=== PATIENT | male | born 1935 | race Caucasian/White ===

== ENCOUNTER → 2017-07-25 17:16 | Outpatient (CLI) | payer MEDICARE, OTHER, SELFPAY ==
--- NOTE | 2017-07-25 10:45 | FLU_PTH ---
PATIENT: GIOVANY MELLO LOC: [facility] U#:[id number] AGE/SX: 89/M ROOM: RE07/25/[address]: Dr. Will Gudino MD : 1935 BED: DIS: SPEC #: [id number] RECD: 07/25/17 16:00 STATUS: MAKENNA CAVANAUGHDeven #: [id number] MITCH: 07/25/17 10:[address]: Will Gudino DEPT: CYTOLOGY RECD BY: Britany Miles ENTERED: 07/26/17 09:11 SP TYPE: Fluid OTHR DR: Dr. Mike Portillo MD Tissues: Urine Procedures: Pap Stain (control) Special Stain Group II Cytospin Fluid HEADER OPERATION: Not noted PRE-OP DIAGNOSIS: History bladder cancer TISSUE SUBMITTED: Urine for cytology DIAGNOSIS CYTOLOGY Urine for cytology (cytospin): Atypical urothelial cells noted. ABEL:kemi 07/27/17 COMMENT Clinical correlation and appropriate follow up are necessary. Case has been reviewed in consultation with Dr. Castañeda who concurs with the above diagnosis. IDC:AM CYTOLOGY STUDY Slides are reviewed. CYTOLOGY GROSS Received is 50 ml of clear yellow fluid labeled with the patient's name and and designated per the requisition as urine. Submitted for cytology preparation. / Kelsea 07/26/17 TC:5 [facility]: [id number]
[2017-07-25 17:18] LABS: Cytology, Body Fluid / CSF SEE PATHOLOGY REPORT
== END ==
PROVIDERS: Family Provider Family Medicine; PCP Family Medicine; Visit Provider Urology
DX: Z85.51 Personal history of malignant neoplasm of bladder (principal)
CPT/HCPCS: 88108; 88305; 88313

== ENCOUNTER → 2018-06-23 07:19 | Outpatient (CLI) | payer MEDICARE, OTHER, SELFPAY ==
[2018-06-15 08:13] VITALS: BMI 28.5
[2018-06-15 09:48] LABS: Anion Gap 10 (5-15); BUN 24 mg/dL (7-18); BUN/Creat Ratio 29.3 RATIO (10-20); Chloride 106 mmol/L (98-107); Creatinine, Serum 0.82 mg/dL (0.70-1.30); EST Glomerular Filtration Rate 96 mL/min (>60); Est Glom Filt Rate - Afr Amer 116 mL/min (>60); Glucose 126 mg/dL (74-106); Potassium 4.4 mmol/L (3.5-5.1); Sodium Level 141 mmol/L (136-145)
--- NOTE | 2018-06-23 07:24 | CT_ITS ---
STUDY: CTA CHEST REASON FOR EXAM: Male, 82 years old. 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 History of diabetes and hypertension. RADIATION DOSAGE (If Supplied By Facility): CTDIvol = ( 15.12 ) mGy, DLP = ( 626.37 ) mGycm TECHNIQUE: The examination was performed with the intravenous administration of Isovue 370 75mL IV. Post-processing of the angiographic images was performed, with multiplanar reformation and 3D reconstruction. Individualized dose optimization techniques were used for this CT. COMPARISON: CT of the chest,, March 26, 2016. FINDINGS: Normal enhancement of the main pulmonary artery and right and left pulmonary arteries. Normal enhancement of the bilateral peripheral pulmonary arteries. There is no demonstrated pulmonary embolism. The There is atherosclerotic tortuosity of the thoracic aorta without aneurysm. As atherosclerotic changes of the right brachiocephalic artery and left subclavian artery. The right internal carotid artery is small in diameter when compared to the left. There is no visualized stenosis. There is no demonstrated aortic dissection. The heart is mildly enlarged. There is a small pericardial effusion. There are calcifications of the coronary arteries. There is partial calcification of the azygos node. No other lymphadenopathy is noted. Normal hilar regions. Normal visualized trachea and bronchi. The lungs are hyper expanded, with flattening of the hemidiaphragms. Minimal linear scarring versus patchy infiltrate in the left lower lobe. There is a pleural-based nodule measuring 4 mm in the lingula. There is an adjacent ill-defined 6 x 5 mm nodule (image 70, series 2) Normal pleura. Normal chest wall structures. There are degenerative changes of thoracic spine. Normal visualized upper abdomen. CT/CTA Chest W/WO Contrast IMPRESSION: 1. Question pulmonary hypertension. There is no evidence of pulmonary embolus. 2. Atherosclerotic aorta without aneurysm or dissection. 3. Mild cardiomegaly with pericardial effusion. 4. Emphysematous changes of the lungs. There are patchy infiltrate at the right lung base with nodular densities in the lingula. 5. Degenerative changes of the lumbar spine Electronically Signed: Juan Carlos Beltran DO at 22:00 EST Tel [phone], Service support ,
[2018-06-23] MEDS: 0.9% Normal Saline 1,000 ML 1000 ML IV (07:45)
[2018-06-23 07:47] VITALS: BP 108/64; PULSE 71; RESP 16; O2SAT 95; BMI 26.9
== END ==
PROVIDERS: Family Provider Family Medicine; PCP Family Medicine; Referring Provider Surgery; Visit Provider Surgery
DX: I65.29 Occlusion and stenosis of unspecified carotid artery (principal); I77.1 Stricture of artery; R79.89 Other specified abnormal findings of blood chemistry
CPT/HCPCS: 96360; 36415; 71275; 80048; Q9967; A4216

== ENCOUNTER → 2019-02-01 17:29 | Outpatient (CLI) | payer MEDICARE, OTHER, SELFPAY ==
[2018-06-23 07:47] VITALS: BMI 26.9
--- NOTE | 2019-02-01 | CYSPIN_PTH ---
PATIENT: GIOVANY MELLO LOC: [facility] U#:[id number] AGE/SX: 89/M ROOM: RE02/01/[address]: Dr. Will Gudino MD : 1935 BED: DIS: SPEC #: [id number] RECD: 02/02/19 08:52 STATUS: MAKENNA YULIET #: [id number] MITCH: 02/01/19 00:[address]: Will Gudnio DEPT: CYTOLOGY RECD BY: Kel Lawrence ENTERED: 02/02/19 08:52 SP TYPE: CYSPIN FL OTHR DR: Dr. Mike Portillo MD Tissues: Urine Procedures: Pap Stain (control) Special Stain Group II Cytospin Fluid HEADER OPERATION: Not noted PRE-OP DIAGNOSIS: R82.998 TISSUE SUBMITTED: Urine for cytology DIAGNOSIS CYTOLOGY Urine for cytology (cytospin): Negative for malignant cells. See cytology study and comment. SJ:kemi 02/05/19 COMMENT Please make reference to previous specimen ([id number]) urine for cytology with diagnosis of atypical urothelial cells noted. CYTOLOGY STUDY Slides are reviewed. The specimen consists of benign squamous cells and urothelial cells. CYTOLOGY GROSS Received is 70 ml of clear yellow fluid labeled with the patient's name and and designated per the requisition as urine. Submitted for cytology preparation. / kemi 02/02/19 TC:4 CPT: 92042
[2019-02-01 17:30] LABS: Cytology, Body Fluid / CSF SEE PATHOLOGY REPORT
== END ==
PROVIDERS: Family Provider Family Medicine; PCP Family Medicine; Referring Provider Urology; Visit Provider Urology
DX: R82.998 Other abnormal findings in urine (principal)
CPT/HCPCS: 88108; 88313

== ENCOUNTER → 2019-09-13 | Outpatient (CLI) | payer MEDICARE, OTHER, SELFPAY ==
[2018-06-23 07:47] VITALS: BMI 26.9
--- NOTE | 2019-09-13 | CYSPIN_PTH ---
PATIENT: GI[facility] MELL[facility] U#:[id number] AGE/SX: 84/M ROOM: RE09/13/[address]: Dr. Will Gudino MD : 1935 BED: DIS: 09/13/2019 SPEC #: [id number] RECD: 09/14/19 10:49 STATUS: MAKENNA YULIET #: [id number] MITCH: 09/13/19 00:[address]: Will Gudino DEPT: CYTOLOGY RECD BY: Kel Lawrence ENTERED: 09/14/19 10:49 SP TYPE: CYSPIN FL OTHR DR: Dr. Mike Portillo MD Tissues: Urine Procedures: Pap Stain (control) Special Stain Group II Cytospin Fluid HEADER OPERATION: Not noted PRE-OP DIAGNOSIS: Malignant neoplasm of bladder TISSUE SUBMITTED: Urine for cytology DIAGNOSIS CYTOLOGY Urine for cytology (cytospin): Atypical urothelial cells present suspicious for low grade urothelial neoplasm. AM:kemi 09/17/19 COMMENT Case has been reviewed in consultation with Dr. Sexton who concurs with the above diagnosis. IDC:SJ CYTOLOGY STUDY Slides are reviewed. CYTOLOGY GROSS Received is 50 ml of gold cloudy fluid labeled with the patient's name and and designated per the requisition as urine. Submitted for cytology preparation. / kemi 09/14/19 TC:? CPT: 02301
[2019-09-13 17:15] LABS: Cytology, Body Fluid / CSF SEE PATHOLOGY REPORT
== END | disposition home or self-care (01) ==
LOC: LABSPEC 16:54
PROVIDERS: PCP Family Medicine; Referring Provider Urology; Visit Provider Urology
DX: C67.9 Malignant neoplasm of bladder, unspecified (principal)
CPT/HCPCS: 88108; 88313

== ENCOUNTER 2019-09-28 11:41 | Day surgery (SDC) | payer MEDICARE, OTHER, SELFPAY ==
[2018-06-23 07:47] VITALS: BMI 26.9
--- NOTE | 2019-09-28 | BLA_PTH ---
PATIENT: GIOVANY MELLO [place] [facility] [place][id number] AGE/SX: 84/M ROOM: RE09/28/[address]: Dr. Will Gudino MD : 1935 BED: DIS: 09/28/2019 SPEC #: [id number] RECD: 09/28/19 15:01 STATUS: MAKENNA YULIET #: [id number] MITCH: 09/28/19 00:[address]: Will Gudino DEPT: SURGICAL PATHOLOGY RECD BY: Kel Lawrence ENTERED: 10/01/19 09:38 SP TYPE: BLADDER BX OTHR DR: Dr. Mike Portillo MD Tissues: Urinary bladder, NOS Procedures: Surgery Specimen Level IV HEADER OPERATION: Bladder biopsy, cysto with retrogrades, fulguration PRE-OP DIAGNOSIS: Malignant neoplasm of bladder TISSUE SUBMITTED: Bladder biopsy MICROSCOPIC DIAGNOSIS Bladder, biopsy: Fragments of urothelial mucosa with minimal chronic inflammation. Negative for malignancy. See comment. SJ:kemi 10/02/19 COMMENT Detrusor muscle is also noted in the specimen. Please correlate with corresponding cytology specimen [id number]. Correlation with clinical, cystoscopic findings and appropriate follow up are necessary. Please make reference to previous specimen ([id number]) urine for cytology with diagnosis of atypical urothelial cells present suspicious for low grade urothelial neoplasm. Case has been reviewed in consultation with Dr. Castañeda who concurs with the above diagnosis. IDC:AM MICROSCOPIC DESCRIPTION Slides are reviewed. GROSS DESCRIPTION Received in fixative is one container labeled with the patient's name and designated bladder biopsy. The specimen consists of three irregular fragments of light bergman soft tissue that in aggregate measure 0.5 x 0.1 x <0.1 cm. The specimen is totally submitted in one cassette. / ABEL:kemi 10/01/19 TC:3 CPT: 92850
--- NOTE | 2019-09-28 | CYSPIN_PTH ---
PATIENT: GIOVANY MELLO [place] [facility] [place][id number] AGE/SX: 84/M ROOM: RE09/28/[address]: Dr. Will Gudino MD : 1935 BED: DIS: 09/28/2019 SPEC #: [id number] RECD: 09/28/19 09:34 STATUS: MAKENNA YULIET #: [id number] MITCH: 09/28/19 00:[address]: Will Gudino DEPT: CYTOLOGY RECD BY: Kel Lawrence ENTERED: 10/01/19 09:35 SP TYPE: CYSPIN FL OTHR DR: Dr. Mike Portillo MD Tissues: A - Urine B - Urine Procedures: Pap Stain (control) Special Stain Group II Cytospin Fluid HEADER OPERATION: Bladder biopsy PRE-OP DIAGNOSIS: Malignant neoplasm of bladder TISSUE SUBMITTED: A - Right kidney urine for cytology, B - Left kidney urine for cytology DIAGNOSIS CYTOLOGY A. Right kidney urine for cytology (cytospin): Cluster of urothelial cells noted with minimal atypia. B. Left kidney urine for cytology (cytospin): Cluster of urothelial cells noted with minimal atypia. SJ:kemi 10/02/19 COMMENT Correlation with clinical, radiologic findings and appropriate follow up are necessary. Please also correlate with corresponding surgical specimen [id number]. Please make reference to previous specimen ([id number]) urine for cytology with diagnosis of atypical urothelial present suspicious for low grade urothelial neoplasm. Case has been reviewed in consultation with Dr. Castañeda who concurs with the above diagnosis. IDC:AM CYTOLOGY STUDY Slides are reviewed. CYTOLOGY GROSS A - Received is 10 ml of pink cloudy fluid labeled with the patient's name and and designated per the requisition as right kidney urine. Submitted for cytology preparation including cell block. B - Received is 10 ml of yellow cloudy fluid labeled with the patient's name and and designated per the requisition as left kidney urine. Submitted for cytology preparation including cell block. / kemi 10/01/19 TC:5 CPT: 50706 x2
[2019-09-28 12:17] VITALS: BP 118/77; PULSE 79; RESP 16; TEMP 36.5; O2SAT 97; BMI 26.9
[2019-09-28 12:20] LABS: Bedside Glucose 141 mg/dL (70-110)
[2019-09-28] MEDS: Lactated Ringers 1,000 ML 100 ML IV (12:30)
[2019-09-28] MEDS: Cefazolin 2 GM in 0.9% Normal Saline 100 ML IV (14:19)
--- NOTE | 2019-09-28 14:23 | PCM.HP.STD ---
History of Present Illness Date of Admission: 09/28/19 Chief Complaint: Bladder cancer The patient is a 84 year old male with a history of bladder cancer his recent cystoscopy was done in the office no obvious lesions or tumors seen then the cytology came back positive with cancer cells cystoscopy today working to taken the surgery for cystoscopy bladder biopsies random prostatic biopsy bilateral retrograde pyelograms. Also sent selective cytologies from the kidneys. 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 Right inguinal hernia (Acute) K40.90 Personal history of colonic polyps (Acute) Z86.010 PAD (peripheral artery disease) (Acute) I73.9 Malignant neoplasm of bladder, part unspecified (Acute) C67.9 Internal hemorrhoids (Acute) K64.8 Inguinal hernia (Acute) K40.90 Incisional hernia without mention of obstruction or gangrene (Acute) K43.2 Hypertension (Chronic) I10 Hyperlipemia (Acute) E78.5 Heme positive stool (Acute) R19.5 Diverticulosis of colon (without mention of hemorrhage) (Acute) K57.30 Carpal tunnel syndrome (Acute) G56.00 Benign neoplasm of colon (Acute) D12.6 Anemia (Acute) D64.9 Allergies naproxen [From Aleve] Allergy (Verified 09/28/19 12:05) Hives Home Medications: Ambulatory Orders Medication Instructions Recorded Acetaminophen [Tylenol] 325 mg PO DAILY 10/05/16 Albuterol Inhaler [Ventolin Hfa 1 - 2 puff INHALATION Q4H PRN PRN 10/05/16 (SP)] Aspirin [Aspirin, Baby] 81 mg PO DAILY@0800 10/05/16 Atenolol [Tenormin (Beta Cedric)] 50 mg PO DAILY 10/05/16 Finasteride [Proscar] 5 mg PO DAILY 10/05/16 Folic Acid 1 mg PO DAILY@0800 10/05/16 Levothyroxine [Synthroid] 25 mcg PO DAILY 06/20/17 Lisinopril [Zestril] 2.5 mg PO DAILY 10/05/16 Metformin HCl 1,000 mg PO BID 10/05/16 Multivitamin [Multiple Vitamins] 1 ea PO DAILY 10/05/16 Tamsulosin HCl [Flomax] 0.8 mg PO QHS 10/05/16 Turmeric/Turmeric Root Extract 500 mg PO DAILY 10/05/16 [Turmeric] atorvastatin 40 mg tablet 40 mg PO QDAY 05/19/17 pyridoxine (vitamin B6) 100 mg 100 mg PO QODAY 05/19/17 tablet Surgical History: Surgical History (Last Reviewed 06/15/18 @ 08:12 by Yuridia Avilez) Hx of decompression of ulnar nerve (Acute) Z98.890 Right 05/05/12 Hx of inguinal hernia repair (Acute) Z98.890, Z87.19 Right- 02/25/15 Hx of ventral hernia repair (Acute) Z98.890, Z87.19 03/06/08 History of angioplasty of peripheral vessel (Acute) Z98.62 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 Mid back ulcerated lesion- 10/08/15 History of esophagogastroduodenoscopy (EGD) (Acute) Z98.890 10/06/2016 Hx of partial cystectomy (Acute) Z98.890 Tumor removed 03/2011 S/P colonoscopy with polypectomy (Acute) Z98.890 10/06/2016 S/P colonoscopy (Acute) Z98.890 01/14/2005, 04/04/08 History of carpal tunnel surgery (Acute) Z92.89 2010 Hx of angioplasty (Acute) Z98.62 03/28/06 Surgical History: no surgical history Smoking Status: Former smoker Tobacco Use: Chew Review of Systems Constitutional: Denies: Chills, Fever, Weight Change HEENT: Denies: Head Aches, Sinus Congestion, Sinus Drainage Cardiovascular: Denies: Chest Pain, Palpitations Respiratory: Denies: Cough, Shortness of breath at rest, Sputum production Gastrointestinal: Denies: Abdominal Pain, Nausea, Vomiting Genitourinary: Denies: Dysuria Musculoskeletal: Denies: Joint Pain, Joint Tenderness Skin: Denies: Rash, Wounds Neurological: Denies: Numbness, Tingling, Focal weakness Psychiatric: Denies: Anxiety, Depression, Homicidal Ideations, Suicidal Ideations Hematologic/ Lymphatic: Denies: Easy Bruising, Easy Bleeding VTE Information - Inpt Only VTE Present on Admission: No VTE Mechan Device Prophylaxis: SCD's - Physical Exam Vitals/I&O's: Vital Signs Temp Pulse Resp BP Pulse Ox 97.7 F L 79 16 118/77 97 09/28/19 12:17 09/28/19 12:17 09/28/19 12:17 09/28/19 12:17 09/28/19 12:17 Oxygen Delivery Method Room Air Weight: 77.8 kg Body Mass Index (BMI) 26.9 General: Alert, Oriented x3, Cooperative HEENT: Atraumatic, PERRLA, EOMI, Normocephalic Neck: Supple, No JVD, Negative Carotid Bruits Lungs: Clear to auscultation, Normal air movement Cardiovascular: Regular rate, No murmurs Abdomen: Bowel Sounds Present, Soft, Non Tender Extremities: No edema, Capillary Refill Less than 3 Seconds Skin: No rashes, No breakdown Musculoskeletal: No Tenderness to Palpation of Joints or Extremities Neurological: Cranial nerves II-XII grossly intact Psych/Mental Status: Normal Affect, Appropriate Laboratory Results 09/28/19 12:15: POC Glucose 141 H 09/28/19 12:40: COVID-19 ([facility]) Negative Current Medications Cefazolin Sodium 2 gm/ Sodium (Chloride) 110 mls @ 150 mls/hr IV PREOP ONE Stop: 09/28/19 14:28 Lactated Ringer's () 1,000 mls @ 100 mls/hr IV .Q10H CHAD Last Admin: 09/28/19 12:30 Dose: 100 mls/hr Documented by: Assessment/Plan All Active Problems (Last Reviewed 06/15/18 @ 08:12 by Yuridia Avilez) Hx of decompression of ulnar nerve (Acute) Hx of inguinal hernia repair (Acute) Hx of ventral hernia repair (Acute) History of angioplasty of peripheral vessel (Acute) Rectal fistula (Acute) Hx of aorto-femoral bypass (Acute) Hx of local excision of skin lesion (Acute) History of esophagogastroduodenoscopy (EGD) (Acute) Hx of partial cystectomy (Acute) S/P colonoscopy with polypectomy (Acute) S/P colonoscopy (Acute) History of carpal tunnel surgery (Acute) Hx of angioplasty (Acute) Diabetes mellitus, type II (Acute) Stenosis of right subclavian artery (Acute) Right inguinal hernia (Acute) Personal history of colonic polyps (Acute) PAD (peripheral artery disease) (Acute) Malignant neoplasm of bladder, part unspecified (Acute) Internal hemorrhoids (Acute) Inguinal hernia (Acute) Incisional hernia without mention of obstruction or gangrene (Acute) Hyperlipemia (Acute) Heme positive stool (Acute) Diverticulosis of colon (without mention of hemorrhage) (Acute) Carpal tunnel syndrome (Acute) Benign neoplasm of colon (Acute) Anemia (Acute) 84-year-old male with multiple medical problems presents with a history of bladder cancer positive cytology. Proceed with a work-up cystoscopy bladder biopsy prostatic urethral biopsy and bilateral retrograde pyelograms.
--- NOTE | 2019-09-28 14:25 | PCM.DC.URO ---
Discharge Diet: No Restrictions Discharge Activity: Return to Normal Activity Additional Activity Instructions:: Please be aware that pain medications may cause nausea. You should typically eat light foods as you take your pain medication. Pain medication may cause constipation, if this is a problem for you, please discuss with your doctor. Allergies/Adverse Reactions: Allergies naproxen [From Aleve] Allergy (Verified 09/28/19 12:05) Hives Medications to take at Discharge Acetaminophen [Tylenol] 325 mg PO DAILY 10/05/16 Albuterol Inhaler [Ventolin Hfa (SP)] 1 - 2 puff INHALATION Q4H PRN PRN 10/05/16 Aspirin [Aspirin, Baby] 81 mg PO DAILY@0800 10/05/16 Atenolol [Tenormin (Beta Cedric)] 50 mg PO DAILY 10/05/16 Finasteride [Proscar] 5 mg PO DAILY 10/05/16 Folic Acid 1 mg PO DAILY@0800 10/05/16 Levothyroxine [Synthroid] 25 mcg PO DAILY 10/05/16 Lisinopril [Zestril] 2.5 mg PO DAILY 10/05/16 Metformin HCl 1,000 mg PO BID 10/05/16 Multivitamin [Multiple Vitamins] 1 ea PO DAILY 10/05/16 Tamsulosin HCl [Flomax] 0.8 mg PO QHS 10/05/16 Turmeric/Turmeric Root Extract [Turmeric] 500 mg PO DAILY 10/05/16 atorvastatin 40 mg tablet 40 mg PO QDAY 05/19/17 pyridoxine (vitamin B6) 100 mg tablet 100 mg PO QODAY 05/19/17 Cephalexin [Keflex] 500 mg PO TID #10 cap 09/28/19 The following prescriptions were given: Cephalexin [Keflex] 500 mg PO TID #10 cap Transmission Status: Pending to [facility] Primary Care Physician: Mike Portillo MD [Primary Care Provider] - Test Results: Test results from this visit will be discussed in further detail at your follow-up appointment, if applicable. Please Follow Up With: Will Gudino MD When: in 2 weeks, please call to make an appointment.
--- NOTE | 2019-09-28 14:55 | OP.PCM_ITS ---
Report of Operation Date of Procedure: 09/28/19 Pre-Operative Diagnosis: History of bladder cancer abnormal cytology Post-Operative Diagnosis: History of bladder cancer with abnormal cytology bladder lesion Surgery/Procedure Performed:: Cystoscopy biopsy of a small half a centimeter bladder lesion in the dome of the bladder and cauterization and fulguration of the site, left retrograde pyelogram, right retrograde program and interpretation of fluoroscopic images. Description of Surgical Findings:: 84-year-old male was taken back to the operating room after smooth induction of anesthesia he was placed in dorsolithotomy position the penis and testicles are prepped and draped in usual sterile fashion went to the bladder with a 21 [place] rigid cystourethroscope the entire length the urethra is normal the prostate had some minor bilateral hypertrophy minor median lobe inside the bladder identified the right and left ureteral orifice I identified the trigone we did inspection of the entire bladder the only lesion I found was in the dome of the bladder up on the left dome there was a small reddish lesion 2 biopsies of this were taken with a biopsy forcep and then this was cauterized the lesion measured 0.5 cm in size and then I cauterized the biopsy site completely. I then cannulated the left ureteral orifice advanced a wire up into the [employer] pelvis of the kidney advanced the 5 [place] open-ended catheter up to the kidney and a put normal saline up in the kidney and then shannon out 5 cc of normal saline this was sent for cytology after washing. We then performed a retrograde pyelogram of the left side and this was deemed normal no filling defects were seen. I then cannulated the right ureteral orifice with a Glidewire advanced a wire up into the kidney over the wire advanced a Pollick catheter obtain urine from the right kidney for cytology performed a retrograde pyelogram of the right side again this was also deemed normal with no obvious filling defects. The bladder was drained patient anesthetic reversed he will follow-up in about 7 to 10 days to review the biopsy reports and the cytologies. Type of Anesthesia:: General Drains: none - Admit VTE Documentation VTE Present on Admission: No VTE Mechan Device Prophylaxis: SCD's
[2019-09-28 15:00] VITALS: BP 118/77; BP 88/73; PULSE 83; RESP 16; TEMP 36.4; O2SAT 95
[2019-09-28 15:05] LABS: Cytology, Body Fluid / CSF SEE PATHOLOGY REPORT
[2019-09-28 15:15] VITALS: BP 116/83; BP 118/77; PULSE 89; RESP 16; O2SAT 94
[2019-09-28 15:15] LABS: Bedside Glucose 124 mg/dL (70-110)
[2019-09-28 15:26] VITALS: BP 118/77; BP 124/89; PULSE 74; RESP 16; O2SAT 95
[2019-09-28 15:30] VITALS: BP 118/77; BP 123/83; PULSE 76; RESP 16; TEMP 36.7; O2SAT 96
[2019-09-28 16:10] VITALS: BP 118/77; BP 141/88; PULSE 75; RESP 18; TEMP 36.6; O2SAT 98
== END 2019-09-28 16:32 | disposition home or self-care (01) ==
LOC: SDC 11:45 → AC 11:47
PROVIDERS: Anesthesiology; PCP Family Medicine; Referring Provider Urology; Visit Provider Urology
PROC: 0TBB8ZX Excision of Bladder, Via Natural or Artificial Opening Endoscopic, Diagnostic (ICD-10-PCS; CPT 52250; principal; 2019-09-28 13:20)
DX: C67.9 Malignant neoplasm of bladder, unspecified (principal); R82.89 Other abnormal findings on cytological and histological examination of urine; N32.9 Bladder disorder, unspecified; N40.1 Benign prostatic hyperplasia with lower urinary tract symptoms; I10 Essential (primary) hypertension; J44.9 Chronic obstructive pulmonary disease, unspecified; E78.5 Hyperlipidemia, unspecified; E11.51 Type 2 diabetes mellitus with diabetic peripheral angiopathy without gangrene; E78.00 Pure hypercholesterolemia, unspecified; E06.9 Thyroiditis, unspecified; Z86.010 Personal history of colon polyps; Z79.82 Long term (current) use of aspirin; Z79.84 Long term (current) use of oral hypoglycemic drugs; Z79.899 Other long term (current) drug therapy; Z87.891 Personal history of nicotine dependence; Z11.59 Encounter for screening for other viral diseases
CPT/HCPCS: 00910; 52005; 52204; 76000; 82962; 87635; 88108; 88305; 88313; G2023; J7120; C1769; J2405; U0003

== ENCOUNTER 2021-06-17 10:57 | Outpatient (CLI) | payer MEDICARE, OTHER, SELFPAY ==
--- NOTE | 2021-06-17 11:02 | RAD_ITS ---
STUDY: XR Chest 2 Views 06/17/2021 11:08 AM REASON FOR EXAM: Male, 85 years old. CHEST PAIN COPD COMPARISON: None TECHNIQUE: XR Chest 2 Views FINDINGS: There is no demonstrated pleural abnormality. Normal heart size. Normal mediastinum. Normal raz. Prominent appearing increased interstitial lung markings. Normal visualized pulmonary arteries. There is atherosclerotic calcification of the aortic arch with tortuosity. There are diffuse degenerative changes of the visualized thoracic spine. There is degenerative osteoarthritis of the bilateral shoulders. There is no demonstrated abnormality of the visualized soft tissue structures of the upper abdomen. RAD/Chest PA and Lateral IMPRESSION: There are no acute findings. Electronically Signed: Adria Araiza MD at 19:38 EST ,
== END 2021-06-17 23:59 | disposition home or self-care (01) ==
LOC: MTRAD 11:00
PROVIDERS: PCP Family Medicine; Referring Provider Internal Medicine Pulmonary Disease; Visit Provider Internal Medicine Pulmonary Disease
DX: J44.9 Chronic obstructive pulmonary disease, unspecified (principal)
CPT/HCPCS: 71046

== ENCOUNTER 2022-05-18 17:22 | Emergency (ER) | payer MEDICARE, OTHER, SELFPAY ==
[2022-05-18 17:24] VITALS: BP 112/69; PULSE 69; RESP 14; TEMP 36.6; O2SAT 94; BMI 25.3
[2022-05-18] MEDS: Diphth,Pertuss(Acell),Tet Vac 0.5 ML Vial IM (21:03)
[2022-05-18] MEDS: Cephalexin 250 MG Capsule 500 MG PO (21:38)
--- NOTE | 2022-05-18 21:40 | EDS_ITS ---
HPI History of Present Illness Chief Complaint: Laceration Narrative Narrative: 86-year-old male presenting with left leg laceration. Patient states this occurred from a radiator he was working on his car. He states initially bled quite a bit but then he was able to get bleeding under control. Patient states its not painful. Patient's last tetanus immunization is unknown. Patient able to ambulate. [facility] Medical History Anemia Benign neoplasm of colon Carpal tunnel syndrome Diabetes mellitus, type II Diverticulosis of colon (without mention of hemorrhage) Heme positive stool Hyperlipemia Hypertension Incisional hernia without mention of obstruction or gangrene Inguinal hernia Internal hemorrhoids Malignant neoplasm of bladder, part unspecified PAD (peripheral artery disease) Personal history of colonic polyps Right inguinal hernia Stenosis of right subclavian artery Home Medications acetaminophen 325 mg tablet 325 mg PO DAILY 10/05/16 [History Last Taken Unknown] albuterol sulfate 90 mcg/actuation aerosol inhaler 1 - 2 puff inhalation Q4H PRN PRN Asthma 10/05/16 [History Last Taken Unknown] aspirin 81 mg chewable tablet 81 mg PO DAILY@0800 10/05/16 [History Last Taken 09/27/19 07:00] atenolol 100 mg tablet 50 mg PO DAILY 10/05/16 [History Last Taken 09/28/19 07:15] finasteride 5 mg tablet 5 mg PO DAILY 10/05/16 [History Last Taken 10/06/16 08:00] folic acid 1 mg tablet 1 mg PO DAILY@0800 10/05/16 [History Last Taken Unknown] levothyroxine 25 mcg tablet 25 mcg PO DAILY 10/05/16 [History Last Taken 09/28/19 07:15] lisinopril 2.5 mg tablet 2.5 mg PO DAILY 10/05/16 [History Last Taken 09/28/19 07:15] metformin 500 mg tablet 1,000 mg PO BID 10/05/16 [History Last Taken Unknown] multivitamin 1 ea PO DAILY 10/05/16 [History Last Taken Unknown] tamsulosin 0.4 mg capsule 0.8 mg PO QHS 10/05/16 [History Last Taken 10/03/16] turmeric 450 mg-turmeric root extract 50 mg capsule 500 mg PO DAILY 10/05/16 [History Last Taken Unknown] atorvastatin 40 mg tablet 40 mg PO QDAY 05/19/17 [History Last Taken Unknown] pyridoxine (vitamin B6) 100 mg tablet 100 mg PO QODAY 05/19/17 [History Last Taken Unknown] cephalexin 500 mg capsule 500 mg PO TID #10 caps 09/28/19 [Rx Last Taken Unknown] cephalexin 500 mg capsule 500 mg PO Q6 #40 CAPSULES 05/18/22 [Rx Last Taken Unknown] Allergy/AdvReac Type Severity Reaction Status Date / Time naproxen [From Aleve] Allergy Hives Verified 05/18/22 17:23 Family History Mother CAD (coronary artery disease) Brother Diabetes Father Heart disease Surgical History History of angioplasty of peripheral vessel History of carpal tunnel surgery History of esophagogastroduodenoscopy (EGD) Hx of angioplasty Hx of aorto-femoral bypass Hx of decompression of ulnar nerve Hx of inguinal hernia repair Hx of local excision of skin lesion Hx of partial cystectomy Hx of ventral hernia repair Rectal fistula S/P colonoscopy S/P colonoscopy with polypectomy Social History Smoking Status: Former smoker second hand exposure: No alcohol intake: never substance use type: does not use caffeine: Yes what type of physical activity do you participate in: none frequency: does not exercise seatbelt use: always ROS ROS ED Constitutional Constitutional ED: Denies chills, fever(s) or sweats Eyes Eyes: Denies blurry vision or change in vision ENT ENT ED: Denies ear pain or sore throat Cardiovascular Cardiovascular: Denies chest pain, palpitations or racing heartbeat Respiratory/Chest Respiratory/Chest: Denies cough, dyspnea or sputum Gastrointestinal Gastrointestinal: Denies abdominal pain, constipation, diarrhea, nausea or vomiting Genitourinary Genitourinary ED: Denies dysuria, hematuria or urinary frequency Musculoskeletal Musculoskeletal: Denies arthralgias, myalgias or neck pain Integumentary Reports other Details: Left leg laceration ; Denies abscess Neurologic Neurologic: Denies headache(s), paresthesias or weakness Psychiatric Psychiatric: Denies anxiety, depression, suicidal ideation or suicidal thoughts Endocrine Endocrinology: Denies polydipsia or polyuria EXAM Physical Exam Const Vital Signs: 05/18/22 17:24 Temperature 98 F Temperature Source Temporal Pulse Rate 69 Respiratory Rate 14 Blood Pressure 112/69 Blood Pressure Mean 83 Pulse Ox 94 Oxygen Delivery Method Room Air Positive well nourished General Appearance ED: NAD HEENT normocephalic and atraumatic Chest Wall inspection of chest normal Resp normal respiratory effort and no retractions Auscultation: Negative for rales, rhonchi or wheezes Cardio regular rate and regular rhythm GI non-tender Back/Spine General Back: CVA tenderness Extremity Extremity Narrative: 4 cm linear avulsion laceration to the left tibial region. Neuro oriented x3 Sensorium / Orientation: alert Motor Exam: strength 5/5 throughout Psych mental status grossly normal Skin Skin Narrative: As described above MDM MDM MDM Narrative Medical decision making narrative: Patient with avulsion laceration/skin tear to the left leg. The wound margins do not line up. Skin is somewhat macerated in this region. He has very thin skin rectum afraid this will tear if I try to suture it. I did have the wound cleaned and dressed in place. Patient's tetanus was updated. Patient given care instructions and return precautions. I did start the patient on Keflex today to cover him for infection. Impression 1. 4 cm left leg laceration Lab Data Attestation: I reviewed the patient's lab results. Discharge Plan Triage Chief Complaint: Laceration ED Provider: Celso Caldera Dx/Rx/DC Orders Instructions: ED Skin Avulsion Prescriptions: New cephalexin 500 mg capsule 500 mg PO Q6 Qty: 40 0RF No Action atorvastatin 40 mg tablet 40 mg PO QDAY pyridoxine (vitamin B6) 100 mg tablet 100 mg PO QODAY multivitamin 1 EACH tablet 1 ea PO DAILY metformin 500 MG tablet 1,000 mg PO BID acetaminophen 325 MG tablet 325 mg PO DAILY atenolol 100 MG tablet 50 mg PO DAILY levothyroxine 25 MCG tablet 25 mcg PO DAILY tamsulosin 0.4 MG capsule 0.8 mg PO QHS aspirin 81 MG tablet,chewable 81 mg PO DAILY@0800 folic acid 1 MG tablet 1 mg PO DAILY@0800 albuterol sulfate 1 INHALER inhaler 1 - 2 puff INHALATION Q4H PRN PRN (Reason: Asthma) lisinopril 2.5 MG tablet 2.5 mg PO DAILY finasteride 5 MG tablet 5 mg PO DAILY turmeric-turmeric root extract 500 MG capsule 500 mg PO DAILY cephalexin 500 MG capsule 500 mg PO TID Qty: 10 0RF Primary Care Provider: Mike Portillo Referrals: Mike Portillo MD [Primary Care Provider] - Disposition Disposition: Home, Self Care
== END 2022-05-18 21:54 | disposition home or self-care (01) ==
PROVIDERS: Emergency Provider Student in an Organized Health Care Education/Training Program; PCP Family Medicine; Visit Provider Student in an Organized Health Care Education/Training Program
DX: S81.812A Laceration without foreign body, left lower leg, initial encounter (principal); E11.9 Type 2 diabetes mellitus without complications; W26.8XXA Contact with other sharp object(s), not elsewhere classified, initial encounter; Y93.89 Activity, other specified; I10 Essential (primary) hypertension; E78.5 Hyperlipidemia, unspecified; Z79.82 Long term (current) use of aspirin; Z79.84 Long term (current) use of oral hypoglycemic drugs; Z79.899 Other long term (current) drug therapy; Z87.891 Personal history of nicotine dependence; Z23 Encounter for immunization
CPT/HCPCS: 90471; 90715; 99283

== ENCOUNTER 2022-06-09 10:13 | Outpatient (RCR) | payer MEDICARE, OTHER, SELFPAY ==
[2022-06-09 10:25] VITALS: BP 106/70; PULSE 69; TEMP 35.6; BMI 25.2
--- NOTE | 2022-06-09 12:16 | PCM.WC.HP ---
History of Present Illness Date of Service: 06/09/22 Chief Complaint: Left lower leg laceration occurring on May 18, 2022 History of Wound: This is a 86-year-old very hard of hearing gentleman that dropped a radiator on his left lower leg on May 18 of this year. Developed a severe gash in his left lower leg. Was seen in the emergency department at [place]. They were unable to close with suture. He also has severe PAD in his left leg has history of aortofemoral bypass and has a lot of swelling in his left lower leg. Because of the wound has been unable to wear his compression stockings because of the swelling. Recently finished cephalexin for an infection of some kind in his leg. Patient was told not to use anything on the wound. Patient is supersensitive about touching anywhere in or around the wound area. [facility] Medical History (Updated 06/09/22 @ 12:24 by Joann Mckay NP, SECURITY RISK ANALYST-C) Anemia Benign neoplasm of colon Carpal tunnel syndrome Diabetes mellitus, type II Diverticulosis of colon (without mention of hemorrhage) Heme positive stool Hyperlipemia Hypertension Incisional hernia without mention of obstruction or gangrene Inguinal hernia Internal hemorrhoids Malignant neoplasm of bladder, part unspecified PAD (peripheral artery disease) Personal history of colonic polyps Right inguinal hernia Stenosis of right subclavian artery Home Medications acetaminophen 325 mg tablet 500 mg PO Q6H PRN Pain 10/05/16 [History Last Taken Unknown] albuterol sulfate 90 mcg/actuation aerosol inhaler 1 - 2 puff inhalation Q4H PRN PRN Asthma 10/05/16 [History Last Taken Unknown] aspirin 81 mg chewable tablet 81 mg PO DAILY@0800 10/05/16 [History Last Taken 09/27/19 07:00] finasteride 5 mg tablet 5 mg PO DAILY 10/05/16 [History Last Taken 10/06/16 08:00] folic acid 1 mg tablet 1 mg PO DAILY@0800 10/05/16 [History Last Taken Unknown] levothyroxine 25 mcg tablet 25 mcg PO MOTUWETHFRSA 10/05/16 [History Last Taken 09/28/19 07:15] metformin 500 mg tablet 500 mg PO BID 10/05/16 [History Last Taken Unknown] multivitamin 1 ea PO DAILY 10/05/16 [History Last Taken Unknown] atorvastatin 40 mg tablet 80 mg PO QDAY 05/19/17 [History Last Taken Unknown] pyridoxine (vitamin B6) 100 mg tablet 100 mg PO DAILY 05/19/17 [History Last Taken Unknown] furosemide 20 mg tablet 20 mg PO DAILY 06/09/22 [History Last Taken Unknown] meclizine 12.5 mg tablet 12.5 mg PO TID PRN Dizziness 06/09/22 [History Last Taken Unknown] metoprolol succinate 25 mg tablet,extended release 24 hr 12.5 mg PO DAILY 06/09/22 [History Last Taken Unknown] pantoprazole 40 mg tablet,delayed release 40 mg PO DAILY 06/09/22 [History Last Taken Unknown] simethicone 80 mg chewable tablet 80 mg PO TID PRN bloating 06/09/22 [History Last Taken Unknown] Allergy/AdvReac Type Severity Reaction Status Date / Time naproxen [From Aleve] Allergy Hives Verified 06/09/22 10:37 Family History Mother CAD (coronary artery disease) Brother Diabetes Father Heart disease Surgical History History of angioplasty of peripheral vessel History of carpal tunnel surgery History of esophagogastroduodenoscopy (EGD) Hx of angioplasty Hx of aorto-femoral bypass Hx of decompression of ulnar nerve Hx of inguinal hernia repair Hx of local excision of skin lesion Hx of partial cystectomy Hx of ventral hernia repair Rectal fistula S/P colonoscopy S/P colonoscopy with polypectomy Social History Smoking Status: Former smoker second hand exposure: No alcohol intake: never substance use type: does not use caffeine: Yes what type of physical activity do you participate in: none frequency: does not exercise seatbelt use: always ROS Constitutional Constitutional: Reports systems reviewed and no addt'l complaints, except as documented Eyes Eyes: Reports systems reviewed and no addt'l complaints, except as documented ENT HEENT: Reports systems reviewed and no addt'l complaints, except as documented Cardiovascular Cardiovascular: Reports systems reviewed and no addt'l complaints, except as documented Respiratory/Chest Respiratory/Chest: Reports systems reviewed and no addt'l complaints, except as documented Gastrointestinal Gastrointestinal: Reports systems reviewed and no addt'l complaints, except as documented Genitourinary Genitourinary: Reports systems reviewed and no addt'l complaints, except as documented Musculoskeletal Musculoskeletal: Reports systems reviewed and no addt'l complaints, except as documented Integumentary Integumentary: Reports wounds and other Details: Deep laceration left lower leg very sensitive to touch around with severe edema of the whole left leg from foot to thigh. Neurologic Neurologic: Reports systems reviewed and no addt'l complaints, except as documented Psychiatric Psychiatric: Reports systems reviewed and no addt'l complaints, except as documented Endocrine Endocrinology: Reports systems reviewed and no addt'l complaints, except as documented Hematologic/Lymphatic Hematologic/Lymphatic: Reports systems reviewed and no addt'l complaints, except as documented Allergic/Immunologic Allergic/Immunologic: Reports systems reviewed and no addt'l complaints, except as documented Vital Signs Vital Signs Vital Signs: 06/09/22 10:25 Temperature 96.1 F L Temperature Source Temporal Pulse Rate 69 Blood Pressure 106/70 Blood Pressure Mean 82 Blood Pressure Source Monitor Weight Weight: 161 lb Body Mass Index (BMI) 25.2 Physical Exam Const oriented x3 General Appearance: cooperative Exam Limitations: no limitations Resp normal respiratory effort Effort and Inspection: able to speak in complete sentences Auscultation: clear to auscultation bilaterally Cardio regular rate and regular rhythm Palpation: normal PMI Rate: regular rate Rhythm: regular rhythm GI Auscultation: normoactive bowel sounds Palpation: soft and no hepatosplenomegaly Extremity normal to inspection General Extremity: edema left lower extremity and weight-bearing difficulty; Negative for no tenderness to palpation of joints or extremities Left Lower Extremity: lower leg inspection (Laceration), palpation (Tender to palpate) and neurovascular exam (Poor pulses in left lower leg with swelling) Skin no rashes or lesions noted Neuro oriented x3 Psych Appearance: grossly normal Speech: normal speech Thought Content: normal thought content Judgement: judgement good Debridement Note Debridement Note Wound debrided: Left lower leg laceration trauma Type of Debridement: Excisional debridement Anesthesia Used: 5% Lidocaine Gel Depth: Down to and including healthy tissue Percentage of wound debrided: 100 Instrument Used: 7mm curette Tissue Removed: Devitalized tissue and fibrin Amount of bleeding with debridement: Mild Bleeding Controlled with: Compression and gauze Patient tolerated procedure: Patient tolerated procedure well Post-Debridement Measurements and Additional Note: Post-Debridement Measurements/Treatment WC - Nurse 1 - General Ulcer Assessment Start: 06/09/22 10:24 Freq: Status: Active Protocol: KARSON Activity Type Activity Date Activity User E-sign Co-sign Detail Recorded Client Recorded Date Recorded By Document 06/09/22 10:25 JACKLYN [id number] 06/09/22 10:34 JACKLYN 06/09/22 10:25 WC - Today's Visit Information Type of service Initial Visit Arrival Mode Ambulatory Patient Identification Verified (Name & Yes ) Patient Requires Transmission-Based No Precautions Safety Precautions NA Height and Weight Height 5 ft 7 in Weight 161 lb Weight in Pounds 161.0 lbs Body Mass Index (BMI) 25.2 BMI Classification Overweight BSA - Sia 1.84 Vital Signs Temperature (97.8 F-99.1 F) 96.1 F L Temperature Source Temporal Pulse Rate (60-100) 69 Pulse Location Monitor Blood Pressure (90/60-120/80) 106/70 Blood Pressure Mean 82 Source Monitor History Since Last Visit- (Skip if this is Patient's initial visit) Left Footwear Regular Shoe Right Footwear Regular Shoe Pain Scale: 0-10 Numeric Is Patient Pain Free? No BARBARA - Nurse 1 - General Ulcer Measurement Start: 06/09/22 10:24 Freq: Status: Active Protocol: Activity Type Activity Date Activity User E-sign Co-sign Detail Recorded Client Recorded Date Recorded By Document 06/09/22 10:25 JACKLYN [id number] 06/09/22 10:34 JACKLYN 06/09/22 10:25 Wound Center Nurse 1 #1 Left olivas -Combined with other wound No -Current Size (cm) - Length 3.4 -Current Size (cm) - Width 2.1 -Current Size (cm) - Depth 0.5 -Total Square Cm 7.14 -Date of Last Picture (Recall this 06/09/22 field) -Photo Taken Yes -Tunneling No -Undermining/Tunneling No -Circular Undermining No -Change in Wound Grade/Stage No -Exudate Amt Medium -Exudate Type Serosanguineous -Wound Margin Distinct, Outline Attached -Granulation Amt None Present (0 %) -Granulation Quality N/A -Slough/Fibrin Yes -Necrosis Amt Large (67-100%) -Necrotic Tissue Type Adherent Slough -Structure Exposed N/A -Texture (Roseline-wound Skin Appearance) No Abnormality, Assessed -Moisture (Roseline-wound Skin Appearance) No Abnormality, Assessed -Color (Roseline-wound Skin Appearance) No Abnormality, Assessed -Temperature (Roseline-wound Skin No Abnormality Appearance) (Pt Warm) -Tenderness on Palpation (Roseline-wound No Skin Appearance) -Ulcer Cleansing Rinsed/ Irrigated with Saline -Foul Odor after Cleansing No -Anesthetic Used 5% Lidocaine Gel Right Calf (cm) 33 Right Ankle (cm) 23.1 Left Calf (cm) 33 Left Ankle (cm) 28.5 WC - Nurse 2 - General Ulcer CM Notes Start: 06/09/22 10:24 Freq: Status: Active Protocol: Activity Type Activity Date Activity User E-sign Co-sign Detail Recorded Client Recorded Date Recorded By Document 06/09/22 10:51 MW [id number] 06/09/22 11:02 MW 06/09/22 10:51 Wound Center Nurse 2 #1 Left olivas -Time 10:52 -Correct Patient Yes -Correct Side, Site, Position Yes -Correct Procedure Yes -Procedure Performed Yes -Type of Procedure Debridement -Clinical Debridement Subcutaneous -Tissue Removed Subcutaneous -Post Debridement (cm) - Length 4.2 -Post Debridement (cm) - Width 2.0 -Post Debridement (cm) - Depth 0.3 -Total Square (Post) (cm) 8.40 -Area of Debridement (cm) - Length 4.2 -Area of Debridement (cm) - Width 2.0 -Total Square (Area) (cm) 8.40 -Tunneling No -Undermining/Tunneling No -Circular Undermining No -Wound/Ulcer Outcome Not Healed -Ulcer Cleansing Rinsed/ Irrigated with Saline -Foul Odor after Cleansing No -Bioengineered Tissue No -Bleeding Controlled with Pressure -Treatment Response Procedure Tolerated Well -Offloading No -Debridement - Subq, 1st 20sq cm Yes Pain Scale: 0-10 Numeric Is Patient Pain Free? Yes - Nurse 3 - General Ulcer D/C NN Start: 06/09/22 10:24 Freq: Status: Active Protocol: Activity Type Activity Date Activity User E-sign Co-sign Detail Recorded Client Recorded Date Recorded By Document 06/09/22 11:19 BMF [id number] 06/09/22 11:22 BMF 06/09/22 11:19 Wound Care Center Nurse 3 #1 Left olivas -Ulcer Cleansing Rinsed/ Irrigated with Saline -Foul Odor after Cleansing No -Primary Dressing Applied NonAdherent Contact Layer, Mepilex Border -Other Dressing hydrogel -Mepilex Border 2 Left -Tubular Bandage Single Layer -Size of Tubigrip Used Size E -Size E ($) 2 -Other sent an extra one Treatment Response Procedure Tolerated Well Pain Scale: 0-10 Numeric Is Patient Pain Free? Yes WC - Visit Discharge Discharge Condition Stable Ambulatory Status Ambulatory,Cane Transportation Private Auto Accompanied by son Assessment/Plan Assessment/Plan (1) Laceration of left lower leg with complication: CODE(S): S81.812A - Laceration without foreign body, left lower leg, initial encounter PLAN: Wash left lower leg with antibacterial soap and wound daily. Apply Santyl to wound base nickel thickness. Cover with Adaptic and then a absorbent dressing daily. Cultures were obtained will call with results Follow-up in 1 week (2) Nonhealing nonsurgical wound with fat layer exposed: CODE(S): T14.8XXA - Other injury of unspecified body region, initial encounter (3) Edema of left lower leg: CODE(S): R60.0 - Localized edema (4) PAD (peripheral artery disease): CODE(S): I73.9 - Peripheral vascular disease, unspecified
== END 2022-06-15 23:59 | disposition home or self-care (01) ==
LOC: WC 10:13
PROVIDERS: PCP Family Medicine; Visit Provider Nurse Practitioner
DX: S81.812A Laceration without foreign body, left lower leg, initial encounter (principal); E11.51 Type 2 diabetes mellitus with diabetic peripheral angiopathy without gangrene; W20.8XXA Other cause of strike by thrown, projected or falling object, initial encounter; I10 Essential (primary) hypertension; E78.5 Hyperlipidemia, unspecified; R60.0 Localized edema; Z79.82 Long term (current) use of aspirin; Z79.899 Other long term (current) drug therapy; Z87.891 Personal history of nicotine dependence; Z95.820 Peripheral vascular angioplasty status with implants and grafts
CPT/HCPCS: 11042; 87070; 87075; 87077; 87186; 87205; 99203; G0463

== ENCOUNTER 2022-07-14 11:00 | Outpatient (RCR) | payer MEDICARE, OTHER, SELFPAY ==
[2022-06-16 00:34] VITALS: BP 106/70; PULSE 69; TEMP 35.6; BMI 25.2
[2022-06-16 10:15] VITALS: BP 98/76; PULSE 81; RESP 16; TEMP 36.1; BMI 25.2
--- NOTE | 2022-06-16 11:21 | PN.PCM_ITS ---
History of Present Illness Date of Service: 06/16/22 Chief Complaint: Left lower leg laceration occurring on May 18, 2022 History of Wound: This is a 86-year-old very hard of hearing gentleman that dropped a radiator on his left lower leg on May 18 of this year. Developed a severe gash in his left lower leg. Was seen in the emergency department at [facility]. They were unable to close with suture. He also has severe PAD in his left leg has history of aortofemoral bypass and has a lot of swelling in his left lower leg. Because of the wound has been unable to wear his compression stockings because of the swelling. Recently finished cephalexin for an infection of some kind in his leg. Patient was told not to use anything on the wound. Patient is supersensitive about touching anywhere in or around the wound area. Progress of Wound: Patient grew 5 different bacteria's 2 of which were anaerobics. Patient's wound measured smaller though he has a deep center. Santyl worked good for getting the slough and debrided debriding for me. Patient is not tolerant to any debridement easily. Subjective Subjective Patient has been compliant except for wearing his compression stocking. Does his dressings himself and has been doing a very good job and measurements have been smaller Objective Data Objective Data Will be started on levofloxacin and Flagyl for the next 14 days for the bacteria that are growing. Patient will continue using the Santyl 1 more week to keep the slough out totally. Patient was informed that he needs to wear his compression stocking daily Vital Signs: Vital Signs Temp Pulse Resp BP O2 Del Method 97 F L 81 16 98/76 Room Air 06/16/22 10:15 06/16/22 10:15 06/16/22 10:15 06/16/22 10:15 06/16/22 10:15 Oxygen Delivery Method Room Air Weight: 161 lb Body Mass Index (BMI) 25.2 Lab / Micro Data Attestation: I reviewed the patient's lab results. Physical Exam Const oriented x3 General Appearance: cooperative Exam Limitations: no limitations Resp normal respiratory effort Effort and Inspection: able to speak in complete sentences Auscultation: clear to auscultation bilaterally Cardio regular rate and regular rhythm Palpation: normal PMI Rate: regular rate Rhythm: regular rhythm GI Auscultation: normoactive bowel sounds Palpation: soft and no hepatosplenomegaly Extremity normal to inspection General Extremity: edema left lower extremity and weight-bearing difficulty; Negative for no tenderness to palpation of joints or extremities Left Lower Extremity: lower leg inspection (Laceration), palpation (Tender to palpate) and neurovascular exam (Poor pulses in left lower leg with swelling) Skin no rashes or lesions noted Neuro oriented x3 Psych Appearance: grossly normal Speech: normal speech Thought Content: normal thought content Judgement: judgement good Debridement Note Debridement Note Wound debrided: Left lower leg ulcer from trauma Laterality: Left Type of Debridement: Excisional debridement Anesthesia Used: 4% Lidocaine Solution and 5% Lidocaine Gel Depth: Down to and including healthy tissue, in the subcutaneous layer and to muscle Percentage of wound debrided: 100 Instrument Used: 3mm curette Tissue Removed: Slough and fibrin Severity: Fat Layer Exposed Amount of bleeding with debridement: Mild Bleeding Controlled with: Compression and gauze Patient tolerated procedure: Patient tolerated procedure well Post-Debridement Measurements and Additional Note: Post-Debridement Measurements/Treatment - Nurse 1 - General Ulcer Assessment Start: 06/16/22 10:15 Freq: Status: Active Protocol: KARSON Activity Type Activity Date Activity User E-sign Co-sign Detail Recorded Client Recorded Date Recorded By Document 06/16/22 10:15 ML [id number] 06/16/22 10:20 ML 06/16/22 10:15 - Today's Visit Information Type of service Follow-up Visit (Physician/COMMUNITY SPORTS COORDINATOR ) Arrival Mode Ambulatory,Cane Patient Identification Verified (Name & Yes ) Patient Requires Transmission-Based No Precautions Safety Precautions NA Height and Weight Body Mass Index (BMI) 25.2 BMI Classification Overweight Vital Signs Temperature (97.8 F-99.1 F) 97 F L Temperature Source Temporal Pulse Rate (60-100) 81 Pulse Location Monitor Respiratory Rate (12-18) 16 Respiratory rate source Observation Oxygen Delivery Method Room Air Blood Pressure (90/60-120/80) 98/76 Blood Pressure Mean (mm Hg) 83 Source Monitor Position Sitting History Since Last Visit- (Skip if this is Patient's initial visit) Have you changed medications since your No last visit? Any new allergies or adverse reactions No Had a fall/change in ADL's that may No increase risk of falls Signs or symptoms of abuse and/or No neglect since last visit Have you been in the hospital since your No last visit? Has dressing in place as prescribed Yes Has compression in place as prescribed No Has offloadiing in place as prescribed N/A Experienced any changes in pain level or No management Left Footwear Regular Shoe Right Footwear Regular Shoe Pain Scale: 0-10 Numeric Is Patient Pain Free? Yes - Nurse 1 - General Ulcer Measurement Start: 06/16/22 10:15 Freq: Status: Active Protocol: Activity Type Activity Date Activity User E-sign Co-sign Detail Recorded Client Recorded Date Recorded By Document 06/16/22 10:15 ML [id number] 06/16/22 10:20 ML 06/16/22 10:15 Wound Center Nurse 1 #1 Left olivas -Combined with other wound No -Current Size (cm) - Length 3.5 -Current Size (cm) - Width 1.3 -Current Size (cm) - Depth 0.3 -Total Square Cm 4.55 -Epithelialization Small 1-33% -Tunneling No -Undermining/Tunneling No -Circular Undermining No -Exudate Amt Medium -Exudate Type Serosanguineous -Wound Margin Distinct, Outline Attached -Granulation Amt Small (1-33%) -Granulation Quality Red -Slough/Fibrin Yes -Necrosis Amt Large (67-100%) -Necrotic Tissue Type Adherent Slough -Texture (Roseline-wound Skin Appearance) Assessed, Scarring -Moisture (Roseline-wound Skin Appearance) Assessed -Color (Roseline-wound Skin Appearance) Assessed -Temperature (Roseline-wound Skin No Abnormality Appearance) (Pt Warm) -Tenderness on Palpation (Roseline-wound Yes Skin Appearance) -Ulcer Cleansing Rinsed/ Irrigated with Saline -Foul Odor after Cleansing No -Anesthetic Used 5% Lidocaine Gel Left Calf (cm) 36 Left Ankle (cm) 32 WC - Nurse 2 - General Ulcer CM Notes Start: 06/16/22 10:15 Freq: Status: Active Protocol: Activity Type Activity Date Activity User E-sign Co-sign Detail Recorded Client Recorded Date Recorded By Document 06/16/22 10:36 MW [id number] 06/16/22 10:39 MW 06/16/22 10:36 Wound Center Nurse 2 #1 Left olivas -Time 10:36 -Correct Patient Yes -Correct Side, Site, Position Yes -Correct Procedure Yes -Procedure Performed Yes -Type of Procedure Debridement -Clinical Debridement Subcutaneous -Tissue Removed Subcutaneous -Post Debridement (cm) - Length 3.8 -Post Debridement (cm) - Width 1.5 -Post Debridement (cm) - Depth 0.7 -Total Square (Post) (cm) 5.70 -Area of Debridement (cm) - Length 3.8 -Area of Debridement (cm) - Width 1.5 -Total Square (Area) (cm) 5.70 -Tunneling No -Circular Undermining No -Wound/Ulcer Outcome Not Healed -Ulcer Cleansing Rinsed/ Irrigated with Saline -Foul Odor after Cleansing No -Bioengineered Tissue No -Bleeding Controlled with Pressure -Treatment Response Procedure Tolerated Well -Offloading No -Debridement - Subq, 1st 20sq cm Yes Pain Scale: 0-10 Numeric Is Patient Pain Free? Yes - Nurse 3 - General Ulcer D/C NN Start: 06/16/22 10:15 Freq: Status: Active Protocol: Activity Type Activity Date Activity User E-sign Co-sign Detail Recorded Client Recorded Date Recorded By Document 06/16/22 10:56 [facility] [id number] 06/16/22 10:57 [facility] 06/16/22 10:56 Wound Care Center Nurse 3 #1 Left olivas -Ulcer Cleansing Rinsed/ Irrigated with Saline -Foul Odor after Cleansing No -Primary Dressing Applied NonAdherent Contact Layer, Mepilex Border -Other Dressing hydrogel; drsg per ml personal injury legal assistant -Mepilex Border 1 Left -Tubular Bandage Single Layer -Size of Tubigrip Used Size E -Size E ($) 1 Treatment Response Procedure Tolerated Well Pain Scale: 0-10 Numeric Is Patient Pain Free? Yes - Visit Discharge Discharge Condition Stable Ambulatory Status Ambulatory,Cane Transportation Private Auto Accompanied by son Assessment/Plan Assessment/Plan (1) Laceration of left lower leg with complication: CODE(S): S81.812A - Laceration without foreign body, left lower leg, initial encounter PLAN: Wash left lower leg with antibacterial soap and wound daily. Apply Santyl to wound base nickel thickness. Cover with Adaptic and then a absorbent dressing daily. Cultures were positive and patient will be started on levofloxacin 500 mg daily for 14 days and metronidazole 250 mg 1 p.o. 3 times a day for 14 days Follow-up in 1 week (2) Nonhealing nonsurgical wound with fat layer exposed: CODE(S): T14.8XXA - Other injury of unspecified body region, initial encounter (3) Edema of left lower leg: CODE(S): R60.0 - Localized edema (4) PAD (peripheral artery disease): CODE(S): I73.9 - Peripheral vascular disease, unspecified
[2022-06-23 10:13] VITALS: BP 94/61; PULSE 72; RESP 16; TEMP 36.2; BMI 25.2
--- NOTE | 2022-06-23 11:43 | PN.PCM_ITS ---
History of Present Illness Date of Service: 06/23/22 Chief Complaint: Left lower leg laceration occurring on May 18, 2022 History of Wound: This is a 86-year-old very hard of hearing gentleman that dropped a radiator on his left lower leg on May 18 of this year. Developed a severe gash in his left lower leg. Was seen in the emergency department at [facility]. They were unable to close with suture. He also has severe PAD in his left leg has history of aortofemoral bypass and has a lot of swelling in his left lower leg. Because of the wound has been unable to wear his compression stockings because of the swelling. Recently finished cephalexin for an infection of some kind in his leg. Patient was told not to use anything on the wound. Patient is supersensitive about touching anywhere in or around the wound area. Progress of Wound: Patient grew 5 different bacteria's 2 of which were anaerobics. Patient's wound measured smaller though he has a deep center. Santyl worked good for getting the slough and debrided debriding for me. Patient is not tolerant to any debridement easily. The Santyl is working very well for him we will continue using it since he still has a lot. Wound measurements are smaller and less depth. Patient is tolerant to antibiotic therapy and antimicrobial therapy. Patient is more compliant in wearing his compression stocking Subjective Subjective Son and patient are happy with outcomes Objective Data Objective Data Continues to become smaller less slough looking bell cleaner has skin buds growing in the base of the wound Vital Signs: Vital Signs Temp Pulse Resp BP O2 Del Method 97.2 F L 72 16 94/61 Room Air 06/23/22 10:13 06/23/22 10:13 06/23/22 10:13 06/23/22 10:13 06/23/22 10:13 Oxygen Delivery Method Room Air Weight: 161 lb Body Mass Index (BMI) 25.2 Lab / Micro Data Attestation: I reviewed the patient's lab results. Physical Exam Const oriented x3 General Appearance: cooperative Exam Limitations: no limitations Resp normal respiratory effort Effort and Inspection: able to speak in complete sentences Auscultation: clear to auscultation bilaterally Cardio regular rate and regular rhythm Palpation: normal PMI Rate: regular rate Rhythm: regular rhythm GI Auscultation: normoactive bowel sounds Palpation: soft and no hepatosplenomegaly Extremity normal to inspection General Extremity: edema left lower extremity and weight-bearing difficulty; Negative for no tenderness to palpation of joints or extremities Left Lower Extremity: lower leg inspection (Laceration), palpation (Tender to palpate) and neurovascular exam (Poor pulses in left lower leg with swelling) Skin no rashes or lesions noted Neuro oriented x3 Psych Appearance: grossly normal Speech: normal speech Thought Content: normal thought content Judgement: judgement good Debridement Note Debridement Note Wound debrided: Left lower leg traumatic wound Type of Debridement: Excisional debridement Anesthesia Used: 5% Lidocaine Gel Depth: in the subcutaneous layer Percentage of wound debrided: 100 Instrument Used: 5mm curette Tissue Removed: Slough and fibrin Severity: Fat Layer Exposed Amount of bleeding with debridement: Mild Bleeding Controlled with: Compression and gauze Patient tolerated procedure: Patient tolerated procedure well Post-Debridement Measurements and Additional Note: Post-Debridement Measurements/Treatment - Nurse 1 - General Ulcer Assessment Start: 06/16/22 10:15 Freq: Status: Active Protocol: WILMAR Activity Type Activity Date Activity User E-sign Co-sign Detail Recorded Client Recorded Date Recorded By Document 06/16/22 10:15 [id number] 06/16/22 10:20 Document 06/23/22 10:13 [facility] [id number] 06/23/22 10:22 [facility] 06/16/22 06/23/22 10:15 10:13 - Today's Visit Information Type of service Follow-up Visit Follow-up Visit (Physician/DIP GUIDER STOVES (Physician/DIP GUIDER STOVES ) ) Arrival Mode Ambulatory,Cane Ambulatory,Cane Transfer Assistance None Accompanied by SON Patient Identification Verified (Name & Yes Yes ) Patient Requires Transmission-Based No No Precautions Safety Precautions NA Height and Weight Body Mass Index (BMI) 25.2 25.2 BMI Classification Overweight Overweight Vital Signs Temperature (97.8 F-99.1 F) 97 F L 97.2 F L Temperature Source Temporal Temporal Pulse Rate (60-100) 81 72 Pulse Location Monitor Monitor Respiratory Rate (12-18) 16 16 Respiratory rate source Observation Observation Oxygen Delivery Method Room Air Room Air Blood Pressure (90/60-120/80) 98/76 94/61 Blood Pressure Mean (mm Hg) 83 72 Source Monitor Monitor Position Sitting Sitting Blood Pressure Location Left Arm History Since Last Visit- (Skip if this is Patient's initial visit) Have you changed medications since your No No last visit? Any new allergies or adverse reactions No No Had a fall/change in ADL's that may No No increase risk of falls Signs or symptoms of abuse and/or No No neglect since last visit Have you been in the hospital since your No last visit? Has dressing in place as prescribed Yes Yes Has compression in place as prescribed No Yes Has offloadiing in place as prescribed N/A N/A Experienced any changes in pain level or No No management Left Footwear Regular Shoe Diabetic Shoe Right Footwear Regular Shoe Diabetic Shoe Pain Scale: 0-10 Numeric Is Patient Pain Free? Yes Yes WC - Nurse 1 - General Ulcer Measurement Start: 06/16/22 10:15 Freq: Status: Active Protocol: Activity Type Activity Date Activity User E-sign Co-sign Detail Recorded Client Recorded Date Recorded By Document 06/16/22 10:15 ML [id number] 06/16/22 10:20 ML Document 06/23/22 10:13 [facility] [id number] 06/23/22 10:22 BMF 06/16/22 06/23/22 10:15 10:13 Wound Center Nurse 1 #1 Left olivas -Combined with other wound No No -Current Size (cm) - Length 3.5 3.3 -Current Size (cm) - Width 1.3 2 -Current Size (cm) - Depth 0.3 0.5 -Total Square Cm 4.55 6.6 -Date of Last Picture (Recall this 06/23/22 field) -Photo Taken Yes -Epithelialization Small 1-33% Small 1-33% -Tunneling No No -Undermining/Tunneling No No -Circular Undermining No No -Exudate Amt Medium Medium -Exudate Type Serosanguineous Serosanguineous -Wound Margin Distinct, Distinct, Outline Outline Attached Attached -Granulation Amt Small (1-33%) Small (1-33%) -Granulation Quality Red Red -Slough/Fibrin Yes Yes -Necrosis Amt Large (67-100%) Large (67-100%) -Necrotic Tissue Type Adherent Slough Adherent Slough -Texture (Roseline-wound Skin Appearance) Assessed, Assessed, Scarring Scarring -Moisture (Roseline-wound Skin Appearance) Assessed Assessed -Color (Roseline-wound Skin Appearance) Assessed Assessed -Temperature (Roseline-wound Skin No Abnormality No Abnormality Appearance) (Pt Warm) (Pt Warm) -Tenderness on Palpation (Roseline-wound Yes No Skin Appearance) -Ulcer Cleansing Rinsed/ Rinsed/ Irrigated with Irrigated with Saline Saline -Foul Odor after Cleansing No No -Anesthetic Used 5% Lidocaine 5% Lidocaine Gel Gel Lower Limb Edema Present Yes Left Calf (cm) 36 33.6 Left Ankle (cm) 32 28.3 WC - Nurse 2 - General Ulcer CM Notes Start: 06/16/22 10:15 Freq: Status: Active Protocol: Activity Type Activity Date Activity User E-sign Co-sign Detail Recorded Client Recorded Date Recorded By Document 06/16/22 10:36 MW [id number] 06/16/22 10:39 MW Document 06/23/22 11:32 PL [id number] 06/23/22 11:33 PL 06/16/22 06/23/22 10:36 11:32 Wound Center Nurse 2 #1 Left olivas -Time 10:36 10:27 -Correct Patient Yes Yes -Correct Side, Site, Position Yes Yes -Correct Procedure Yes Yes -Procedure Performed Yes Yes -Type of Procedure Debridement Debridement -Clinical Debridement Subcutaneous Subcutaneous -Tissue Removed Subcutaneous Subcutaneous -Post Debridement (cm) - Length 3.8 3.6 -Post Debridement (cm) - Width 1.5 1.6 -Post Debridement (cm) - Depth 0.7 0.5 -Total Square (Post) (cm) 5.70 5.76 -Area of Debridement (cm) - Length 3.8 3.6 -Area of Debridement (cm) - Width 1.5 1.6 -Total Square (Area) (cm) 5.70 5.76 -Tunneling No No -Undermining/Tunneling No -Circular Undermining No No -Wound/Ulcer Outcome Not Healed Not Healed -Ulcer Cleansing Rinsed/ Rinsed/ Irrigated with Irrigated with Saline Saline -Foul Odor after Cleansing No No -Bioengineered Tissue No No -Bleeding Controlled with Pressure Pressure -Treatment Response Procedure Procedure Tolerated Well Tolerated Well -Offloading No -Debridement - Subq, 1st 20sq cm Yes Yes Pain Scale: 0-10 Numeric Is Patient Pain Free? Yes Yes WC - Nurse 3 - General Ulcer D/C NN Start: 06/16/22 10:15 Freq: Status: Active Protocol: Activity Type Activity Date Activity User E-sign Co-sign Detail Recorded Client Recorded Date Recorded By Document 06/16/22 10:56 [facility] [id number] 06/16/22 10:57 [facility] Document 06/23/22 10:39 [place] [id number] 06/23/22 10:39 [place] 06/16/22 06/23/22 10:56 10:39 Wound Care Center Nurse 3 #1 Left olivas -Ulcer Cleansing Rinsed/ Rinsed/ Irrigated with Irrigated with Saline Saline -Foul Odor after Cleansing No No -Negative Pressure Wound Therapy N/A -Primary Dressing Applied NonAdherent Mepilex Border Contact Layer, Mepilex Border -Other Dressing hydrogel; drsg hydrogel today per ml green chainer -Mepilex Border 1 1 Left -Tubular Bandage Single Layer -Size of Tubigrip Used Size E -Size E ($) 1 Treatment Response Procedure Tolerated Well Pain Scale: 0-10 Numeric Is Patient Pain Free? Yes Yes WC - Visit Discharge Discharge Condition Stable Stable Ambulatory Status Ambulatory,Cane Ambulatory Transportation Private Auto Private Auto Accompanied by son son Medication Reconcilliation completed & Yes provided to patient/care provider Clinical Summary of Care Provided Yes Assessment/Plan Assessment/Plan (1) Laceration of left lower leg with complication: CODE(S): S81.812A - Laceration without foreign body, left lower leg, initial encounter PLAN: Wash left lower leg with antibacterial soap and wound daily. Apply Santyl to wound base nickel thickness. Cover with Adaptic and then a absorbent dressing daily. Cultures were positive and patient will continue levofloxacin 500 mg daily for 14 days and metronidazole 250 mg 1 p.o. 3 times a day for 14 days Follow-up in 1 week (2) Nonhealing nonsurgical wound with fat layer exposed: CODE(S): T14.8XXA - Other injury of unspecified body region, initial encounter (3) Edema of left lower leg: CODE(S): R60.0 - Localized edema (4) PAD (peripheral artery disease): CODE(S): I73.9 - Peripheral vascular disease, unspecified
[2022-06-30 09:44] VITALS: BP 86/56; PULSE 72; TEMP 36.4; BMI 25.2
--- NOTE | 2022-06-30 10:31 | PN.PCM_ITS ---
History of Present Illness Date of Service: 06/30/22 Chief Complaint: Left lower leg laceration occurring on May 18, 2022 History of Wound: This is a 86-year-old very hard of hearing gentleman that dropped a radiator on his left lower leg on May 18 of this year. Developed a severe gash in his left lower leg. Was seen in the emergency department at [facility]. They were unable to close with suture. He also has severe PAD in his left leg has history of aortofemoral bypass and has a lot of swelling in his left lower leg. Because of the wound has been unable to wear his compression stockings because of the swelling. Recently finished cephalexin for an infection of some kind in his leg. Patient was told not to use anything on the wound. Patient is supersensitive about touching anywhere in or around the wound area. Progress of Wound: Patient grew 5 different bacteria's 2 of which were anaerobics. Patient's wound measured smaller though he has a deep center. Santyl worked good for getting the slough and debrided debriding for me. Patient is not tolerant to any debridement easily. The Santyl is working very well for him we will continue using it since he still has a lot. Wound measurements are smaller and less depth. Patient is tolerant to antibiotic therapy and antimicrobial therapy. Patient is more compliant in wearing his compression stocking Subjective Subjective Happy with improvements in measurements smaller Objective Data Objective Data We will change from the Santyl to Aquacel extra and apply for EpiFix. Still intolerant to debridement but it is pretty well cleaned out now. Vital Signs: Vital Signs Temp Pulse Resp BP O2 Del Method 97.5 F L 72 16 86/56 L Room Air 06/30/22 09:44 06/30/22 09:44 06/23/22 10:13 06/30/22 09:44 06/30/22 09:44 Oxygen Delivery Method Room Air Weight: 161 lb Body Mass Index (BMI) 25.2 Lab / Micro Data Attestation: I reviewed the patient's lab results. Physical Exam Const oriented x3 General Appearance: cooperative Exam Limitations: no limitations Resp normal respiratory effort Effort and Inspection: able to speak in complete sentences Auscultation: clear to auscultation bilaterally Cardio regular rate and regular rhythm Palpation: normal PMI Rate: regular rate Rhythm: regular rhythm GI Auscultation: normoactive bowel sounds Palpation: soft and no hepatosplenomegaly Extremity normal to inspection General Extremity: edema left lower extremity and weight-bearing difficulty; Negative for no tenderness to palpation of joints or extremities Left Lower Extremity: lower leg inspection (Laceration), palpation (Tender to palpate) and neurovascular exam (Poor pulses in left lower leg with swelling) Skin no rashes or lesions noted Neuro oriented x3 Psych Appearance: grossly normal Speech: normal speech Thought Content: normal thought content Judgement: judgement good Debridement Note Debridement Note Wound debrided: Laceration left lower leg open wound nonhealing Laterality: Left Type of Debridement: Excisional debridement Anesthesia Used: 5% Lidocaine Gel Depth: in the subcutaneous layer Percentage of wound debrided: 100 Instrument Used: 3mm curette Tissue Removed: Fibrin and slough Severity: Fat Layer Exposed Amount of bleeding with debridement: Mild Bleeding Controlled with: Compression and gauze Patient tolerated procedure: Patient tolerated procedure well Post-Debridement Measurements and Additional Note: Post-Debridement Measurements/Treatment - Nurse 1 - General Ulcer Assessment Start: 06/16/22 10:15 Freq: Status: Active Protocol: KARSON Activity Type Activity Date Activity User E-sign Co-sign Detail Recorded Client Recorded Date Recorded By Document 06/16/22 10:15 ML [id number] 06/16/22 10:20 ML Document 06/23/22 10:13 [facility] [id number] 06/23/22 10:22 BMF Document 06/30/22 09:44 ML [id number] 06/30/22 09:53 ML 06/16/22 06/23/22 06/30/22 10:15 10:13 09:44 - Today's Visit Information Type of service Follow-up Visit Follow-up Visit Nurse-only (Physician/PACKAGE DYE STAND LOADER (Physician/PACKAGE DYE STAND LOADER Visit ) ) Arrival Mode Ambulatory,Cane Ambulatory,Cane Ambulatory,Cane Transfer Assistance None Accompanied by SON Patient Identification Verified (Name & Yes Yes Yes ) Patient Requires Transmission-Based No No No Precautions Safety Precautions NA Height and Weight Body Mass Index (BMI) 25.2 25.2 25.2 BMI Classification Overweight Overweight Overweight Vital Signs Temperature (97.8 F-99.1 F) 97 F L 97.2 F L 97.5 F L Temperature Source Temporal Temporal Temporal Pulse Rate (60-100) 81 72 72 Pulse Location Monitor Monitor Monitor Respiratory Rate (12-18) 16 16 Respiratory rate source Observation Observation Observation Oxygen Delivery Method Room Air Room Air Room Air Blood Pressure (90/60-120/80) 98/76 94/61 86/56 L Blood Pressure Mean (mm Hg) 83 72 66 Source Monitor Monitor Monitor Position Sitting Sitting Sitting Blood Pressure Location Left Arm History Since Last Visit- (Skip if this is Patient's initial visit) Have you changed medications since your No No No last visit? Any new allergies or adverse reactions No No No Had a fall/change in ADL's that may No No No increase risk of falls Signs or symptoms of abuse and/or No No No neglect since last visit Have you been in the hospital since your No No last visit? Has dressing in place as prescribed Yes Yes Yes Has compression in place as prescribed No Yes N/A Has offloadiing in place as prescribed N/A N/A N/A Experienced any changes in pain level or No No No management Left Footwear Regular Shoe Diabetic Shoe Regular Shoe Right Footwear Regular Shoe Diabetic Shoe Regular Shoe Pain Scale: 0-10 Numeric Is Patient Pain Free? Yes Yes Yes WC - Nurse 1 - General Ulcer Measurement Start: 06/16/22 10:15 Freq: Status: Active Protocol: Activity Type Activity Date Activity User E-sign Co-sign Detail Recorded Client Recorded Date Recorded By Document 06/16/22 10:15 ML [id number] 06/16/22 10:20 ML Document 06/23/22 10:13 [facility] [id number] 06/23/22 10:22 BM Document 06/30/22 09:44 ML [id number] 06/30/22 09:53 ML 06/16/22 06/23/22 06/30/22 10:15 10:13 09:44 Wound Center Nurse 1 #1 Left olivas -Combined with other wound No No -Current Size (cm) - Length 3.5 3.3 3.3 -Current Size (cm) - Width 1.3 2 1.3 -Current Size (cm) - Depth 0.3 0.5 0.4 -Total Square Cm 4.55 6.6 4.29 -Date of Last Picture (Recall this 06/23/22 field) -Photo Taken Yes -Epithelialization Small 1-33% Small 1-33% -Tunneling No No -Undermining/Tunneling No No -Circular Undermining No No -Exudate Amt Medium Medium Medium -Exudate Type Serosanguineous Serosanguineous Serosanguineous -Wound Margin Distinct, Distinct, Distinct, Outline Outline Outline Attached Attached Attached -Granulation Amt Small (1-33%) Small (1-33%) Medium (34-66%) -Granulation Quality Red Red -Slough/Fibrin Yes Yes -Necrosis Amt Large (67-100%) Large (67-100%) Medium (34-66%) -Necrotic Tissue Type Adherent Slough Adherent Slough Adherent Slough -Texture (Roseline-wound Skin Appearance) Assessed, Assessed, Assessed Scarring Scarring -Moisture (Roseline-wound Skin Appearance) Assessed Assessed Assessed -Color (Roseline-wound Skin Appearance) Assessed Assessed Assessed -Temperature (Roseline-wound Skin No Abnormality No Abnormality No Abnormality Appearance) (Pt Warm) (Pt Warm) (Pt Warm) -Tenderness on Palpation (Roseline-wound Yes No Yes Skin Appearance) -Ulcer Cleansing Rinsed/ Rinsed/ Rinsed/ Irrigated with Irrigated with Irrigated with Saline Saline Saline -Foul Odor after Cleansing No No No -Anesthetic Used 5% Lidocaine 5% Lidocaine 5% Lidocaine Gel Gel Gel Lower Limb Edema Present Yes Left Calf (cm) 36 33.6 32.8 Left Ankle (cm) 32 28.3 28 WC - Nurse 2 - General Ulcer CM Notes Start: 06/16/22 10:15 Freq: Status: Active Protocol: Activity Type Activity Date Activity User E-sign Co-sign Detail Recorded Client Recorded Date Recorded By Document 06/16/22 10:36 MW [id number] 06/16/22 10:39 MW Document 06/23/22 11:32 PL [id number] 06/23/22 11:33 PL Document 06/30/22 10:02 MW [id number] 06/30/22 10:06 MW 06/16/22 06/23/22 06/30/22 10:36 11:32 10:02 Wound Center Nurse 2 #1 Left olivas -Time 10:36 10:27 10:02 -Correct Patient Yes Yes Yes -Correct Side, Site, Position Yes Yes Yes -Correct Procedure Yes Yes Yes -Procedure Performed Yes Yes Yes -Type of Procedure Debridement Debridement Debridement -Clinical Debridement Subcutaneous Subcutaneous Subcutaneous -Tissue Removed Subcutaneous Subcutaneous Subcutaneous -Post Debridement (cm) - Length 3.8 3.6 3.5 -Post Debridement (cm) - Width 1.5 1.6 1.6 -Post Debridement (cm) - Depth 0.7 0.5 0.4 -Total Square (Post) (cm) 5.70 5.76 5.60 -Area of Debridement (cm) - Length 3.8 3.6 3.5 -Area of Debridement (cm) - Width 1.5 1.6 1.6 -Total Square (Area) (cm) 5.70 5.76 5.60 -Tunneling No No No -Undermining/Tunneling No No -Circular Undermining No No No -Wound/Ulcer Outcome Not Healed Not Healed Not Healed -Ulcer Cleansing Rinsed/ Rinsed/ Rinsed/ Irrigated with Irrigated with Irrigated with Saline Saline Saline -Foul Odor after Cleansing No No No -Bioengineered Tissue No No No -Bleeding Controlled with Pressure Pressure Pressure -Treatment Response Procedure Procedure Procedure Tolerated Well Tolerated Well Tolerated Well -Offloading No No -Debridement - Subq, 1st 20sq cm Yes Yes Yes Pain Scale: 0-10 Numeric Is Patient Pain Free? Yes Yes Yes WC - Nurse 3 - General Ulcer D/C NN Start: 06/16/22 10:15 Freq: Status: Active Protocol: Activity Type Activity Date Activity User E-sign Co-sign Detail Recorded Client Recorded Date Recorded By Document 06/16/22 10:56 [facility] [id number] 06/16/22 10:57 [facility] Document 06/23/22 10:39 AK [id number] 06/23/22 10:39 AK Document 06/30/22 10:12 MW [id number] 06/30/22 10:13 MW Edit Result 06/30/22 10:12 MW (1) [id number] 06/30/22 10:19 MW Edit Result 06/30/22 10:12 MW (2) [id number] 06/30/22 10:19 MW (1) #1 Left olivas - Mepilex Border 1 => 3 (2) Left - Tubular Bandage => Single Layer - Size of Tubigrip Used => Size E - Size E ($) => 1 06/16/22 06/23/22 06/30/22 10:56 10:39 10:12 Wound Care Center Nurse 3 #1 Left olivas -Ulcer Cleansing Rinsed/ Rinsed/ Rinsed/ Irrigated with Irrigated with Irrigated with Saline Saline Saline -Foul Odor after Cleansing No No No -Negative Pressure Wound Therapy N/A N/A -Primary Dressing Applied NonAdherent Mepilex Border Aquacel Extra, Contact Layer, NonAdherent Mepilex Border Contact Layer, Mepilex Border -Other Dressing hydrogel; drsg hydrogel today per ml outreach clinician -Aquacel Extra 1 -Mepilex Border 1 1 3 Left -Lotion applied to leg before No compression wrap -Tubular Bandage Single Layer Single Layer -Size of Tubigrip Used Size E Size E -Size E ($) 1 1 -Other SINGLE LAYER TUBIGRIP Treatment Response Procedure Tolerated Well Pain Scale: 0-10 Numeric Is Patient Pain Free? Yes Yes Yes Teaching: Wound Center Dressing Your Wound -Person Taught Patient,Family -Teaching Method Discussion -Response to teaching Verbalize understanding WC - Visit Discharge Discharge Condition Stable Stable Stable Ambulatory Status Ambulatory,Cane Ambulatory Ambulatory Transportation Private Auto Private Auto Private Auto Accompanied by son son SON Medication Reconcilliation completed & Yes No provided to patient/care provider Clinical Summary of Care Provided Yes Yes Assessment/Plan Assessment/Plan (1) Laceration of left lower leg with complication: CODE(S): S81.812A - Laceration without foreign body, left lower leg, initial encounter PLAN: Wash left lower leg with antibacterial soap and wound daily. Apply Aquacel extra to wound base . Cover with Adaptic and then a absorbent dressing daily. Patient finishing antibiotic therapy We will apply for EpiFix Follow-up in 1 week (2) Nonhealing nonsurgical wound with fat layer exposed: CODE(S): T14.8XXA - Other injury of unspecified body region, initial encounter (3) Edema of left lower leg: CODE(S): R60.0 - Localized edema (4) PAD (peripheral artery disease): CODE(S): I73.9 - Peripheral vascular disease, unspecified
[2022-07-07 11:21] VITALS: BP 100/63; PULSE 81; TEMP 35.6; BMI 25.2
--- NOTE | 2022-07-07 12:29 | PCM.WC.PN ---
History of Present Illness Date of Service: 07/07/22 Chief Complaint: Left lower leg laceration occurring on May 18, 2022 History of Wound: This is a 86-year-old very hard of hearing gentleman that dropped a radiator on his left lower leg on May 18 of this year. Developed a severe gash in his left lower leg. Was seen in the emergency department at [place]. They were unable to close with suture. He also has severe PAD in his left leg has history of aortofemoral bypass and has a lot of swelling in his left lower leg. Because of the wound has been unable to wear his compression stockings because of the swelling. Recently finished cephalexin for an infection of some kind in his leg. Patient was told not to use anything on the wound. Patient is supersensitive about touching anywhere in or around the wound area. Progress of Wound: Patient was approved for EpiFix and will apply EpiFix to base today #1. Patient was instructed not to change the dressing for the week and cover when taking a shower. She will have a nurse visit next Tuesday. Measurements are smaller depth is better Subjective Subjective Son and patient are very happy with outcomes Objective Data Objective Data No sign of infection at this time we will ply the epi fix #1 Vital Signs: Vital Signs Temp Pulse Resp BP O2 Del Method 96.1 F L 81 16 100/63 Room Air 07/07/22 11:21 07/07/22 11:21 06/23/22 10:13 07/07/22 11:21 06/30/22 09:44 Oxygen Delivery Method Room Air Weight: 161 lb Body Mass Index (BMI) 25.2 Physical Exam Const oriented x3 General Appearance: cooperative Exam Limitations: no limitations Resp normal respiratory effort Effort and Inspection: able to speak in complete sentences Auscultation: clear to auscultation bilaterally Cardio regular rate and regular rhythm Palpation: normal PMI Rate: regular rate Rhythm: regular rhythm GI Auscultation: normoactive bowel sounds Palpation: soft and no hepatosplenomegaly Extremity normal to inspection General Extremity: edema left lower extremity and weight-bearing difficulty; Negative for no tenderness to palpation of joints or extremities Left Lower Extremity: lower leg inspection (Laceration), palpation (Tender to palpate) and neurovascular exam (Poor pulses in left lower leg with swelling) Skin no rashes or lesions noted Neuro oriented x3 Psych Appearance: grossly normal Speech: normal speech Thought Content: normal thought content Judgement: judgement good Debridement Note Debridement Note Wound debrided: Left lower leg traumatic wound Laterality: Left Type of Debridement: Excisional debridement Anesthesia Used: 5% Lidocaine Gel Depth: Down to and including healthy tissue Percentage of wound debrided: 100 Instrument Used: 3mm curette Tissue Removed: Fibrin and some slough fat layer Severity: Fat Layer Exposed Amount of bleeding with debridement: Mild Bleeding Controlled with: Compression and gauze Patient tolerated procedure: Patient tolerated procedure well Post-Debridement Measurements and Additional Note: Post-Debridement Measurements/Treatment - Nurse 1 - General Ulcer Assessment Start: 06/16/22 10:15 Freq: Status: Active Protocol: BARBARALifeIMAGESON Activity Type Activity Date Activity User E-sign Co-sign Detail Recorded Client Recorded Date Recorded By Document 06/16/22 10:15 ML [id number] 06/16/22 10:20 ML Document 06/23/22 10:13 [facility] [id number] 06/23/22 10:22 BMF Document 06/30/22 09:44 ML [id number] 06/30/22 09:53 ML Document 07/07/22 11:21 AK [id number] 07/07/22 11:55 AK 06/16/22 06/23/22 06/30/22 10:15 10:13 09:44 - Today's Visit Information Type of service Follow-up Visit Follow-up Visit Nurse-only (Physician/[employer] OFFICER (Physician/[employer]ISS[employer] OFFICER Visit ) ) Arrival Mode Ambulatory,Cane Ambulatory,Cane Ambulatory,Cane Transfer Assistance None Accompanied by SON Patient Identification Verified (Name & Yes Yes Yes ) Patient Requires Transmission-Based No No No Precautions Safety Precautions NA Height and Weight Body Mass Index (BMI) 25.2 25.2 25.2 BMI Classification Overweight Overweight Overweight Vital Signs Temperature (97.8 F-99.1 F) 97 F L 97.2 F L 97.5 F L Temperature Source Temporal Temporal Temporal Pulse Rate (60-100) 81 72 72 Pulse Location Monitor Monitor Monitor Respiratory Rate (12-18) 16 16 Respiratory rate source Observation Observation Observation Oxygen Delivery Method Room Air Room Air Room Air Blood Pressure (90/60-120/80) 98/76 94/61 86/56 L Blood Pressure Mean (mm Hg) 83 72 66 Source Monitor Monitor Monitor Position Sitting Sitting Sitting Blood Pressure Location Left Arm History Since Last Visit- (Skip if this is Patient's initial visit) Have you changed medications since your No No No last visit? Any new allergies or adverse reactions No No No Had a fall/change in ADL's that may No No No increase risk of falls Signs or symptoms of abuse and/or No No No neglect since last visit Have you been in the hospital since your No No last visit? Has dressing in place as prescribed Yes Yes Yes Has compression in place as prescribed No Yes N/A Has offloadiing in place as prescribed N/A N/A N/A Experienced any changes in pain level or No No No management Left Footwear Regular Shoe Diabetic Shoe Regular Shoe Right Footwear Regular Shoe Diabetic Shoe Regular Shoe Pain Scale: 0-10 Numeric Is Patient Pain Free? Yes Yes Yes 07/07/22 11:21 WC - Today's Visit Information Type of service Follow-up Visit (Physician/[employer] OFF[employer]ER ) Arrival Mode Ambulatory,Cane Transfer Assistance Accompanied by Patient Identification Verified (Name & Yes ) Patient Requires Transmission-Based No Precautions Safety Precautions NA Height and Weight Body Mass Index (BMI) 25.2 BMI Classification Overweight Vital Signs Temperature (97.8 F-99.1 F) 96.1 F L Temperature Source Temporal Pulse Rate (60-100) 81 Pulse Location Monitor Respiratory Rate (12-18) Respiratory rate source Oxygen Delivery Method Blood Pressure (90/60-120/80) 100/63 Blood Pressure Mean (mm Hg) 75 Source Monitor Position Blood Pressure Location History Since Last Visit- (Skip if this is Patient's initial visit) Have you changed medications since your No last visit? Any new allergies or adverse reactions No Had a fall/change in ADL's that may No increase risk of falls Signs or symptoms of abuse and/or No neglect since last visit Have you been in the hospital since your No last visit? Has dressing in place as prescribed Yes Has compression in place as prescribed N/A Has offloadiing in place as prescribed N/A Experienced any changes in pain level or No management Left Footwear Regular Shoe Right Footwear Regular Shoe Pain Scale: 0-10 Numeric Is Patient Pain Free? Yes - Nurse 1 - General Ulcer Measurement Start: 06/16/22 10:15 Freq: Status: Active Protocol: Activity Type Activity Date Activity User E-sign Co-sign Detail Recorded Client Recorded Date Recorded By Document 06/16/22 10:15 ML [id number] 06/16/22 10:20 ML Document 06/23/22 10:13 BMF [id number] 06/23/22 10:22 BMF Document 06/30/22 09:44 ML [id number] 06/30/22 09:53 ML Document 07/07/22 11:21 AK [id number] 07/07/22 11:55 AK 06/16/22 06/23/22 06/30/22 10:15 10:13 09:44 Wound Center Nurse 1 #1 Left olivas -Combined with other wound No No -Current Size (cm) - Length 3.5 3.3 3.3 -Current Size (cm) - Width 1.3 2 1.3 -Current Size (cm) - Depth 0.3 0.5 0.4 -Total Square Cm 4.55 6.6 4.29 -Date of Last Picture (Recall this 06/23/22 field) -Photo Taken Yes -Epithelialization Small 1-33% Small 1-33% -Tunneling No No -Undermining/Tunneling No No -Circular Undermining No No -Change in Wound Grade/Stage -Exudate Amt Medium Medium Medium -Exudate Type Serosanguineous Serosanguineous Serosanguineous -Wound Margin Distinct, Distinct, Distinct, Outline Outline Outline Attached Attached Attached -Granulation Amt Small (1-33%) Small (1-33%) Medium (34-66%) -Granulation Quality Red Red -Slough/Fibrin Yes Yes -Necrosis Amt Large (67-100%) Large (67-100%) Medium (34-66%) -Necrotic Tissue Type Adherent Slough Adherent Slough Adherent Slough -Structure Exposed -Texture (Roseline-wound Skin Appearance) Assessed, Assessed, Assessed Scarring Scarring -Moisture (Roseline-wound Skin Appearance) Assessed Assessed Assessed -Color (Roseline-wound Skin Appearance) Assessed Assessed Assessed -Temperature (Roseline-wound Skin No Abnormality No Abnormality No Abnormality Appearance) (Pt Warm) (Pt Warm) (Pt Warm) -Tenderness on Palpation (Roseline-wound Yes No Yes Skin Appearance) -Ulcer Cleansing Rinsed/ Rinsed/ Rinsed/ Irrigated with Irrigated with Irrigated with Saline Saline Saline -Foul Odor after Cleansing No No No -Anesthetic Used 5% Lidocaine 5% Lidocaine 5% Lidocaine Gel Gel Gel Lower Limb Edema Present Yes Left Calf (cm) 36 33.6 32.8 Left Ankle (cm) 32 28.3 28 07/07/22 11:21 Wound Center Nurse 1 #1 Left olivas -Combined with other wound No -Current Size (cm) - Length 3 -Current Size (cm) - Width 1.4 -Current Size (cm) - Depth 0.4 -Total Square Cm 4.2 -Date of Last Picture (Recall this 07/07/22 field) -Photo Taken Yes -Epithelialization -Tunneling No -Undermining/Tunneling No -Circular Undermining No -Change in Wound Grade/Stage No -Exudate Amt Medium -Exudate Type Serosanguineous -Wound Margin Distinct, Outline Attached -Granulation Amt Medium (34-66%) -Granulation Quality [place] -Slough/Fibrin Yes -Necrosis Amt Medium (34-66%) -Necrotic Tissue Type Adherent Slough -Structure Exposed N/A -Texture (Roseline-wound Skin Appearance) No Abnormality, Assessed -Moisture (Roseline-wound Skin Appearance) No Abnormality, Assessed -Color (Roseline-wound Skin Appearance) No Abnormality, Assessed -Temperature (Roseline-wound Skin No Abnormality Appearance) (Pt Warm) -Tenderness on Palpation (Roseline-wound No Skin Appearance) -Ulcer Cleansing Soap and Water -Foul Odor after Cleansing No -Anesthetic Used 5% Lidocaine Gel Lower Limb Edema Present Left Calf (cm) 33 Left Ankle (cm) 28 WC - Nurse 2 - General Ulcer CM Notes Start: 06/16/22 10:15 Freq: Status: Active Protocol: Activity Type Activity Date Activity User E-sign Co-sign Detail Recorded Client Recorded Date Recorded By Document 06/16/22 10:36 MW [id number] 06/16/22 10:39 MW Document 06/23/22 11:32 PL [id number] 06/23/22 11:33 PL Document 06/30/22 10:02 MW [id number] 06/30/22 10:06 MW Document 07/07/22 10:53 MW [id number] 07/07/22 11:01 MW 06/16/22 06/23/22 06/30/22 10:36 11:32 10:02 Wound Center Nurse 2 #1 Left olivas -Time 10:36 10:27 10:02 -Correct Patient Yes Yes Yes -Correct Side, Site, Position Yes Yes Yes -Correct Procedure Yes Yes Yes -Procedure Performed Yes Yes Yes -Type of Procedure Debridement Debridement Debridement -Clinical Debridement Subcutaneous Subcutaneous Subcutaneous -Tissue Removed Subcutaneous Subcutaneous Subcutaneous -Post Debridement (cm) - Length 3.8 3.6 3.5 -Post Debridement (cm) - Width 1.5 1.6 1.6 -Post Debridement (cm) - Depth 0.7 0.5 0.4 -Total Square (Post) (cm) 5.70 5.76 5.60 -Area of Debridement (cm) - Length 3.8 3.6 3.5 -Area of Debridement (cm) - Width 1.5 1.6 1.6 -Total Square (Area) (cm) 5.70 5.76 5.60 -Tunneling No No No -Undermining/Tunneling No No -Circular Undermining No No No -Wound/Ulcer Outcome Not Healed Not Healed Not Healed -Ulcer Cleansing Rinsed/ Rinsed/ Rinsed/ Irrigated with Irrigated with Irrigated with Saline Saline Saline -Foul Odor after Cleansing No No No -Bioengineered Tissue No No No -Type of Bioengineered Tissue -Expiration Date -Product Lot Number -Percent Used -Lot number of Saline Used -Bleeding Controlled with Pressure Pressure Pressure -Treatment Response Procedure Procedure Procedure Tolerated Well Tolerated Well Tolerated Well -Offloading No No -Debridement - Subq, 1st 20sq cm Yes Yes Yes -Apply Skin Sub - 1st 25 sq cm - Legs -Epifix Mesh (per sq cm) Pain Scale: 0-10 Numeric Is Patient Pain Free? Yes Yes Yes 07/07/22 10:53 Wound Center Nurse 2 #1 Left olivas -Time 10:57 -Correct Patient Yes -Correct Side, Site, Position Yes -Correct Procedure Yes -Procedure Performed Yes -Type of Procedure Debridement -Clinical Debridement Subcutaneous -Tissue Removed Subcutaneous -Post Debridement (cm) - Length 3.0 -Post Debridement (cm) - Width 1.5 -Post Debridement (cm) - Depth 0.3 -Total Square (Post) (cm) 4.50 -Area of Debridement (cm) - Length 3.0 -Area of Debridement (cm) - Width 1.5 -Total Square (Area) (cm) 4.50 -Tunneling No -Undermining/Tunneling No -Circular Undermining No -Wound/Ulcer Outcome Not Healed -Ulcer Cleansing Rinsed/ Irrigated with Saline -Foul Odor after Cleansing No -Bioengineered Tissue Yes -Type of Bioengineered Tissue Epifix Mesh -Expiration Date 03/18/27 -Product Lot Number [id number] -Percent Used 100 -Lot number of Saline Used [id number] -Bleeding Controlled with Pressure -Treatment Response Procedure Tolerated Well -Offloading No -Debridement - Subq, 1st 20sq cm No -Apply Skin Sub - 1st 25 sq cm - Legs 1 -Epifix Mesh (per sq cm) 11 Pain Scale: 0-10 Numeric Is Patient Pain Free? Yes - Nurse 3 - General Ulcer D/C NN Start: 06/16/22 10:15 Freq: Status: Active Protocol: Activity Type Activity Date Activity User E-sign Co-sign Detail Recorded Client Recorded Date Recorded By Document 06/16/22 10:56 [facility] [id number] 06/16/22 10:57 BM Document 06/23/22 10:39 AK [id number] 06/23/22 10:39 AK Document 06/30/22 10:12 MW [id number] 06/30/22 10:13 MW Edit Result 06/30/22 10:12 MW (1) [id number] 06/30/22 10:19 MW Edit Result 06/30/22 10:12 MW (2) [id number] 06/30/22 10:19 MW Document 07/07/22 11:17 AK [id number] 07/07/22 11:19 AK (1) #1 Left olivas - Mepilex Border 1 => 3 (2) Left - Tubular Bandage => Single Layer - Size of Tubigrip Used => Size E - Size E ($) => 1 06/16/22 06/23/22 06/30/22 10:56 10:39 10:12 Wound Care Center Nurse 3 #1 Left olivas -Ulcer Cleansing Rinsed/ Rinsed/ Rinsed/ Irrigated with Irrigated with Irrigated with Saline Saline Saline -Foul Odor after Cleansing No No No -Negative Pressure Wound Therapy N/A N/A -Primary Dressing Applied NonAdherent Mepilex Border Aquacel Extra, Contact Layer, NonAdherent Mepilex Border Contact Layer, Mepilex Border -Other Dressing hydrogel; drsg hydrogel today per ml music education director -Aquacel Extra 1 -Mepilex Border 1 1 3 Left -Lotion applied to leg before No compression wrap -Tubular Bandage Single Layer Single Layer -Size of Tubigrip Used Size E Size E -Size E ($) 1 1 -Other SINGLE LAYER TUBIGRIP Treatment Response Procedure Tolerated Well Pain Scale: 0-10 Numeric Is Patient Pain Free? Yes Yes Yes Teaching: Wound Center Dressing Your Wound -Person Taught Patient,Family -Teaching Method Discussion -Response to teaching Verbalize understanding WC - Visit Discharge Discharge Condition Stable Stable Stable Ambulatory Status Ambulatory,Cane Ambulatory Ambulatory Transportation Private Auto Private Auto Private Auto Accompanied by son son SON Medication Reconcilliation completed & Yes No provided to patient/care provider Clinical Summary of Care Provided Yes Yes 07/07/22 11:17 Wound Care Center Nurse 3 #1 Left olivas -Ulcer Cleansing Not Cleansed -Foul Odor after Cleansing No -Negative Pressure Wound Therapy N/A -Primary Dressing Applied Aquacel Extra, Mepilex Border -Other Dressing -Aquacel Extra 1 -Mepilex Border 2 Left -Lotion applied to leg before No compression wrap -Tubular Bandage -Size of Tubigrip Used -Size E ($) -Other own tubi Treatment Response Pain Scale: 0-10 Numeric Is Patient Pain Free? Yes Teaching: Wound Center Dressing Your Wound -Person Taught -Teaching Method -Response to teaching - Visit Discharge Discharge Condition Stable Ambulatory Status Ambulatory Transportation Private Auto Accompanied by son Medication Reconcilliation completed & Yes provided to patient/care provider Clinical Summary of Care Provided Yes Assessment/Plan Assessment/Plan (1) Laceration of left lower leg with complication: CODE(S): S81.812A - Laceration without foreign body, left lower leg, initial encounter PLAN: EpiFix #1 applied to left lower leg covered with veil and Steri-Strips Aquacel extra and a padded dressing. She is still to wear single-layer Tubigrip and elevate leg is much as possible. Patient to follow-up in 1 week for nurse visit (2) Nonhealing nonsurgical wound with fat layer exposed: CODE(S): T14.8XXA - Other injury of unspecified body region, initial encounter (3) Edema of left lower leg: CODE(S): R60.0 - Localized edema (4) PAD (peripheral artery disease): CODE(S): I73.9 - Peripheral vascular disease, unspecified
[2022-07-14 11:02] VITALS: BP 123/85; PULSE 75; TEMP 36.1; BMI 25.2
== END 2022-07-16 23:59 | disposition home or self-care (01) ==
LOC: WC 11:00
PROVIDERS: PCP Family Medicine; Visit Provider Nurse Practitioner
DX: E11.51 Type 2 diabetes mellitus with diabetic peripheral angiopathy without gangrene (principal); L97.822 Non-pressure chronic ulcer of other part of left lower leg with fat layer exposed; R60.0 Localized edema; S81.812S Laceration without foreign body, left lower leg, sequela; W20.8XXS Other cause of strike by thrown, projected or falling object, sequela
CPT/HCPCS: 11042; 15271; 99213; Q4186; G0463

== ENCOUNTER 2022-08-11 10:00 | Outpatient (RCR) | payer MEDICARE, OTHER, SELFPAY ==
[2022-07-17 01:59] VITALS: BP 123/85; PULSE 75; RESP 16; TEMP 36.1; BMI 25.2
[2022-07-21 10:39] VITALS: BP 111/80; PULSE 77; RESP 18; TEMP 36.5; BMI 25.2
--- NOTE | 2022-07-21 11:49 | PCM.WC.PN ---
History of Present Illness Date of Service: 07/21/22 Chief Complaint: Left lower leg laceration occurring on May 18, 2022 History of Wound: This is a 86-year-old very hard of hearing gentleman that dropped a radiator on his left lower leg on May 18 of this year. Developed a severe gash in his left lower leg. Was seen in the emergency department at [place]. They were unable to close with suture. He also has severe PAD in his left leg has history of aortofemoral bypass and has a lot of swelling in his left lower leg. Because of the wound has been unable to wear his compression stockings because of the swelling. Recently finished cephalexin for an infection of some kind in his leg. Patient was told not to use anything on the wound. Patient is supersensitive about touching anywhere in or around the wound area. Progress of Wound: Measurements are slightly smaller tolerating the epi fix #1 had some discharge by flaps Tuesday so wound was cleaned and reapplied with just Aquacel extra Subjective Subjective Patient very hard of hearing but tolerates dressings okay doing everything himself Objective Data Objective Data Measurements are smaller slightly we will apply EpiFix #2 Vital Signs: Vital Signs Temp Pulse Resp BP 97.7 F L 77 18 111/80 07/21/22 10:39 07/21/22 10:39 07/21/22 10:39 07/21/22 10:39 Weight: 161 lb Body Mass Index (BMI) 25.2 Lab / Micro Data Attestation: I reviewed the patient's lab results. Physical Exam Const oriented x3 General Appearance: cooperative Exam Limitations: no limitations Resp normal respiratory effort Effort and Inspection: able to speak in complete sentences Auscultation: clear to auscultation bilaterally Cardio regular rate and regular rhythm Palpation: normal PMI Rate: regular rate Rhythm: regular rhythm GI Auscultation: normoactive bowel sounds Palpation: soft and no hepatosplenomegaly Extremity normal to inspection General Extremity: edema left lower extremity and weight-bearing difficulty; Negative for no tenderness to palpation of joints or extremities Left Lower Extremity: lower leg inspection (Laceration), palpation (Tender to palpate) and neurovascular exam (Poor pulses in left lower leg with swelling) Skin no rashes or lesions noted Neuro oriented x3 Psych Appearance: grossly normal Speech: normal speech Thought Content: normal thought content Judgement: judgement good Debridement Note Debridement Note Wound debrided: Left olivas traumatic wound Type of Debridement: Excisional debridement Anesthesia Used: 5% Lidocaine Gel Depth: Down to and including healthy tissue Percentage of wound debrided: 100 Instrument Used: 3mm curette Tissue Removed: Slough and fibrin Severity: Fat Layer Exposed Amount of bleeding with debridement: Mild Bleeding Controlled with: Compression and gauze Patient tolerated procedure: Patient tolerated procedure well Post-Debridement Measurements and Additional Note: Post-Debridement Measurements/Treatment - Nurse 1 - General Ulcer Assessment Start: 07/21/22 10:39 Freq: Status: Active Protocol: KARSON Activity Type Activity Date Activity User E-sign Co-sign Detail Recorded Client Recorded Date Recorded By Document 07/21/22 10:39 PL [id number] 07/21/22 10:48 PL 07/21/22 10:39 WC - Today's Visit Information Type of service 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 Any new allergies or adverse reactions No Had a fall/change in ADL's that may No increase risk of falls Signs or symptoms of abuse and/or No neglect since last visit Have you been in the hospital since your No last visit? Has dressing in place as prescribed Yes Has compression in place as prescribed Yes Has offloadiing in place as prescribed Yes Experienced any changes in pain level or No management Pain Scale: 0-10 Numeric Is Patient Pain Free? Yes - Nurse 1 - General Ulcer Measurement Start: 07/21/22 10:39 Freq: Status: Active Protocol: Activity Type Activity Date Activity User E-sign Co-sign Detail Recorded Client Recorded Date Recorded By Document 07/21/22 10:39 PL [id number] 07/21/22 10:48 PL 07/21/22 10:39 Wound Center Nurse 1 #1 Left olivas -Combined with other wound No -Current Size (cm) - Length 3.0 -Current Size (cm) - Width 2.0 -Current Size (cm) - Depth 0.4 -Total Square Cm 6.00 -Photo Taken No -Epithelialization None Present -Exudate Amt Medium -Exudate Type Serosanguineous -Granulation Amt Medium (34-66%) -Granulation Quality Pale -Slough/Fibrin Yes -Necrosis Amt Medium (34-66%) -Necrotic Tissue Type Adherent Slough -Texture (Roseline-wound Skin Appearance) No Abnormality -Moisture (Roseline-wound Skin Appearance) No Abnormality -Color (Roseline-wound Skin Appearance) No Abnormality -Temperature (Roseline-wound Skin No Abnormality Appearance) (Pt Warm) -Tenderness on Palpation (Roseline-wound No Skin Appearance) -Ulcer Cleansing Rinsed/ Irrigated with Saline -Anesthetic Used 5% Lidocaine Gel Left Calf (cm) 34.5 Left Ankle (cm) 24.5 WC - Nurse 2 - General Ulcer CM Notes Start: 07/21/22 10:39 Freq: Status: Active Protocol: Activity Type Activity Date Activity User E-sign Co-sign Detail Recorded Client Recorded Date Recorded By Document 07/21/22 11:03 MW [id number] 07/21/22 11:09 MW 07/21/22 11:03 Wound Center Nurse 2 #1 Left olivas -Time 11:03 -Correct Patient Yes -Correct Side, Site, Position Yes -Correct Procedure Yes -Procedure Performed Yes -Type of Procedure Debridement -Clinical Debridement Subcutaneous -Tissue Removed Subcutaneous -Post Debridement (cm) - Length 3.0 -Post Debridement (cm) - Width 1.3 -Post Debridement (cm) - Depth 0.3 -Total Square (Post) (cm) 3.90 -Area of Debridement (cm) - Length 3.0 -Area of Debridement (cm) - Width 1.3 -Total Square (Area) (cm) 3.90 -Tunneling No -Undermining/Tunneling No -Circular Undermining No -Wound/Ulcer Outcome Not Healed -Ulcer Cleansing Rinsed/ Irrigated with Saline -Foul Odor after Cleansing No -Bioengineered Tissue Yes -Type of Bioengineered Tissue Epifix -Expiration Date 03/18/27 -Product Lot Number [id number] -Percent Used 100 -Lot number of Saline Used [id number] -Bleeding Controlled with Pressure -Treatment Response Procedure Tolerated Well -Debridement - Subq, 1st 20sq cm No Pain Scale: 0-10 Numeric Is Patient Pain Free? Yes - Nurse 3 - General Ulcer D/C NN Start: 07/21/22 10:39 Freq: Status: Active Protocol: Activity Type Activity Date Activity User E-sign Co-sign Detail Recorded Client Recorded Date Recorded By Document 07/21/22 11:19 [facility] [id number] 07/21/22 11:20 [facility] 07/21/22 11:19 Wound Care Center Nurse 3 #1 Left olivas -Primary Dressing Applied Aquacel Extra -Other Dressing epifix -Primary Dressing Covered/Secured with Dry Gauze & Roll Gauze, Secured with Tape -Other Covering abd -Aquacel Extra 1 Left -Tubular Bandage Single Layer -Size of Tubigrip Used Size D -Size D ($) 1 Treatment Response Procedure Tolerated Well Pain Scale: 0-10 Numeric Is Patient Pain Free? Yes - Visit Discharge Discharge Condition Stable Ambulatory Status Ambulatory,Cane Transportation Private Auto Assessment/Plan Assessment/Plan (1) Laceration of left lower leg with complication: CODE(S): S81.812A - Laceration without foreign body, left lower leg, initial encounter PLAN: EpiFix #2 applied to left lower leg covered with veil and Steri-Strips Aquacel extra and a padded dressing. He is still to wear single-layer Tubigrip and elevate leg is much as possible. Patient to follow-up in 1 week (2) Nonhealing nonsurgical wound with fat layer exposed: CODE(S): T14.8XXA - Other injury of unspecified body region, initial encounter (3) Edema of left lower leg: CODE(S): R60.0 - Localized edema (4) PAD (peripheral artery disease): CODE(S): I73.9 - Peripheral vascular disease, unspecified
[2022-07-28 10:58] VITALS: BP 93/67; PULSE 74; RESP 18; TEMP 36.6; BMI 25.2
--- NOTE | 2022-07-28 12:59 | PN.PCM_ITS ---
History of Present Illness Date of Service: 07/28/22 Chief Complaint: Left lower leg laceration occurring on May 18, 2022 History of Wound: This is a 86-year-old very hard of hearing gentleman that dropped a radiator on his left lower leg on May 18 of this year. Developed a severe gash in his left lower leg. Was seen in the emergency department at [place]. They were unable to close with suture. He also has severe PAD in his left leg has history of aortofemoral bypass and has a lot of swelling in his left lower leg. Because of the wound has been unable to wear his compression stockings because of the swelling. Recently finished cephalexin for an infection of some kind in his leg. Patient was told not to use anything on the wound. Patient is supersensitive about touching anywhere in or around the wound area. Progress of Wound: Measurements are slightly smaller tolerating the epi fix #2. No issues this week about the same in measurement still has some depth and some slough in the base that I have cleaned out we will continue with epi fix Subjective Subjective Still agreeable with treatment Objective Data Objective Data Surrounding tissue is normal he does have quite the crater filling in nicely with the epi fix patient is tolerating them well no concerns no sign of infection no purulent drainage. Vital Signs: Vital Signs Temp Pulse Resp BP 98 F 74 18 93/67 07/28/22 10:58 07/28/22 10:58 07/28/22 10:58 07/28/22 10:58 Weight: 161 lb Body Mass Index (BMI) 25.2 Lab / Micro Data Attestation: I reviewed the patient's lab results. Physical Exam Const oriented x3 General Appearance: cooperative Exam Limitations: no limitations Resp normal respiratory effort Effort and Inspection: able to speak in complete sentences Auscultation: clear to auscultation bilaterally Cardio regular rate and regular rhythm Palpation: normal PMI Rate: regular rate Rhythm: regular rhythm GI Auscultation: normoactive bowel sounds Palpation: soft and no hepatosplenomegaly Extremity normal to inspection General Extremity: edema left lower extremity and weight-bearing difficulty; Negative for no tenderness to palpation of joints or extremities Left Lower Extremity: lower leg inspection (Laceration), palpation (Tender to palpate) and neurovascular exam (Poor pulses in left lower leg with swelling) Skin no rashes or lesions noted Neuro oriented x3 Psych Appearance: grossly normal Speech: normal speech Thought Content: normal thought content Judgement: judgement good Debridement Note Debridement Note Wound debrided: Left olivas trauma Type of Debridement: Excisional debridement Anesthesia Used: 5% Lidocaine Gel Depth: Down to and including healthy tissue and in the subcutaneous layer Instrument Used: 3mm curette Tissue Removed: Slough fibrin Severity: Fat Layer Exposed Amount of bleeding with debridement: Mild Bleeding Controlled with: Compression and gauze Post-Debridement Measurements and Additional Note: Post-Debridement Measurements/Treatment - Nurse 1 - General Ulcer Assessment Start: 07/21/22 10:39 Freq: Status: Active Protocol: KARSON Activity Type Activity Date Activity User E-sign Co-sign Detail Recorded Client Recorded Date Recorded By Document 07/21/22 10:39 PL [id number] 07/21/22 10:48 PL Document 07/28/22 10:58 RB Desktop 07/28/22 11:05 RB 07/21/22 07/28/22 10:39 10:58 - Today's Visit Information Type of service Follow-up Visit Follow-up Visit (Physician/MACHINE PACKAGE SEALER (Physician/MACHINE PACKAGE SEALER ) ) Arrival Mode Ambulatory,Cane Ambulatory Transfer Assistance None None Patient Identification Verified (Name & Yes Yes ) Patient Requires Transmission-Based No Precautions Height and Weight Body Mass Index (BMI) 25.2 25.2 BMI Classification Overweight Overweight Vital Signs Temperature (97.8 F-99.1 F) 97.7 F L 98 F Temperature Source Temporal Temporal Pulse Rate (60-100) 77 74 Pulse Location Monitor Respiratory Rate (12-18) 18 18 Respiratory rate source Observation Blood Pressure (90/60-120/80) 111/80 93/67 Blood Pressure Mean (mm Hg) 90 75 Source Monitor Position Semi-Fowlers Blood Pressure Location Left Arm History Since Last Visit- (Skip if this is Patient's initial visit) Have you changed medications since your No No last visit? Any new allergies or adverse reactions No No Had a fall/change in ADL's that may No No increase risk of falls Signs or symptoms of abuse and/or No No neglect since last visit Have you been in the hospital since your No No last visit? Has dressing in place as prescribed Yes Yes Has compression in place as prescribed Yes Yes Has offloadiing in place as prescribed Yes No Experienced any changes in pain level or No No management Pain Scale: 0-10 Numeric Is Patient Pain Free? Yes Yes WC - Nurse 1 - General Ulcer Measurement Start: 07/21/22 10:39 Freq: Status: Active Protocol: Activity Type Activity Date Activity User E-sign Co-sign Detail Recorded Client Recorded Date Recorded By Document 07/21/22 10:39 PL [id number] 07/21/22 10:48 PL Document 07/28/22 10:58 RB Desktop 07/28/22 11:05 RB 07/21/22 07/28/22 10:39 10:58 Wound Center Nurse 1 #1 Left olivas -Combined with other wound No No -Current Size (cm) - Length 3.0 2.8 -Current Size (cm) - Width 2.0 1.7 -Current Size (cm) - Depth 0.4 0.4 -Total Square Cm 6.00 4.76 -Photo Taken No Yes -Epithelialization None Present -Tunneling No -Undermining/Tunneling No -Circular Undermining No -Exudate Amt Medium Large -Exudate Type Serosanguineous Serosanguineous -Wound Margin Thickened & Rolled Under -Granulation Amt Medium (34-66%) Medium (34-66%) -Granulation Quality Pale [place] -Slough/Fibrin Yes Yes -Necrosis Amt Medium (34-66%) Medium (34-66%) -Necrotic Tissue Type Adherent Slough Adherent Slough -Structure Exposed N/A -Texture (Roseline-wound Skin Appearance) No Abnormality Assessed, Scarring -Moisture (Roseline-wound Skin Appearance) No Abnormality Assessed -Color (Roseline-wound Skin Appearance) No Abnormality Assessed -Temperature (Roseline-wound Skin No Abnormality No Abnormality Appearance) (Pt Warm) (Pt Warm) -Tenderness on Palpation (Roseline-wound No No Skin Appearance) -Ulcer Cleansing Rinsed/ Wound Cleanser Irrigated with Saline -Foul Odor after Cleansing No -Anesthetic Used 5% Lidocaine 5% Lidocaine Gel Gel Lower Limb Edema Present Yes Left Calf (cm) 34.5 33.6 Left Ankle (cm) 24.5 28.6 WC - Nurse 2 - General Ulcer CM Notes Start: 07/21/22 10:39 Freq: Status: Active Protocol: Activity Type Activity Date Activity User E-sign Co-sign Detail Recorded Client Recorded Date Recorded By Document 07/21/22 11:03 MW [id number] 07/21/22 11:09 MW Edit Result 07/21/22 11:03 MW (1) [id number] 07/22/22 07:00 PL Document 07/28/22 11:30 MW [id number] 07/28/22 11:36 MW (1) #1 Left olivas - Apply Skin Sub - 1st 25 sq cm - Legs => 1 - Epifix (per sq cm) => 4 07/21/22 07/28/22 11:03 11:30 Wound Center Nurse 2 #1 Left olivas -Time 11:03 11:30 -Correct Patient Yes Yes -Correct Side, Site, Position Yes Yes -Correct Procedure Yes Yes -Procedure Performed Yes Yes -Type of Procedure Debridement Debridement -Clinical Debridement Subcutaneous Subcutaneous -Tissue Removed Subcutaneous Subcutaneous -Post Debridement (cm) - Length 3.0 2.6 -Post Debridement (cm) - Width 1.3 1.2 -Post Debridement (cm) - Depth 0.3 0.4 -Total Square (Post) (cm) 3.90 3.12 -Area of Debridement (cm) - Length 3.0 2.6 -Area of Debridement (cm) - Width 1.3 1.2 -Total Square (Area) (cm) 3.90 3.12 -Tunneling No No -Undermining/Tunneling No No -Circular Undermining No No -Wound/Ulcer Outcome Not Healed Not Healed -Ulcer Cleansing Rinsed/ Rinsed/ Irrigated with Irrigated with Saline Saline -Foul Odor after Cleansing No No -Bioengineered Tissue Yes Yes -Type of Bioengineered Tissue Epifix Epifix -Expiration Date 03/18/27 03/18/27 -Product Lot Number [id number] -Percent Used 100 100 -Lot number of Saline Used [id number] -Bleeding Controlled with Pressure Pressure -Treatment Response Procedure Procedure Tolerated Well Tolerated Well -Offloading No -Debridement - Subq, 1st 20sq cm No No -Apply Skin Sub - 1st 25 sq cm - Legs 1 1 -Epifix (per sq cm) 4 4 Pain Scale: 0-10 Numeric Is Patient Pain Free? Yes Yes WC - Nurse 3 - General Ulcer D/C NN Start: 07/21/22 10:39 Freq: Status: Active Protocol: Activity Type Activity Date Activity User E-sign Co-sign Detail Recorded Client Recorded Date Recorded By Document 07/21/22 11:19 [facility] [id number] 07/21/22 11:20 [facility] Document 07/28/22 11:51 RB [id number] 07/28/22 11:54 RB 07/21/22 07/28/22 11:19 11:51 Wound Care Center Nurse 3 #1 Left olivas -Primary Dressing Applied Aquacel Extra -Other Dressing epifix -Primary Dressing Covered/Secured with Dry Gauze & Dry Gauze,Dry Roll Gauze, Gauze & Roll Secured with Gauze,Secured Tape with Tape -Other Covering abd -Aquacel Extra 1 Left -Tubular Bandage Single Layer Single Layer -Size of Tubigrip Used Size D Size D -Size D ($) 1 1 Treatment Response Procedure Procedure Tolerated Well Tolerated Well Pain Scale: 0-10 Numeric Is Patient Pain Free? Yes Yes WC - Visit Discharge Discharge Condition Stable Stable Ambulatory Status Ambulatory,Cane Ambulatory,Cane Transportation Private Auto Private Auto Medication Reconcilliation completed & No provided to patient/care provider Assessment/Plan Assessment/Plan (1) Laceration of left lower leg with complication: CODE(S): S81.812A - Laceration without foreign body, left lower leg, initial encounter PLAN: EpiFix #3 applied to left lower leg covered with veil and Steri-Strips Aquacel extra and a padded dressing. He is still to wear single-layer Tubigrip and elevate leg is much as possible. Patient to follow-up in 1 week (2) Nonhealing nonsurgical wound with fat layer exposed: CODE(S): T14.8XXA - Other injury of unspecified body region, initial encounter (3) Edema of left lower leg: CODE(S): R60.0 - Localized edema (4) PAD (peripheral artery disease): CODE(S): I73.9 - Peripheral vascular disease, unspecified
[2022-08-04 09:41] VITALS: BP 92/63; PULSE 80; RESP 18; TEMP 37.1; BMI 25.2
--- NOTE | 2022-08-04 10:45 | PCM.WC.PN ---
History of Present Illness Date of Service: 08/04/22 Chief Complaint: Left lower leg laceration occurring on May 18, 2022 History of Wound: This is a 86-year-old very hard of hearing gentleman that dropped a radiator on his left lower leg on May 18 of this year. Developed a severe gash in his left lower leg. Was seen in the emergency department at [place]. They were unable to close with suture. He also has severe PAD in his left leg has history of aortofemoral bypass and has a lot of swelling in his left lower leg. Because of the wound has been unable to wear his compression stockings because of the swelling. Recently finished cephalexin for an infection of some kind in his leg. Patient was told not to use anything on the wound. Patient is supersensitive about touching anywhere in or around the wound area. Progress of Wound: Measurements are slightly smaller tolerating the epi fix #3. No issues this week about the same in measurement still has some depth and some slough in the base that I have cleaned out we will continue with epi fix Surrounding tissue is clear no erythema noted Subjective Subjective Son and patient are happy with outcomes Objective Data Objective Data Tolerating the epi fix as well still quite the divot feeling and getting narrower. Patient has a lot of swelling in his leg retried in get him to elevate and wear stockings Vital Signs: Vital Signs Temp Pulse Resp BP 98.7 F 80 18 92/63 08/04/22 09:41 08/04/22 09:41 08/04/22 09:41 08/04/22 09:41 Weight: 161 lb Body Mass Index (BMI) 25.2 Physical Exam Const oriented x3 General Appearance: cooperative Exam Limitations: no limitations Resp normal respiratory effort Effort and Inspection: able to speak in complete sentences Auscultation: clear to auscultation bilaterally Cardio regular rate and regular rhythm Palpation: normal PMI Rate: regular rate Rhythm: regular rhythm GI Auscultation: normoactive bowel sounds Palpation: soft and no hepatosplenomegaly Extremity normal to inspection General Extremity: edema left lower extremity and weight-bearing difficulty; Negative for no tenderness to palpation of joints or extremities Left Lower Extremity: lower leg inspection (Laceration), palpation (Tender to palpate) and neurovascular exam (Poor pulses in left lower leg with swelling) Skin no rashes or lesions noted Neuro oriented x3 Psych Appearance: grossly normal Speech: normal speech Thought Content: normal thought content Judgement: judgement good Debridement Note Debridement Note Wound debrided: Left olivas traumatic wound Type of Debridement: Excisional debridement Anesthesia Used: 5% Lidocaine Gel Depth: Down to and including healthy tissue and in the subcutaneous layer Percentage of wound debrided: 100 Instrument Used: 5mm curette Tissue Removed: Slough and fibrin Severity: Fat Layer Exposed Amount of bleeding with debridement: Mild Bleeding Controlled with: Compression and gauze Patient tolerated procedure: Patient tolerated procedure well Post-Debridement Measurements and Additional Note: Post-Debridement Measurements/Treatment - Nurse 1 - General Ulcer Assessment Start: 07/21/22 10:39 Freq: Status: Active Protocol: [email or web address] Activity Type Activity Date Activity User E-sign Co-sign Detail Recorded Client Recorded Date Recorded By Document 07/21/22 10:39 PL [id number] 07/21/22 10:48 PL Document 07/28/22 10:58 RB Desktop 07/28/22 11:05 RB Document 08/04/22 09:41 RB [id number] 08/04/22 09:43 RB 07/21/22 07/28/22 08/04/22 10:39 10:58 09:41 - Today's Visit Information Type of service Follow-up Visit Follow-up Visit Follow-up Visit (Physician/BINDERY MACHINE SETTER/SET UP OPERATOR (Physician/BINDERY MACHINE SETTER/SET UP OPERATOR (Physician/BINDERY MACHINE SETTER/SET UP OPERATOR ) ) ) Arrival Mode Ambulatory,Cane Ambulatory Ambulatory,Cane Transfer Assistance None None None Patient Identification Verified (Name & Yes Yes Yes ) Patient Requires Transmission-Based No No Precautions Height and Weight Body Mass Index (BMI) 25.2 25.2 25.2 BMI Classification Overweight Overweight Overweight Vital Signs Temperature (97.8 F-99.1 F) 97.7 F L 98 F 98.7 F Temperature Source Temporal Temporal Temporal Pulse Rate (60-100) 77 74 80 Pulse Location Monitor Apical Respiratory Rate (12-18) 18 18 18 Respiratory rate source Observation Observation Blood Pressure (90/60-120/80) 111/80 93/67 92/63 Blood Pressure Mean (mm Hg) 90 75 72 Source Monitor Monitor Position Semi-Fowlers Semi-Fowlers Blood Pressure Location Left Arm Left Arm History Since Last Visit- (Skip if this is Patient's initial visit) Have you changed medications since your No No No last visit? Any new allergies or adverse reactions No No No Had a fall/change in ADL's that may No No No increase risk of falls Signs or symptoms of abuse and/or No No No neglect since last visit Have you been in the hospital since your No No No last visit? Has dressing in place as prescribed Yes Yes Yes Has compression in place as prescribed Yes Yes Yes Has offloadiing in place as prescribed Yes No No Experienced any changes in pain level or No No No management Pain Scale: 0-10 Numeric Is Patient Pain Free? Yes Yes Yes WC - Nurse 1 - General Ulcer Measurement Start: 07/21/22 10:39 Freq: Status: Active Protocol: Activity Type Activity Date Activity User E-sign Co-sign Detail Recorded Client Recorded Date Recorded By Document 07/21/22 10:39 PL [id number] 07/21/22 10:48 PL Document 07/28/22 10:58 RB Desktop 07/28/22 11:05 RB Document 08/04/22 09:41 RB [id number] 08/04/22 09:43 RB 07/21/22 07/28/22 08/04/22 10:39 10:58 09:41 Wound Center Nurse 1 #1 Left olivas -Combined with other wound No No No -Current Size (cm) - Length 3.0 2.8 2.9 -Current Size (cm) - Width 2.0 1.7 0.9 -Current Size (cm) - Depth 0.4 0.4 0.4 -Total Square Cm 6.00 4.76 2.61 -Photo Taken No Yes Yes -Epithelialization None Present -Tunneling No No -Undermining/Tunneling No No -Circular Undermining No No -Exudate Amt Medium Large Medium -Exudate Type Serosanguineous Serosanguineous Serosanguineous -Wound Margin Thickened & Thickened & Rolled Under Rolled Under -Granulation Amt Medium (34-66%) Medium (34-66%) Medium (34-66%) -Granulation Quality Pale [place] -Slough/Fibrin Yes Yes Yes -Necrosis Amt Medium (34-66%) Medium (34-66%) Medium (34-66%) -Necrotic Tissue Type Adherent Slough Adherent Slough Adherent Slough -Structure Exposed N/A N/A -Texture (Roseline-wound Skin Appearance) No Abnormality Assessed, Localized Edema Scarring ,Scarring -Moisture (Roseline-wound Skin Appearance) No Abnormality Assessed Assessed -Color (Roseline-wound Skin Appearance) No Abnormality Assessed Assessed -Temperature (Roseline-wound Skin No Abnormality No Abnormality No Abnormality Appearance) (Pt Warm) (Pt Warm) (Pt Warm) -Tenderness on Palpation (Roseline-wound No No No Skin Appearance) -Ulcer Cleansing Rinsed/ Wound Cleanser Wound Cleanser Irrigated with Saline -Foul Odor after Cleansing No No -Anesthetic Used 5% Lidocaine 5% Lidocaine 5% Lidocaine Gel Gel Gel Lower Limb Edema Present Yes Yes Left Calf (cm) 34.5 33.6 37 Left Ankle (cm) 24.5 28.6 29 WC - Nurse 2 - General Ulcer CM Notes Start: 07/21/22 10:39 Freq: Status: Active Protocol: Activity Type Activity Date Activity User E-sign Co-sign Detail Recorded Client Recorded Date Recorded By Document 07/21/22 11:03 MW [id number] 07/21/22 11:09 MW Edit Result 07/21/22 11:03 MW (1) [id number] 07/22/22 07:00 PL Document 07/28/22 11:30 MW [id number] 07/28/22 11:36 MW Document 08/04/22 09:55 MW [id number] 08/04/22 10:00 MW (1) #1 Left olivas - Apply Skin Sub - 1st 25 sq cm - Legs => 1 - Epifix (per sq cm) => 4 07/21/22 07/28/22 08/04/22 11:03 11:30 09:55 Wound Center Nurse 2 #1 Left olivas -Time 11:03 11:30 09:56 -Correct Patient Yes Yes Yes -Correct Side, Site, Position Yes Yes Yes -Correct Procedure Yes Yes Yes -Procedure Performed Yes Yes Yes -Type of Procedure Debridement Debridement Debridement -Clinical Debridement Subcutaneous Subcutaneous Subcutaneous -Tissue Removed Subcutaneous Subcutaneous Subcutaneous -Post Debridement (cm) - Length 3.0 2.6 2.8 -Post Debridement (cm) - Width 1.3 1.2 1.0 -Post Debridement (cm) - Depth 0.3 0.4 0.3 -Total Square (Post) (cm) 3.90 3.12 2.80 -Area of Debridement (cm) - Length 3.0 2.6 2.8 -Area of Debridement (cm) - Width 1.3 1.2 1.0 -Total Square (Area) (cm) 3.90 3.12 2.80 -Tunneling No No No -Undermining/Tunneling No No No -Circular Undermining No No No -Wound/Ulcer Outcome Not Healed Not Healed Not Healed -Ulcer Cleansing Rinsed/ Rinsed/ Rinsed/ Irrigated with Irrigated with Irrigated with Saline Saline Saline -Foul Odor after Cleansing No No No -Bioengineered Tissue Yes Yes Yes -Type of Bioengineered Tissue Epifix Epifix Epifix -Expiration Date 03/18/27 03/18/27 02/16/27 -Product Lot Number [id number] -Percent Used 100 100 100 -Lot number of Saline Used [id number] -Bleeding Controlled with Pressure Pressure Pressure -Treatment Response Procedure Procedure Procedure Tolerated Well Tolerated Well Tolerated Well -Offloading No No -Debridement - Subq, 1st 20sq cm No No No -Apply Skin Sub - 1st 25 sq cm - Legs 1 1 1 -Epifix (per sq cm) 4 4 4 Pain Scale: 0-10 Numeric Is Patient Pain Free? Yes Yes Yes WC - Nurse 3 - General Ulcer D/C NN Start: 07/21/22 10:39 Freq: Status: Active Protocol: Activity Type Activity Date Activity User E-sign Co-sign Detail Recorded Client Recorded Date Recorded By Document 07/21/22 11:19 [facility] [id number] 07/21/22 11:20 BM Document 07/28/22 11:51 RB [id number] 07/28/22 11:54 RB Document 08/04/22 10:01 MW [id number] 08/04/22 10:01 MW 07/21/22 07/28/22 08/04/22 11:19 11:51 10:01 Wound Care Center Nurse 3 #1 Left olivas -Ulcer Cleansing Not Cleansed -Foul Odor after Cleansing No -Negative Pressure Wound Therapy N/A -Primary Dressing Applied Aquacel Extra Aquacel Extra -Other Dressing epifix -Primary Dressing Covered/Secured with Dry Gauze & Dry Gauze,Dry Dry Gauze & Roll Gauze, Gauze & Roll Roll Gauze, Secured with Gauze,Secured Secured with Tape with Tape Tape -Other Covering abd -Aquacel Extra 1 1 Left -Tubular Bandage Single Layer Single Layer -Size of Tubigrip Used Size D Size D -Size D ($) 1 1 Treatment Response Procedure Procedure Procedure Tolerated Well Tolerated Well Tolerated Well Pain Scale: 0-10 Numeric Is Patient Pain Free? Yes Yes Yes Teaching: Wound Center Dressing Your Wound -Person Taught Family -Teaching Method Discussion -Response to teaching Verbalize understanding WC - Visit Discharge Discharge Condition Stable Stable Stable Ambulatory Status Ambulatory,Cane Ambulatory,Cane Ambulatory Transportation Private Auto Private Auto Private Auto Accompanied by son Medication Reconcilliation completed & No No provided to patient/care provider Clinical Summary of Care Provided Yes Assessment/Plan Assessment/Plan (1) Laceration of left lower leg with complication: CODE(S): S81.812A - Laceration without foreign body, left lower leg, initial encounter PLAN: EpiFix #4applied to left lower leg covered with veil and Steri-Strips Aquacel extra and a padded dressing. He is still to wear single-layer Tubigrip and elevate leg is much as possible. Patient to follow-up in 1 week (2) Nonhealing nonsurgical wound with fat layer exposed: CODE(S): T14.8XXA - Other injury of unspecified body region, initial encounter (3) Edema of left lower leg: CODE(S): R60.0 - Localized edema (4) PAD (peripheral artery disease): CODE(S): I73.9 - Peripheral vascular disease, unspecified
[2022-08-11 10:11] VITALS: BP 98/68; PULSE 76; RESP 16; TEMP 36.1; BMI 25.2
--- NOTE | 2022-08-11 11:56 | PCM.WC.PN ---
History of Present Illness Date of Service: 08/11/22 Chief Complaint: Left lower leg laceration occurring on May 18, 2022 History of Wound: This is a 86-year-old very hard of hearing gentleman that dropped a radiator on his left lower leg on May 18 of this year. Developed a severe gash in his left lower leg. Was seen in the emergency department at [place]. They were unable to close with suture. He also has severe PAD in his left leg has history of aortofemoral bypass and has a lot of swelling in his left lower leg. Because of the wound has been unable to wear his compression stockings because of the swelling. Recently finished cephalexin for an infection of some kind in his leg. Patient was told not to use anything on the wound. Patient is supersensitive about touching anywhere in or around the wound area. Progress of Wound: Measurements are slightly smaller tolerating the epi fix #4. No issues this week about the same in measurement still has some depth and some slough in the base that I have cleaned out we will continue with epi fix Surrounding tissue is clear no erythema noted. New tissue developing Subjective Subjective Patient is pleased with outcomes so his family Objective Data Objective Data We will apply epi #5 to wound base measurements are slightly smaller doing well no sign of infection noted Vital Signs: Vital Signs Temp Pulse Resp BP O2 Del Method 96.9 F L 76 16 98/68 Room Air 08/11/22 10:11 08/11/22 10:11 08/11/22 10:11 08/11/22 10:11 08/11/22 10:11 Oxygen Delivery Method Room Air Weight: 161 lb Body Mass Index (BMI) 25.2 Debridement Note Debridement Note Wound debrided: Nonhealing nonsurgical wound with fat layer exposed Type of Debridement: Excisional debridement Anesthesia Used: 5% Lidocaine Gel Depth: Down to and including healthy tissue and in the subcutaneous layer Percentage of wound debrided: 100 Instrument Used: 3mm curette Tissue Removed: Slough and fibrin Severity: Fat Layer Exposed Amount of bleeding with debridement: Mild Bleeding Controlled with: Compression and gauze Patient tolerated procedure: Patient tolerated procedure well Post-Debridement Measurements and Additional Note: Post-Debridement Measurements/Treatment BARBARA - Nurse 1 - General Ulcer Assessment Start: 07/21/22 10:39 Freq: Status: Active Protocol: KARSON Activity Type Activity Date Activity User E-sign Co-sign Detail Recorded Client Recorded Date Recorded By Document 07/21/22 10:39 PL [id number] 07/21/22 10:48 PL Document 07/28/22 10:58 RB Desktop 07/28/22 11:05 RB Document 08/04/22 09:41 RB [id number] 08/04/22 09:43 RB Document 08/11/22 10:11 BM [id number] 08/11/22 10:23 BMF 07/21/22 07/28/22 08/04/22 10:39 10:58 09:41 WC - Today's Visit Information Type of service Follow-up Visit Follow-up Visit Follow-up Visit (Physician/COMMUNITY HEALTH CONSULTANT (Physician/COMMUNITY HEALTH CONSULTANT (Physician/COMMUNITY HEALTH CONSULTANT ) ) ) Arrival Mode Ambulatory,Cane Ambulatory Ambulatory,Cane Transfer Assistance None None None Accompanied by Patient Identification Verified (Name & Yes Yes Yes ) Patient Requires Transmission-Based No No Precautions Height and Weight Body Mass Index (BMI) 25.2 25.2 25.2 BMI Classification Overweight Overweight Overweight Vital Signs Temperature (97.8 F-99.1 F) 97.7 F L 98 F 98.7 F Temperature Source Temporal Temporal Temporal Pulse Rate (60-100) 77 74 80 Pulse Location Monitor Apical Respiratory Rate (12-18) 18 18 18 Respiratory rate source Observation Observation Oxygen Delivery Method Blood Pressure (90/60-120/80) 111/80 93/67 92/63 Blood Pressure Mean (mm Hg) 90 75 72 Source Monitor Monitor Position Semi-Fowlers Semi-Fowlers Blood Pressure Location Left Arm Left Arm History Since Last Visit- (Skip if this is Patient's initial visit) Have you changed medications since your No No No last visit? Any new allergies or adverse reactions No No No Had a fall/change in ADL's that may No No No increase risk of falls Signs or symptoms of abuse and/or No No No neglect since last visit Have you been in the hospital since your No No No last visit? Has dressing in place as prescribed Yes Yes Yes Has compression in place as prescribed Yes Yes Yes Has offloadiing in place as prescribed Yes No No Experienced any changes in pain level or No No No management Left Footwear Right Footwear Pain Scale: 0-10 Numeric Is Patient Pain Free? Yes Yes Yes 08/11/22 10:11 - Today's Visit Information Type of service Follow-up Visit (Physician/COMMUNITY HEALTH CONSULTANT ) Arrival Mode Ambulatory Transfer Assistance None Accompanied by SON Patient Identification Verified (Name & Yes ) Patient Requires Transmission-Based No Precautions Height and Weight Body Mass Index (BMI) 25.2 BMI Classification Overweight Vital Signs Temperature (97.8 F-99.1 F) 96.9 F L Temperature Source Temporal Pulse Rate (60-100) 76 Pulse Location Monitor Respiratory Rate (12-18) 16 Respiratory rate source Observation Oxygen Delivery Method Room Air Blood Pressure (90/60-120/80) 98/68 Blood Pressure Mean (mm Hg) 78 Source Monitor Position Sitting Blood Pressure Location Left Arm History Since Last Visit- (Skip if this is Patient's initial visit) Have you changed medications since your No last visit? Any new allergies or adverse reactions No Had a fall/change in ADL's that may No increase risk of falls Signs or symptoms of abuse and/or No neglect since last visit Have you been in the hospital since your No last visit? Has dressing in place as prescribed Yes Has compression in place as prescribed Yes Has offloadiing in place as prescribed N/A Experienced any changes in pain level or No management Left Footwear Regular Shoe Right Footwear Regular Shoe Pain Scale: 0-10 Numeric Is Patient Pain Free? Yes - Nurse 1 - General Ulcer Measurement Start: 07/21/22 10:39 Freq: Status: Active Protocol: Activity Type Activity Date Activity User E-sign Co-sign Detail Recorded Client Recorded Date Recorded By Document 07/21/22 10:39 PL [id number] 07/21/22 10:48 PL Document 07/28/22 10:58 RB Desktop 07/28/22 11:05 RB Document 08/04/22 09:41 RB [id number] 08/04/22 09:43 RB Document 08/11/22 10:11 [facility] [id number] 08/11/22 10:23 BMF 07/21/22 07/28/22 08/04/22 10:39 10:58 09:41 Wound Center Nurse 1 #1 Left olivas -Combined with other wound No No No -Current Size (cm) - Length 3.0 2.8 2.9 -Current Size (cm) - Width 2.0 1.7 0.9 -Current Size (cm) - Depth 0.4 0.4 0.4 -Total Square Cm 6.00 4.76 2.61 -Date of Last Picture (Recall this field) -Photo Taken No Yes Yes -Epithelialization None Present -Tunneling No No -Undermining/Tunneling No No -Circular Undermining No No -Exudate Amt Medium Large Medium -Exudate Type Serosanguineous Serosanguineous Serosanguineous -Wound Margin Thickened & Thickened & Rolled Under Rolled Under -Granulation Amt Medium (34-66%) Medium (34-66%) Medium (34-66%) -Granulation Quality Pale [place] -Slough/Fibrin Yes Yes Yes -Necrosis Amt Medium (34-66%) Medium (34-66%) Medium (34-66%) -Necrotic Tissue Type Adherent Slough Adherent Slough Adherent Slough -Structure Exposed N/A N/A -Texture (Roseline-wound Skin Appearance) No Abnormality Assessed, Localized Edema Scarring ,Scarring -Moisture (Roseline-wound Skin Appearance) No Abnormality Assessed Assessed -Color (Roseline-wound Skin Appearance) No Abnormality Assessed Assessed -Temperature (Roseline-wound Skin No Abnormality No Abnormality No Abnormality Appearance) (Pt Warm) (Pt Warm) (Pt Warm) -Tenderness on Palpation (Roseline-wound No No No Skin Appearance) -Ulcer Cleansing Rinsed/ Wound Cleanser Wound Cleanser Irrigated with Saline -Foul Odor after Cleansing No No -Anesthetic Used 5% Lidocaine 5% Lidocaine 5% Lidocaine Gel Gel Gel Lower Limb Edema Present Yes Yes Left Calf (cm) 34.5 33.6 37 Left Ankle (cm) 24.5 28.6 29 08/11/22 10:11 Wound Center Nurse 1 #1 Left olivas -Combined with other wound No -Current Size (cm) - Length 2.3 -Current Size (cm) - Width 0.8 -Current Size (cm) - Depth 0.4 -Total Square Cm 1.84 -Date of Last Picture (Recall this 08/11/22 field) -Photo Taken Yes -Epithelialization Small 1-33% -Tunneling No -Undermining/Tunneling No -Circular Undermining No -Exudate Amt Medium -Exudate Type Serosanguineous -Wound Margin Distinct, Outline Attached -Granulation Amt Small (1-33%) -Granulation Quality Red -Slough/Fibrin Yes -Necrosis Amt Large (67-100%) -Necrotic Tissue Type Adherent Slough -Structure Exposed -Texture (Roseline-wound Skin Appearance) Assessed, Scarring -Moisture (Roseline-wound Skin Appearance) Assessed -Color (Roseline-wound Skin Appearance) Assessed -Temperature (Roseline-wound Skin No Abnormality Appearance) (Pt Warm) -Tenderness on Palpation (Roseline-wound No Skin Appearance) -Ulcer Cleansing Soap and Water -Foul Odor after Cleansing No -Anesthetic Used 5% Lidocaine Gel Lower Limb Edema Present Yes Left Calf (cm) 31.9 Left Ankle (cm) 28.6 WC - Nurse 2 - General Ulcer CM Notes Start: 07/21/22 10:39 Freq: Status: Active Protocol: Activity Type Activity Date Activity User E-sign Co-sign Detail Recorded Client Recorded Date Recorded By Document 07/21/22 11:03 MW [id number] 07/21/22 11:09 MW Edit Result 07/21/22 11:03 MW (1) [id number] 07/22/22 07:00 PL Document 07/28/22 11:30 MW [id number] 07/28/22 11:36 MW Document 08/04/22 09:55 MW [id number] 08/04/22 10:00 MW Document 08/11/22 10:30 MW [id number] 08/11/22 10:35 MW (1) #1 Left olivas - Apply Skin Sub - 1st 25 sq cm - Legs => 1 - Epifix (per sq cm) => 4 07/21/22 07/28/22 08/04/22 11:03 11:30 09:55 Wound Center Nurse 2 #1 Left olivas -Time 11:03 11:30 09:56 -Correct Patient Yes Yes Yes -Correct Side, Site, Position Yes Yes Yes -Correct Procedure Yes Yes Yes -Procedure Performed Yes Yes Yes -Type of Procedure Debridement Debridement Debridement -Clinical Debridement Subcutaneous Subcutaneous Subcutaneous -Tissue Removed Subcutaneous Subcutaneous Subcutaneous -Post Debridement (cm) - Length 3.0 2.6 2.8 -Post Debridement (cm) - Width 1.3 1.2 1.0 -Post Debridement (cm) - Depth 0.3 0.4 0.3 -Total Square (Post) (cm) 3.90 3.12 2.80 -Area of Debridement (cm) - Length 3.0 2.6 2.8 -Area of Debridement (cm) - Width 1.3 1.2 1.0 -Total Square (Area) (cm) 3.90 3.12 2.80 -Tunneling No No No -Undermining/Tunneling No No No -Circular Undermining No No No -Wound/Ulcer Outcome Not Healed Not Healed Not Healed -Ulcer Cleansing Rinsed/ Rinsed/ Rinsed/ Irrigated with Irrigated with Irrigated with Saline Saline Saline -Foul Odor after Cleansing No No No -Bioengineered Tissue Yes Yes Yes -Type of Bioengineered Tissue Epifix Epifix Epifix -Expiration Date 03/18/27 03/18/27 02/16/27 -Product Lot Number [id number] -Percent Used 100 100 100 -Lot number of Saline Used [id number] -Bleeding Controlled with Pressure Pressure Pressure -Treatment Response Procedure Procedure Procedure Tolerated Well Tolerated Well Tolerated Well -Offloading No No -Debridement - Subq, 1st 20sq cm No No No -Apply Skin Sub - 1st 25 sq cm - Legs 1 1 1 -Epifix (per sq cm) 4 4 4 Pain Scale: 0-10 Numeric Is Patient Pain Free? Yes Yes Yes 08/11/22 10:30 Wound Center Nurse 2 #1 Left olivas -Time 10:31 -Correct Patient Yes -Correct Side, Site, Position Yes -Correct Procedure Yes -Procedure Performed Yes -Type of Procedure Debridement -Clinical Debridement Subcutaneous -Tissue Removed Subcutaneous -Post Debridement (cm) - Length 2.5 -Post Debridement (cm) - Width 0.9 -Post Debridement (cm) - Depth 0.3 -Total Square (Post) (cm) 2.25 -Area of Debridement (cm) - Length 2.5 -Area of Debridement (cm) - Width 0.9 -Total Square (Area) (cm) 2.25 -Tunneling No -Undermining/Tunneling No -Circular Undermining No -Wound/Ulcer Outcome Not Healed -Ulcer Cleansing Rinsed/ Irrigated with Saline -Foul Odor after Cleansing No -Bioengineered Tissue Yes -Type of Bioengineered Tissue Epifix -Expiration Date 02/16/27 -Product Lot Number [id number] -Percent Used 100 -Lot number of Saline Used [id number] -Bleeding Controlled with Pressure -Treatment Response Procedure Tolerated Well -Offloading No -Debridement - Subq, 1st 20sq cm No -Apply Skin Sub - 1st 25 sq cm - Legs -Epifix (per sq cm) Pain Scale: 0-10 Numeric Is Patient Pain Free? Yes - Nurse 3 - General Ulcer D/C NN Start: 07/21/22 10:39 Freq: Status: Active Protocol: Activity Type Activity Date Activity User E-sign Co-sign Detail Recorded Client Recorded Date Recorded By Document 07/21/22 11:19 [facility] [id number] 07/21/22 11:20 BM Document 07/28/22 11:51 RB [id number] 07/28/22 11:54 RB Document 08/04/22 10:01 MW [id number] 08/04/22 10:01 MW Document 08/11/22 10:46 BM [id number] 08/11/22 10:47 BMF 07/21/22 07/28/22 08/04/22 11:19 11:51 10:01 Wound Care Center Nurse 3 #1 Left olivas -Ulcer Cleansing Not Cleansed -Foul Odor after Cleansing No -Negative Pressure Wound Therapy N/A -Primary Dressing Applied Aquacel Extra Aquacel Extra -Other Dressing epifix -Primary Dressing Covered/Secured with Dry Gauze & Dry Gauze,Dry Dry Gauze & Roll Gauze, Gauze & Roll Roll Gauze, Secured with Gauze,Secured Secured with Tape with Tape Tape -Other Covering abd -Aquacel Extra 1 1 Left -Tubular Bandage Single Layer Single Layer -Size of Tubigrip Used Size D Size D -Size D ($) 1 1 -Size E ($) Treatment Response Procedure Procedure Procedure Tolerated Well Tolerated Well Tolerated Well Pain Scale: 0-10 Numeric Is Patient Pain Free? Yes Yes Yes Teaching: Wound Center Dressing Your Wound -Person Taught Family -Teaching Method Discussion -Response to teaching Verbalize understanding WC - Visit Discharge Discharge Condition Stable Stable Stable Ambulatory Status Ambulatory,Cane Ambulatory,Cane Ambulatory Transportation Private Auto Private Auto Private Auto Accompanied by son Medication Reconcilliation completed & No No provided to patient/care provider Clinical Summary of Care Provided Yes 08/11/22 10:46 Wound Care Center Nurse 3 #1 Left olivas -Ulcer Cleansing -Foul Odor after Cleansing -Negative Pressure Wound Therapy -Primary Dressing Applied -Other Dressing EPIFIX -Primary Dressing Covered/Secured with Dry Gauze & Roll Gauze, Secured with Tape -Other Covering -Aquacel Extra Left -Tubular Bandage Single Layer -Size of Tubigrip Used Size E -Size D ($) -Size E ($) 1 Treatment Response Pain Scale: 0-10 Numeric Is Patient Pain Free? Yes Teaching: Wound Center Dressing Your Wound -Person Taught -Teaching Method -Response to teaching WC - Visit Discharge Discharge Condition Stable Ambulatory Status Ambulatory,Cane Transportation Private Auto Accompanied by SON Medication Reconcilliation completed & provided to patient/care provider Clinical Summary of Care Provided Assessment/Plan Assessment/Plan (1) Laceration of left lower leg with complication: CODE(S): S81.812A - Laceration without foreign body, left lower leg, initial encounter PLAN: EpiFix #5 applied to left lower leg covered with veil and Steri-Strips Aquacel extra and a padded dressing. He is still to wear single-layer Tubigrip and elevate leg is much as possible. Patient to follow-up in 1 week (2) Nonhealing nonsurgical wound with fat layer exposed: CODE(S): T14.8XXA - Other injury of unspecified body region, initial encounter (3) Edema of left lower leg: CODE(S): R60.0 - Localized edema (4) PAD (peripheral artery disease): CODE(S): I73.9 - Peripheral vascular disease, unspecified
== END 2022-08-15 23:59 | disposition home or self-care (01) ==
LOC: WC 10:00
PROVIDERS: PCP Family Medicine; Visit Provider Nurse Practitioner
DX: S81.812A Laceration without foreign body, left lower leg, initial encounter (principal); I73.9 Peripheral vascular disease, unspecified; W20.8XXA Other cause of strike by thrown, projected or falling object, initial encounter; M79.89 Other specified soft tissue disorders; H91.90 Unspecified hearing loss, unspecified ear; Z79.82 Long term (current) use of aspirin; Z79.890 Hormone replacement therapy; Z79.899 Other long term (current) drug therapy; Z95.820 Peripheral vascular angioplasty status with implants and grafts
CPT/HCPCS: 15271; Q4186

== ENCOUNTER 2022-09-15 10:30 | Outpatient (RCR) | payer MEDICARE, OTHER, SELFPAY ==
[2022-08-16 00:39] VITALS: BP 98/68; PULSE 76; RESP 16; TEMP 36.1; BMI 25.2
[2022-08-18 10:59] VITALS: BP 83/53; PULSE 71; RESP 16; BMI 25.2
--- NOTE | 2022-08-18 12:06 | PCM.WC.PN ---
History of Present Illness Date of Service: 08/18/22 Chief Complaint: Left lower leg laceration occurring on May 18, 2022 History of Wound: This is a 86-year-old very hard of hearing gentleman that dropped a radiator on his left lower leg on May 18 of this year. Developed a severe gash in his left lower leg. Was seen in the emergency department at [place]. They were unable to close with suture. He also has severe PAD in his left leg has history of aortofemoral bypass and has a lot of swelling in his left lower leg. Because of the wound has been unable to wear his compression stockings because of the swelling. Recently finished cephalexin for an infection of some kind in his leg. Patient was told not to use anything on the wound. Patient is supersensitive about touching anywhere in or around the wound area. Progress of Wound: Patient just finished his fifth EpiFix still has a lot of depth but measurements are smaller no sign of infection leg is still edematous he is not wearing his compression stockings away supposed to. Subjective Subjective Both sons and patient were in room today they are all agreeable with the epi fix Objective Data Objective Data EpiFix #6 applied to wound base covered with wound veil and Steri-Strips Aquacel extra and dry dressing Patient needs to be better about wearing his compression stockings Vital Signs: Vital Signs Temp Pulse Resp BP O2 Del Method 96.9 F L 71 16 83/53 L Room Air 08/16/22 00:39 08/18/22 10:59 08/18/22 10:59 08/18/22 10:59 08/18/22 10:59 Oxygen Delivery Method Room Air Weight: 161 lb Body Mass Index (BMI) 25.2 Lab / Micro Data Attestation: I reviewed the patient's lab results. Physical Exam Const oriented x3 General Appearance: cooperative Exam Limitations: no limitations Resp normal respiratory effort Effort and Inspection: able to speak in complete sentences Auscultation: clear to auscultation bilaterally Cardio regular rate and regular rhythm Palpation: normal PMI Rate: regular rate Rhythm: regular rhythm GI Auscultation: normoactive bowel sounds Palpation: soft and no hepatosplenomegaly Extremity normal to inspection General Extremity: edema left lower extremity and weight-bearing difficulty; Negative for no tenderness to palpation of joints or extremities Left Lower Extremity: lower leg inspection (Laceration), palpation (Tender to palpate) and neurovascular exam (Poor pulses in left lower leg with swelling) Skin no rashes or lesions noted Neuro oriented x3 Psych Appearance: grossly normal Speech: normal speech Thought Content: normal thought content Judgement: judgement good Debridement Note Debridement Note Wound debrided: Left olivas traumatic wound nonhealing Type of Debridement: Excisional debridement Anesthesia Used: 5% Lidocaine Gel Depth: Down to and including healthy tissue and in the subcutaneous layer Percentage of wound debrided: 100 Instrument Used: 3mm curette Tissue Removed: Slough and fibrin Severity: Fat Layer Exposed Amount of bleeding with debridement: Mild Bleeding Controlled with: Compression and gauze Patient tolerated procedure: Patient tolerated procedure well Post-Debridement Measurements and Additional Note: Post-Debridement Measurements/Treatment - Nurse 1 - General Ulcer Assessment Start: 08/18/22 10:59 Freq: Status: Active Protocol: .SON Activity Type Activity Date Activity User E-sign Co-sign Detail Recorded Client Recorded Date Recorded By Document 08/18/22 10:59 [facility] [id number] 08/18/22 11:07 [facility] 08/18/22 10:59 - Today's Visit Information Type of service 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 ) Arrival Mode Ambulatory,Cane Transfer Assistance None Accompanied by SON Patient Identification Verified (Name & Yes ) Patient Requires Transmission-Based No Precautions Height and Weight Body Mass Index (BMI) 25.2 BMI Classification Overweight Vital Signs Pulse Rate (60-100) 71 Pulse Location Monitor Respiratory Rate (12-18) 16 Respiratory rate source Observation Oxygen Delivery Method Room Air Blood Pressure (90/60-120/80) 83/53 L Blood Pressure Mean (mm Hg) 63 Source Monitor Position Sitting Blood Pressure Location Left Arm History Since Last Visit- (Skip if this is Patient's initial visit) Have you changed medications since your No last visit? Any new allergies or adverse reactions No Had a fall/change in ADL's that may No increase risk of falls Signs or symptoms of abuse and/or No neglect since last visit Have you been in the hospital since your No last visit? Has dressing in place as prescribed Yes Has compression in place as prescribed Yes Has offloadiing in place as prescribed N/A Experienced any changes in pain level or No management Left Footwear Regular Shoe Right Footwear Regular Shoe Pain Scale: 0-10 Numeric Is Patient Pain Free? Yes WC - Nurse 1 - General Ulcer Measurement Start: 08/18/22 10:59 Freq: Status: Active Protocol: Activity Type Activity Date Activity User E-sign Co-sign Detail Recorded Client Recorded Date Recorded By Document 08/18/22 10:59 [facility] [id number] 08/18/22 11:07 [facility] 08/18/22 10:59 Wound Center Nurse 1 #1 Left olivas -Combined with other wound No -Current Size (cm) - Length 2.1 -Current Size (cm) - Width 1 -Current Size (cm) - Depth 0.4 -Total Square Cm 2.1 -Date of Last Picture (Recall this 08/18/22 field) -Photo Taken Yes -Epithelialization Small 1-33% -Tunneling No -Undermining/Tunneling No -Circular Undermining No -Exudate Amt Medium -Exudate Type Serosanguineous -Wound Margin Distinct, Outline Attached -Granulation Amt Small (1-33%) -Granulation Quality Red -Slough/Fibrin Yes -Necrosis Amt Large (67-100%) -Necrotic Tissue Type Adherent Slough -Texture (Roseline-wound Skin Appearance) Assessed, Scarring -Moisture (Roseline-wound Skin Appearance) Assessed -Color (Roseline-wound Skin Appearance) Assessed -Temperature (Roseline-wound Skin No Abnormality Appearance) (Pt Warm) -Tenderness on Palpation (Roseline-wound No Skin Appearance) -Ulcer Cleansing Soap and Water -Foul Odor after Cleansing No -Anesthetic Used 5% Lidocaine Gel Lower Limb Edema Present Yes Left Calf (cm) 34.5 Left Ankle (cm) 28.6 WC - Nurse 2 - General Ulcer CM Notes Start: 08/18/22 10:59 Freq: Status: Active Protocol: Activity Type Activity Date Activity User E-sign Co-sign Detail Recorded Client Recorded Date Recorded By Document 08/18/22 11:25 MW [id number] 08/18/22 11:31 MW 08/18/22 11:25 Wound Center Nurse 2 #1 Left olivas -Time 11:25 -Correct Patient Yes -Correct Side, Site, Position Yes -Correct Procedure Yes -Procedure Performed Yes -Type of Procedure Debridement -Clinical Debridement Subcutaneous -Tissue Removed Subcutaneous -Post Debridement (cm) - Length 2.2 -Post Debridement (cm) - Width 0.7 -Post Debridement (cm) - Depth 0.3 -Total Square (Post) (cm) 1.54 -Area of Debridement (cm) - Length 2.2 -Area of Debridement (cm) - Width 0.7 -Total Square (Area) (cm) 1.54 -Tunneling No -Undermining/Tunneling No -Circular Undermining No -Wound/Ulcer Outcome Not Healed -Ulcer Cleansing Rinsed/ Irrigated with Saline -Foul Odor after Cleansing No -Bioengineered Tissue Yes -Type of Bioengineered Tissue Epifix 18mm Disc -Expiration Date 04/18/27 -Product Lot Number [id number] -Percent Used 100 -Lot number of Saline Used [id number] -Bleeding Controlled with Pressure -Treatment Response Procedure Tolerated Well -Offloading No -Debridement - Subq, 1st 20sq cm No -Apply Skin Sub - 1st 25 sq cm - Legs 1 -Epifix 18mm Disc 3 Pain Scale: 0-10 Numeric Is Patient Pain Free? Yes - Nurse 3 - General Ulcer D/C NN Start: 08/18/22 10:59 Freq: Status: Active Protocol: Activity Type Activity Date Activity User E-sign Co-sign Detail Recorded Client Recorded Date Recorded By Document 08/18/22 11:38 [facility] [id number] 08/18/22 11:38 [facility] 08/18/22 11:38 Wound Care Center Nurse 3 #1 Left olivas -Primary Dressing Applied Aquacel Extra -Other Dressing EPIFIX -Primary Dressing Covered/Secured with Dry Gauze & Roll Gauze, Secured with Tape -Aquacel Extra 1 Left -Tubular Bandage Single Layer -Size of Tubigrip Used Size D -Size D ($) 1 Treatment Response Procedure Tolerated Well Pain Scale: 0-10 Numeric Is Patient Pain Free? Yes - Visit Discharge Discharge Condition Stable Ambulatory Status Ambulatory,Cane Assessment/Plan Assessment/Plan (1) Laceration of left lower leg with complication: CODE(S): S81.812A - Laceration without foreign body, left lower leg, initial encounter PLAN: EpiFix #6 applied to left lower leg covered with veil and Steri-Strips Aquacel extra and a padded dressing. He is still to wear single-layer Tubigrip and elevate leg is much as possible. Patient to follow-up in 1 week (2) Nonhealing nonsurgical wound with fat layer exposed: CODE(S): T14.8XXA - Other injury of unspecified body region, initial encounter (3) Edema of left lower leg: CODE(S): R60.0 - Localized edema (4) PAD (peripheral artery disease): CODE(S): I73.9 - Peripheral vascular disease, unspecified
[2022-08-25 11:16] VITALS: BP 89/57; PULSE 87; RESP 18; TEMP 36.6; BMI 25.2
--- NOTE | 2022-08-25 11:52 | PCM.WC.PN ---
History of Present Illness Date of Service: 08/25/22 Chief Complaint: Left lower leg laceration occurring on May 18, 2022 History of Wound: This is a 86-year-old very hard of hearing gentleman that dropped a radiator on his left lower leg on May 18 of this year. Developed a severe gash in his left lower leg. Was seen in the emergency department at [place]. They were unable to close with suture. He also has severe PAD in his left leg has history of aortofemoral bypass and has a lot of swelling in his left lower leg. Because of the wound has been unable to wear his compression stockings because of the swelling. Recently finished cephalexin for an infection of some kind in his leg. Patient was told not to use anything on the wound. Patient is supersensitive about touching anywhere in or around the wound area. Progress of Wound: Patient just finished his 6th EpiFix still has a lot of depth but measurements are smaller no sign of infection leg is still edematous he is wearing his compression stockings . Surrounding skin is flesh-colored no sign of infection or redness tolerating treatments well Subjective Subjective Son and patient are happy with outcomes Objective Data Objective Data Measures smaller still has depth filling in though but slowly Vital Signs: Vital Signs Temp Pulse Resp BP O2 Del Method 97.9 F 87 18 89/57 L Room Air 08/25/22 11:16 08/25/22 11:16 08/25/22 11:16 08/25/22 11:16 08/18/22 10:59 Oxygen Delivery Method Room Air Weight: 161 lb Body Mass Index (BMI) 25.2 Debridement Note Debridement Note Wound debrided: Left olivas trauma nonhealing wound Type of Debridement: Excisional debridement Anesthesia Used: 5% Lidocaine Gel Depth: Down to and including healthy tissue Percentage of wound debrided: 100 Instrument Used: 3mm curette Tissue Removed: Fibrin and some devitalized tissue Severity: Fat Layer Exposed Amount of bleeding with debridement: Mild Bleeding Controlled with: Compression and gauze Patient tolerated procedure: Patient tolerated procedure well Post-Debridement Measurements and Additional Note: Post-Debridement Measurements/Treatment - Nurse 1 - General Ulcer Assessment Start: 08/18/22 10:59 Freq: Status: Active Protocol: KARSON Activity Type Activity Date Activity User E-sign Co-sign Detail Recorded Client Recorded Date Recorded By Document 08/18/22 10:59 [facility] [id number] 08/18/22 11:07 [facility] Document 08/25/22 11:16 [id number] 08/25/22 11:18 RB 08/18/22 08/25/22 10:59 11:16 - Today's Visit Information Type of service Follow-up Visit 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 ) ) Arrival Mode Ambulatory,Cane Ambulatory,Cane Transfer Assistance None None Accompanied by SON Patient Identification Verified (Name & Yes Yes ) Patient Requires Transmission-Based No No Precautions Height and Weight Body Mass Index (BMI) 25.2 25.2 BMI Classification Overweight Overweight Vital Signs Temperature (97.8 F-99.1 F) 97.9 F Temperature Source Temporal Pulse Rate (60-100) 71 87 Pulse Location Monitor Monitor Respiratory Rate (12-18) 16 18 Respiratory rate source Observation Observation Oxygen Delivery Method Room Air Blood Pressure (90/60-120/80) 83/53 L 89/57 L Blood Pressure Mean (mm Hg) 63 67 Source Monitor Monitor Position Sitting Semi-Fowlers Blood Pressure Location Left Arm Left Arm History Since Last Visit- (Skip if this is Patient's initial visit) Have you changed medications since your No No last visit? Any new allergies or adverse reactions No No Had a fall/change in ADL's that may No No increase risk of falls Signs or symptoms of abuse and/or No No neglect since last visit Have you been in the hospital since your No No last visit? Has dressing in place as prescribed Yes Yes Has compression in place as prescribed Yes Yes Has offloadiing in place as prescribed N/A No Experienced any changes in pain level or No No management Left Footwear Regular Shoe Right Footwear Regular Shoe Pain Scale: 0-10 Numeric Is Patient Pain Free? Yes Yes - Nurse 1 - General Ulcer Measurement Start: 08/18/22 10:59 Freq: Status: Active Protocol: Activity Type Activity Date Activity User E-sign Co-sign Detail Recorded Client Recorded Date Recorded By Document 08/18/22 10:59 [facility] [id number] 08/18/22 11:07 [facility] Document 08/25/22 11:16 [id number] 08/25/22 11:18 RB 08/18/22 08/25/22 10:59 11:16 Wound Center Nurse 1 #1 Left olivas -Combined with other wound No No -Current Size (cm) - Length 2.1 1.9 -Current Size (cm) - Width 1 0.4 -Current Size (cm) - Depth 0.4 0.3 -Total Square Cm 2.1 0.76 -Date of Last Picture (Recall this 08/18/22 field) -Photo Taken Yes Yes -Epithelialization Small 1-33% -Tunneling No No -Undermining/Tunneling No No -Circular Undermining No No -Exudate Amt Medium Medium -Exudate Type Serosanguineous Serosanguineous -Wound Margin Distinct, Thickened & Outline Rolled Under Attached -Granulation Amt Small (1-33%) Medium (34-66%) -Granulation Quality Red Dewar -Slough/Fibrin Yes Yes -Necrosis Amt Large (67-100%) Medium (34-66%) -Necrotic Tissue Type Adherent Slough Adherent Slough -Structure Exposed N/A -Texture (Roseline-wound Skin Appearance) Assessed, Assessed, Scarring Scarring -Moisture (Roseline-wound Skin Appearance) Assessed Assessed -Color (Roseline-wound Skin Appearance) Assessed Assessed -Temperature (Roseline-wound Skin No Abnormality No Abnormality Appearance) (Pt Warm) (Pt Warm) -Tenderness on Palpation (Roseline-wound No No Skin Appearance) -Ulcer Cleansing Soap and Water Wound Cleanser -Foul Odor after Cleansing No No -Anesthetic Used 5% Lidocaine 5% Lidocaine Gel Gel Lower Limb Edema Present Yes Yes Left Calf (cm) 34.5 33.5 Left Ankle (cm) 28.6 28.5 WC - Nurse 2 - General Ulcer CM Notes Start: 08/18/22 10:59 Freq: Status: Active Protocol: Activity Type Activity Date Activity User E-sign Co-sign Detail Recorded Client Recorded Date Recorded By Document 08/18/22 11:25 MW [id number] 08/18/22 11:31 MW Document 08/25/22 11:23 MW [id number] 08/25/22 11:29 MW 08/18/22 08/25/22 11:25 11:23 Wound Center Nurse 2 #1 Left olivas -Time 11:25 11:23 -Correct Patient Yes Yes -Correct Side, Site, Position Yes Yes -Correct Procedure Yes Yes -Procedure Performed Yes Yes -Type of Procedure Debridement Debridement -Clinical Debridement Subcutaneous Subcutaneous -Tissue Removed Subcutaneous Subcutaneous -Post Debridement (cm) - Length 2.2 2.2 -Post Debridement (cm) - Width 0.7 0.4 -Post Debridement (cm) - Depth 0.3 0.3 -Total Square (Post) (cm) 1.54 0.88 -Area of Debridement (cm) - Length 2.2 2.2 -Area of Debridement (cm) - Width 0.7 0.4 -Total Square (Area) (cm) 1.54 0.88 -Tunneling No No -Undermining/Tunneling No No -Circular Undermining No No -Wound/Ulcer Outcome Not Healed Not Healed -Ulcer Cleansing Rinsed/ Rinsed/ Irrigated with Irrigated with Saline Saline -Foul Odor after Cleansing No No -Bioengineered Tissue Yes Yes -Type of Bioengineered Tissue Epifix 18mm Epifix 18mm Disc Disc -Expiration Date 04/18/27 04/18/27 -Product Lot Number [id number] -Percent Used 100 100 -Lot number of Saline Used [id number] -Bleeding Controlled with Pressure Pressure -Treatment Response Procedure Procedure Tolerated Well Tolerated Well -Offloading No No -Debridement - Subq, 1st 20sq cm No No -Apply Skin Sub - 1st 25 sq cm - Legs 1 1 -Epifix 18mm Disc 3 3 Pain Scale: 0-10 Numeric Is Patient Pain Free? Yes Yes WC - Nurse 3 - General Ulcer D/C NN Start: 08/18/22 10:59 Freq: Status: Active Protocol: Activity Type Activity Date Activity User E-sign Co-sign Detail Recorded Client Recorded Date Recorded By Document 08/18/22 11:38 [facility] [id number] 08/18/22 11:38 [facility] Document 08/25/22 11:31 MW [id number] 08/25/22 11:32 MW 08/18/22 08/25/22 11:38 11:31 Wound Care Center Nurse 3 #1 Left olivas -Ulcer Cleansing Not Cleansed -Foul Odor after Cleansing No -Negative Pressure Wound Therapy N/A -Primary Dressing Applied Aquacel Extra Aquacel Extra -Other Dressing EPIFIX -Primary Dressing Covered/Secured with Dry Gauze & Dry Gauze & Roll Gauze, Roll Gauze, Secured with Secured with Tape Tape -Aquacel Extra 1 1 Left -Tubular Bandage Single Layer -Size of Tubigrip Used Size D -Size D ($) 1 Treatment Response Procedure Procedure Tolerated Well Tolerated Well Pain Scale: 0-10 Numeric Is Patient Pain Free? Yes Yes Teaching: Wound Center Dressing Your Wound -Person Taught Patient -Teaching Method Discussion -Response to teaching Verbalize understanding WC - Visit Discharge Discharge Condition Stable Stable Ambulatory Status Ambulatory,Cane Ambulatory Transportation Private Auto Accompanied by son Medication Reconcilliation completed & No provided to patient/care provider Clinical Summary of Care Provided Yes Assessment/Plan Assessment/Plan (1) Laceration of left lower leg with complication: CODE(S): S81.812A - Laceration without foreign body, left lower leg, initial encounter PLAN: EpiFix #7 applied to left lower leg covered with veil and Steri-Strips Aquacel extra and a padded dressing. He is still to wear single-layer Tubigrip and elevate leg is much as possible. Patient to follow-up in 1 week (2) Nonhealing nonsurgical wound with fat layer exposed: CODE(S): T14.8XXA - Other injury of unspecified body region, initial encounter (3) Edema of left lower leg: CODE(S): R60.0 - Localized edema (4) PAD (peripheral artery disease): CODE(S): I73.9 - Peripheral vascular disease, unspecified
[2022-09-01 10:23] VITALS: BP 112/76; PULSE 73; RESP 18; TEMP 36.6; BMI 25.2
--- NOTE | 2022-09-01 11:36 | PCM.WC.PN ---
History of Present Illness Date of Service: 09/01/22 Chief Complaint: Left lower leg laceration occurring on May 18, 2022 History of Wound: This is a 86-year-old very hard of hearing gentleman that dropped a radiator on his left lower leg on May 18 of this year. Developed a severe gash in his left lower leg. Was seen in the emergency department at [place]. They were unable to close with suture. He also has severe PAD in his left leg has history of aortofemoral bypass and has a lot of swelling in his left lower leg. Because of the wound has been unable to wear his compression stockings because of the swelling. Recently finished cephalexin for an infection of some kind in his leg. Patient was told not to use anything on the wound. Patient is supersensitive about touching anywhere in or around the wound area. Progress of Wound: Patient just finished his 7th EpiFix still has a lot of depth but measurements are smaller no sign of infection leg is still edematous he is wearing his compression stockings . Surrounding skin is flesh-colored no sign of infection or redness tolerating treatments well Subjective Subjective Son and patient are happy with outcomes Objective Data Objective Data The wound still has depth he needs better compression were going to add an a 20-30 compression stocking on his leg this next week. Vital Signs: Vital Signs Temp Pulse Resp BP O2 Del Method 98 F 73 18 112/76 Room Air 09/01/22 10:23 09/01/22 10:23 09/01/22 10:23 09/01/22 10:08/18/22 10:59 Oxygen Delivery Method Room Air Weight: 161 lb Body Mass Index (BMI) 25.2 Lab / Micro Data Attestation: I reviewed the patient's lab results. Physical Exam Const oriented x3 General Appearance: cooperative Exam Limitations: no limitations Resp normal respiratory effort Effort and Inspection: able to speak in complete sentences Auscultation: clear to auscultation bilaterally Cardio regular rate and regular rhythm Palpation: normal PMI Rate: regular rate Rhythm: regular rhythm GI Auscultation: normoactive bowel sounds Palpation: soft and no hepatosplenomegaly Extremity normal to inspection General Extremity: edema left lower extremity and weight-bearing difficulty; Negative for no tenderness to palpation of joints or extremities Left Lower Extremity: lower leg inspection (Laceration), palpation (Tender to palpate) and neurovascular exam (Poor pulses in left lower leg with swelling) Skin no rashes or lesions noted Neuro oriented x3 Psych Appearance: grossly normal Speech: normal speech Thought Content: normal thought content Judgement: judgement good Debridement Note Debridement Note Wound debrided: Left olivas traumatic wound Type of Debridement: Excisional debridement Anesthesia Used: 5% Lidocaine Gel Depth: Down to and including healthy tissue Percentage of wound debrided: 100 Instrument Used: 3mm curette Tissue Removed: Fibrin and some slough Severity: Fat Layer Exposed Amount of bleeding with debridement: Mild Bleeding Controlled with: Compression and gauze Patient tolerated procedure: Patient tolerated procedure well Post-Debridement Measurements and Additional Note: Post-Debridement Measurements/Treatment - Nurse 1 - General Ulcer Assessment Start: 08/18/22 10:59 Freq: Status: Active Protocol: KARSON Activity Type Activity Date Activity User E-sign Co-sign Detail Recorded Client Recorded Date Recorded By Document 08/18/22 10:59 [facility] [id number] 08/18/22 11:07 [facility] Document 08/25/22 11:16 [id number] 08/25/22 11:18 Document 09/01/22 10:23 RB [id number] 09/01/22 10:41 RB 08/18/22 08/25/22 09/01/22 10:59 11:16 10:23 - Today's Visit Information Type of service Follow-up Visit Follow-up Visit Follow-up Visit (Physician/BALANCING MACHINE OPERATOR (Physician/BALANCING MACHINE OPERATOR (Physician/BALANCING MACHINE OPERATOR ) ) ) Arrival Mode Ambulatory,Cane Ambulatory,Cane Ambulatory,Cane Transfer Assistance None None None Accompanied by SON Patient Identification Verified (Name & Yes Yes Yes ) Patient Requires Transmission-Based No No No Precautions Height and Weight Body Mass Index (BMI) 25.2 25.2 25.2 BMI Classification Overweight Overweight Overweight Vital Signs Temperature (97.8 F-99.1 F) 97.9 F 98 F Temperature Source Temporal Temporal Pulse Rate (60-100) 71 87 73 Pulse Location Monitor Monitor Monitor Respiratory Rate (12-18) 16 18 18 Respiratory rate source Observation Observation Observation Oxygen Delivery Method Room Air Blood Pressure (90/60-120/80) 83/53 L 89/57 L 112/76 Blood Pressure Mean (mm Hg) 63 67 88 Source Monitor Monitor Monitor Position Sitting Semi-Fowlers Semi-Fowlers Blood Pressure Location Left Arm Left Arm Left Arm History Since Last Visit- (Skip if this is Patient's initial visit) Have you changed medications since your No No last visit? Any new allergies or adverse reactions No No No Had a fall/change in ADL's that may No No No increase risk of falls Signs or symptoms of abuse and/or No No No neglect since last visit Have you been in the hospital since your No No No last visit? Has dressing in place as prescribed Yes Yes Yes Has compression in place as prescribed Yes Yes Yes Has offloadiing in place as prescribed N/A No No Experienced any changes in pain level or No No No management Left Footwear Regular Shoe Right Footwear Regular Shoe Pain Scale: 0-10 Numeric Is Patient Pain Free? Yes Yes Yes WC - Nurse 1 - General Ulcer Measurement Start: 08/18/22 10:59 Freq: Status: Active Protocol: Activity Type Activity Date Activity User E-sign Co-sign Detail Recorded Client Recorded Date Recorded By Document 08/18/22 10:59 [facility] [id number] 08/18/22 11:07 [facility] Document 08/25/22 11:16 [id number] 08/25/22 11:18 Document 09/01/22 10:23 [id number] 09/01/22 10:41 RB 08/18/22 08/25/22 09/01/22 10:59 11:16 10:23 Wound Center Nurse 1 #1 Left olivas -Combined with other wound No No No -Current Size (cm) - Length 2.1 1.9 1.8 -Current Size (cm) - Width 1 0.4 0.5 -Current Size (cm) - Depth 0.4 0.3 0.3 -Total Square Cm 2.1 0.76 0.90 -Date of Last Picture (Recall this 08/18/22 field) -Photo Taken Yes Yes Yes -Epithelialization Small 1-33% -Tunneling No No No -Undermining/Tunneling No No No -Circular Undermining No No No -Exudate Amt Medium Medium Large -Exudate Type Serosanguineous Serosanguineous Serosanguineous -Wound Margin Distinct, Thickened & Distinct, Outline Rolled Under Outline Attached Attached -Granulation Amt Small (1-33%) Medium (34-66%) Medium (34-66%) -Granulation Quality Red [place] -Slough/Fibrin Yes Yes Yes -Necrosis Amt Large (67-100%) Medium (34-66%) Medium (34-66%) -Necrotic Tissue Type Adherent Slough Adherent Slough Adherent Slough -Structure Exposed N/A N/A -Texture (Roseline-wound Skin Appearance) Assessed, Assessed, Assessed, Scarring Scarring Localized Edema -Moisture (Roseline-wound Skin Appearance) Assessed Assessed Assessed -Color (Roseline-wound Skin Appearance) Assessed Assessed Assessed -Temperature (Roseline-wound Skin No Abnormality No Abnormality No Abnormality Appearance) (Pt Warm) (Pt Warm) (Pt Warm) -Tenderness on Palpation (Roseline-wound No No No Skin Appearance) -Ulcer Cleansing Soap and Water Wound Cleanser Wound Cleanser -Foul Odor after Cleansing No No No -Anesthetic Used 5% Lidocaine 5% Lidocaine 5% Lidocaine Gel Gel Gel Lower Limb Edema Present Yes Yes Yes Left Calf (cm) 34.5 33.5 33.5 Left Ankle (cm) 28.6 28.5 28.5 WC - Nurse 2 - General Ulcer CM Notes Start: 08/18/22 10:59 Freq: Status: Active Protocol: Activity Type Activity Date Activity User E-sign Co-sign Detail Recorded Client Recorded Date Recorded By Document 08/18/22 11:25 MW [id number] 08/18/22 11:31 MW Document 08/25/22 11:23 MW [id number] 08/25/22 11:29 MW 08/18/22 08/25/22 11:25 11:23 Wound Center Nurse 2 #1 Left olivas -Time 11:25 11:23 -Correct Patient Yes Yes -Correct Side, Site, Position Yes Yes -Correct Procedure Yes Yes -Procedure Performed Yes Yes -Type of Procedure Debridement Debridement -Clinical Debridement Subcutaneous Subcutaneous -Tissue Removed Subcutaneous Subcutaneous -Post Debridement (cm) - Length 2.2 2.2 -Post Debridement (cm) - Width 0.7 0.4 -Post Debridement (cm) - Depth 0.3 0.3 -Total Square (Post) (cm) 1.54 0.88 -Area of Debridement (cm) - Length 2.2 2.2 -Area of Debridement (cm) - Width 0.7 0.4 -Total Square (Area) (cm) 1.54 0.88 -Tunneling No No -Undermining/Tunneling No No -Circular Undermining No No -Wound/Ulcer Outcome Not Healed Not Healed -Ulcer Cleansing Rinsed/ Rinsed/ Irrigated with Irrigated with Saline Saline -Foul Odor after Cleansing No No -Bioengineered Tissue Yes Yes -Type of Bioengineered Tissue Epifix 18mm Epifix 18mm Disc Disc -Expiration Date 04/18/27 04/18/27 -Product Lot Number [id number] -Percent Used 100 100 -Lot number of Saline Used [id number] -Bleeding Controlled with Pressure Pressure -Treatment Response Procedure Procedure Tolerated Well Tolerated Well -Offloading No No -Debridement - Subq, 1st 20sq cm No No -Apply Skin Sub - 1st 25 sq cm - Legs 1 1 -Epifix 18mm Disc 3 3 Pain Scale: 0-10 Numeric Is Patient Pain Free? Yes Yes WC - Nurse 3 - General Ulcer D/C NN Start: 08/18/22 10:59 Freq: Status: Active Protocol: Activity Type Activity Date Activity User E-sign Co-sign Detail Recorded Client Recorded Date Recorded By Document 08/18/22 11:38 [facility] [id number] 08/18/22 11:38 [facility] Document 08/25/22 11:31 MW [id number] 08/25/22 11:32 MW Document 09/01/22 11:12 RB [id number] 09/01/22 11:12 RB Edit Result 09/01/22 11:12 RB (1) [id number] 09/01/22 11:13 RB (1) Accompanied by dad => son 08/18/22 08/25/22 09/01/22 11:38 11:31 11:12 Wound Care Center Nurse 3 #1 Left olivas -Ulcer Cleansing Not Cleansed -Foul Odor after Cleansing No -Negative Pressure Wound Therapy N/A -Primary Dressing Applied Aquacel Extra Aquacel Extra Aquacel Extra -Other Dressing EPIFIX epifix -Primary Dressing Covered/Secured with Dry Gauze & Dry Gauze & Dry Gauze & Roll Gauze, Roll Gauze, Roll Gauze, Secured with Secured with Secured with Tape Tape Tape -Aquacel Extra 1 1 1 Left -Tubular Bandage Single Layer Single Layer -Size of Tubigrip Used Size D Size D -Size D ($) 1 1 Treatment Response Procedure Procedure Procedure Tolerated Well Tolerated Well Tolerated Well Pain Scale: 0-10 Numeric Is Patient Pain Free? Yes Yes Yes Teaching: Wound Center Dressing Your Wound -Person Taught Patient -Teaching Method Discussion -Response to teaching Verbalize understanding WC - Visit Discharge Discharge Condition Stable Stable Stable Ambulatory Status Ambulatory,Cane Ambulatory Ambulatory,Cane Transportation Private Auto Private Auto Accompanied by son son Medication Reconcilliation completed & No provided to patient/care provider Clinical Summary of Care Provided Yes Assessment/Plan Assessment/Plan (1) Laceration of left lower leg with complication: CODE(S): S81.812A - Laceration without foreign body, left lower leg, initial encounter PLAN: EpiFix #8 applied to left lower leg covered with veil and Steri-Strips Aquacel extra and a padded dressing. We will apply a 20 to 30 mmHg of compression stocking to the left lower leg and elevate leg is much as possible. Patient to follow-up in 1 week (2) Nonhealing nonsurgical wound with fat layer exposed: CODE(S): T14.8XXA - Other injury of unspecified body region, initial encounter (3) Edema of left lower leg: CODE(S): R60.0 - Localized edema (4) PAD (peripheral artery disease): CODE(S): I73.9 - Peripheral vascular disease, unspecified
[2022-09-08 10:59] VITALS: BP 90/63; PULSE 70; RESP 18; TEMP 35.9; BMI 25.2
--- NOTE | 2022-09-08 12:30 | PN.PCM_ITS ---
History of Present Illness Date of Service: 09/08/22 Chief Complaint: Left lower leg laceration occurring on May 18, 2022 History of Wound: This is a 86-year-old very hard of hearing gentleman that dropped a radiator on his left lower leg on May 18 of this year. Developed a severe gash in his left lower leg. Was seen in the emergency department at [place]. They were unable to close with suture. He also has severe PAD in his left leg has history of aortofemoral bypass and has a lot of swelling in his left lower leg. Because of the wound has been unable to wear his compression stockings because of the swelling. Recently finished cephalexin for an infection of some kind in his leg. Patient was told not to use anything on the wound. Patient is supersensitive about touching anywhere in or around the wound area. Progress of Wound: Patient just finished his 8th EpiFix still has a lot of depth but measurements are smaller no sign of infection leg is still edematous he is wearing his compression stockings . Surrounding skin is flesh-colored no sign of infection or redness tolerating treatments well. We really increased his compression to 22 mmHg which seemed to work better this week This next week were applying a stasis pad over top of it all of the. This will be added compression onto that wound see if we can heal him in 10 Subjective Subjective Patient and family are pleased with his outcomes Objective Data Objective Data The depth is much improved is about 0.2 now from a 0.3 to 5 mm. He seems to be tolerating the compression well We will continue compressing and apply the EpiFix #9 to his leg Vital Signs: Vital Signs Temp Pulse Resp BP O2 Del Method 96.7 F L 70 18 90/63 Room Air 09/08/22 10:59 09/08/22 10:59 09/08/22 10:59 09/08/22 10:59 08/18/22 10:59 Oxygen Delivery Method Room Air Weight: 161 lb Body Mass Index (BMI) 25.2 Physical Exam Const oriented x3 General Appearance: cooperative Exam Limitations: no limitations Resp normal respiratory effort Effort and Inspection: able to speak in complete sentences Auscultation: clear to auscultation bilaterally Cardio regular rate and regular rhythm Palpation: normal PMI Rate: regular rate Rhythm: regular rhythm GI Auscultation: normoactive bowel sounds Palpation: soft and no hepatosplenomegaly Extremity normal to inspection General Extremity: edema left lower extremity and weight-bearing difficulty; Negative for no tenderness to palpation of joints or extremities Left Lower Extremity: lower leg inspection (Laceration), palpation (Tender to palpate) and neurovascular exam (Poor pulses in left lower leg with swelling) Skin no rashes or lesions noted Neuro oriented x3 Psych Appearance: grossly normal Speech: normal speech Thought Content: normal thought content Judgement: judgement good Debridement Note Debridement Note Wound debrided: Left lower leg traumatic wound nonhealing Laterality: Left Type of Debridement: Excisional debridement Anesthesia Used: 5% Lidocaine Gel Depth: Down to and including healthy tissue and in the subcutaneous layer Percentage of wound debrided: 100 Instrument Used: 3mm curette Tissue Removed: Some slough and devitalized tissue Severity: Limited To Skin Breakdown Amount of bleeding with debridement: Mild Bleeding Controlled with: Compression and gauze Patient tolerated procedure: Patient tolerated procedure well Post-Debridement Measurements and Additional Note: Post-Debridement Measurements/Treatment - Nurse 1 - General Ulcer Assessment Start: 08/18/22 10:59 Freq: Status: Active Protocol: KARSON Activity Type Activity Date Activity User E-sign Co-sign Detail Recorded Client Recorded Date Recorded By Document 08/18/22 10:59 [facility] [id number] 08/18/22 11:07 [facility] Document 08/25/22 11:16 [id number] 08/25/22 11:18 Document 09/01/22 10:23 [id number] 09/01/22 10:41 Document 09/08/22 10:59 [id number] 09/08/22 11:01 RB 08/18/22 08/25/22 09/01/22 10:59 11:16 10:23 - Today's Visit Information Type of service Follow-up Visit Follow-up Visit Follow-up Visit (Physician/SPAR MACHINE OPERATOR HELPER (Physician/SPAR MACHINE OPERATOR HELPER (Physician/SPAR MACHINE OPERATOR HELPER ) ) ) Arrival Mode Ambulatory,Cane Ambulatory,Cane Ambulatory,Cane Transfer Assistance None None None Accompanied by SON Patient Identification Verified (Name & Yes Yes Yes ) Patient Requires Transmission-Based No No No Precautions Height and Weight Body Mass Index (BMI) 25.2 25.2 25.2 BMI Classification Overweight Overweight Overweight Vital Signs Temperature (97.8 F-99.1 F) 97.9 F 98 F Temperature Source Temporal Temporal Pulse Rate (60-100) 71 87 73 Pulse Location Monitor Monitor Monitor Respiratory Rate (12-18) 16 18 18 Respiratory rate source Observation Observation Observation Oxygen Delivery Method Room Air Blood Pressure (90/60-120/80) 83/53 L 89/57 L 112/76 Blood Pressure Mean (mm Hg) 63 67 88 Source Monitor Monitor Monitor Position Sitting Semi-Fowlers Semi-Fowlers Blood Pressure Location Left Arm Left Arm Left Arm History Since Last Visit- (Skip if this is Patient's initial visit) Have you changed medications since your No No last visit? Any new allergies or adverse reactions No No No Had a fall/change in ADL's that may No No No increase risk of falls Signs or symptoms of abuse and/or No No No neglect since last visit Have you been in the hospital since your No No No last visit? Has dressing in place as prescribed Yes Yes Yes Has compression in place as prescribed Yes Yes Yes Has offloadiing in place as prescribed N/A No No Experienced any changes in pain level or No No No management Left Footwear Regular Shoe Right Footwear Regular Shoe Pain Scale: 0-10 Numeric Is Patient Pain Free? Yes Yes Yes 09/08/22 10:59 WC - Today's Visit Information Type of service Follow-up Visit (Physician/SPAR MACHINE OPERATOR HELPER ) Arrival Mode Ambulatory Transfer Assistance None Accompanied by Patient Identification Verified (Name & Yes ) Patient Requires Transmission-Based No Precautions Height and Weight Body Mass Index (BMI) 25.2 BMI Classification Overweight Vital Signs Temperature (97.8 F-99.1 F) 96.7 F L Temperature Source Temporal Pulse Rate (60-100) 70 Pulse Location Monitor Respiratory Rate (12-18) 18 Respiratory rate source Observation Oxygen Delivery Method Blood Pressure (90/60-120/80) 90/63 Blood Pressure Mean (mm Hg) 72 Source Monitor Position Semi-Fowlers Blood Pressure Location Left Arm History Since Last Visit- (Skip if this is Patient's initial visit) Have you changed medications since your No last visit? Any new allergies or adverse reactions No Had a fall/change in ADL's that may No increase risk of falls Signs or symptoms of abuse and/or No neglect since last visit Have you been in the hospital since your No last visit? Has dressing in place as prescribed Yes Has compression in place as prescribed Yes Has offloadiing in place as prescribed No Experienced any changes in pain level or No management Left Footwear Right Footwear Pain Scale: 0-10 Numeric Is Patient Pain Free? Yes WC - Nurse 1 - General Ulcer Measurement Start: 08/18/22 10:59 Freq: Status: Active Protocol: Activity Type Activity Date Activity User E-sign Co-sign Detail Recorded Client Recorded Date Recorded By Document 08/18/22 10:59 [facility] [id number] 08/18/22 11:07 BM Document 08/25/22 11:16 RB [id number] 08/25/22 11:18 RB Document 09/01/22 10:23 RB [id number] 09/01/22 10:41 RB Document 09/08/22 10:59 RB [id number] 09/08/22 11:01 RB 08/18/22 08/25/22 09/01/22 10:59 11:16 10:23 Wound Center Nurse 1 #1 Left olivas -Combined with other wound No No No -Current Size (cm) - Length 2.1 1.9 1.8 -Current Size (cm) - Width 1 0.4 0.5 -Current Size (cm) - Depth 0.4 0.3 0.3 -Total Square Cm 2.1 0.76 0.90 -Date of Last Picture (Recall this 08/18/22 field) -Photo Taken Yes Yes Yes -Epithelialization Small 1-33% -Tunneling No No No -Undermining/Tunneling No No No -Circular Undermining No No No -Exudate Amt Medium Medium Large -Exudate Type Serosanguineous Serosanguineous Serosanguineous -Wound Margin Distinct, Thickened & Distinct, Outline Rolled Under Outline Attached Attached -Granulation Amt Small (1-33%) Medium (34-66%) Medium (34-66%) -Granulation Quality [place] -Slough/Fibrin Yes Yes Yes -Necrosis Amt Large (67-100%) Medium (34-66%) Medium (34-66%) -Necrotic Tissue Type Adherent Slough Adherent Slough Adherent Slough -Structure Exposed N/A N/A -Texture (Roseline-wound Skin Appearance) Assessed, Assessed, Assessed, Scarring Scarring Localized Edema -Moisture (Roseline-wound Skin Appearance) Assessed Assessed Assessed -Color (Roseline-wound Skin Appearance) Assessed Assessed Assessed -Temperature (Roseline-wound Skin No Abnormality No Abnormality No Abnormality Appearance) (Pt Warm) (Pt Warm) (Pt Warm) -Tenderness on Palpation (Roseline-wound No No No Skin Appearance) -Ulcer Cleansing Soap and Water Wound Cleanser Wound Cleanser -Foul Odor after Cleansing No No No -Anesthetic Used 5% Lidocaine 5% Lidocaine 5% Lidocaine Gel Gel Gel Lower Limb Edema Present Yes Yes Yes Left Calf (cm) 34.5 33.5 33.5 Left Ankle (cm) 28.6 28.5 28.5 09/08/22 10:59 Wound Center Nurse 1 #1 Left olivas -Combined with other wound No -Current Size (cm) - Length 1.6 -Current Size (cm) - Width 0.4 -Current Size (cm) - Depth 0.2 -Total Square Cm 0.64 -Date of Last Picture (Recall this field) -Photo Taken -Epithelialization -Tunneling No -Undermining/Tunneling No -Circular Undermining No -Exudate Amt Medium -Exudate Type Serosanguineous -Wound Margin Thickened & Rolled Under -Granulation Amt Medium (34-66%) -Granulation Quality [place] -Slough/Fibrin Yes -Necrosis Amt Medium (34-66%) -Necrotic Tissue Type Adherent Slough -Structure Exposed N/A -Texture (Roseline-wound Skin Appearance) Assessed, Scarring -Moisture (Roseline-wound Skin Appearance) Assessed -Color (Roseline-wound Skin Appearance) Assessed -Temperature (Roseline-wound Skin No Abnormality Appearance) (Pt Warm) -Tenderness on Palpation (Roseline-wound No Skin Appearance) -Ulcer Cleansing Wound Cleanser -Foul Odor after Cleansing No -Anesthetic Used 5% Lidocaine Gel Lower Limb Edema Present Yes Left Calf (cm) 32.5 Left Ankle (cm) 28 WC - Nurse 2 - General Ulcer CM Notes Start: 08/18/22 10:59 Freq: Status: Active Protocol: Activity Type Activity Date Activity User E-sign Co-sign Detail Recorded Client Recorded Date Recorded By Document 08/18/22 11:25 MW [id number] 08/18/22 11:31 MW Document 08/25/22 11:23 MW [id number] 08/25/22 11:29 MW Document 09/01/22 11:43 PL [id number] 09/01/22 11:45 PL Document 09/08/22 11:07 MW [id number] 09/08/22 11:14 MW 08/18/22 08/25/22 09/01/22 11:25 11:23 11:43 Wound Center Nurse 2 #1 Left olivas -Time 11: 11:23 10:44 -Correct Patient Yes Yes Yes -Correct Side, Site, Position Yes Yes Yes -Correct Procedure Yes Yes Yes -Procedure Performed Yes Yes Yes -Type of Procedure Debridement Debridement Debridement -Clinical Debridement Subcutaneous Subcutaneous Subcutaneous -Tissue Removed Subcutaneous Subcutaneous Subcutaneous -Post Debridement (cm) - Length 2.2 2.2 2.5 -Post Debridement (cm) - Width 0.7 0.4 0.5 -Post Debridement (cm) - Depth 0.3 0.3 0.3 -Total Square (Post) (cm) 1.54 0.88 1.25 -Area of Debridement (cm) - Length 2.2 2.2 2.5 -Area of Debridement (cm) - Width 0.7 0.4 0.5 -Total Square (Area) (cm) 1.54 0.88 1.25 -Tunneling No No No -Undermining/Tunneling No No No -Circular Undermining No No No -Wound/Ulcer Outcome Not Healed Not Healed Not Healed -Ulcer Cleansing Rinsed/ Rinsed/ Rinsed/ Irrigated with Irrigated with Irrigated with Saline Saline Saline -Foul Odor after Cleansing No No No -Bioengineered Tissue Yes Yes Yes -Type of Bioengineered Tissue Epifix 18mm Epifix 18mm Epifix 18mm Disc Disc Disc -Expiration Date 04/18/27 04/18/27 06/17/27 -Product Lot Number [id number] -Percent Used 100 100 100 -Lot number of Saline Used [id number] -Bleeding Controlled with Pressure Pressure Pressure -Treatment Response Procedure Procedure Procedure Tolerated Well Tolerated Well Tolerated Well -Offloading No No -Debridement - Subq, 1st 20sq cm No No No -Apply Skin Sub - 1st 25 sq cm - Legs 1 1 1 -Epifix 18mm Disc 3 3 3 Pain Scale: 0-10 Numeric Is Patient Pain Free? Yes Yes Yes 09/08/22 11:07 Wound Center Nurse 2 #1 Left olivas -Time 11:07 -Correct Patient Yes -Correct Side, Site, Position Yes -Correct Procedure Yes -Procedure Performed Yes -Type of Procedure Debridement -Clinical Debridement Subcutaneous -Tissue Removed Subcutaneous -Post Debridement (cm) - Length 2.0 -Post Debridement (cm) - Width 0.5 -Post Debridement (cm) - Depth 0.3 -Total Square (Post) (cm) 1.00 -Area of Debridement (cm) - Length 2.0 -Area of Debridement (cm) - Width 0.5 -Total Square (Area) (cm) 1.00 -Tunneling No -Undermining/Tunneling No -Circular Undermining No -Wound/Ulcer Outcome Not Healed -Ulcer Cleansing Rinsed/ Irrigated with Saline -Foul Odor after Cleansing No -Bioengineered Tissue Yes -Type of Bioengineered Tissue Epifix 18mm Disc -Expiration Date 06/17/27 -Product Lot Number [id number] -Percent Used 100 -Lot number of Saline Used [id number] -Bleeding Controlled with Pressure -Treatment Response Procedure Tolerated Well -Offloading No -Debridement - Subq, 1st 20sq cm No -Apply Skin Sub - 1st 25 sq cm - Legs 1 -Epifix 18mm Disc 3 Pain Scale: 0-10 Numeric Is Patient Pain Free? Yes WC - Nurse 3 - General Ulcer D/C NN Start: 08/18/22 10:59 Freq: Status: Active Protocol: Activity Type Activity Date Activity User E-sign Co-sign Detail Recorded Client Recorded Date Recorded By Document 08/18/22 11:38 [facility] [id number] 08/18/22 11:38 [facility] Document 08/25/22 11:31 MW [id number] 08/25/22 11:32 MW Document 09/01/22 11:12 RB [id number] 09/01/22 11:12 RB Edit Result 09/01/22 11:12 RB (1) [id number] 09/01/22 11:13 RB Document 09/08/22 11:21 MW [id number] 09/08/22 11:23 MW (1) Accompanied by dad => son 08/18/22 08/25/22 09/01/22 11:38 11:31 11:12 Wound Care Center Nurse 3 #1 Left olivas -Ulcer Cleansing Not Cleansed -Foul Odor after Cleansing No -Negative Pressure Wound Therapy N/A -Primary Dressing Applied Aquacel Extra Aquacel Extra Aquacel Extra -Other Dressing EPIFIX epifix -Primary Dressing Covered/Secured with Dry Gauze & Dry Gauze & Dry Gauze & Roll Gauze, Roll Gauze, Roll Gauze, Secured with Secured with Secured with Tape Tape Tape -Other Covering -Aquacel Extra 1 1 1 Left -Lotion applied to leg before compression wrap -Tubular Bandage Single Layer Single Layer -Size of Tubigrip Used Size D Size D -Size D ($) 1 1 Treatment Response Procedure Procedure Procedure Tolerated Well Tolerated Well Tolerated Well Pain Scale: 0-10 Numeric Is Patient Pain Free? Yes Yes Yes Teaching: Wound Center Dressing Your Wound -Person Taught Patient -Teaching Method Discussion -Response to teaching Verbalize understanding WC - Visit Discharge Discharge Condition Stable Stable Stable Ambulatory Status Ambulatory,Cane Ambulatory Ambulatory,Cane Transportation Private Auto Private Auto Accompanied by son son Medication Reconcilliation completed & No provided to patient/care provider Clinical Summary of Care Provided Yes Notes: 09/08/22 11:21 Wound Care Center Nurse 3 #1 Left olivas -Ulcer Cleansing Not Cleansed -Foul Odor after Cleansing No -Negative Pressure Wound Therapy N/A -Primary Dressing Applied Aquacel Extra -Other Dressing -Primary Dressing Covered/Secured with Dry Gauze & Roll Gauze, Secured with Tape -Other Covering stasis pad, AB pad -Aquacel Extra 1 Left -Lotion applied to leg before No compression wrap -Tubular Bandage -Size of Tubigrip Used Size C -Size D ($) Treatment Response Procedure Tolerated Well Pain Scale: 0-10 Numeric Is Patient Pain Free? Yes Teaching: Wound Center Dressing Your Wound -Person Taught Patient -Teaching Method Discussion -Response to teaching Verbalize understanding WC - Visit Discharge Discharge Condition Stable Ambulatory Status Ambulatory,Cane Transportation Private Auto Accompanied by son Medication Reconcilliation completed & No provided to patient/care provider Clinical Summary of Care Provided Yes Notes: Dressing applied per Nessa Riddle credit collection specialist/Plan Assessment/Plan (1) Laceration of left lower leg with complication: CODE(S): S81.812A - Laceration without foreign body, left lower leg, initial encounter PLAN: EpiFix #9 applied to left lower leg covered with veil and Steri-Strips Aquacel extra then a stasis pad and a padded dressing. We will apply a 20 to 30 mmHg of compression stocking to the left lower leg and elevate leg is much as possible. Patient to follow-up in 1 week (2) Nonhealing nonsurgical wound with fat layer exposed: CODE(S): T14.8XXA - Other injury of unspecified body region, initial encounter (3) Edema of left lower leg: CODE(S): R60.0 - Localized edema (4) PAD (peripheral artery disease): CODE(S): I73.9 - Peripheral vascular disease, unspecified
[2022-09-15 10:58] VITALS: BP 98/55; PULSE 70; RESP 18; TEMP 36.1; BMI 25.2
--- NOTE | 2022-09-15 12:18 | PCM.WC.PN ---
History of Present Illness Date of Service: 09/15/22 Chief Complaint: Left lower leg laceration occurring on May 18, 2022 History of Wound: This is a 86-year-old very hard of hearing gentleman that dropped a radiator on his left lower leg on May 18 of this year. Developed a severe gash in his left lower leg. Was seen in the emergency department at [facility]. They were unable to close with suture. He also has severe PAD in his left leg has history of aortofemoral bypass and has a lot of swelling in his left lower leg. Because of the wound has been unable to wear his compression stockings because of the swelling. Recently finished cephalexin for an infection of some kind in his leg. Patient was told not to use anything on the wound. Patient is supersensitive about touching anywhere in or around the wound area. Progress of Wound: Patient just finished his 9th EpiFix half of the wound is healed the other half still has some depth but is much smaller. We really increased his compression to 22 mmHg which seemed to work better this week and we also applied a stasis pad over the wound which really helped. We will finish with #10 today in the EpiFix and hopefully he will be healed by next week. Subjective Subjective Patient and son are pleased with outcomes Objective Data Objective Data No sign of infection half the wound is healed new tissue we will apply EpiFix to the lower half stacked. Continue the stasis pad over the increased compression stocking Vital Signs: Vital Signs Temp Pulse Resp BP O2 Del Method 97 F L 70 18 98/55 L Room Air 09/15/22 10:58 09/15/22 10:58 09/15/22 10:58 09/15/22 10:58 08/18/22 10:59 Oxygen Delivery Method Room Air Weight: 161 lb Body Mass Index (BMI) 25.2 Physical Exam Const oriented x3 General Appearance: cooperative Exam Limitations: no limitations Resp normal respiratory effort Effort and Inspection: able to speak in complete sentences Auscultation: clear to auscultation bilaterally Cardio regular rate and regular rhythm Palpation: normal PMI Rate: regular rate Rhythm: regular rhythm GI Auscultation: normoactive bowel sounds Palpation: soft and no hepatosplenomegaly Extremity normal to inspection General Extremity: edema left lower extremity and weight-bearing difficulty; Negative for no tenderness to palpation of joints or extremities Left Lower Extremity: lower leg inspection (Laceration), palpation (Tender to palpate) and neurovascular exam (Poor pulses in left lower leg with swelling) Skin no rashes or lesions noted Neuro oriented x3 Psych Appearance: grossly normal Speech: normal speech Thought Content: normal thought content Judgement: judgement good Debridement Note Debridement Note Wound debrided: Left olivas traumatic wound Type of Debridement: Excisional debridement Anesthesia Used: 5% Lidocaine Gel Depth: Down to and including healthy tissue and in the subcutaneous layer Percentage of wound debrided: 100 Instrument Used: 3mm curette Tissue Removed: Fibrin Severity: Limited To Skin Breakdown Amount of bleeding with debridement: Mild Bleeding Controlled with: Compression and gauze Patient tolerated procedure: Patient tolerated procedure well Post-Debridement Measurements and Additional Note: Post-Debridement Measurements/Treatment - Nurse 1 - General Ulcer Assessment Start: 08/18/22 10:59 Freq: Status: Active Protocol: .SON Activity Type Activity Date Activity User E-sign Co-sign Detail Recorded Client Recorded Date Recorded By Document 08/18/22 10:59 [facility] [id number] 08/18/22 11:07 [facility] Document 08/25/22 11:16 [id number] 08/25/22 11:18 Document 09/01/22 10:23 [id number] 09/01/22 10:41 Document 09/08/22 10:59 [id number] 09/08/22 11:01 Document 09/15/22 10:58 [id number] 09/15/22 11:06 08/18/22 08/25/22 09/01/22 10:59 11:16 10:23 [facility] Today's Visit Information Type of service Follow-up Visit Follow-up Visit Follow-up Visit (Physician/GARAGE ATTENDANT (Physician/GARAGE ATTENDANT (Physician/GARAGE ATTENDANT ) ) ) Arrival Mode Ambulatory,Cane Ambulatory,Cane Ambulatory,Cane Transfer Assistance None None None Accompanied by SON Patient Identification Verified (Name & Yes Yes Yes ) Patient Requires Transmission-Based No No No Precautions Height and Weight Body Mass Index (BMI) 25.2 25.2 25.2 BMI Classification Overweight Overweight Overweight Vital Signs Temperature (97.8 F-99.1 F) 97.9 F 98 F Temperature Source Temporal Temporal Pulse Rate (60-100) 71 87 73 Pulse Location Monitor Monitor Monitor Respiratory Rate (12-18) 16 18 18 Respiratory rate source Observation Observation Observation Oxygen Delivery Method Room Air Blood Pressure (90/60-120/80) 83/53 L 89/57 L 112/76 Blood Pressure Mean (mm Hg) 63 67 88 Source Monitor Monitor Monitor Position Sitting Semi-Fowlers Semi-Fowlers Blood Pressure Location Left Arm Left Arm Left Arm History Since Last Visit- (Skip if this is Patient's initial visit) Have you changed medications since your No No last visit? Any new allergies or adverse reactions No No No Had a fall/change in ADL's that may No No No increase risk of falls Signs or symptoms of abuse and/or No No No neglect since last visit Have you been in the hospital since your No No No last visit? Has dressing in place as prescribed Yes Yes Yes Has compression in place as prescribed Yes Yes Yes Has offloadiing in place as prescribed N/A No No Experienced any changes in pain level or No No No management Left Footwear Regular Shoe Right Footwear Regular Shoe Pain Scale: 0-10 Numeric Is Patient Pain Free? Yes Yes Yes 09/08/22 09/15/22 10:59 10:58 WC - Today's Visit Information Type of service Follow-up Visit Follow-up Visit (Physician/GARAGE ATTENDANT (Physician/GARAGE ATTENDANT ) ) Arrival Mode Ambulatory Ambulatory Transfer Assistance None None Accompanied by Patient Identification Verified (Name & Yes Yes ) Patient Requires Transmission-Based No No Precautions Height and Weight Body Mass Index (BMI) 25.2 25.2 BMI Classification Overweight Overweight Vital Signs Temperature (97.8 F-99.1 F) 96.7 F L 97 F L Temperature Source Temporal Temporal Pulse Rate (60-100) 70 70 Pulse Location Monitor Monitor Respiratory Rate (12-18) 18 18 Respiratory rate source Observation Observation Oxygen Delivery Method Blood Pressure (90/60-120/80) 90/63 98/55 L Blood Pressure Mean (mm Hg) 72 69 Source Monitor Monitor Position Semi-Fowlers Semi-Fowlers Blood Pressure Location Left Arm Left Arm History Since Last Visit- (Skip if this is Patient's initial visit) Have you changed medications since your No No last visit? Any new allergies or adverse reactions No No Had a fall/change in ADL's that may No No increase risk of falls Signs or symptoms of abuse and/or No No neglect since last visit Have you been in the hospital since your No No last visit? Has dressing in place as prescribed Yes Yes Has compression in place as prescribed Yes Yes Has offloadiing in place as prescribed No No Experienced any changes in pain level or No No management Left Footwear Right Footwear Pain Scale: 0-10 Numeric Is Patient Pain Free? Yes Yes WC - Nurse 1 - General Ulcer Measurement Start: 08/18/22 10:59 Freq: Status: Active Protocol: Activity Type Activity Date Activity User E-sign Co-sign Detail Recorded Client Recorded Date Recorded By Document 08/18/22 10:59 [facility] [id number] 08/18/22 11:07 [facility] Document 08/25/22 11:16 RB [id number] 08/25/22 11:18 RB Document 09/01/22 10:23 RB [id number] 09/01/22 10:41 RB Document 09/08/22 10:59 RB [id number] 09/08/22 11:01 RB Document 09/15/22 10:58 RB [id number] 09/15/22 11:06 RB 08/18/22 08/25/22 09/01/22 10:59 11:16 10:23 Wound Center Nurse 1 #1 Left olivas -Combined with other wound No No No -Current Size (cm) - Length 2.1 1.9 1.8 -Current Size (cm) - Width 1 0.4 0.5 -Current Size (cm) - Depth 0.4 0.3 0.3 -Total Square Cm 2.1 0.76 0.90 -Date of Last Picture (Recall this 08/18/22 field) -Photo Taken Yes Yes Yes -Epithelialization Small 1-33% -Tunneling No No No -Undermining/Tunneling No No No -Circular Undermining No No No -Exudate Amt Medium Medium Large -Exudate Type Serosanguineous Serosanguineous Serosanguineous -Wound Margin Distinct, Thickened & Distinct, Outline Rolled Under Outline Attached Attached -Granulation Amt Small (1-33%) Medium (34-66%) Medium (34-66%) -Granulation Quality Red Lavina Lavina -Slough/Fibrin Yes Yes Yes -Necrosis Amt Large (67-100%) Medium (34-66%) Medium (34-66%) -Necrotic Tissue Type Adherent Slough Adherent Slough Adherent Slough -Structure Exposed N/A N/A -Texture (Roseline-wound Skin Appearance) Assessed, Assessed, Assessed, Scarring Scarring Localized Edema -Moisture (Roseline-wound Skin Appearance) Assessed Assessed Assessed -Color (Roseline-wound Skin Appearance) Assessed Assessed Assessed -Temperature (Roseline-wound Skin No Abnormality No Abnormality No Abnormality Appearance) (Pt Warm) (Pt Warm) (Pt Warm) -Tenderness on Palpation (Roseline-wound No No No Skin Appearance) -Ulcer Cleansing Soap and Water Wound Cleanser Wound Cleanser -Foul Odor after Cleansing No No No -Anesthetic Used 5% Lidocaine 5% Lidocaine 5% Lidocaine Gel Gel Gel Lower Limb Edema Present Yes Yes Yes Left Calf (cm) 34.5 33.5 33.5 Left Ankle (cm) 28.6 28.5 28.5 09/08/22 09/15/22 10:59 10:58 Wound Center Nurse 1 #1 Left olivas -Combined with other wound No No -Current Size (cm) - Length 1.6 1.5 -Current Size (cm) - Width 0.4 0.4 -Current Size (cm) - Depth 0.2 0.3 -Total Square Cm 0.64 0.60 -Date of Last Picture (Recall this field) -Photo Taken -Epithelialization -Tunneling No No -Undermining/Tunneling No No -Circular Undermining No No -Exudate Amt Medium Medium -Exudate Type Serosanguineous Serosanguineous -Wound Margin Thickened & Thickened & Rolled Under Rolled Under -Granulation Amt Medium (34-66%) Medium (34-66%) -Granulation Quality Lavina Lavina -Slough/Fibrin Yes Yes -Necrosis Amt Medium (34-66%) Medium (34-66%) -Necrotic Tissue Type Adherent Slough Adherent Slough -Structure Exposed N/A N/A -Texture (Roseline-wound Skin Appearance) Assessed, Assessed, Scarring Scarring -Moisture (Roseline-wound Skin Appearance) Assessed Assessed -Color (Roseline-wound Skin Appearance) Assessed Assessed -Temperature (Roseline-wound Skin No Abnormality No Abnormality Appearance) (Pt Warm) (Pt Warm) -Tenderness on Palpation (Roseline-wound No No Skin Appearance) -Ulcer Cleansing Wound Cleanser Wound Cleanser -Foul Odor after Cleansing No No -Anesthetic Used 5% Lidocaine 5% Lidocaine Gel Gel Lower Limb Edema Present Yes Yes Left Calf (cm) 32.5 33.5 Left Ankle (cm) 28 28.5 WC - Nurse 2 - General Ulcer CM Notes Start: 08/18/22 10:59 Freq: Status: Active Protocol: Activity Type Activity Date Activity User E-sign Co-sign Detail Recorded Client Recorded Date Recorded By Document 08/18/22 11:25 MW [id number] 08/18/22 11:31 MW Document 08/25/22 11:23 MW [id number] 08/25/22 11:29 MW Document 09/01/22 11:43 PL [id number] 09/01/22 11:45 PL Document 09/08/22 11:07 MW [id number] 09/08/22 11:14 MW Document 09/15/22 11:16 MW [id number] 09/15/22 11:21 MW 08/18/22 08/25/22 09/01/22 11:25 11:23 11:43 Wound Center Nurse 2 #1 Left olivas -Time 11:25 11:23 10:44 -Correct Patient Yes Yes Yes -Correct Side, Site, Position Yes Yes Yes -Correct Procedure Yes Yes Yes -Procedure Performed Yes Yes Yes -Type of Procedure Debridement Debridement Debridement -Clinical Debridement Subcutaneous Subcutaneous Subcutaneous -Tissue Removed Subcutaneous Subcutaneous Subcutaneous -Post Debridement (cm) - Length 2.2 2.2 2.5 -Post Debridement (cm) - Width 0.7 0.4 0.5 -Post Debridement (cm) - Depth 0.3 0.3 0.3 -Total Square (Post) (cm) 1.54 0.88 1.25 -Area of Debridement (cm) - Length 2.2 2.2 2.5 -Area of Debridement (cm) - Width 0.7 0.4 0.5 -Total Square (Area) (cm) 1.54 0.88 1.25 -Tunneling No No No -Undermining/Tunneling No No No -Circular Undermining No No No -Wound/Ulcer Outcome Not Healed Not Healed Not Healed -Ulcer Cleansing Rinsed/ Rinsed/ Rinsed/ Irrigated with Irrigated with Irrigated with Saline Saline Saline -Foul Odor after Cleansing No No No -Bioengineered Tissue Yes Yes Yes -Type of Bioengineered Tissue Epifix 18mm Epifix 18mm Epifix 18mm Disc Disc Disc -Expiration Date 04/18/27 04/18/27 06/17/27 -Product Lot Number [id number] -Percent Used 100 100 100 -Lot number of Saline Used [id number] -Bleeding Controlled with Pressure Pressure Pressure -Treatment Response Procedure Procedure Procedure Tolerated Well Tolerated Well Tolerated Well -Offloading No No -Debridement - Subq, 1st 20sq cm No No No -Apply Skin Sub - 1st 25 sq cm - Legs 1 1 1 -Epifix 18mm Disc 3 3 3 Pain Scale: 0-10 Numeric Is Patient Pain Free? Yes Yes Yes 09/08/22 09/15/22 11:07 11:16 Wound Center Nurse 2 #1 Left olivas -Time 11:07 11:19 -Correct Patient Yes Yes -Correct Side, Site, Position Yes Yes -Correct Procedure Yes Yes -Procedure Performed Yes Yes -Type of Procedure Debridement Debridement -Clinical Debridement Subcutaneous Subcutaneous -Tissue Removed Subcutaneous Subcutaneous -Post Debridement (cm) - Length 2.0 1.0 -Post Debridement (cm) - Width 0.5 0.4 -Post Debridement (cm) - Depth 0.3 0.3 -Total Square (Post) (cm) 1.00 0.40 -Area of Debridement (cm) - Length 2.0 1.0 -Area of Debridement (cm) - Width 0.5 0.4 -Total Square (Area) (cm) 1.00 0.40 -Tunneling No No -Undermining/Tunneling No No -Circular Undermining No No -Wound/Ulcer Outcome Not Healed Not Healed -Ulcer Cleansing Rinsed/ Rinsed/ Irrigated with Irrigated with Saline Saline -Foul Odor after Cleansing No No -Bioengineered Tissue Yes Yes -Type of Bioengineered Tissue Epifix 18mm Epifix 18mm Disc Disc -Expiration Date 06/17/27 06/17/27 -Product Lot Number [id number] -Percent Used 100 100 -Lot number of Saline Used [id number] -Bleeding Controlled with Pressure Pressure -Treatment Response Procedure Procedure Tolerated Well Tolerated Well -Offloading No No -Debridement - Subq, 1st 20sq cm No No -Apply Skin Sub - 1st 25 sq cm - Legs 1 1 -Epifix 18mm Disc 3 3 Pain Scale: 0-10 Numeric Is Patient Pain Free? Yes Yes WC - Nurse 3 - General Ulcer D/C NN Start: 08/18/22 10:59 Freq: Status: Active Protocol: Activity Type Activity Date Activity User E-sign Co-sign Detail Recorded Client Recorded Date Recorded By Document 08/18/22 11:38 BMF [id number] 08/18/22 11:38 BMF Document 08/25/22 11:31 MW [id number] 08/25/22 11:32 MW Document 09/01/22 11:12 RB [id number] 09/01/22 11:12 RB Edit Result 09/01/22 11:12 RB (1) [id number] 09/01/22 11:13 RB Document 09/08/22 11:21 MW [id number] 09/08/22 11:23 MW Document 09/15/22 11:29 BMF [id number] 09/15/22 11:30 BMF (1) Accompanied by dad => son 08/18/22 08/25/22 09/01/22 11:38 11:31 11:12 Wound Care Center Nurse 3 #1 Left olivas -Ulcer Cleansing Not Cleansed -Foul Odor after Cleansing No -Negative Pressure Wound Therapy N/A -Primary Dressing Applied Aquacel Extra Aquacel Extra Aquacel Extra -Other Dressing EPIFIX epifix -Primary Dressing Covered/Secured with Dry Gauze & Dry Gauze & Dry Gauze & Roll Gauze, Roll Gauze, Roll Gauze, Secured with Secured with Secured with Tape Tape Tape -Other Covering -Aquacel Extra 1 1 1 Left -Lotion applied to leg before compression wrap -Tubular Bandage Single Layer Single Layer -Size of Tubigrip Used Size D Size D -Size C ($) -Size D ($) 1 1 Treatment Response Procedure Procedure Procedure Tolerated Well Tolerated Well Tolerated Well Pain Scale: 0-10 Numeric Is Patient Pain Free? Yes Yes Yes Teaching: Wound Center Dressing Your Wound -Person Taught Patient -Teaching Method Discussion -Response to teaching Verbalize understanding WC - Visit Discharge Discharge Condition Stable Stable Stable Ambulatory Status Ambulatory,Cane Ambulatory Ambulatory,Cane Transportation Private Auto Private Auto Accompanied by son son Medication Reconcilliation completed & No provided to patient/care provider Clinical Summary of Care Provided Yes Notes: 09/08/22 09/15/22 11:21 11:29 Wound Care Center Nurse 3 #1 Left olivas -Ulcer Cleansing Not Cleansed -Foul Odor after Cleansing No -Negative Pressure Wound Therapy N/A -Primary Dressing Applied Aquacel Extra -Other Dressing epifix -Primary Dressing Covered/Secured with Dry Gauze & Dry Gauze & Roll Gauze, Roll Gauze, Secured with Secured with Tape Tape -Other Covering stasis pad, AB stasis pad pad -Aquacel Extra 1 Left -Lotion applied to leg before No compression wrap -Tubular Bandage Single Layer -Size of Tubigrip Used Size C Size C -Size C ($) 1 -Size D ($) Treatment Response Procedure Procedure Tolerated Well Tolerated Well Pain Scale: 0-10 Numeric Is Patient Pain Free? Yes Yes Teaching: Wound Center Dressing Your Wound -Person Taught Patient -Teaching Method Discussion -Response to teaching Verbalize understanding WC - Visit Discharge Discharge Condition Stable Stable Ambulatory Status Ambulatory,Cane Ambulatory,Cane Transportation Private Auto Private Auto Accompanied by son son Medication Reconcilliation completed & No provided to patient/care provider Clinical Summary of Care Provided Yes Notes: Dressing applied per Nessa Riddle RN Assessment/Plan Assessment/Plan (1) Laceration of left lower leg with complication: CODE(S): S81.812A - Laceration without foreign body, left lower leg, initial encounter PLAN: EpiFix #10 applied to left lower leg covered with veil and Steri-Strips Aquacel extra then a stasis pad and a padded dressing. We will apply a 20 to 30 mmHg of compression stocking to the left lower leg and elevate leg is much as possible. Patient to follow-up in 1 week (2) Nonhealing nonsurgical wound with fat layer exposed: CODE(S): T14.8XXA - Other injury of unspecified body region, initial encounter (3) Edema of left lower leg: CODE(S): R60.0 - Localized edema (4) PAD (peripheral artery disease): CODE(S): I73.9 - Peripheral vascular disease, unspecified
== END 2022-09-15 23:59 | disposition home or self-care (01) ==
LOC: WC 10:30
PROVIDERS: PCP Family Medicine; Visit Provider Nurse Practitioner
DX: S81.812A Laceration without foreign body, left lower leg, initial encounter (principal); I73.9 Peripheral vascular disease, unspecified; W20.8XXA Other cause of strike by thrown, projected or falling object, initial encounter; R60.0 Localized edema; Z95.820 Peripheral vascular angioplasty status with implants and grafts; Z79.82 Long term (current) use of aspirin; Z79.890 Hormone replacement therapy; Z79.899 Other long term (current) drug therapy
CPT/HCPCS: 15271; Q4186

== ENCOUNTER 2022-10-06 10:30 | Outpatient (RCR) | payer MEDICARE, OTHER, SELFPAY ==
[2022-09-16 00:33] VITALS: BP 98/55; PULSE 70; RESP 18; TEMP 36.1; BMI 25.2
[2022-09-22 11:15] VITALS: BP 96/67; PULSE 70; TEMP 36.2; BMI 25.2
--- NOTE | 2022-09-22 11:44 | PCM.WC.PN ---
History of Present Illness Date of Service: 09/22/22 Chief Complaint: Left lower leg laceration occurring on May 18, 2022 History of Wound: This is a 86-year-old very hard of hearing gentleman that dropped a radiator on his left lower leg on May 18 of this year. Developed a severe gash in his left lower leg. Was seen in the emergency department at [place]. They were unable to close with suture. He also has severe PAD in his left leg has history of aortofemoral bypass and has a lot of swelling in his left lower leg. Because of the wound has been unable to wear his compression stockings because of the swelling. Recently finished cephalexin for an infection of some kind in his leg. Patient was told not to use anything on the wound. Patient is supersensitive about touching anywhere in or around the wound area. Progress of Wound: StillSo patient has used up his last EpiFix this last week and he has just a slit in the skin mostly healed it looks beautiful. We will finish him up with Promogran and see if we can get that small area to fill and and close. Subjective Subjective Son is very happy took pictures of the leg Objective Data Objective Data Will continue treatments with Promogran for now no sign of infection no redness looks good should do well still has a lot of edema in that leg were using a stasis pad on the top of the wound which is really helping. Vital Signs: Vital Signs Temp Pulse Resp BP 97.2 F L 70 18 96/67 09/22/22 11:15 09/22/22 11:15 09/16/22 00:33 09/22/22 11:15 Weight: 161 lb Body Mass Index (BMI) 25.2 Lab / Micro Data Attestation: I reviewed the patient's lab results. Physical Exam Const oriented x3 General Appearance: cooperative Exam Limitations: no limitations Resp normal respiratory effort Effort and Inspection: able to speak in complete sentences Auscultation: clear to auscultation bilaterally Cardio regular rate and regular rhythm Palpation: normal PMI Rate: regular rate Rhythm: regular rhythm GI Auscultation: normoactive bowel sounds Palpation: soft and no hepatosplenomegaly Extremity normal to inspection General Extremity: edema left lower extremity and weight-bearing difficulty; Negative for no tenderness to palpation of joints or extremities Left Lower Extremity: lower leg inspection (Laceration), palpation (Tender to palpate) and neurovascular exam (Poor pulses in left lower leg with swelling) Skin no rashes or lesions noted Neuro oriented x3 Psych Appearance: grossly normal Speech: normal speech Thought Content: normal thought content Judgement: judgement good Debridement Note Debridement Note Wound debrided: Left olivas traumatic wound nonpressure Laterality: Left Type of Debridement: Excisional debridement Anesthesia Used: 5% Lidocaine Gel Depth: Down to and including healthy tissue Percentage of wound debrided: 100 Instrument Used: 3mm curette Tissue Removed: Fibrin Severity: Limited To Skin Breakdown Amount of bleeding with debridement: None Bleeding Controlled with: Pressure Patient tolerated procedure: Patient tolerated procedure well Post-Debridement Measurements and Additional Note: Post-Debridement Measurements/Treatment - Nurse 1 - General Ulcer Assessment Start: 09/22/22 11:11 Freq: Status: Active Protocol: KARSON Activity Type Activity Date Activity User E-sign Co-sign Detail Recorded Client Recorded Date Recorded By Document 09/22/22 11:15 JACKLYN [id number] 09/22/22 11:29 JACKLYN 09/22/22 11:15 WC - Today's Visit Information Type of service Follow-up Visit (Physician/FOOD EQUIPMENT SERVICE TECHNICIAN ) Arrival Mode Ambulatory Patient Identification Verified (Name & No ) Patient Requires Transmission-Based No Precautions Height and Weight Body Mass Index (BMI) 25.2 BMI Classification Overweight Vital Signs Temperature (97.8 F-99.1 F) 97.2 F L Temperature Source Temporal Pulse Rate (60-100) 70 Pulse Location Monitor Blood Pressure (90/60-120/80) 96/67 Blood Pressure Mean (mm Hg) 76 Source Monitor History Since Last Visit- (Skip if this is Patient's initial visit) Have you changed medications since your No last visit? Any new allergies or adverse reactions No Had a fall/change in ADL's that may No increase risk of falls Signs or symptoms of abuse and/or No neglect since last visit Have you been in the hospital since your No last visit? Has dressing in place as prescribed Yes Has compression in place as prescribed Yes Has offloadiing in place as prescribed N/A Experienced any changes in pain level or No management Left Footwear Regular Shoe Right Footwear Regular Shoe Pain Scale: 0-10 Numeric Is Patient Pain Free? Yes BARBARA - Nurse 1 - General Ulcer Measurement Start: 09/22/22 11:11 Freq: Status: Active Protocol: Activity Type Activity Date Activity User E-sign Co-sign Detail Recorded Client Recorded Date Recorded By Document 09/22/22 11:15 NE [id number] 09/22/22 11:29 AK 09/22/22 11:15 Wound Center Nurse 1 #1 Left olivas -Combined with other wound No -Current Size (cm) - Length 0.5 -Current Size (cm) - Width 0.3 -Current Size (cm) - Depth 0.1 -Total Square Cm 0.15 -Photo Taken Yes -Tunneling No -Undermining/Tunneling No -Circular Undermining No -Change in Wound Grade/Stage No -Exudate Amt Small -Exudate Type Serosanguineous -Wound Margin Distinct, Outline Attached -Granulation Amt None Present (0 %) -Slough/Fibrin No -Necrosis Amt None Present (0 %) -Structure Exposed N/A -Texture (Roseline-wound Skin Appearance) Assessed, Scarring -Moisture (Roseline-wound Skin Appearance) Assessed,Dry/ Scaly -Color (Roseline-wound Skin Appearance) No Abnormality, Assessed -Temperature (Roseline-wound Skin No Abnormality Appearance) (Pt Warm) -Tenderness on Palpation (Roseline-wound No Skin Appearance) -Ulcer Cleansing Rinsed/ Irrigated with Saline -Foul Odor after Cleansing No -Anesthetic Used 5% Lidocaine Gel WC - Nurse 2 - General Ulcer CM Notes Start: 09/22/22 11:11 Freq: Status: Active Protocol: Activity Type Activity Date Activity User E-sign Co-sign Detail Recorded Client Recorded Date Recorded By Document 09/22/22 11:11 MW Desktop 09/22/22 11:14 MW 09/22/22 11:11 Wound Center Nurse 2 -Time 11:13 -Correct Patient Yes -Correct Side, Site, Position Yes -Correct Procedure Yes -Procedure Performed Yes -Type of Procedure Debridement -Clinical Debridement Subcutaneous -Tissue Removed Subcutaneous -Post Debridement (cm) - Length 0.6 -Post Debridement (cm) - Width 0.3 -Post Debridement (cm) - Depth 0.2 -Total Square (Post) (cm) 0.18 -Area of Debridement (cm) - Length 0.6 -Area of Debridement (cm) - Width 0.3 -Total Square (Area) (cm) 0.18 -Tunneling No -Undermining/Tunneling No -Circular Undermining No -Wound/Ulcer Outcome Not Healed -Ulcer Cleansing Rinsed/ Irrigated with Saline -Foul Odor after Cleansing No -Bioengineered Tissue No -Bleeding Controlled with Pressure -Treatment Response Procedure Tolerated Well -Offloading No -Debridement - Subq, 1st 20sq cm Yes Pain Scale: 0-10 Numeric Is Patient Pain Free? Yes - Nurse 3 - General Ulcer D/C NN Start: 09/22/22 11:11 Freq: Status: Active Protocol: Activity Type Activity Date Activity User E-sign Co-sign Detail Recorded Client Recorded Date Recorded By Document 09/22/22 11:18 [facility] [id number] 09/22/22 11:21 [facility] 09/22/22 11:18 Wound Care Center Nurse 3 #1 Left olivas -Ulcer Cleansing Rinsed/ Irrigated with Saline -Foul Odor after Cleansing No -Primary Dressing Applied Promogran -Other Dressing stasis pad, drsg per ak plant controls specialist -Primary Dressing Covered/Secured with Dry Gauze & Roll Gauze, Secured with Tape -Promogran 1 ble -Tubular Bandage Double Layer -Size of Tubigrip Used Size C -Size C ($) 2 Treatment Response Procedure Tolerated Well Pain Scale: 0-10 Numeric Is Patient Pain Free? Yes - Visit Discharge Discharge Condition Stable Ambulatory Status Ambulatory,Cane Transportation Private Auto Accompanied by son Assessment/Plan Assessment/Plan (1) Laceration of left lower leg with complication: CODE(S): S81.812A - Laceration without foreign body, left lower leg, initial encounter QUALIFIERS: Encounter type: subsequent encounter Qualified Code(s): S81.812D - Laceration without foreign body, left lower leg, subsequent encounter PLAN: Wash left lower leg with antibacterial soap pat dry . Apply Promogran to wound base moistened and cover with Adaptic and gauze dressing and a stasis pad over top to compress more on the wound daily We will apply a 20 to 30 mmHg of compression stocking to the left lower leg and elevate leg is much as possible. Patient to follow-up in 1 week (2) Nonhealing nonsurgical wound with fat layer exposed: CODE(S): T14.8XXA - Other injury of unspecified body region, initial encounter (3) Edema of left lower leg: CODE(S): R60.0 - Localized edema (4) PAD (peripheral artery disease): CODE(S): I73.9 - Peripheral vascular disease, unspecified (5) Non-pressure ulcer of left lower extremity: CODE(S): L97.929 - Non-pressure chronic ulcer of unspecified part of left lower leg with unspecified severity
[2022-09-29 10:39] VITALS: BP 82/55; PULSE 72; RESP 18; TEMP 36.1; BMI 25.2
--- NOTE | 2022-09-29 11:00 | PCM.WC.PN ---
History of Present Illness Date of Service: 09/29/22 Chief Complaint: Left lower leg laceration occurring on May 18, 2022 History of Wound: This is a 86-year-old very hard of hearing gentleman that dropped a radiator on his left lower leg on May 18 of this year. Developed a severe gash in his left lower leg. Was seen in the emergency department at [place]. They were unable to close with suture. He also has severe PAD in his left leg has history of aortofemoral bypass and has a lot of swelling in his left lower leg. Because of the wound has been unable to wear his compression stockings because of the swelling. Recently finished cephalexin for an infection of some kind in his leg. Patient was told not to use anything on the wound. Patient is supersensitive about touching anywhere in or around the wound area. Progress of Wound: The wound has some yellow crusting in it and still has a slight opening in the crevice I think if he does the dressings every day rather than every other day he will be healed next week. Subjective Subjective Patient is very hard of hearing and has a hard time comprehending to do dressings every day Objective Data Objective Data Small crevice of open area with yellow crusting debrided has new growth in the cells in the depth finished his EpiFix is 10 and he is now using Promogran which is working well. No sign of infection Vital Signs: Vital Signs Temp Pulse Resp BP 97 F L 72 18 82/55 L 09/29/22 10:39 09/29/22 10:39 09/29/22 10:39 09/29/22 10:39 Weight: 161 lb Body Mass Index (BMI) 25.2 Lab / Micro Data Attestation: I reviewed the patient's lab results. Physical Exam Const oriented x3 General Appearance: cooperative Exam Limitations: no limitations Resp normal respiratory effort Effort and Inspection: able to speak in complete sentences Auscultation: clear to auscultation bilaterally Cardio regular rate and regular rhythm Palpation: normal PMI Rate: regular rate Rhythm: regular rhythm GI Auscultation: normoactive bowel sounds Palpation: soft and no hepatosplenomegaly Extremity normal to inspection General Extremity: edema left lower extremity and weight-bearing difficulty; Negative for no tenderness to palpation of joints or extremities Left Lower Extremity: lower leg inspection (Laceration), palpation (Tender to palpate) and neurovascular exam (Poor pulses in left lower leg with swelling) Skin no rashes or lesions noted Neuro oriented x3 Psych Appearance: grossly normal Speech: normal speech Thought Content: normal thought content Judgement: judgement good Debridement Note Debridement Note Wound debrided: Left olivas nonpressure ulcer from trauma Type of Debridement: Excisional debridement Anesthesia Used: 5% Lidocaine Gel Depth: Down to and including healthy tissue Percentage of wound debrided: 100 Instrument Used: 3mm curette Tissue Removed: Slough and fibrin Severity: Limited To Skin Breakdown Amount of bleeding with debridement: Mild Bleeding Controlled with: Compression and gauze Patient tolerated procedure: Patient tolerated procedure well Post-Debridement Measurements and Additional Note: Post-Debridement Measurements/Treatment - Nurse 1 - General Ulcer Assessment Start: 09/22/22 11:11 Freq: Status: Active Protocol: KARSON Activity Type Activity Date Activity User E-sign Co-sign Detail Recorded Client Recorded Date Recorded By Document 09/22/22 11:15 GA [id number] 09/22/22 11:29 AK Document 09/29/22 10:39 RB [id number] 09/29/22 10:45 RB 09/22/22 09/29/22 11:15 10:39 - Today's Visit Information Type of service Follow-up Visit Follow-up Visit (Physician/ATTENDANCE OFFICER (Physician/ATTENDANCE OFFICER ) ) Arrival Mode Ambulatory Ambulatory,Cane Transfer Assistance None Patient Identification Verified (Name & No ) Patient Requires Transmission-Based No No Precautions Height and Weight Body Mass Index (BMI) 25.2 25.2 BMI Classification Overweight Overweight Vital Signs Temperature (97.8 F-99.1 F) 97.2 F L 97 F L Temperature Source Temporal Temporal Pulse Rate (60-100) 70 72 Pulse Location Monitor Monitor Respiratory Rate (12-18) 18 Respiratory rate source Observation Blood Pressure (90/60-120/80) 96/67 82/55 L Blood Pressure Mean (mm Hg) 76 64 Source Monitor Monitor Position Semi-Fowlers Blood Pressure Location Left Arm History Since Last Visit- (Skip if this is Patient's initial visit) Have you changed medications since your No No last visit? Any new allergies or adverse reactions No No Had a fall/change in ADL's that may No No increase risk of falls Signs or symptoms of abuse and/or No No neglect since last visit Have you been in the hospital since your No No last visit? Has dressing in place as prescribed Yes Yes Has compression in place as prescribed Yes Yes Has offloadiing in place as prescribed N/A No Experienced any changes in pain level or No No management Left Footwear Regular Shoe Right Footwear Regular Shoe Pain Scale: 0-10 Numeric Is Patient Pain Free? Yes Yes WC - Nurse 1 - General Ulcer Measurement Start: 09/22/22 11:11 Freq: Status: Active Protocol: Activity Type Activity Date Activity User E-sign Co-sign Detail Recorded Client Recorded Date Recorded By Document 09/22/22 11:15 AK [id number] 09/22/22 11:29 AK Document 09/29/22 10:39 RB [id number] 09/29/22 10:45 RB 09/22/22 09/29/22 11:15 10:39 Wound Center Nurse 1 #1 Left olivas -Combined with other wound No -Current Size (cm) - Length 0.5 0.5 -Current Size (cm) - Width 0.3 0.1 -Current Size (cm) - Depth 0.1 0.2 -Total Square Cm 0.15 0.05 -Photo Taken Yes -Tunneling No No -Undermining/Tunneling No No -Circular Undermining No No -Change in Wound Grade/Stage No -Exudate Amt Small Small -Exudate Type Serosanguineous Serosanguineous -Wound Margin Distinct, Thickened & Outline Rolled Under Attached -Granulation Amt None Present (0 Medium (34-66%) %) -Granulation Quality [place] -Slough/Fibrin No Yes -Necrosis Amt None Present (0 Medium (34-66%) %) -Necrotic Tissue Type Adherent Slough -Structure Exposed N/A N/A -Texture (Roseline-wound Skin Appearance) Assessed, Assessed Scarring -Moisture (Roseline-wound Skin Appearance) Assessed,Dry/ Assessed Scaly -Color (Roseline-wound Skin Appearance) No Abnormality, Assessed Assessed -Temperature (Roseline-wound Skin No Abnormality No Abnormality Appearance) (Pt Warm) (Pt Warm) -Tenderness on Palpation (Roseline-wound No No Skin Appearance) -Ulcer Cleansing Rinsed/ Wound Cleanser Irrigated with Saline -Foul Odor after Cleansing No No -Anesthetic Used 5% Lidocaine 5% Lidocaine Gel Gel Left Calf (cm) 32.5 Left Ankle (cm) 28.5 - Nurse 2 - General Ulcer CM Notes Start: 09/22/22 11:11 Freq: Status: Active Protocol: Activity Type Activity Date Activity User E-sign Co-sign Detail Recorded Client Recorded Date Recorded By Document 09/22/22 11:11 MW Desktop 09/22/22 11:14 MW Document 09/29/22 10:52 MW [id number] 09/29/22 10:56 MW 09/22/22 09/29/22 11:11 10:52 Wound Center Nurse 2 #1 Left olivas -Time 11:13 10:52 -Correct Patient Yes Yes -Correct Side, Site, Position Yes Yes -Correct Procedure Yes Yes -Procedure Performed Yes Yes -Type of Procedure Debridement Debridement -Clinical Debridement Subcutaneous Subcutaneous -Tissue Removed Subcutaneous Subcutaneous -Post Debridement (cm) - Length 0.6 1.7 -Post Debridement (cm) - Width 0.3 0.2 -Post Debridement (cm) - Depth 0.2 0.2 -Total Square (Post) (cm) 0.18 0.34 -Area of Debridement (cm) - Length 0.6 1.7 -Area of Debridement (cm) - Width 0.3 0.2 -Total Square (Area) (cm) 0.18 0.34 -Tunneling No No -Undermining/Tunneling No No -Circular Undermining No No -Wound/Ulcer Outcome Not Healed Not Healed -Ulcer Cleansing Rinsed/ Rinsed/ Irrigated with Irrigated with Saline Saline -Foul Odor after Cleansing No No -Bioengineered Tissue No No -Bleeding Controlled with Pressure Pressure -Treatment Response Procedure Procedure Tolerated Well Tolerated Well -Offloading No No -Debridement - Subq, 1st 20sq cm Yes Yes Pain Scale: 0-10 Numeric Is Patient Pain Free? Yes Yes - Nurse 3 - General Ulcer D/C NN Start: 09/22/22 11:11 Freq: Status: Active Protocol: Activity Type Activity Date Activity User E-sign Co-sign Detail Recorded Client Recorded Date Recorded By Document 09/22/22 11:18 [facility] [id number] 09/22/22 11:21 [facility] 09/22/22 11:18 Wound Care Center Nurse 3 #1 Left olivas -Ulcer Cleansing Rinsed/ Irrigated with Saline -Foul Odor after Cleansing No -Primary Dressing Applied Promogran -Other Dressing stasis pad, drsg per ak evaluation manager -Primary Dressing Covered/Secured with Dry Gauze & Roll Gauze, Secured with Tape -Promogran 1 ble -Tubular Bandage Double Layer -Size of Tubigrip Used Size C -Size C ($) 2 Treatment Response Procedure Tolerated Well Pain Scale: 0-10 Numeric Is Patient Pain Free? Yes WC - Visit Discharge Discharge Condition Stable Ambulatory Status Ambulatory,Cane Transportation Private Auto Accompanied by son Assessment/Plan Assessment/Plan (1) Laceration of left lower leg with complication: CODE(S): S81.812A - Laceration without foreign body, left lower leg, initial encounter QUALIFIERS: Encounter type: subsequent encounter Qualified Code(s): S81.812D - Laceration without foreign body, left lower leg, subsequent encounter PLAN: Wash left lower leg with antibacterial soap pat dry . Apply Promogran to wound base moistened and cover with Adaptic, gauze dressing and a stasis pad over top to compress more on the wound daily We will apply a 20 to 30 mmHg of compression stocking to the left lower leg and elevate leg is much as possible. Patient to follow-up in 1 week (2) Nonhealing nonsurgical wound with fat layer exposed: CODE(S): T14.8XXA - Other injury of unspecified body region, initial encounter (3) Edema of left lower leg: CODE(S): R60.0 - Localized edema (4) PAD (peripheral artery disease): CODE(S): I73.9 - Peripheral vascular disease, unspecified (5) Non-pressure ulcer of left lower extremity: CODE(S): L97.929 - Non-pressure chronic ulcer of unspecified part of left lower leg with unspecified severity
[2022-10-06 11:00] VITALS: BP 78/50; PULSE 74; RESP 18; TEMP 36.1; BMI 25.2
--- NOTE | 2022-10-06 11:45 | PN.PCM_ITS ---
History of Present Illness Date of Service: 10/06/22 Chief Complaint: Left lower leg laceration occurring on May 18, 2022 History of Wound: This is a 86-year-old very hard of hearing gentleman that dropped a radiator on his left lower leg on May 18 of this year. Developed a severe gash in his left lower leg. Was seen in the emergency department at [place]. They were unable to close with suture. He also has severe PAD in his left leg has history of aortofemoral bypass and has a lot of swelling in his left lower leg. Because of the wound has been unable to wear his compression stockings because of the swelling. Recently finished cephalexin for an infection of some kind in his leg. Patient was told not to use anything on the wound. Patient is supersensitive about touching anywhere in or around the wound area. Progress of Wound: Today the wound is healed on the left olivas patient will be discharged from the wound center follow-up as needed. Suggested wearing a protective dressing for a week Subjective Subjective Son and father pleased with outcomes Objective Data Objective Data Looks very good filling in nicely new skin developed all closed and will be discharged Vital Signs: Vital Signs Temp Pulse Resp BP 97 F L 74 18 78/50 L 10/06/22 11:00 10/06/22 11:00 10/06/22 11:10/06/22 11:00 Weight: 161 lb Body Mass Index (BMI) 25.2 Physical Exam Const oriented x3 General Appearance: cooperative Exam Limitations: no limitations Resp normal respiratory effort Effort and Inspection: able to speak in complete sentences Auscultation: clear to auscultation bilaterally Cardio regular rate and regular rhythm Palpation: normal PMI Rate: regular rate Rhythm: regular rhythm GI Auscultation: normoactive bowel sounds Palpation: soft and no hepatosplenomegaly Extremity normal to inspection General Extremity: edema left lower extremity and weight-bearing difficulty; Negative for no tenderness to palpation of joints or extremities Left Lower Extremity: lower leg inspection (Laceration), palpation (Tender to palpate) and neurovascular exam (Poor pulses in left lower leg with swelling) Skin no rashes or lesions noted Neuro oriented x3 Psych Appearance: grossly normal Speech: normal speech Thought Content: normal thought content Judgement: judgement good Debridement Note Debridement Note No debridement was completed: No debridement was completed today Post-Debridement Measurements and Additional Note: Post-Debridement Measurements/Treatment WC - Nurse 1 - General Ulcer Assessment Start: 09/22/22 11:11 Freq: Status: Active Protocol: KARSON Activity Type Activity Date Activity User E-sign Co-sign Detail Recorded Client Recorded Date Recorded By Document 09/22/22 11:15 AK [id number] 09/22/22 11:29 AK Document 09/29/22 10:39 RB [id number] 09/29/22 10:45 RB Document 10/06/22 11:00 RB [id number] 10/06/22 11:03 RB 09/22/22 09/29/22 10/06/22 11:15 10:39 11:00 WC - Today's Visit Information Type of service Follow-up Visit Follow-up Visit Follow-up Visit (Physician/PAYMENT COLLECTOR (Physician/PAYMENT COLLECTOR (Physician/PAYMENT COLLECTOR ) ) ) Arrival Mode Ambulatory Ambulatory,Cane Ambulatory,Cane Transfer Assistance None None Patient Identification Verified (Name & No Yes ) Patient Requires Transmission-Based No No No Precautions Height and Weight Body Mass Index (BMI) 25.2 25.2 25.2 BMI Classification Overweight Overweight Overweight Vital Signs Temperature (97.8 F-99.1 F) 97.2 F L 97 F L 97 F L Temperature Source Temporal Temporal Temporal Pulse Rate (60-100) 70 72 74 Pulse Location Monitor Monitor Monitor Respiratory Rate (12-18) 18 18 Respiratory rate source Observation Observation Blood Pressure (90/60-120/80) 96/67 82/55 L 78/50 L Blood Pressure Mean (mm Hg) 76 64 59 Source Monitor Monitor Monitor Position Semi-Fowlers Semi-Fowlers Blood Pressure Location Left Arm Left Arm History Since Last Visit- (Skip if this is Patient's initial visit) Have you changed medications since your No No No last visit? Any new allergies or adverse reactions No No No Had a fall/change in ADL's that may No No No increase risk of falls Signs or symptoms of abuse and/or No No No neglect since last visit Have you been in the hospital since your No No No last visit? Has dressing in place as prescribed Yes Yes Yes Has compression in place as prescribed Yes Yes Yes Has offloadiing in place as prescribed N/A No No Experienced any changes in pain level or No No No management Left Footwear Regular Shoe Right Footwear Regular Shoe Pain Scale: 0-10 Numeric Is Patient Pain Free? Yes Yes Yes WC - Nurse 1 - General Ulcer Measurement Start: 09/22/22 11:11 Freq: Status: Active Protocol: Activity Type Activity Date Activity User E-sign Co-sign Detail Recorded Client Recorded Date Recorded By Document 09/22/22 11:15 AK [id number] 09/22/22 11:29 AK Document 09/29/22 10:39 RB [id number] 09/29/22 10:45 RB Document 10/06/22 11:00 RB [id number] 10/06/22 11:03 RB 09/22/22 09/29/22 10/06/22 11:15 10:39 11:00 Wound Center Nurse 1 #1 Left olivas -Combined with other wound No No -Current Size (cm) - Length 0.5 0.5 0.1 -Current Size (cm) - Width 0.3 0.1 0.1 -Current Size (cm) - Depth 0.1 0.2 0.1 -Total Square Cm 0.15 0.05 0.01 -Photo Taken Yes -Tunneling No No No -Undermining/Tunneling No No No -Circular Undermining No No No -Change in Wound Grade/Stage No -Exudate Amt Small Small -Exudate Type Serosanguineous Serosanguineous -Wound Margin Distinct, Thickened & Outline Rolled Under Attached -Granulation Amt None Present (0 Medium (34-66%) Medium (34-66%) %) -Granulation Quality [place] -Slough/Fibrin No Yes Yes -Necrosis Amt None Present (0 Medium (34-66%) Medium (34-66%) %) -Necrotic Tissue Type Adherent Slough Adherent Slough -Structure Exposed N/A N/A N/A -Texture (Roseline-wound Skin Appearance) Assessed, Assessed Assessed, Scarring Scarring -Moisture (Roseline-wound Skin Appearance) Assessed,Dry/ Assessed Assessed Scaly -Color (Roseline-wound Skin Appearance) No Abnormality, Assessed Assessed Assessed -Temperature (Roseline-wound Skin No Abnormality No Abnormality No Abnormality Appearance) (Pt Warm) (Pt Warm) (Pt Warm) -Tenderness on Palpation (Roseline-wound No No No Skin Appearance) -Ulcer Cleansing Rinsed/ Wound Cleanser Wound Cleanser Irrigated with Saline -Foul Odor after Cleansing No No No -Anesthetic Used 5% Lidocaine 5% Lidocaine 5% Lidocaine Gel Gel Gel Lower Limb Edema Present Yes Left Calf (cm) 32.5 32.5 Left Ankle (cm) 28.5 28.5 WC - Nurse 2 - General Ulcer CM Notes Start: 09/22/22 11:11 Freq: Status: Active Protocol: Activity Type Activity Date Activity User E-sign Co-sign Detail Recorded Client Recorded Date Recorded By Document 09/22/22 11:11 MW Desktop 09/22/22 11:14 MW Document 09/29/22 10:52 MW [id number] 09/29/22 10:56 MW Document 10/06/22 11:17 MW [id number] 10/06/22 11:19 MW 09/22/22 09/29/22 10/06/22 11:11 10:52 11:17 Wound Center Nurse 2 #1 Left olivas -Time 11:13 10:52 11:18 -Correct Patient Yes Yes Yes -Correct Side, Site, Position Yes Yes Yes -Correct Procedure Yes Yes Yes -Procedure Performed Yes Yes No -Type of Procedure Debridement Debridement -Clinical Debridement Subcutaneous Subcutaneous -Tissue Removed Subcutaneous Subcutaneous -Post Debridement (cm) - Length 0.6 1.7 0 -Post Debridement (cm) - Width 0.3 0.2 0 -Post Debridement (cm) - Depth 0.2 0.2 -Total Square (Post) (cm) 0.18 0.34 0 -Area of Debridement (cm) - Length 0.6 1.7 -Area of Debridement (cm) - Width 0.3 0.2 -Total Square (Area) (cm) 0.18 0.34 -Tunneling No No -Undermining/Tunneling No No -Circular Undermining No No -Wound/Ulcer Outcome Not Healed Not Healed Healed- Epithelialized -Ulcer Cleansing Rinsed/ Rinsed/ Irrigated with Irrigated with Saline Saline -Foul Odor after Cleansing No No -Bioengineered Tissue No No -Bleeding Controlled with Pressure Pressure -Treatment Response Procedure Procedure Tolerated Well Tolerated Well -Offloading No No -Debridement - Subq, 1st 20sq cm Yes Yes Pain Scale: 0-10 Numeric Is Patient Pain Free? Yes Yes Yes BARBARA - Nurse 3 - General Ulcer D/C NN Start: 09/22/22 11:11 Freq: Status: Active Protocol: Activity Type Activity Date Activity User E-sign Co-sign Detail Recorded Client Recorded Date Recorded By Document 09/22/22 11:18 [facility] [id number] 09/22/22 11:21 BMF Document 09/29/22 11:20 RB [id number] 09/29/22 11:21 RB Document 10/06/22 11:19 MW [id number] 10/06/22 11:20 MW Edit Result 10/06/22 11:19 MW (1) [id number] 10/06/22 11:27 MW (1) #1 Left olivas - Mepilex Border 1 => 3 09/22/22 09/29/22 10/06/22 11:18 11:20 11:19 Wound Care Center Nurse 3 #1 Left olivas -Ulcer Cleansing Rinsed/ Wound Cleanser Rinsed/ Irrigated with Irrigated with Saline Saline -Foul Odor after Cleansing No No -Negative Pressure Wound Therapy N/A -Primary Dressing Applied Promogran Promogran Mepilex Border -Other Dressing stasis pad, stasis pad drsg per ak payroll accounting clerk -Primary Dressing Covered/Secured with Dry Gauze & Dry Gauze,Dry Roll Gauze, Gauze & Roll Secured with Gauze,Secured Tape with Tape -Mepilex Border 3 -Promogran 1 1 Left -Lotion applied to leg before No compression wrap -Tubular Bandage Single Layer Single Layer -Size of Tubigrip Used Size C Size D -Size C ($) 1 -Size D ($) 1 ble -Tubular Bandage Double Layer -Size of Tubigrip Used Size C -Size C ($) 2 Treatment Response Procedure Procedure Procedure Tolerated Well Tolerated Well Tolerated Well Pain Scale: 0-10 Numeric Is Patient Pain Free? Yes Yes No Teaching: Wound Center Discharge Instructions -Person Taught Patient,Family -Teaching Method Discussion -Response to teaching Verbalize understanding Dressing Your Wound -Person Taught Patient,Family Patient,Family -Teaching Method Discussion, Discussion Demonstration -Response to teaching Verbalize Verbalize understanding understanding WC - Visit Discharge Discharge Condition Stable Stable Stable Ambulatory Status Ambulatory,Cane Ambulatory,Cane Ambulatory,Cane Transportation Private Auto Private Auto Private Auto Accompanied by son son Medication Reconcilliation completed & No No provided to patient/care provider Clinical Summary of Care Provided Yes Yes Assessment/Plan Assessment/Plan (1) Laceration of left lower leg with complication: CODE(S): S81.812A - Laceration without foreign body, left lower leg, initial encounter QUALIFIERS: Encounter type: subsequent encounter Qualified Code(s): S81.812D - Laceration without foreign body, left lower leg, subsequent encounter PLAN: Discharge from the wound center follow-up as needed (2) Nonhealing nonsurgical wound with fat layer exposed: CODE(S): T14.8XXA - Other injury of unspecified body region, initial encounter (3) Edema of left lower leg: CODE(S): R60.0 - Localized edema (4) PAD (peripheral artery disease): CODE(S): I73.9 - Peripheral vascular disease, unspecified (5) Non-pressure ulcer of left lower extremity: CODE(S): L97.929 - Non-pressure chronic ulcer of unspecified part of left lower leg with unspecified severity
== END 2022-10-06 15:41 | disposition home or self-care (01) ==
LOC: WC 10:30
PROVIDERS: PCP Family Medicine; Visit Provider Nurse Practitioner
DX: L97.821 Non-pressure chronic ulcer of other part of left lower leg limited to breakdown of skin (principal); I73.9 Peripheral vascular disease, unspecified; R60.0 Localized edema; S81.812S Laceration without foreign body, left lower leg, sequela; W20.8XXA Other cause of strike by thrown, projected or falling object, initial encounter; H91.90 Unspecified hearing loss, unspecified ear; Z95.820 Peripheral vascular angioplasty status with implants and grafts
CPT/HCPCS: 11042; 99212; G0463

== ENCOUNTER 2022-11-21 12:07 | Emergency (ER) | payer MEDICARE, OTHER, SELFPAY ==
[2022-11-21] VITALS (67 sets, daily range): BP systolic 74–106; BP diastolic 61–85; PULSE 74–105; RESP 14–39; TEMP 36.6–36.9; O2SAT 94–97; BMI 25.3
--- NOTE | 2022-11-21 12:24 | EKG12_ITS ---
Test Reason : COUGH Blood Pressure : / mmHG Vent. Rate : 083 BPM Atrial Rate : 083 BPM P-R Int : 178 ms QRS Dur : 154 ms QT Int : 422 ms P-R-T Axes : 074 -61 112 degrees QTc Int : 495 ms Normal sinus rhythm Left axis deviation Left bundle branch block Abnormal ECG Confirmed by MAYNOR OLMEDO, CRUZITO ([id number]), social media editor JEAN WREN ([id number]) on 11/22/2022 1:26:18 PM Referred By: Confirmed By:CRUZITO MCGUIRE MD
--- NOTE | 2022-11-21 12:24 | EDS_ITS ---
HPI History of Present Illness Chief Complaint: Chest Other Narrative Narrative: 87-year-old male presenting with chest tightness since Tuesday or Tuesday. He comes and goes. It feels like tightness across his chest. He states that yesterday he started coughing up blood-tinged sputum. He has not had this before. He states he feels like he is having fevers and chills at home. He is not checked his temperature. He feels short of breath sometimes. Denies any chest trauma. Currently pain-free. No nausea or vomiting but states he had a lot of diarrhea. [facility] Medical History Anemia Benign neoplasm of colon Carpal tunnel syndrome Diabetes mellitus, type II Diverticulosis of colon (without mention of hemorrhage) Heme positive stool Hyperlipemia Hypertension Incisional hernia without mention of obstruction or gangrene Inguinal hernia Internal hemorrhoids Malignant neoplasm of bladder, part unspecified PAD (peripheral artery disease) Personal history of colonic polyps Right inguinal hernia Stenosis of right subclavian artery Home Medications acetaminophen 325 mg tablet 500 mg PO Q6H PRN Pain 10/05/16 [History Last Taken Unknown] albuterol sulfate 90 mcg/actuation aerosol inhaler 1 - 2 puff inhalation Q4H PRN PRN Asthma 10/05/16 [History Last Taken Unknown] aspirin 81 mg chewable tablet 81 mg PO DAILY@0800 10/05/16 [History Last Taken 09/27/19 07:00] finasteride 5 mg tablet 5 mg PO DAILY 10/05/16 [History Last Taken 10/06/16 08:00] folic acid 1 mg tablet 1 mg PO DAILY@0800 10/05/16 [History Last Taken Unknown] levothyroxine 25 mcg tablet 25 mcg PO MOTUWETHFRSA 10/05/16 [History Last Taken 09/28/19 07:15] metformin 500 mg tablet 500 mg PO BID 10/05/16 [History Last Taken Unknown] multivitamin 1 ea PO DAILY 10/05/16 [History Last Taken Unknown] atorvastatin 40 mg tablet 80 mg PO QDAY 05/19/17 [History Last Taken Unknown] pyridoxine (vitamin B6) 100 mg tablet 100 mg PO DAILY 05/19/17 [History Last Taken Unknown] furosemide 20 mg tablet 20 mg PO DAILY 06/09/22 [History Last Taken Unknown] meclizine 12.5 mg tablet 12.5 mg PO TID PRN Dizziness 06/09/22 [History Last Himanshu en Unknown] metoprolol succinate 25 mg tablet,extended release 24 hr 12.5 mg PO DAILY 06/09/22 [History Last Taken Unknown] pantoprazole 40 mg tablet,delayed release 40 mg PO DAILY 06/09/22 [History Last Taken Unknown] simethicone 80 mg chewable tablet 80 mg PO TID PRN bloating 06/09/22 [History Last Taken Unknown] Allergy/AdvReac Type Severity Reaction Status Date / Time naproxen [From Aleve] Allergy Hives Verified 11/21/22 12:10 Family History Mother CAD (coronary artery disease) Brother Diabetes Father Heart disease Surgical History History of angioplasty of peripheral vessel History of carpal tunnel surgery History of esophagogastroduodenoscopy (EGD) Hx of angioplasty Hx of aorto-femoral bypass Hx of decompression of ulnar nerve Hx of inguinal hernia repair Hx of local excision of skin lesion Hx of partial cystectomy Hx of ventral hernia repair Rectal fistula S/P colonoscopy S/P colonoscopy with polypectomy Social History Smoking Status: Former smoker second hand exposure: No alcohol intake: never substance use type: does not use caffeine: Yes what type of physical activity do you participate in: none frequency: does not exercise seatbelt use: always ROS ROS ED Constitutional Constitutional ED: Reports chills and subjective Eyes Eyes: Denies blurry vision or change in vision ENT ENT ED: Denies rhinorrhea or sore throat Cardiovascular Cardiovascular: Reports chest pain Respiratory/Chest Respiratory/Chest: Reports cough, dyspnea and other Details: Hemoptysis Gastrointestinal Gastrointestinal: Reports diarrhea; Denies abdominal pain, nausea or vomiting Genitourinary Genitourinary ED: Denies dysuria or hematuria Musculoskeletal Musculoskeletal: Denies arthralgias Integumentary Denies abscess or Abrasions Neurologic Neurologic: Denies headache(s) or paresthesias Psychiatric Psychiatric: Denies anxiety or depression EXAM Physical Exam Const Vital Signs: 11/21/22 12:09 11/21/22 12:13 11/21/22 12:40 Temperature 97.9 F Temperature Source Temporal Pulse Rate 86 Respiratory Rate 18 Respiratory Effort Short of Breath Respiratory Depth Normal Respiratory Pattern Normal Blood Pressure 106/76 Blood Pressure Mean 86 Pulse Ox 95 97 Oxygen Delivery Method Room Air Room Air Room Air 11/21/22 12:45 11/21/22 13:02 11/21/22 13:55 Temperature 98.5 F Temperature Source Oral Pulse Rate 83 77 77 Respiratory Rate 25 H 24 H 23 H Respiratory Effort Respiratory Depth Respiratory Pattern Blood Pressure 87/61 L 92/75 95/75 Blood Pressure Mean 69 80 81 Pulse Ox 97 96 97 Oxygen Delivery Method Room Air Room Air Room Air 11/21/22 15:05 11/21/22 15:49 Temperature Temperature Source Pulse Rate 84 76 Respiratory Rate 26 H 22 H Respiratory Effort Respiratory Depth Respiratory Pattern Blood Pressure 93/75 103/83 H Blood Pressure Mean 81 89 Pulse Ox 96 95 Oxygen Delivery Method Room Air Room Air Positive well nourished General Appearance ED: NAD HEENT Reports moist mucous membranes normocephalic and trauma Eyes PERRL and EOMs intact bilaterally Resp normal respiratory effort and clear to auscultation bilaterally Auscultation: Negative for rales, rhonchi or wheezes Cardio regular rate and regular rhythm Neuro oriented x3 and CN's II-XII intact bilaterally Sensorium / Orientation: awake and alert Motor Exam: strength 5/5 throughout Psych mental status grossly normal Skin no rashes or lesions noted MDM MDM MDM Narrative Medical decision making narrative: Patient presenting with chest pain and hemoptysis is also having diarrhea. Differential includes acute coronary syndrome, PE, malignancy, bronchitis, pneumonia, dehydration, electrolyte anomalies, anemia. CBC to assess white blood cell count, hemoglobin, platelets. BMP to assess renal function, electrolytes. High-sensitivity troponin and EKG to assess for ischemia and dysrhythmia. Chest x-ray to rule out pneumonia. BNP to assess for CHF. D- dimer will be added to rule out PE. CBC shows no leukocytosis. Hemoglobin hematocrit are stable. Platelets are normal. Renal function is within normal limits. High-sensitivity troponin came back at 175. BNP 8081. Chest x-ray my interpretation shows a left lower lobe pneumonia. Radiology interprets this and agrees. Patient noted to be hypoxic when he walked to the restroom and dropped into the 70s. His pressures were also little soft 20 to ambulate. He reports that he has a history of pericardial effusion which he was seen for earlier this year. He states they did attempt to cath him at [facility] however they were unable to obtain access. They did not think he was a candidate for pericardial window at that point apparently. Delta troponin came back at 179. His D-dimer was elevated at greater than 1.5 so I obtained a CTA of the chest which did not show any evidence of PE but did show a large pericardial effusion, cardiomegaly, pleural effusions bilaterally, left lower lobe pneumonia. Discussed with the hospitalist for admission who recommended that I speak with Dr. Wallace regarding the patient and since he is having hemoptysis and has a large pericardial effusion it was recommended that he be transferred to a tertiary facility. I spoke with Dr. Dinero from [facility] he did accept the transfer. He requested blood cultures prior to vancomycin and Zosyn being given and this was performed. I did also order a sputum culture however the patient informed me that he is no longer able to make sputum. Vital signs have remained stable here. Patient is awaiting transfer. He will be signed out to incoming ED physician for monitoring until this can be arranged. Impression: 1. Hypoxia 2. Left lower lobe pneumonia 3. CHF exacerbation 4. Elevated troponin 5. Hemoptysis Lab Data Attestation: I reviewed the patient's lab results. Labs: Laboratory Results - last 24 hr 11/21/22 11/21/22 11/21/22 12:40 14:36 15:31 WBC 7.9 RBC 4.39 L Hgb 12.2 L Hct 40.3 MCV 91.8 MCH 27.8 MCHC 30.3 L RDW Std Deviation 45.1 H RDW Coeff of Erick 13.3 Plt Count 176 MPV 10.1 Immature Gran % (Auto) 0.400 Neut % (Auto) 68.9 Lymph % (Auto) 16.6 L Kent % (Auto) 12.3 H Eos % (Auto) 1.4 Baso % (Auto) 0.4 Absolute Neuts (auto) 5.4 Absolute Lymphs (auto) 1.31 Nucleated RBC % 0 D-Dimer Quant (PE/DVT) 1.54 H* Sodium 139 Potassium 4.4 Chloride 105 Carbon Dioxide 29.0 Anion Gap 5 BUN 18 Creatinine 0.89 Estim Creat Clear Calc 52.77 Est GFR (MDRD) Af Amer 104 Est GFR (MDRD) Non-Af 86 BUN/Creatinine Ratio 20.3 H Glucose 172 H Calcium 8.8 Troponin I High Sens 175 H* 179 H* B-Natriuretic Peptide 1081.5 H POC Glucose 141 H Radiography Diagnostic Testing: Clinical Impression(s) from Imaging Studies Chest X-Ray 11/21/22 12:55 IMPRESSION: Left lower lobe pneumonia or atelectasis. Cardiomegaly. Electronically Signed: Blayne Juan MD at 13:22 EDT Reading Location ID and State: [id number] / [employer] , Service support , Chest CTA 11/21/22 13:22 IMPRESSION: 1. No CT evidence of pulmonary embolism. 2. Left lower lobe pneumonia. 3. Small bilateral pleural effusions. 4. Cardiomegaly. 5. Large pericardial effusion. Electronically Signed: Blayne Juan MD at 14:32 EDT Reading Location ID and State: [id number] / [employer] , Service support , Discharge Plan Triage Chief Complaint: Chest Other Other Complaint: Cough ED Provider: Celso Caldera Dx/Rx/DC Orders Prescriptions: No Action atorvastatin 40 mg tablet 80 mg PO QDAY pyridoxine (vitamin B6) 100 mg tablet 100 mg PO DAILY multivitamin 1 EACH tablet 1 ea PO DAILY metformin 500 MG tablet 500 mg PO BID acetaminophen 325 MG tablet 500 mg PO Q6H PRN (Reason: Pain) levothyroxine 25 MCG tablet 25 mcg PO MOTUWETHFRSA aspirin 81 MG tablet,chewable 81 mg PO DAILY@0800 folic acid 1 MG tablet 1 mg PO DAILY@0800 albuterol sulfate 1 INHALER inhaler 1 - 2 puff INHALATION Q4H PRN PRN (Reason: Asthma) finasteride 5 MG tablet 5 mg PO DAILY meclizine 12.5 mg Tablet 12.5 mg PO TID PRN (Reason: Dizziness) pantoprazole 40 mg Tablet,Delayed Release (Dr/Ec) 40 mg PO DAILY furosemide 20 mg Tablet 20 mg PO DAILY metoprolol succinate 25 mg Tablet Extended Release 24 Hr 12.5 mg PO DAILY simethicone 80 mg Tablet,Chewable 80 mg PO TID PRN (Reason: bloating) Primary Care Provider: Mike Portillo Referrals: Mike Portillo MD [Primary Care Provider] -
[2022-11-21 12:52] LABS: Absolute Lymphocyte Count 1.31 X10^3/uL (0.83-4.51); Absolute Neutrophil Count 5.4 X10^3/uL (2.0-7.7); Basophil# 0.03 X10^3/uL; Basophil% 0.4 % (0-1); Eosinophil# 0.11 X10^3/uL; Eosinophils% 1.4 % (0-5); Hematocrit 40.3 % (40-54); Hemoglobin 12.2 g/dL (13.0-16.5); Lymphocyte # 1.31 X10^3/ul (0.83-4.51); Lymphocyte % 16.6 % (19-41); Mean Corp Hgb Conc 30.3 g/dL (32-36); Mean Corpuscular Hgb 27.8 pg (27.0-32.0); Mean Corpuscular Volume 91.8 fL (80-94); Mean Platelet Vol. 10.1 fl (6.2-12.0); Monocyte# 0.97 X10^3/uL; Monocyte% 12.3 % (0-10); NRBC Flagged by Analyzer 0 % (0-5); Neutrophil # 5.42 X10^3/uL (2.7-7.7); Neutrophil % 68.9 % (47-70); Platelet Count 176 K/mm3 (150-450); RBC Distribution Width CV 13.3 % (11.6-14.6); RBC Distribution Width SD 45.1 fl (35.1-43.9); Red Blood Count 4.39 M/mm3 (4.6-6.2); White Blood Count 7.9 K/mm3 (4.4-11.0)
--- NOTE | 2022-11-21 12:55 | RAD_ITS ---
STUDY: X-RAY CHEST REASON FOR EXAM: Male, 87 years old. chest pain TECHNIQUE: Single AP portable view of the chest. COMPARISON: 06/17/2021 FINDINGS: Alveolar opacity in the lower left lung consistent with left lower lobe pneumonia or atelectasis There is no demonstrated pleural abnormality. There is moderate cardiac enlargement. Normal mediastinum and raz. Normal visualized pulmonary arteries. Normal visualized aortic arch and descending thoracic aorta. Normal visualized thoracic spine. Normal visualized ribs, clavicles, and shoulders. There is no demonstrated abnormality of the visualized soft tissue structures of the upper abdomen. RAD/Chest 1 View (Portable) IMPRESSION: Left lower lobe pneumonia or atelectasis. Cardiomegaly. Electronically Signed: Blayne Juan MD at 13:22 EDT ,
[2022-11-21 13:00] LABS: D-Dimer Quantitative (DVT/PE) 1.54 FEU/ug/m (0.27-0.49)
[2022-11-21 13:03] LABS: Anion Gap 5 (5-15); BUN 18 mg/dL (7-18); BUN/Creat Ratio 20.3 RATIO (10-20); Calcium,Total 8.8 mg/dL (8.5-10.1); Chloride 105 mmol/L (98-107); Creatinine, Serum 0.89 mg/dL (0.70-1.30); EST Glomerular Filtration Rate 86 mL/min (>60); Est Glom Filt Rate - Afr Amer 104 mL/min (>60); Estimated Creatinine Clearance 52.77 ml/min; Glucose 172 mg/dL (74-106); Potassium 4.4 mmol/L (3.5-5.1); Sodium Level 139 mmol/L (136-145); Troponin-I HS 175 pg/mL (3.0-78.0)
[2022-11-21] MEDS: 0.9% Normal Saline 1,000 ML 999 ML IV ×2 (13:03→17:56)
--- NOTE | 2022-11-21 13:22 | CT_ITS ---
STUDY: CTA CHEST REASON FOR EXAM: Male, 87 years old. chest pain RADIATION DOSAGE (If Supplied By Facility): CTDIvol = ( 13.79 ) mGy, DLP = ( 351.19 ) mGycm TECHNIQUE: The examination was performed with the intravenous administration of IV 100mL Isovue-370. Post-processing of the angiographic images was performed, with multiplanar reformation and 3D reconstruction. Individualized dose optimization techniques were used for this CT. COMPARISON: 06/23/2018 FINDINGS: Normal enhancement of the main pulmonary artery and right and left pulmonary arteries. Normal enhancement of the bilateral peripheral pulmonary arteries. There is no demonstrated pulmonary embolism. Normal thoracic aorta and visualized great vessels. There is no demonstrated aortic dissection. There is cardiomegaly. There is a large pericardial effusion. Normal mediastinum. Normal hilar regions. Normal visualized trachea and bronchi. The lungs are well expanded. Mild emphysema. Alveolar density in the left lower lobe consistent with left lower lobe pneumonia. Small bilateral pleural effusions. Normal chest wall structures. Normal osseous structures. Normal visualized upper abdomen. CT/CTA Chest W/WO Contrast IMPRESSION: 1. No CT evidence of pulmonary embolism. 2. Left lower lobe pneumonia. 3. Small bilateral pleural effusions. 4. Cardiomegaly. 5. Large pericardial effusion. Electronically Signed: Blayne Juan MD at 14:32 EDT ,
[2022-11-21 13:29] LABS: BNP,B-Type NATRIURETIC PEPTIDE 1081.5 pg/mL (0-100)
[2022-11-21 15:17] LABS: Troponin-I HS 179 pg/mL (3.0-78.0)
[2022-11-21 15:53] LABS: Bedside Glucose 141 mg/dL (74-106)
--- NOTE | 2022-11-21 16:16 | ED.RN ---
THIS RN CALLED DIETARY TO LET THEM KNOW PT NEEDS HEART HEALTHY TRAY. DIETARY TO BRING ONE TO PT. PT AWARE.
[2022-11-21] MEDS: Vancomycin IV 1,000 MG/200 ML BAG 200 MG IV (16:57)
--- NOTE | 2022-11-21 17:32 | ED.RN ---
THIS RN CALLED TAI (PT SON) ON BEHALF OF PT TO LET HIM KNOW SHIVA ETA OF 1900 TO [facility]. CALL TOOK PLACE AT 1733.
[2022-11-21 17:44] LABS: Bedside Glucose 158 mg/dL (74-106)
[2022-11-21] MEDS: Acetaminophen 325 MG Tablet 650 MG PO (18:41)
--- NOTE | 2022-11-21 18:59 | ED.RN ---
THIS RN CALLED REPORT TO [facility] AT 1839. REPORT GIVEN TO RONEY VALENZUELA.. RONEY VALENZUELA TALKED TO DR. DENNY DUE TO PT BP. REPORT GIVEN AT 1839.
[2022-11-21 19:05] LABS: Bedside Glucose 204 mg/dL (74-106)
--- NOTE | 2022-11-21 19:05 | ED.RN ---
THIS RN ATTEMPTED TO CALL PT SON (TAI) TO LET HIM KNOW PT DEPARTING FROM [facility].
== END 2022-11-21 19:11 | disposition short-term general hospital (02) ==
LOC: ED 12:53
PROVIDERS: Emergency Provider Student in an Organized Health Care Education/Training Program; PCP Family Medicine; Visit Provider Student in an Organized Health Care Education/Training Program
DX: J18.9 Pneumonia, unspecified organism (principal); E11.51 Type 2 diabetes mellitus with diabetic peripheral angiopathy without gangrene; I50.9 Heart failure, unspecified; I11.0 Hypertensive heart disease with heart failure; I31.39 Other pericardial effusion (noninflammatory); E78.5 Hyperlipidemia, unspecified; R09.02 Hypoxemia; R77.8 Other specified abnormalities of plasma proteins; R04.2 Hemoptysis; Z79.82 Long term (current) use of aspirin; Z79.84 Long term (current) use of oral hypoglycemic drugs; Z79.899 Other long term (current) drug therapy; Z87.891 Personal history of nicotine dependence
CPT/HCPCS: 71045; 71275; 80048; 82962; 83880; 84484; 85025; 85379; 87040; 87070; 87205; 87811; 93005; 96361; 96365; 96367; 99285; J7030; Q9967; A4216

== ENCOUNTER 2023-03-01 22:52 | Inpatient (IN) | payer MEDICARE, OTHER, SELFPAY ==
[2023-03-01 22:54] VITALS: BP 119/83; PULSE 100; RESP 15; TEMP 38.4; O2SAT 93
--- NOTE | 2023-03-01 23:08 | EDS_ITS ---
HPI History of Present Illness Chief Complaint: Shortness of Breath [facility] Medical History Anemia Benign neoplasm of colon Carpal tunnel syndrome Diabetes mellitus, type II Diverticulosis of colon (without mention of hemorrhage) Heme positive stool Hyperlipemia Hypertension Incisional hernia without mention of obstruction or gangrene Inguinal hernia Internal hemorrhoids Malignant neoplasm of bladder, part unspecified PAD (peripheral artery disease) Pericardial effusion Personal history of colonic polyps Right inguinal hernia Stenosis of right subclavian artery Home Medications acetaminophen 325 mg tablet 500 mg PO Q6H PRN Pain 10/05/16 [History Last Taken Unknown] albuterol sulfate 90 mcg/actuation aerosol inhaler 1 - 2 puff inhalation Q4H PRN PRN Asthma 10/05/16 [History Last Taken Unknown] aspirin 81 mg chewable tablet 81 mg PO DAILY@0800 10/05/16 [History Last Taken 09/27/19 07:00] finasteride 5 mg tablet 5 mg PO DAILY 10/05/16 [History Last Taken 10/06/16 08: 00] folic acid 1 mg tablet 1 mg PO DAILY@0800 10/05/16 [History Last Taken Unknown] levothyroxine 25 mcg tablet 25 mcg PO MOTUWETHFRSA 10/05/16 [History Last Taken 09/28/19 07:15] metformin 500 mg tablet 500 mg PO BID 10/05/16 [History Last Taken Unknown] multivitamin 1 ea PO DAILY 10/05/16 [History Last Taken Unknown] atorvastatin 40 mg tablet 80 mg PO QDAY 05/19/17 [History Last Taken Unknown] pyridoxine (vitamin B6) 100 mg tablet 100 mg PO DAILY 05/19/17 [History Last Taken Unknown] furosemide 20 mg tablet 20 mg PO DAILY 06/09/22 [History Last Taken Unknown] meclizine 12.5 mg tablet 12.5 mg PO TID PRN Dizziness 06/09/22 [History Last Taken Unknown] metoprolol succinate 25 mg tablet,extended release 24 hr 12.5 mg PO DAILY 06/09/22 [History Last Taken Unknown] pantoprazole 40 mg tablet,delayed release 40 mg PO DAILY 06/09/22 [History Last Taken Unknown] simethicone 80 mg chewable tablet 80 mg PO TID PRN bloating 06/09/22 [History Last Taken Unknown] Allergy/AdvReac Type Severity Reaction Status Date / Time naproxen [From Aleve] Allergy Hives Verified 03/01/23 23:01 Family History Mother CAD (coronary artery disease) Brother Diabetes Father Heart disease Surgical History History of angioplasty of peripheral vessel History of carpal tunnel surgery History of esophagogastroduodenoscopy (EGD) Hx of angioplasty Hx of aorto-femoral bypass Hx of decompression of ulnar nerve Hx of inguinal hernia repair Hx of local excision of skin lesion Hx of partial cystectomy Hx of ventral hernia repair Rectal fistula S/P colonoscopy S/P colonoscopy with polypectomy Social History Smoking Status: Former smoker second hand exposure: No alcohol intake: never substance use type: does not use caffeine: Yes what type of physical activity do you participate in: none frequency: does not exercise seatbelt use: always EXAM Physical Exam Const Vital Signs: 03/01/23 22:54 03/01/23 23:53 03/02/23 00:10 Temperature 101.2 F H Temperature Source Temporal Pulse Rate 100 Respiratory Rate 15 Respiratory Effort Respiratory Depth Respiratory Pattern Blood Pressure 119/83 H Blood Pressure Mean 95 Pulse Ox 93 90 94 Oxygen Delivery Method Room Air Room Air Nasal Cannula Oxygen Flow Rate (L/min) 2 03/02/23 00:00 03/02/23 00:25 03/02/23 00:15 Temperature 98.6 F 98.5 F Temperature Source Temporal Temporal Pulse Rate 97 98 99 Respiratory Rate 24 H 24 H Respiratory Effort Respiratory Depth Respiratory Pattern Blood Pressure 232/181 H 103/68 213/151 H Blood Pressure Mean 198 79 171 Pulse Ox 89 94 Oxygen Delivery Method Room Air Nasal Cannula Oxygen Flow Rate (L/min) 2 2 03/02/23 00:40 03/02/23 01:23 03/01/23 23:30 Temperature 98.4 F Temperature Source Temporal Pulse Rate 99 97 Respiratory Rate 26 H 23 H Respiratory Effort Short of Breath Respiratory Depth Shallow Respiratory Pattern Tachypnea Blood Pressure 80/63 L 89/75 L Blood Pressure Mean 68 79 Pulse Ox 95 97 Oxygen Delivery Method Nasal Cannula Nasal Cannula Room Air Oxygen Flow Rate (L/min) 2 2 03/02/23 02:12 03/02/23 02:13 Temperature 98.0 F Temperature Source Temporal Pulse Rate 104 H Respiratory Rate 25 H Respiratory Effort Respiratory Depth Respiratory Pattern Blood Pressure 99/75 Blood Pressure Mean 83 Pulse Ox 94 94 Oxygen Delivery Method Nasal Cannula Nasal Cannula Oxygen Flow Rate (L/min) 2 2 [facility] [place] Medical decision making narrative: HISTORY OF PRESENT ILLNESS: 87-year-old male here with concern for shortness of breath, cough and hemoptysis. Notes symptoms started tonight. Notes he took a shower and started shaking and then developed coughing productive of red sputum. Notes 1 episode of nonbloody nonbilious vomitus prior to arrival. Denies abdominal pain. Denies any recent illnesses. Does note his recently and had her yesterday. His son and grandson note there were people with pneumonia at the . REVIEW OF SYSTEMS: Pertinent positives: Shortness of breath, hemoptysis Pertinent negatives: Chest pain, syncope PHYSICAL EXAM: Nursing triage notes reviewed, Vital signs reviewed Constitutional: please see mdm HENT: MMM Eyes: Pupils equal round and reactive to light, Extraocular muscles intact Neck: No stridor, no JVD, full neck ROM Lungs: Coarse breath sounds throughout, worse in the left lung base. No increased work of breathing or conversational dyspnea noted Heart: Regular rate and rhythm, No murmurs, No rubs and No gallops, 2+ distal pulses (radial, femoral, posterior tibial) in all extremities Abdomen: Soft, there is no tenderness, rigidity, rebound or guarding, no obvious peritoneal signs, no palpable pulsatile abdominal masses, no auscultated abdominal bruit : No CVAT Extremities: No edema Neuro: No focal neurological deficits, cranial nerves II through XII intact, 5/5 strength in all extremities. Intact sensation to light touch in all extremities, 2+ reflexes bilateral patella tendons. Normal gait. No ataxia. Skin: No rash or lesions noted MEDICAL DECISION MAKING: Chief Complaint: Shortness of breath External records reviewed: CT of the chest from November 2022 shows no evidence of pulmonary embolism, left lower lobe pneumonia cardiomegaly, bilateral pleural effusions and a large pericardial effusion Factors affecting care: Type 2 diabetes, peripheral artery disease, Social determinants of health: Former smoker History obtained from others: Son and grandson Consults: Internal Medicine, Cardiology with a (Dr. Blake) [facility] Narrative: Patient was initially febrile, otherwise hemodynamically stable. Lungs without obvious focal consolidation. I considered the following differential diagnosis: Pneumonia, COVID, PE ALL IMAGES (IF OBTAINED) HAVE BEEN PERSONALLY REVIEWED AND INTERPRETED BY MYSELF. EKG was normal sinus rhythm, left axis deviation, prolonged QT, left bundle branch block, no obvious STEMI similar to prior EKG CBC with leukocytosis, mild anemia, no thrombocytopenia BMP without significant electrolyte disturbances, no JOHANA Initial high-sensitivity troponin elevated concern for myocardial ischemia repeat troponin continues to elevate Chest Xray was read and reviewed by myself and shows evidence of a right lower lobe pneumonia, bilateral pleural effusions by my read CTA the chest shows baseline pericardial fusion, evidence of pleural effusions as well as likely pneumonia The synthesis of the patient's history, physical exam, labs and images suggest evidence of community-acquired versus aspiration pneumonia and resultant hypoxia, hypotension. I have a low suspicion for STEMI given baseline EKG. I suspect the patient troponin elevation is a demand ischemia from hypoxia and hypotension. Gave broad-spectrum antibiotics including ceftriaxone azithromycin to treat pneumonia. Gave fluids empirically with improvement in blood pressure. Discussed the case with the aegis console operator track Dr. Blake who is comfortable treating the patient here despite pericardial effusion and prior to transfer. Discussed with hospitalist Dr. Rahman who also accepted the patient case to PCU as a full admission. The patient and/or family, caregivers express understanding. The patient and/or family, caregivers agrees with the plan. Shared decision making: I will have a discussion with the patient and or visitors regarding risk/benefits of further testing or admission. They will be made aware of of the risk/benefits inherent in this decision they will be given the opportunity to voice understanding. Total critical care time today provided was at least 35 minutes. This excludes separately billable procedures. Critical care time (if documented) is secondary to the patient having high probability of clinically significant/life threatening deterioration in the patient's condition which required my urgent intervention. Impression: 1. SOB 2. Hemoptysis 3. hypoxia 4. Community-acquired pneumonia 5. NSTEMI 6. Hypotension 7. Leukocytosis 8. Anemia Dispo: Admit to PCU Lab Data Labs: Laboratory Results - last 24 hr 03/01/23 03/02/23 03/02/23 23:30 01:30 02:00 WBC 15.2 H RBC 4.46 L Hgb 12.3 L Hct 39.7 L MCV 89.0 MCH 27.6 MCHC 31.0 L RDW Std Deviation 44.6 H RDW Coeff of Erick 13.7 Plt Count 182 MPV 10.8 Immature Gran % (Auto) 3.000 H Neut % (Auto) 87.0 H Lymph % (Auto) 3.3 L Garden % (Auto) 6.3 Eos % (Auto) 0.1 Baso % (Auto) 0.3 Absolute Neuts (auto) 13.2 H Absolute Lymphs (auto) 0.50 L Nucleated RBC % 0 Differential Comment SCANNED Sodium 138 Potassium 4.0 Chloride 105 Carbon Dioxide 26.0 Anion Gap 7 BUN 26 H Creatinine 1.10 Est GFR (MDRD) Af Amer 81 Est GFR (MDRD) Non-Af 67 BUN/Creatinine Ratio 23.6 H Glucose 231 H Lactic Acid 1.5 Calcium 8.6 Troponin I High Sens 143 H* 386 H* B-Natriuretic Peptide 999.4 H Radiography Diagnostic Testing: Clinical Impression(s) from Imaging Studies Chest X-Ray 03/01/23 23:09 IMPRESSION: Moderate pleural effusions and bilateral lower lobe air space disease. Findings may indicate atelectasis or infection. Electronically Signed: Adria Read MD at 0:14 EST Reading Location ID and State: [facility] / [place] Tel , Service support , Chest CTA 03/02/23 00:17 IMPRESSION: 1. Large pericardial effusion, similar to the previous examination, measuring up to 2 cm in thickness. 2. Left lower lobe consolidation, with abnormal density filling the left lower lobe airways. This may indicate aspiration pneumonia, but an endobronchial lesion is not excluded. Follow-up is recommended, with consideration for bronchoscopy if findings do not resolve. 3. No evidence of pulmonary embolism. Electronically Signed: Adria Read MD at 1:48 EST , Discharge Plan Triage Chief Complaint: Shortness of Breath ED Provider: Momo Hunter Dx/Rx/DC Orders Primary Care Provider: Mike Portillo
--- NOTE | 2023-03-01 23:09 | EKG12_ITS ---
Test Reason : DYSRHYTHMIA Blood Pressure : / mmHG Vent. Rate : 111 BPM Atrial Rate : 111 BPM P-R Int : 154 ms QRS Dur : 156 ms QT Int : 378 ms P-R-T Axes : 076 -70 104 degrees QTc Int : 514 ms Sinus tachycardia Left axis deviation Left bundle branch block Abnormal ECG Confirmed by MAYNOR OLMEDO, CRUZITO ([id number]), graphics editor JEAN WREN ([id number]) on 03/09/2023 10:45:58 AM Referred By: Confirmed By:CRUZITO MCGUIRE MD
--- NOTE | 2023-03-01 23:09 | RAD_ITS ---
EXAM: XR CHEST, 1 VIEW CLINICAL INDICATION: Shortness of breath TECHNIQUE: Frontal view of the chest. COMPARISON: Single view chest 11/21/2022 FINDINGS: LUNGS AND PLEURAL SPACES: Moderate pleural effusions and bilateral lower lobe air space disease. No pneumothorax. HEART: Unremarkable. Cardiac silhouette not enlarged. MEDIASTINUM: Central airways and mediastinal contour are unremarkable. BONES/JOINTS: Unremarkable. SOFT TISSUES: Unremarkable. RAD/Chest 1 View (Portable) IMPRESSION: Moderate pleural effusions and bilateral lower lobe air space disease. Findings may indicate atelectasis or infection. Electronically Signed: Adria Read MD at 0:14 EST ,
[2023-03-01 23:30] VITALS: O2SAT 90
[2023-03-01] MEDS: Ketorolac 15 MG/ML Vial IV (23:50)
[2023-03-01 23:53] VITALS: O2SAT 90
[2023-03-01 23:56] LABS: Anion Gap 7 (5-15); BUN 26 mg/dL (7-18); BUN/Creat Ratio 23.6 RATIO (10-20); Calcium,Total 8.6 mg/dL (8.5-10.1); Chloride 105 mmol/L (98-107); EST Glomerular Filtration Rate 67 mL/min (>60); Est Glom Filt Rate - Afr Amer 81 mL/min (>60); Glucose 231 mg/dL (74-106); Sodium Level 138 mmol/L (136-145)
[2023-03-01 23:57] VITALS: BMI 26.4
[2023-03-02] VITALS (18 sets, daily range): BP systolic 80–232; BP diastolic 58–181; PULSE 85–104; RESP 15–26; TEMP 36.1–37; O2SAT 89–99; BMI 25.4
[2023-03-02 00:06] LABS: Absolute Neutrophil Count 13.2 X10^3/uL (2.0-7.7); Basophil# 0.04 X10^3/uL; Basophil% 0.3 % (0-1); Differential Indicated SCAN CRITERIA MET; Eosinophil# 0.01 X10^3/uL; Eosinophils% 0.1 % (0-5); Hematocrit 39.7 % (40-54); Hemoglobin 12.3 g/dL (13.0-16.5); Lymphocyte % 3.3 % (19-41); Mean Corpuscular Hgb 27.6 pg (27.0-32.0); Mean Platelet Vol. 10.8 fl (6.2-12.0); Monocyte# 0.96 X10^3/uL; Monocyte% 6.3 % (0-10); NRBC Flagged by Analyzer 0 % (0-5); Neutrophil # 13.23 X10^3/uL (2.7-7.7); POSITIVE DIFFERENTIAL YES; Platelet Count 182 K/mm3 (150-450); RBC Distribution Width CV 13.7 % (11.6-14.6); RBC Distribution Width SD 44.6 fl (35.1-43.9); Red Blood Count 4.46 M/mm3 (4.6-6.2); White Blood Count 15.2 K/mm3 (4.4-11.0)
--- NOTE | 2023-03-02 00:17 | CT_ITS ---
EXAM: CT ANGIOGRAPHY CHEST WITHOUT AND WITH INTRAVENOUS CONTRAST CLINICAL INDICATION: SOB, hemoptysis, r/o PE TECHNIQUE: Helically acquired angiography images were obtained of the chest without and with intravenous contrast. This CT exam was performed using one or more of the following dose reduction techniques: automated exposure control, adjustment of the mA and/or kV according to patient size, and/or use of iterative reconstruction technique. MIP reconstructed images were created and reviewed. CONTRAST: IV 100mL Isovue-370 RADIATION DOSE: CTDIvol = 15.25 mGy, DLP = 401.86 mGy-cm COMPARISON: CTA chest 11/21/2022 FINDINGS: PULMONARY ARTERIES: Unremarkable. Normal in caliber. No evidence of pulmonary embolism. AORTA: Moderate atherosclerotic changes of the thoracic aorta without aneurysm or dissection. GREAT VESSELS OF AORTIC ARCH: Unremarkable. Normal in caliber. No evidence of dissection. LUNGS AND PLEURAL SPACES: Left lower lobe consolidation, with abnormal density filling the left lower lobe airways. Moderate right and small left pleural effusions. No mass. HEART: Large pericardial effusion, similar to the previous examination, measuring up to 2 cm in thickness. Moderate cardiomegaly. Coronary artery calcifications. MEDIASTINUM: Unremarkable. No mediastinal or hilar adenopathy. Esophagus is unremarkable. No hiatal hernia. THYROID: Unremarkable. No thyroid lesions. BONES/JOINTS: Unremarkable. No suspicious lytic or blastic abnormality. CT/CTA Chest W/WO Contrast IMPRESSION: 1. Large pericardial effusion, similar to the previous examination, measuring up to 2 cm in thickness. 2. Left lower lobe consolidation, with abnormal density filling the left lower lobe airways. This may indicate aspiration pneumonia, but an endobronchial lesion is not excluded. Follow-up is recommended, with consideration for bronchoscopy if findings do not resolve. 3. No evidence of pulmonary embolism. Electronically Signed: Adria Read MD at 1:48 EST ,
[2023-03-02 00:30] LABS: BNP,B-Type NATRIURETIC PEPTIDE 999.4 pg/mL (0-100)
[2023-03-02 00:36] LABS: Troponin-I HS 143 pg/mL (3.0-78.0)
[2023-03-02 00:44] LABS: Differential Comment SCANNED
[2023-03-02] MEDS: 0.9% Normal Saline (500mL Bag) 500 ML 999 ML IV ×2 (01:20→02:33)
[2023-03-02] MEDS: Aspirin 325 MG Tablet PO (01:20)
[2023-03-02 02:32] LABS: Lactic Acid 1.5 mmol/L (0.4-1.9)
[2023-03-02] MEDS: Ceftriaxone 1 GM/50 ML BAG IV (02:33)
[2023-03-02 02:35] LABS: Troponin-I HS 386 pg/mL (3.0-78.0)
[2023-03-02] MEDS: Azithromycin 500 MG in Dextrose 5%-Water (250mL Bag) 250 ML 250 MG IV ×2 (03:02→21:52)
--- NOTE | 2023-03-02 03:04 | ECHOD_ITS ---
Reason For Study: ELEVATED TROP Procedure This was a 2D Doppler, Color Flow transthoracic echocardiogram. Exam performed portable in patient room. Left Ventricle Moderately dilated left ventricle. The estimated ejection fraction is 30-35 %. Right Ventricle Normal right ventricle. Normal systolic function. Atria The left atrium is moderately enlarged. The right atrium is moderately enlarged. Mitral Valve The mitral valve is structurally normal. No prolapse or stenosis seen. Trivial mitral valve insufficiency. Tricuspid Valve Normal tricuspid valve. Trivial tricuspid valve insufficiency. Aortic Valve Normal aortic valve. Pulmonic Valve The pulmonic valve is not well visualized. Great Vessels Normal aortic root. Pericardium/Pleural Large pericardial effusion. MMode/2D Measurements & Calculations LVIDd: 4.9 cm IVSd: 1.2 cm Ao root diam: 2.7 cm LVIDs: 4.3 cm LVPWd: 1.3 cm RVDd: 3.7 cm FS: 13.3 % LAV(MOD-bp): 79.1 ml LVAd ap4: 37.2 cm2 SV(MOD-sp4): 45.6 ml LAV(MOD-bp) Indexed: 43.3 ml/m2 LVLd ap4: 9.2 cm LAV(MOD-sp2): 78.9 ml EDV(MOD-sp4): 122.3 ml LAV(MOD-sp4): 67.6 ml EDV(sp4-el): 128.1 ml LVAs ap4: 27.1 cm2 LVLs ap4: 8.0 cm ESV(MOD-sp4): 76.7 ml ESV(sp4-el): 77.3 ml EF(MOD-sp4): 37.3 % EF(sp4-el): 39.6 % SV(sp4-el): 50.7 ml LA A4 area: 21.6 cm2 RA A4 area: 22.9 cm2 TAPSE: 1.5 cm Time Measurements MV dec time: 0.17 sec Doppler Measurements & Calculations MV E max mars: 87.3 cm/sec Lat Peak E' Mars: 7.7 cm/sec Med Peak E' Mars: 7.3 cm/sec MV A max mars: 97.7 cm/sec E/E' lat: 11.3 E/E' med: 12.0 MV E/A: 0.89 MV V2 max: 103.8 cm/sec MV dec slope: 532.2 cm/sec2 Ao V2 max: 104.4 cm/sec MV max P.3 mmHg Ao max P.4 mmHg MV V2 mean: 77.8 cm/sec Ao V2 mean: 69.4 cm/sec MV mean P.5 mmHg Ao mean P.2 mmHg MV V2 VTI: 28.8 cm Ao V2 VTI: 22.0 cm AV (velocity ratio): 0.98 LV V1 max: 104.8 cm/sec PA V2 max: 113.0 cm/sec LV V1 max P.4 mmHg PA V2 mean: 71.7 cm/sec LV V1 mean P.3 mmHg LV V1 mean: 70.8 cm/sec LV V1 VTI: 21.5 cm ECHO/Echo Complete Interpretation Summary The estimated ejection fraction is 30-35 %. Severe LV systolic dysfunction Large pericardial effusion No prior echocardiogram to compare Ordering Physician: Sherri Rahman Referring Physician: CRISTIANO GOLDSTEIN Performed By: Tiffanie Lim RCS
--- NOTE | 2023-03-02 03:05 | HP.PCM.HOS_ITS ---
HPI - General General Date of Admission: 03/02/23 Date of Service: 03/02/23 Chief Complaint: Shortness of Breath HPI Narrative GIOVANY MELLO, is a 87 M who presented urgency department at [facility] on 03/01/2023 late in the evening complaining of shortness of breath. Patient states he was feeling fine this morning. He went over to his son's house for dinner and was standing outside having quite a bit of coughing. He th en went inside and ate spaghetti and a salad and went home as he was not feeling well. His son recommended that he take a hot shower and then put Vicks on his chest. His son helped him get into the shower and while he was in there he started to feel lightheaded and having worsening shortness of breath. He also reported that he was having some blood streaked sputum intermittently. He has had this previously when he had a pneumonia. He denies any fever or chills at home but was febrile on arrival here. His recently and he had several exposures to people who are ill at her several days ago. He has had no significant weakness or debility but has been more tired in the last 24 hours. He has multiple medical problems and follows at [facility] for his cardiac care. He has a known large pericardial effusion and ongoing issues with heart failure for which he follows at the heart failure clinic as well. He does not wear oxygen at baseline but does have a history of tobacco abuse. He had 1 episode of emesis prior to arrival. Vital signs on presentation demonstrated temperature of 101.2, heart rate was 100, blood pressure has been between 89 and 119 systolic over 68-83 diastolic, respiratory rates been between 23 and 25 and oxygen saturations were 89% on room air. He was placed on 2 L nasal cannula with improvement to saturations of 94% on room air. His CBC shows a leukocytosis with a white count of 15.2 and a left shift with an 87% neutrophilia. His CBC is otherwise stable. His chemistry panel shows mildly elevated BUN at 26 and a serum creatinine of 1.10 both of which slight the above his baseline. His glucose was 231. His troponin initially was 143 which was consistent with previous values done in November however repeat delta troponin was 386. The patient is not having any chest pain. BNP was 1000. Lactic acid was normal at 1.5. EKG shows a chronic left bundle branch block with no concerning findings consistent with acute ischemia. Chest x-ray demonstrated moderate pleural effusions and bilateral lower lobe airspace disease. CTA of his chest was performed and showed no PE or dissection but did demonstrate a large pericardial effusion similar to previous exam measuring up to 2 cm in thickness as well as left lower lobe consolidation with an abnormal density in the lower lobe airways and a right lower lobe pleural effusion. COVID and flu were negative. With concern of aspiration he was treated with Unasyn and azithromycin emergency department and placed on supplemental oxygen. Request for admission was made. [facility] Medical History Anemia Benign neoplasm of colon Carpal tunnel syndrome Diabetes mellitus, type II Diverticulosis of colon (without mention of hemorrhage) Heme positive stool Hyperlipemia Hypertension Incisional hernia without mention of obstruction or gangrene Inguinal hernia Internal hemorrhoids Malignant neoplasm of bladder, part unspecified PAD (peripheral artery disease) Pericardial effusion Personal history of colonic polyps Right inguinal hernia Stenosis of right subclavian artery Home Medications acetaminophen 325 mg tablet 500 mg PO Q6H PRN Pain 10/05/16 [History Last Taken Unknown] albuterol sulfate 90 mcg/actuation aerosol inhaler 1 - 2 puff inhalation Q4H PRN PRN Asthma 10/05/16 [History Last Taken Unknown] aspirin 81 mg chewable tablet 81 mg PO DAILY@0800 10/05/16 [History Last Taken 09/27/19 07:00] finasteride 5 mg tablet 5 mg PO DAILY 10/05/16 [History Last Taken 10/06/16 08:00] folic acid 1 mg tablet 1 mg PO DAILY@0800 10/05/16 [History Last Taken Unknown] levothyroxine 25 mcg tablet 25 mcg PO MOTUWETHFRSA 10/05/16 [History Last Taken 09/28/19 07:15] metformin 500 mg tablet 500 mg PO BID 10/05/16 [History Last Taken Unknown] multivitamin 1 ea PO DAILY 10/05/16 [History Last Taken Unknown] atorvastatin 40 mg tablet 80 mg PO QDAY 05/19/17 [History Last Taken Unknown] pyridoxine (vitamin B6) 100 mg tablet 100 mg PO DAILY 05/19/17 [History Last Taken Unknown] furosemide 20 mg tablet 20 mg PO DAILY 06/09/22 [History Last Taken Unknown] meclizine 12.5 mg tablet 12.5 mg PO TID PRN Dizziness 06/09/22 [History Last Taken Unknown] metoprolol succinate 25 mg tablet,extended release 24 hr 12.5 mg PO DAILY 06/09/22 [History Last Taken Unknown] pantoprazole 40 mg tablet,delayed release 40 mg PO DAILY 06/09/22 [History Last Taken Unknown] simethicone 80 mg chewable tablet 80 mg PO TID PRN bloating 06/09/22 [History Last Taken Unknown] Allergy/AdvReac Type Severity Reaction Status Date / Time naproxen [From Aleve] Allergy Hives Verified 03/01/23 23:01 Family History Mother CAD (coronary artery disease) Brother Diabetes Father Heart disease Surgical History History of angioplasty of peripheral vessel History of carpal tunnel surgery History of esophagogastroduodenoscopy (EGD) Hx of angioplasty Hx of aorto-femoral bypass Hx of decompression of ulnar nerve Hx of inguinal hernia repair Hx of local excision of skin lesion Hx of partial cystectomy Hx of ventral hernia repair Rectal fistula S/P colonoscopy S/P colonoscopy with polypectomy Social History Smoking Status: Former smoker second hand exposure: No alcohol intake: never substance use type: does not use caffeine: Yes what type of physical activity do you participate in: none frequency: does not exercise seatbelt use: always ROS Constitutional Constitutional: Reports fatigue, malaise and weakness; Denies anorexia, change in weight, chills, fever(s), night sweats or other Eyes Eyes: Denies blurry vision, change in eye color, change in vision, discharge from eye(s), double vision, erythema, eye pain, loss of vision or other ENT HEENT: Reports abnormal hearing and hearing loss; Denies dysphagia, ear pain, epistaxis, headache(s), nasal congestion, nasal discharge, post nasal drip, sinus pressure, sore throat or other Cardiovascular Cardiovascular: Reports dyspnea on exertion and edema; Denies chest pain, claudication, lightheadedness, orthopnea, palpitations, paroxysmal nocturnal dyspnea, rapid heart rate, syncope or other Respiratory/Chest Respiratory/Chest: Reports cough, dyspnea, excessive phlegm production, hemoptysis, productive cough, shortness of breath at rest and shortness of breath with exertion; Denies wheezing or other Gastrointestinal Gastrointestinal: Reports nausea and vomiting; Denies abdominal pain, coffee ground emesis, constipation, diarrhea, dyspepsia, hematemesis, hematochezia, loose stools, melena or other Genitourinary Genitourinary: Reports nocturia and urinary hesitancy; Denies burning urination, difficulty urinating, dysuria, hematuria, urinary frequency, urinary i ncontinence, urinary urgency or other Musculoskeletal Musculoskeletal: Denies arthralgias, back pain, joint pain, joint stiffness, joint swelling, myalgias, neck pain or other Neurologic Neurologic: Denies abnormal gait, abnormal speech, confusion, disequilibrium, dizziness, focal weakness, headache(s), numbness, paresthesias, seizure-like activity, seizures, syncope, tingling, tremor(s) or other Psychiatric Psychiatric: Denies anxiety, depression, homicidal ideation, suicidal ideation or other Endocrine Endocrinology: Denies change in body appearance, cold intolerance, excessive sweating, heat intolerance, polydipsia, polyuria or other Hematologic/Lymphatic Hematologic/Lymphatic: Denies anemia, easy bleeding, easy bruising, lymphadenopathy or other Allergic/Immunologic Allergic/Immunologic: Denies rhinitis, hives, eczemia, asthma or other Vital Signs Vital Signs Vital Signs: 03/01/23 22:54 03/01/23 23:53 03/02/23 00:10 Temperature 101.2 F H Temperature Source Temporal Pulse Rate 100 Respiratory Rate 15 Respiratory Effort Respiratory Depth Respiratory Pattern Blood Pressure 119/83 H Blood Pressure Mean 95 Pulse Ox 93 90 94 Oxygen Delivery Method Room Air Room Air Nasal Cannula Oxygen Flow Rate (L/min) 2 03/02/23 00:00 03/02/23 00:25 03/02/23 00:15 Temperature 98.6 F 98.5 F Temperature Source Temporal Temporal Pulse Rate 97 98 99 Respiratory Rate 24 H 24 H Respiratory Effort Respiratory Depth Respiratory Pattern Blood Pressure 232/181 H 103/68 213/151 H Blood Pressure Mean 198 79 171 Pulse Ox 89 94 Oxygen Delivery Method Room Air Nasal Cannula Oxygen Flow Rate (L/min) 2 2 03/02/23 00:40 03/02/23 01:23 03/01/23 23:30 Temperature 98.4 F Temperature Source Temporal Pulse Rate 99 97 Respiratory Rate 26 H 23 H Respiratory Effort Short of Breath Respiratory Depth Shallow Respiratory Pattern Tachypnea Blood Pressure 80/63 L 89/75 L Blood Pressure Mean 68 79 Pulse Ox 95 97 Oxygen Delivery Method Nasal Cannula Nasal Cannula Room Air Oxygen Flow Rate (L/min) 2 2 03/02/23 02:12 03/02/23 02:13 Temperature 98.0 F Temperature Source Temporal Pulse Rate 104 H Respiratory Rate 25 H Respiratory Effort Respiratory Depth Respiratory Pattern Blood Pressure 99/75 Blood Pressure Mean 83 Pulse Ox 94 94 Oxygen Delivery Method Nasal Cannula Nasal Cannula Oxygen Flow Rate (L/min) 2 2 Weight Weight: 74.8 kg Body Mass Index (BMI) 26.4 Physical Exam Const alert, oriented x3, no apparent distress, average body habitus and well nourished Constitutional Narrative: Very pleasant, elderly, white male, sitting up in bed, currently on 2 L nasal cannula, appears comfortable and nontoxic General Appearance: cooperative HEENT normocephalic and head/scalp atraumatic HEENT Narrative: Marked hearing loss despite having hearing aids in place, Mallampati is 2, no thrush, dentures in place Eyes PERRL, EOMs intact bilaterally and conjunctivae normal Eyes Narrative: No scleral icterus Neck no lymphadenopathy, supple and no carotid bruits Neck Narrative: Trachea midline, no thyroid enlargement Resp Resp Narrative: Mild tachypnea but no signs of extremis, no conversational dyspnea, scattered rhonchi anteriorly that improved with cough, diminished in bilateral bases left greater than right Auscultation: rhonchi; Negative for rales or wheezes Cardio regular rate, regular rhythm, S1 normal heart sound, S2 normal heart sound, no murmurs, no rub, no gallops and no clicks GI normal to inspection, nondistended, normoactive bowel sounds, soft to palpation and non-tender Extremity Extremity Narrative: No clubbing or cyanosis, bilateral lower extremity 2+ pitting edema-patient indicates this is chronic and he typically wears stockings Skin no rashes or lesions noted, no wounds, skin turgor normal, no jaundice, no petechiae and no mottling Skin Narrative: No significant lesions noted, skin is pale Neuro oriented x3, CN's II-XII intact bilaterally, moves all extremities and no focal motor deficits Speech: speech normal Psych affect normal Psych Narrative: Eye contact is good, patient is pleasant, interacts appropriately Results Lab / Micro Data 03/01/23 23:30 03/01/23 23:30 Labs: Laboratory Results - last 24 hr 03/01/23 23:30: WBC 15.2 H, RBC 4.46 L, Hgb 12.3 L, Hct 39.7 L, MCV 89.0, MCH 27.6, MCHC 31.0 L, RDW Std Deviation 44.6 H, RDW Coeff of Erick 13.7, Plt Count 182, MPV 10.8, Immature Gran % (Auto) 3.000 H, Neut % (Auto) 87.0 H, Lymph % (Auto) 3.3 L, [place] % (Auto) 6.3, Eos % (Auto) 0.1, Baso % (Auto) 0.3, Absolute Neuts (auto) 13.2 H, Absolute Lymphs (auto) 0.50 L, Nucleated RBC % 0, Differential Comment SCANNED, Sodium 138, Potassium 4.0, Chloride 105, Carbon Dioxide 26.0, Anion Gap 7, BUN 26 H, Creatinine 1.10, Est GFR (MDRD) Af Amer 81, Est GFR (MDRD) Non-Af 67, BUN/Creatinine Ratio 23.6 H, Glucose 231 H, Calcium 8.6, Troponin I High Sens 143 H*, B-Natriuretic Peptide 999.4 H 03/02/23 01:30: Troponin I High Sens 386 H* 03/02/23 02:00: Lactic Acid 1.5 Micro: Microbiology 03/01/23 23:30 Nasal Secretion SARS-CoV-2 & FLU Antigen (Rapid) - Final Radiology Impression Chest X-Ray 03/01/23 23:09 IMPRESSION: Moderate pleural effusions and bilateral lower lobe air space disease. Findings may indicate atelectasis or infection. Electronically Signed: Adria Read MD at 0:14 EST , Chest CTA 03/02/23 00:17 IMPRESSION: 1. Large pericardial effusion, similar to the previous examination, measuring up to 2 cm in thickness. 2. Left lower lobe consolidation, with abnormal density filling the left lower lobe airways. This may indicate aspiration pneumonia, but an endobronchial lesion is not excluded. Follow-up is recommended, with consideration for bronchoscopy if findings do not resolve. 3. No evidence of pulmonary embolism. Electronically Signed: Adria Read MD at 1:48 EST , Assessment & Plan Assessment/Plan (1) Hypoxia: (2) Pneumonia: (3) Elevated troponin I level: (4) Leukocytosis: (5) Hemoptysis: PLAN: Plan Acute hypoxia secondary to left lower lobe pneumonia -No hospitalization in the last 3 months -We will treat with Unasyn to cover aspiration and azithromycin -COVID and flu are negative -Check respiratory viral panel -Check strep pneumo and Legionella antigens -Check MRSA PCR and add vancomycin if positive -Currently requiring supplemental oxygen at 2 L to maintain sats greater than 88% -Wean as able -With history of tobacco use/abuse we will utilize DuoNebs and as needed albu terol -I-S -Acapella -Sputum culture if able Hemoptysis -Appears to be reporting blood-streaked sputum -Likely related to acute infection -Hemoglobin stable -we will continue aspirin for now given his troponin elevation but monitor clinically Troponin elevation -Suspect related to demand ischemia -We will cycle cardiac enzymes -Check echocardiogram -Cardiology consultation Leukocytosis -Likely secondary to the above -Antibiotics as ordered -Continue to monitor clinically CAD/HFrEF/chronic large pleural effusion -Patient follows at [facility] with her heart failure program -Blood pressure is borderline however I would like to continue his Lasix 20 mg daily given his history of fairly severe heart failure -We will hold metoprolol for now and restart when blood pressure stabilizes -Continue home aspirin Hyperlipidemia -Continue home atorvastatin Hypothyroidism -Continue home levothyroxine DM-2 -Hold metformin -SSI -Accu-Cheks as ordered -Acute elevation may be related to acute illness GERD -Continue PPI BPH -Continue home finasteride DVT prophylaxis -With hemoptysis we will utilize SCDs for now -If hemoptysis is stable would recommend addition of Lovenox 40 daily subcu CODE STATUS -Full code as verified on admission Charges/Coding Visit Charges Inpatient E&M: 37556 Init Hosp L2
[2023-03-02] MEDS: Levothyroxine 25 MCG TABLET PO (04:49)
[2023-03-02] MEDS: Ampicillin/Sulbactam 3 GM in 0.9% Normal Saline (100mL MB+) 100 ML IV ×3 (04:50→18:27)
[2023-03-02 06:17] LABS: Absolute Lymphocyte Count 1.24 X10^3/uL (0.83-4.51); Absolute Neutrophil Count 15.3 X10^3/uL (2.0-7.7); Basophil# 0.03 X10^3/uL; Basophil% 0.2 % (0-1); Eosinophil# 0.01 X10^3/uL; Eosinophils% 0.1 % (0-5); Hematocrit 38.2 % (40-54); Lymphocyte # 1.24 X10^3/ul (0.83-4.51); Mean Corp Hgb Conc 31.4 g/dL (32-36); Mean Corpuscular Hgb 28.1 pg (27.0-32.0); Mean Corpuscular Volume 89.5 fL (80-94); Mean Platelet Vol. 10.1 fl (6.2-12.0); Monocyte# 1.17 X10^3/uL; Monocyte% 6.6 % (0-10); NRBC Flagged by Analyzer 0 % (0-5); Neutrophil # 15.27 X10^3/uL (2.7-7.7); Neutrophil % 85.6 % (47-70); Platelet Count 141 K/mm3 (150-450); RBC Distribution Width CV 13.7 % (11.6-14.6); RBC Distribution Width SD 44.7 fl (35.1-43.9); Red Blood Count 4.27 M/mm3 (4.6-6.2); White Blood Count 17.8 K/mm3 (4.4-11.0)
[2023-03-02 06:48] LABS: ALB/GLOB Ratio 0.9 RATIO (0.9-2.4); AST(SGOT) 35 U/L (15-37); Alanine Aminotransfer ALT/SGPT 39 U/L (16-61); Albumin, Serum 2.6 g/dL (3.2-5.0); Alkaline Phosphatase 69 U/L (45-117); Anion Gap 6 (5-15); BUN 24 mg/dL (7-18); Chloride 106 mmol/L (98-107); Creatinine, Serum 1.09 mg/dL (0.70-1.30); EST Glomerular Filtration Rate 68 mL/min (>60); Est Glom Filt Rate - Afr Amer 82 mL/min (>60); Estimated Creatinine Clearance 44.64 ml/min; Glucose 162 mg/dL (74-106); Magnesium 1.7 mg/dL (1.6-2.6); Phosphorus 4.1 mg/dL (2.5-4.9); Potassium 4.1 mmol/L (3.5-5.1); Protein, Total 5.6 g/dL (6.4-8.2); Sodium Level 138 mmol/L (136-145)
[2023-03-02 06:58] LABS: Bedside Glucose 144 mg/dL (74-106)
[2023-03-02] MEDS: Ipratropium/Albuterol Sulfate 3 ML AMPUL.NEB INHALATION ×3 (07:17→19:45)
[2023-03-02 07:20] LABS: Troponin-I HS 1780 pg/mL (3.0-78.0)
[2023-03-02 07:35] LABS: M R Staph aureus DNA By PCR Negative (Negative); Probe Check PASS; Specimen Processing Control PASS
[2023-03-02] MEDS: Folic Acid 1 MG Tablet PO (09:24)
[2023-03-02] MEDS: Finasteride 5 MG Tablet PO (09:24)
[2023-03-02] MEDS: Furosemide 20 MG Tablet PO (09:24)
[2023-03-02] MEDS: Pyridoxine HCl 100 MG Tablet PO (09:24)
[2023-03-02] MEDS: Pantoprazole Sodium 40 MG Tablet PO (09:24)
[2023-03-02] MEDS: Aspirin 81 MG TAB.CHEW PO (09:24)
[2023-03-02] MEDS: guaiFENesin 1,200 MG Tablet 1200 MG PO ×2 (09:24→21:56)
[2023-03-02] MEDS: Acetaminophen 325 MG Tablet 650 MG PO ×2 (09:25→15:33)
--- NOTE | 2023-03-02 10:11 | PCM.PN.HOSP ---
Reason for Visit Reason for Visit: Diagnoses Elevated white blood cell count, unspecified (03/02/23) Pneumonia, unspecified organism (03/02/23) Hemoptysis (03/02/23) Hypoxemia (03/02/23) Other specified abnormal findings of blood chemistry (03/02/23) Subjective Subjective Patient is an 87-year-old gentleman admitted with fatigue, chills as well as shortness of breath diagnosed with acute hypoxia secondary to left lower lobe pneumonia. Patient was also found to have elevated troponin on admission admitted to a monitored bed for further treatment Objective Data Objective Data Vital Signs: Vital Signs Temp Pulse Resp BP Pulse Ox O2 Del Method O2 Flow Rate 98.3 F 92 15 93/72 94 Room Air 2 03/02/23 09:15 03/02/23 09:15 03/02/23 09:15 03/02/23 09:15 03/02/23 09:15 03/02/23 09:15 03/02/23 06:37 Oxygen Flow Rate (L/min) 2 Oxygen Delivery Method Room Air Weight: 73.9 kg Body Mass Index (BMI) 25.4 Intake & Output: Intake and Output for Last 24 Hours 02/28/23 03/01/23 03/02/23 23:59 23:59 23:59 Intake Total 1417 / 1417 Output Total 0 / 0 Balance 1417 / 1417 Lab / Micro Data 03/02/23 06:05 03/02/23 06:05 Labs: Laboratory Results - last 24 hr 03/01/23 23:30: WBC 15.2 H, RBC 4.46 L, Hgb 12.3 L, Hct 39.7 L, MCV 89.0, MCH 27.6, MCHC 31.0 L, RDW Std Deviation 44.6 H, RDW Coeff of Erick 13.7, Plt Count 182, MPV 10.8, Immature Gran % (Auto) 3.000 H, Neut % (Auto) 87.0 H, Lymph % (Auto) 3.3 L, [place] % (Auto) 6.3, Eos % (Auto) 0.1, Baso % (Auto) 0.3, Absolute Neuts (auto) 13.2 H, Absolute Lymphs (auto) 0.50 L, Nucleated RBC % 0, Differential Comment SCANNED, Sodium 138, Potassium 4.0, Chloride 105, Carbon Dioxide 26.0, Anion Gap 7, BUN 26 H, Creatinine 1.10, Est GFR (MDRD) Af Amer 81, Est GFR (MDRD) Non-Af 67, BUN/Creatinine Ratio 23.6 H, Glucose 231 H, Calcium 8.6, Troponin I High Sens 143 H*, B-Natriuretic Peptide 999.4 H 03/02/23 01:30: Troponin I High Sens 386 H* 03/02/23 02:00: Lactic Acid 1.5 03/02/23 04:50: MRSA (PCR) Negative 03/02/23 06:05: WBC 17.8 H, RBC 4.27 L, Hgb 12.0 L, Hct 38.2 L, MCV 89.5, MCH 28.1, MCHC 31.4 L, RDW Std Deviation 44.7 H, RDW Coeff of Erick 13.7, Plt Count 141 L, MPV 10.1, Immature Gran % (Auto) 0.500, Neut % (Auto) 85.6 H, Lymph % (Auto) 7.0 L, [place] % (Auto) 6.6, Eos % (Auto) 0.1, Baso % (Auto) 0.2, Absolute Neuts (auto) 15.3 H, Absolute Lymphs (auto) 1.24, Nucleated RBC % 0, Sodium 138, Potassium 4.1, Chloride 106, Carbon Dioxide 26.0, Anion Gap 6, BUN 24 H, Creatinine 1.09, Estim Creat Clear Calc 44.64, Est GFR (MDRD) Af Amer 82, Est GFR (MDRD) Non-Af 68, BUN/Creatinine Ratio 22.0 H, Glucose 162 H, Calcium 8.0 L, Phosphorus 4.1, Magnesium 1.7, Total Bilirubin 0.50, AST 35, ALT 39, Alkaline Phosphatase 69, Troponin I High Sens 1780 H*, Total Protein 5.6 L, Albumin 2.6 L, Globulin 3.0, Albumin/Globulin Ratio 0.9 03/02/23 06:34: POC Glucose 144 H Micro: Microbiology 03/01/23 23:30 Nasal Secretion SARS-CoV-2 & FLU Antigen (Rapid) - Final Radiography Diagnostic Testing: Radiology Impression Chest X-Ray 03/01/23 23:09 IMPRESSION: Moderate pleural effusions and bilateral lower lobe air space disease. Findings may indicate atelectasis or infection. Electronically Signed: Adria Read MD at 0:14 EST , Chest CTA 03/02/23 00:17 IMPRESSION: 1. Large pericardial effusion, similar to the previous examination, measuring up to 2 cm in thickness. 2. Left lower lobe consolidation, with abnormal density filling the left lower lobe airways. This may indicate aspiration pneumonia, but an endobronchial lesion is not excluded. Follow-up is recommended, with consideration for bronchoscopy if findings do not resolve. 3. No evidence of pulmonary embolism. Electronically Signed: Adria Read MD at 1:48 EST , Physical Exam Narrative GENERAL: cooperative HEENT: Atraumatic; normocephalic EYES; Anicteric, Normal Conjunctiva NECK; supple, normal thyroid, RESPIRATORY: Diminished to auscultation CARDIOVASCULAR: Regular S1 S2, GI: soft, normoactive bowel sounds, : No Renal angle tenderness; EXTREMITIES: No edema, no clubbing, MUSCULOSKELETAL: no muscle wasting NEURO: Awake; no lateralizing signs. SKIN: No Rash PSYCH; Flat affect Assessment & Plan Assessment/Plan (1) Hypoxia: (2) Pneumonia: (3) Elevated troponin I level: (4) Hemoptysis: PLAN: Plan Patient is an 87-year-old gentleman admitted with fatigue, chills as well as shortness of breath diagnosed with acute hypoxia secondary to left lower lobe pneumonia. Patient was also found to have elevated troponin on admission admitted to a monitored bed for further treatment 1. Acute hypoxia secondary to left lower lobe pneumonia ? Suspected to be secondary to aspiration pneumonia. Patient managed with Unasyn as well as azithromycin to cover for atypicals cultures sent please on supplemental oxygen titrated to keep saturation greater than 90 2. Hemoptysis ? Related to patient's pneumonia we will monitor 3. Elevated troponin ? Suspected secondary to myocardial injury. Patient apparently had an unsuccessful attempt at cardiac catheterization and vomiting. Serial cardiac enzymes ordered consult placed to cardiology 4. Chronic large pleural effusion ? Patient to follow-up with [facility] cardiology 5. Chronic congestive heart failure with reduced ejection fraction ? EF unknown, echo ordered for EF assessment 6. Coronary artery disease ? Per history plan is to continue with guideline directed medical therapy 7. Hypothyroidism ? Patient is on levothyroxine home dose continued 8. Dyslipidemia ? Patient is on atorvastatin continue 9. Diabetes mellitus type 2 ? Managed with metformin held on admission placed on Accu-Cheks before meals and at bedtime with sliding scale coverage 10. GERD ? On PPI 11. BPH ? Patient is on finasteride 12. DVT prophylaxis ? SC Lovenox Time spent in the patient's overall evaluation,decision-making process, review of diagnostic data, adjustment of management, discussion with other providers, nursing nursing and ancillary staff involved in patient's care documentation, 52 Minutes Charges/Coding Visit Charges Inpatient E&M: 15246 [facility] Hosp L3
--- NOTE | 2023-03-02 11:38 | CON.PCM.CA_ITS ---
<Statement entered by Dennis Blake MD - 03/02/23 17:18> Pt seen & evaluated w/CHACHO. I personally interviewed & exam the pt. I was involved in all aspects of pt's orders, interpretation of results & treatment Assessment & Plan Assessment/Plan (1) Elevated troponin I level: (2) CHF (congestive heart failure): (3) Pericardial effusion: (4) PAD (peripheral artery disease): (5) Hyperlipemia: PLAN: Plan * Troponins trended 143/386/1780. Will obtain MR from [facility]. With his pericardial effusion feel he would be a high risk to pursue a heart cath here. He currently does not have any CP. Feel its okay to treat medically at this time. If he does become symptomatic will reassess. He will continue with his ASA. BP is too low to consider BB or SARAH BETH at this time * Pt appears to have an asymptotic large pericardial effusion. Will obtain echo, this is pending. For now with his low BP will continue with his low dose lasix. * Elevated BNP of 999. echo is pending. He will continue with low dose lasix at this time. HPI Consult Data Date of Consult: 03/02/23 HPI Narrative HPI Narrative: GIOVANY MELLO, is a 87 M who presented to [facility] on 03/01/23 for increased SOB and blood streaked sputum. He was admitted for pneumonia and elevated troponin. He did have a chest CTA which demonstrated a larger pericardiac effusion measuring up to 2 cm in thickness. Left lower lobe consolidation, with abnormal density filling the left lower lobe airways. This may indicate aspiration pneumonia, but an endobronchial lesion is not excluded. The pericardial effusion is not new and he is established with [facility] cardiolgy. Pt notes that a heart cath was attempted but they were unable to access at [place]. He was then seen by [facility] cardiology at [facility] and it was recommended that he continue with his low dose lasix and continue to monitor as effusion remained stable. Pt does not have any chest pain. He is able to sleep in bed at night flat wi thout being SOB. He does have chronic edema. [facility] Medical History (Updated 03/02/23 @ 14:01 by Yasmin Skaggs PA, PA) Anemia Benign neoplasm of colon Carpal tunnel syndrome Diabetes mellitus, type II Diverticulosis of colon (without mention of hemorrhage) Heme positive stool Hyperlipemia Hypertension Incisional hernia without mention of obstruction or gangrene Inguinal hernia Internal hemorrhoids Malignant neoplasm of bladder, part unspecified PAD (peripheral artery disease) Pericardial effusion Personal history of colonic polyps Right inguinal hernia Stenosis of right subclavian artery Home Medications acetaminophen 325 mg tablet 500 mg PO Q6H PRN Pain 10/05/16 [History Last Taken Unknown] albuterol sulfate 90 mcg/actuation aerosol inhaler 1 - 2 puff inhalation Q4H PRN PRN Asthma 10/05/16 [History Last Taken Unknown] aspirin 81 mg chewable tablet 81 mg PO DAILY@0800 10/05/16 [History Last Taken 09/27/19 07:00] finasteride 5 mg tablet 5 mg PO DAILY 10/05/16 [History Last Taken 10/06/16 08:00] folic acid 1 mg tablet 1 mg PO DAILY@0800 10/05/16 [History Last Taken Unknown] levothyroxine 25 mcg tablet 25 mcg PO MOTUWETHFRSA 10/05/16 [History Last Taken 09/28/19 07:15] metformin 500 mg tablet 500 mg PO BID 10/05/16 [History Last Taken Unknown] multivitamin 1 ea PO DAILY 10/05/16 [History Last Taken Unknown] atorvastatin 40 mg tablet 80 mg PO QDAY 05/19/17 [History Last Taken Unknown] pyridoxine (vitamin B6) 100 mg tablet 100 mg PO DAILY 05/19/17 [History Last Taken Unknown] furosemide 20 mg tablet 20 mg PO DAILY 06/09/22 [History Last Taken Unknown] meclizine 12.5 mg tablet 12.5 mg PO TID PRN Dizziness 06/09/22 [History Last Taken Unknown] metoprolol succinate 25 mg tablet,extended release 24 hr 12.5 mg PO DAILY 06/09/22 [History Last Taken Unknown] pantoprazole 40 mg tablet,delayed release 40 mg PO DAILY 06/09/22 [History Last Taken Unknown] simethicone 80 mg chewable tablet 80 mg PO TID PRN bloating 06/09/22 [History Last Taken Unknown] Allergy/AdvReac Type Severity Reaction Status Date / Time naproxen [From Aleve] Allergy Hives Verified 03/01/23 23:01 Family History Mother CAD (coronary artery disease) Brother Diabetes Father Heart disease Surgical History History of angioplasty of peripheral vessel History of carpal tunnel surgery History of esophagogastroduodenoscopy (EGD) Hx of angioplasty Hx of aorto-femoral bypass Hx of decompression of ulnar nerve Hx of inguinal hernia repair Hx of local excision of skin lesion Hx of partial cystectomy Hx of ventral hernia repair Rectal fistula S/P colonoscopy S/P colonoscopy with polypectomy Social History Smoking Status: Former smoker second hand exposure: No alcohol intake: never substance use type: does not use caffeine: Yes what type of physical activity do you participate in: none frequency: does not exercise seatbelt use: always ROS Constitutional Constitutional: Denies change in weight, chills, frequent falls, headache(s) or lethargy Eyes Eyes: Denies acute decrease in peripheral vision, blurry vision or change in vision ENT HEENT: Denies dizziness, dry mouth, epistaxis, headache(s), tinnitus or vertigo Cardiovascular Cardiovascular: Reports as per HPI; Denies chest pain at rest, chest pain with activity, claudication, dyspnea at rest, dyspnea on exertion, lightheadedness, orthopnea or palpitations Respiratory/Chest Respiratory/Chest: Reports as per HPI; Denies dyspnea, dyspnea on exertion, tachypnea or wheezing Gastrointestinal Gastrointestinal: Denies abdominal pain, bloating, diarrhea or heartburn Genitourinary Genitourinary: Denies hematuria Neurologic Neurologic: Denies abnormal gait, abnormal speech, memory loss, paresthesias or weakness Physical Exam Const alert, oriented x3, no apparent distress, average body habitus and well nourished Constitutional Narrative: Very pleasant, elderly, white male, sitting up in bed, currently on 2 L nasal cannula, appears comfortable and nontoxic General Appearance: cooperative HEENT normocephalic and head/scalp atraumatic HEENT Narrative: Marked hearing loss despite having hearing aids in place Eyes PERRL, EOMs intact bilaterally and conjunctivae normal Neck no lymphadenopathy, supple and no carotid bruits Resp Resp Narrative: scattered rhonchi anteriorly that improved with cough, diminished in bilateral bases left greater than right Cardio regular rate, regular rhythm, S1 normal heart sound, S2 normal heart sound, no murmurs, no rub, no gallops and no clicks GI normal to inspection, nondistended, normoactive bowel sounds, soft to palpation and non-tender Extremity Extremity Narrative: No clubbing or cyanosis, bilateral lower extremity 2+ pitting edema-patient indicates this is chronic and he typically wears stockings Neuro oriented x3, CN's II-XII intact bilaterally, moves all extremities and no focal motor deficits Speech: speech normal Psych affect normal Psych Narrative: Eye contact is good, patient is pleasant, interacts appropriately Risk Stratification Risk Stratification Applicable: Yes Age >/= 65: Yes >/= 3 CAD Risk Factors (HTN, HLD, DM, family hx of CAD, or current smoker): Yes Aspirin Use in the Past 7 Days: Yes Severe Angina (>/= episodes in 24 hours): No EKG ST Changes >/= 0.5mm: No Positive Cardiac Marker: Yes RADHA Risk Stratification Score: 4 RADHA % Risk: 20% Risk Charges/Coding Visit Charges Office Visits / Consults: 37741 IP Consult L3 Objective Data Vital Signs: Vital Signs Temp Pulse Resp BP Pulse Ox O2 Del Method O2 Flow Rate 98.3 F 92 15 93/72 94 Room Air 2 03/02/23 09:15 03/02/23 09:15 03/02/23 09:15 03/02/23 09:15 03/02/23 09:15 03/02/23 10:00 03/02/23 06:37 Oxygen Flow Rate (L/min) 2 Oxygen Delivery Method Room Air Weight: 162 lb 14.746 oz Body Mass Index (BMI) 25.4 Intake & Output: Intake and Output for Last 24 Hours 02/28/23 03/01/23 03/02/23 23:59 23:59 23:59 Intake Total 1417 / 1417 Output Total 0 / 0 Balance 1417 / 1417 Lab / Micro Data 03/02/23 06:05 03/02/23 06:05 Labs: Laboratory Results - last 24 hr 03/01/23 23:30: WBC 15.2 H, RBC 4.46 L, Hgb 12.3 L, Hct 39.7 L, MCV 89.0, MCH 27.6, MCHC 31.0 L, RDW Std Deviation 44.6 H, RDW Coeff of Erick 13.7, Plt Count 182, MPV 10.8, Immature Gran % (Auto) 3.000 H, Neut % (Auto) 87.0 H, Lymph % (Auto) 3.3 L, [place] % (Auto) 6.3, Eos % (Auto) 0.1, Baso % (Auto) 0.3, Absolute Neuts (auto) 13.2 H, Absolute Lymphs (auto) 0.50 L, Nucleated RBC % 0, Differential Comment SCANNED, Sodium 138, Potassium 4.0, Chloride 105, Carbon Dioxide 26.0, Anion Gap 7, BUN 26 H, Creatinine 1.10, Est GFR (MDRD) Af Amer 81, Est GFR (MDRD) Non-Af 67, BUN/Creatinine Ratio 23.6 H, Glucose 231 H, Calcium 8.6, Troponin I High Sens 143 H*, B-Natriuretic Peptide 999.4 H 03/02/23 01:30: Troponin I High Sens 386 H* 03/02/23 02:00: Lactic Acid 1.5 03/02/23 04:50: MRSA (PCR) Negative 03/02/23 06:05: WBC 17.8 H, RBC 4.27 L, Hgb 12.0 L, Hct 38.2 L, MCV 89.5, MCH 28.1, MCHC 31.4 L, RDW Std Deviation 44.7 H, RDW Coeff of Erick 13.7, Plt Count 141 L, MPV 10.1, Immature Gran % (Auto) 0.500, Neut % (Auto) 85.6 H, Lymph % (Auto) 7.0 L, [place] % (Auto) 6.6, Eos % (Auto) 0.1, Baso % (Auto) 0.2, Absolute Neuts (auto) 15.3 H, Absolute Lymphs (auto) 1.24, Nucleated RBC % 0, Sodium 138, Potassium 4.1, Chloride 106, Carbon Dioxide 26.0, Anion Gap 6, BUN 24 H, Creatinine 1.09, Estim Creat Clear Calc 44.64, Est GFR (MDRD) Af Amer 82, Est GFR (MDRD) Non-Af 68, BUN/Creatinine Ratio 22.0 H, Glucose 162 H, Calcium 8.0 L, Phosphorus 4.1, Magnesium 1.7, Total Bilirubin 0.50, AST 35, ALT 39, Alkaline Phosphatase 69, Troponin I High Sens 1780 H*, Total Protein 5.6 L, Albumin 2.6 L , Globulin 3.0, Albumin/Globulin Ratio 0.9 03/02/23 06:34: POC Glucose 144 H Micro: Microbiology 03/01/23 23:30 Nasal Secretion SARS-CoV-2 & FLU Antigen (Rapid) - Final Cardiology Labs/Tests 03/01/23 23:30: WBC 15.2 H, RBC 4.46 L, Hgb 12.3 L, Hct 39.7 L, MCV 89.0, MCH 27.6, MCHC 31.0 L, Plt Count 182, MPV 10.8, Immature Gran % (Auto) 3.000 H, Neut % (Auto) 87.0 H, Lymph % (Auto) 3.3 L, [place] % (Auto) 6.3, Eos % (Auto) 0.1, Baso % (Auto) 0.3, Absolute Neuts (auto) 13.2 H, Nucleated RBC % 0, Sodium 138, Potassium 4.0, Chloride 105, Carbon Dioxide 26.0, Anion Gap 7, BUN 26 H, Creatinine 1.10, Est GFR (MDRD) Af Amer 81, Est GFR (MDRD) Non-Af 67, B UN/Creatinine Ratio 23.6 H, Glucose 231 H, Calcium 8.6, B-Natriuretic Peptide 999.4 H 03/02/23 02:00: Lactic Acid 1.5 03/02/23 06:05: WBC 17.8 H, RBC 4.27 L, Hgb 12.0 L, Hct 38.2 L, MCV 89.5, MCH 28.1, MCHC 31.4 L, Plt Count 141 L, MPV 10.1, Immature Gran % (Auto) 0.500, Neut % (Auto) 85.6 H, Lymph % (Auto) 7.0 L, [place] % (Auto) 6.6, Eos % (Auto) 0.1, Baso % (Auto) 0.2, Absolute Neuts (auto) 15.3 H, Nucleated RBC % 0, Sodium 138, Potassium 4.1, Chloride 106, Carbon Dioxide 26.0, Anion Gap 6, BUN 24 H, Creatinine 1.09, Est GFR (MDRD) Af Amer 82, Est GFR (MDRD) Non-Af 68, BUN/Creatinine Ratio 22.0 H, Glucose 162 H, Calcium 8.0 L, Phosphorus 4.1, Magnesium 1.7, Total Bilirubin 0.50 Rhythm: SR Radiography Diagnostic Testing: Radiology Impression Chest X-Ray 03/01/23 23:09 IMPRESSION: Moderate pleural effusions and bilateral lower lobe air space disease. Findings may indicate atelectasis or infection. Electronically Signed: Adria Read MD at 0:14 EST , Chest CTA 03/02/23 00:17 IMPRESSION: 1. Large pericardial effusion, similar to the previous examination, measuring up to 2 cm in thickness. 2. Left lower lobe consolidation, with abnormal density filling the left lower lobe airways. This may indicate aspiration pneumonia, but an endobronchial lesion is not excluded. Follow-up is recommended, with consideration for bronchoscopy if findings do not resolve. 3. No evidence of pulmonary embolism. Electronically Signed: Adria Read MD at 1:48 EST ,
[2023-03-02] MEDS: 0.9% Saline Lock 10 ML Syringe IV (12:00)
[2023-03-02] MEDS: Insulin Lispro 100 UNIT/ML INSULN.PEN SC ×2 (12:02→16:12)
[2023-03-02 12:55] LABS: Bedside Glucose 186 mg/dL (74-106)
--- NOTE | 2023-03-02 14:40 | CASEMGMT ---
RONEY ORTIZ Face to Face with patient for initial transition planning/care coordination assessment. RN CM introduced self and role at [facility]. Patient lying in bed, alert and oriented, sons at bedside. Patient willing to participate in assessment and is able to answer all questions appropriately. Care providers, pharmacy, and demographics verified. Patient wishes to discharge home with possible HHC at discharge. Patient states he has no further needs or concerns at this time. CM to follow for discharge planning needs that may arise. PCP: [facility] Specialists: Chris, crib attendant; Terese, urologist; Gera, armorer technician [facility] Preferred Pharmacy: [facility] Insurance: [facility], [employer] Private Prescription Benefit: yes Living Will/HPOA: yes, daughter Alisson Moore LNOK: sons, daughter Living Arrangements: Patient lives alone, recently passed this last week, SW notified. Patient lives in a single story home with 2 steps and grab bars to enter the home. Patient has stair lift to basement. Patient states he was independent at home. Transportation: sons, primary health care nurse DME/HHC: Patient has stair lift, lift chair, shower chair, grab bars, walker, wheelchair, cane at home. Patient has had [facility] HHC in the past. No previous SNF. Patient has caregiver on Tuesdays and 9a-12noon. Family interested in medical alert information. Family would like HHC at discharge. A list of HHC providers including quality and resource use data and consistent with the patient?s preferred geographical region, medical needs, and insurance network were provided from the [employer] Guide. Patient and family to review list and provide preferences. Disposition Plan: Patient to discharge home with HHC, family support, and follow-up plans in place. Will monitor for home oxygen at discharge. Dorothy ADDISON, RN, CM
[2023-03-02 19:02] LABS: Bedside Glucose 207 mg/dL (74-106)
[2023-03-02] MEDS: Senna/Docusate Sodium 1 Tablet 2 TABLET PO (21:56)
[2023-03-02] MEDS: MELATONIN 3 MG TABLET PO (21:57)
[2023-03-02] MEDS: Atorvastatin Calcium 80 MG Tablet PO (21:57)
[2023-03-02 23:05] LABS: Bedside Glucose 191 mg/dL (74-106)
[2023-03-03] VITALS (9 sets, daily range): BP systolic 94–109; BP diastolic 64–80; PULSE 78–102; RESP 15–20; TEMP 36.6–37; O2SAT 92–100; BMI 26.1
[2023-03-03] MEDS: Ipratropium/Albuterol Sulfate 3 ML AMPUL.NEB INHALATION ×4 (00:50→20:29)
[2023-03-03] MEDS: Ampicillin/Sulbactam 3 GM in 0.9% Normal Saline (100mL MB+) 100 ML IV ×4 (00:59→16:41)
[2023-03-03 06:06] LABS: Absolute Lymphocyte Count 1.04 X10^3/uL (0.83-4.51); Absolute Neutrophil Count 11.3 X10^3/uL (2.0-7.7); Basophil# 0.02 X10^3/uL; Basophil% 0.1 % (0-1); Eosinophil# 0.03 X10^3/uL; Eosinophils% 0.2 % (0-5); Hematocrit 36.1 % (40-54); Hemoglobin 11.2 g/dL (13.0-16.5); Lymphocyte # 1.04 X10^3/ul (0.83-4.51); Lymphocyte % 7.5 % (19-41); Mean Corpuscular Hgb 27.5 pg (27.0-32.0); Mean Corpuscular Volume 88.5 fL (80-94); Mean Platelet Vol. 10.6 fl (6.2-12.0); Monocyte# 1.36 X10^3/uL; Monocyte% 9.8 % (0-10); NRBC Flagged by Analyzer 0 % (0-5); Neutrophil # 11.33 X10^3/uL (2.7-7.7); Neutrophil % 81.7 % (47-70); Platelet Count 132 K/mm3 (150-450); RBC Distribution Width CV 14.1 % (11.6-14.6); RBC Distribution Width SD 45.2 fl (35.1-43.9); Red Blood Count 4.08 M/mm3 (4.6-6.2); White Blood Count 13.9 K/mm3 (4.4-11.0)
[2023-03-03 06:40] LABS: Anion Gap 7 (5-15); BUN 21 mg/dL (7-18); BUN/Creat Ratio 20.8 RATIO (10-20); Chloride 107 mmol/L (98-107); Creatinine, Serum 1.01 mg/dL (0.70-1.30); EST Glomerular Filtration Rate 74 mL/min (>60); Est Glom Filt Rate - Afr Amer 90 mL/min (>60); Estimated Creatinine Clearance 48.18 ml/min; Glucose 148 mg/dL (74-106); Magnesium 1.8 mg/dL (1.6-2.6); Phosphorus 2.9 mg/dL (2.5-4.9); Potassium 3.8 mmol/L (3.5-5.1); Sodium Level 140 mmol/L (136-145)
[2023-03-03] MEDS: Insulin Lispro 100 UNIT/ML INSULN.PEN SC ×3 (06:50→16:41)
[2023-03-03] MEDS: Levothyroxine 25 MCG TABLET PO (06:51)
[2023-03-03 07:13] LABS: Bedside Glucose 164 mg/dL (74-106)
--- NOTE | 2023-03-03 08:05 | PCM.PN.HOSP ---
Reason for Visit Reason for Visit: Diagnoses Elevated white blood cell count, unspecified (03/02/23) Hyperlipidemia, unspecified (03/02/23) Other pericardial effusion (noninflammatory) (03/02/23) Heart failure, unspecified (03/02/23) Peripheral vascular disease, unspecified (03/02/23) Pneumonia, unspecified organism (03/02/23) Hemoptysis (03/02/23) Hypoxemia (03/02/23) Other specified abnormal findings of blood chemistry (03/02/23) Subjective Subjective Patient seen complains of shortness of breath and appears dyspneic at rest compared to the previous day Objective Data Objective Data Vital Signs: Vital Signs Temp Pulse Resp BP Pulse Ox O2 Del Method O2 Flow Rate 98.6 F 92 20 H 97/68 94 Nasal Cannula 3 03/03/23 03:31 03/03/23 07:25 03/03/23 07:25 03/03/23 03:31 03/03/23 07:25 03/03/23 07:25 03/03/23 07:25 Oxygen Flow Rate (L/min) 3 Oxygen Delivery Method Nasal Cannula Weight: 75.7 kg Body Mass Index (BMI) 26.1 Intake & Output: Intake and Output for Last 24 Hours 03/01/23 03/02/23 03/03/23 23:59 23:59 23:59 Intake Total 1896 / 1896 224 / 224 Output Total 0 / 0 300 / 300 Balance 189 / 189 -76 / -76 Lab / Micro Data 03/03/23 05:41 03/03/23 05:41 Labs: Laboratory Results - last 24 hr 03/02/23 11:56: POC Glucose 186 H 03/02/23 16:10: POC Glucose 207 H 03/02/23 21:39: POC Glucose 191 H 03/03/23 05:41: WBC 13.9 H, RBC 4.08 L, Hgb 11.2 L, Hct 36.1 L, MCV 88.5, MCH 27.5, MCHC 31.0 L, RDW Std Deviation 45.2 H, RDW Coeff of Erick 14.1, Plt Count 132 L, MPV 10.6, Immature Gran % (Auto) 0.700, Neut % (Auto) 81.7 H, Lymph % (Auto) 7.5 L, [place] % (Auto) 9.8, Eos % (Auto) 0.2, Baso % (Auto) 0.1, Absolute Neuts (auto) 11.3 H, Absolute Lymphs (auto) 1.04, Nucleated RBC % 0, Sodium 140, Potassium 3.8, Chloride 107, Carbon Dioxide 26.0, Anion Gap 7, BUN 21 H, Creatinine 1.01, Estim Creat Clear Calc 48.18, Est GFR (MDRD) Af Amer 90, Est GFR (MDRD) Non-Af 74, BUN/Creatinine Ratio 20.8 H, Glucose 148 H, Calcium 8.0 L, Phosphorus 2.9, Magnesium 1.8 03/03/23 06:49: POC Glucose 164 H Micro: Microbiology 03/02/23 05:20 Mucosa - Nasopharyngeal Respiratory Panel (PCR) - Final 03/02/23 04:50 Sputum, Expectorated/Coughed Gram Stain - Final 03/01/23 23:30 Nasal Secretion SARS-CoV-2 & FLU Antigen (Rapid) - Final Radiography Diagnostic Testing: Radiology Impression Echocardiogram 03/02/23 03:04 Interpretation Summary The estimated ejection fraction is 30-35 %. Severe LV systolic dysfunction Large pericardial effusion No prior echocardiogram to compare Ordering Physician: Sherri Rahman Referring Physician: CRISTIANO GOLDSTEIN Performed By: Tiffanie Lim RCS Physical Exam Narrative GENERAL: Dyspneic at rest HEENT: Atraumatic; normocephalic EYES; Anicteric, Normal Conjunctiva NECK; supple, normal thyroid, RESPIRATORY: Diminished to auscultation CARDIOVASCULAR: Regular S1 S2, GI: soft, normoactive bowel sounds, : No Renal angle tenderness; EXTREMITIES: edema, no clubbing, MUSCULOSKELETAL: no muscle wasting NEURO: Awake; no lateralizing signs. SKIN: No Rash PSYCH; Flat affect Assessment & Plan Assessment/Plan (1) Hypoxia: (2) Pneumonia: (3) Elevated troponin I level: (4) Hemoptysis: PLAN: Plan Patient is an 87-year-old gentleman admitted with fatigue, chills as well as shortness of breath diagnosed with acute hypoxia secondary to left lower lobe pneumonia. Patient was also found to have elevated troponin on admission admitted to a monitored bed for further treatment 1. Acute hypoxia secondary to left lower lobe pneumonia ? Suspected to be secondary to aspiration pneumonia. Patient managed with Unasyn as well as azithromycin to cover for atypicals cultures sent please on supplemental oxygen titrated to keep saturation greater than 90 ? 03/03/2023; patient still remains hypoxic. We will continue with current treatment. 2. Hemoptysis ? Related to patient's pneumonia we will monitor 3. Elevated troponin ? Suspected secondary to myocardial injury. Patient apparently had an unsuccessful attempt at cardiac catheterization and vomiting. Serial cardiac enzymes ordered consult placed to cardiology ? 03/03/2023 patient was seen in consultation by cardiology optimization of medical therapy recommend 4. Chronic large pericardial effusion ? Patient to follow-up with [facility] cardiology 5. Acute on chronic chronic congestive heart failure with reduced ejection fraction ? EF unknown, echo ordered for EF assessment ? 03/03/2023 echo obtained demonstrated EF of 30 to 35%. With patient going into respiratory distress patient did receive additional diuretics 6. Coronary artery disease ? Per history plan is to continue with guideline directed medical therapy 7. Hypothyroidism ? Patient is on levothyroxine home dose continued 8. Dyslipidemia ? Patient is on atorvastatin continue 9. Diabetes mellitus type 2 ? Managed with metformin held on admission placed on Accu-Cheks before meals and at bedtime with sliding scale coverage 10. GERD ? On PPI 11. BPH ? Patient is on finasteride 12. DVT prophylaxis ? SC Lovenox Time spent in the patient's overall evaluation,decision-making process, review of diagnostic data, adjustment of management, discussion with other providers, nursing nursing and ancillary staff involved in patient's care documentation, 50 Minutes Charges/Coding Visit Charges Inpatient E&M: 09613 [facility] L[facility]
[2023-03-03] MEDS: Pyridoxine HCl 100 MG Tablet PO (08:44)
[2023-03-03] MEDS: guaiFENesin 1,200 MG Tablet 1200 MG PO ×2 (08:44→22:11)
[2023-03-03] MEDS: Pantoprazole Sodium 40 MG Tablet PO (08:44)
[2023-03-03] MEDS: Folic Acid 1 MG Tablet PO (08:44)
[2023-03-03] MEDS: Aspirin 81 MG TAB.CHEW PO (08:44)
[2023-03-03] MEDS: Furosemide 20 MG Tablet PO (08:44)
[2023-03-03] MEDS: Finasteride 5 MG Tablet PO (08:45)
[2023-03-03 10:46] LABS: Allen Test Positive; Base Excess -1 mmol/L (-2 to +2); Bicarbonate 22.8 mmol/L (22-26); Blood Gas Specimen Type ART; Mode Not entered; O2 Delivery Device Room Air; PO2 77 mmHG (75-100); SITE R Radial; SO2 96 % (95-99); Total Carbon Dioxide 24 mmol/L; pCO2 33.2 mmHg (35-45); pH 7.44 (7.35-7.45)
[2023-03-03] MEDS: Furosemide 100 MG/10 ML Vial 60 MG IV (11:25)
[2023-03-03 11:48] LABS: Bedside Glucose 235 mg/dL (74-106)
--- NOTE | 2023-03-03 11:53 | PCM.PN.CARD ---
Subjective Subjective Pt seen and examined today. He denies chest pain/ worsening SOB. No events noted over night Objective Data Vital Signs: Vital Signs Temp Pulse Resp BP Pulse Ox O2 Del Method O2 Flow Rate 98 F 102 H 15 109/76 100 Room Air 3 03/03/23 08:50 03/03/23 08:50 03/03/23 08:50 03/03/23 08:50 03/03/23 08:50 03/03/23 08:50 03/03/23 07:25 Oxygen Flow Rate (L/min) 3 Oxygen Delivery Method Room Air Weight: 166 lb 14.239 oz Body Mass Index (BMI) 26.1 Intake & Output: Intake and Output for Last 24 Hours 03/01/23 03/02/23 03/03/23 23:59 23:59 23:59 Intake Total 1896 / 1896 224 / 224 Output Total 0 / 0 300 / 300 Balance 1896 / 1896 -76 / -76 Lab / Micro Data 03/03/23 05:41 03/03/23 05:41 Labs: Laboratory Results - last 24 hr 03/02/23 11:56: POC Glucose 186 H 03/02/23 16:10: POC Glucose 207 H 03/02/23 21:39: POC Glucose 191 H 03/03/23 05:41: WBC 13.9 H, RBC 4.08 L, Hgb 11.2 L, Hct 36.1 L, MCV 88.5, MCH 27.5, MCHC 31.0 L, RDW Std Deviation 45.2 H, RDW Coeff of Erick 14.1, Plt Count 132 L, MPV 10.6, Immature Gran % (Auto) 0.700, Neut % (Auto) 81.7 H, Lymph % (Auto) 7.5 L, [place] % (Auto) 9.8, Eos % (Auto) 0.2, Baso % (Auto) 0.1, Absolute Neuts (auto) 11.3 H, Absolute Lymphs (auto) 1.04, Nucleated RBC % 0, Sodium 140, Potassium 3.8, Chloride 107, Carbon Dioxide 26.0, Anion Gap 7, BUN 21 H, Creatinine 1.01, Estim Creat Clear Calc 48.18, Est GFR (MDRD) Af Amer 90, Est GFR (MDRD) Non-Af 74, BUN/Creatinine Ratio 20.8 H, Glucose 148 H, Calcium 8.0 L, Phosphorus 2.9, Magnesium 1.8 03/03/23 06:49: POC Glucose 164 H 03/03/23 11:22: POC Glucose 235 H Micro: Microbiology 03/03/23 03:50 Urine, Random Legionella Antigen - Final 03/03/23 03:50 Urine, Random Streptococcus pneumoniae Antigen (M - Final 03/02/23 05:20 Mucosa - Nasopharyngeal Respiratory Panel (PCR) - Final 03/02/23 04:50 Sputum, Expectorated/Coughed Gram Stain - Final ABG Data ABG results: ABG 03/03/23 10:42 Specimen Type ART Sample Site R Radial pH 7.44 Bicarbonate Actual 22.8 Total CO2 24 Base Excess -1 O2 Saturation 96 O2 % 21.0 ABG pCO2 33.2 L ABG pO2 77 Alex Test Positive O2 Delivery Device Room Air Vent Mode Not entered Cardiology Labs/Tests 03/03/23 05:41: WBC 13.9 H, RBC 4.08 L, Hgb 11.2 L, Hct 36.1 L, MCV 88.5, MCH 27.5, MCHC 31.0 L, Plt Count 132 L, MPV 10.6, Immature Gran % (Auto) 0.700, Neut % (Auto) 81.7 H, Lymph % (Auto) 7.5 L, Churchill % (Auto) 9.8, Eos % (Auto) 0.2, Baso % (Auto) 0.1, Absolute Neuts (auto) 11.3 H, Nucleated RBC % 0, Sodium 140, Potassium 3.8, Chloride 107, Carbon Dioxide 26.0, Anion Gap 7, BUN 21 H, Creatinine 1.01, Est GFR (MDRD) Af Amer 90, Est GFR (MDRD) Non-Af 74, BUN/Creatinine Ratio 20.8 H, Glucose 148 H, Calcium 8.0 L, Phosphorus 2.9, Magnesium 1.8 03/03/23 10:42: pH 7.44, Bicarbonate Actual 22.8, Base Excess -1, O2 Saturation 96, ABG pCO2 33.2 L, ABG pO2 77, Alex Test Positive Radiography Diagnostic Testing: Radiology Impression Echocardiogram 03/02/23 03:04 Interpretation Summary The estimated ejection fraction is 30-35 %. Severe LV systolic dysfunction Large pericardial effusion No prior echocardiogram to compare Ordering Physician: Sherri Rahman Referring Physician: CRISTIANO GOLDSTEIN Performed By: Tiffanie Lim RCS Physical Exam Const alert, oriented x3, no apparent distress, average body habitus and well nourished Constitutional Narrative: Very pleasant, elderly, white male, sitting up in bed, currently on 2 L nasal cannula, appears comfortable and nontoxic General Appearance: cooperative HEENT normocephalic and head/scalp atraumatic HEENT Narrative: Marked hearing loss despite having hearing aids in place Eyes PERRL, EOMs intact bilaterally and conjunctivae normal Neck no lymphadenopathy, supple and no carotid bruits Resp Resp Narrative: diminished in bilateral bases left greater than right Cardio regular rate, regular rhythm, S1 normal heart sound, S2 normal heart sound, no murmurs, no rub, no gallops and no clicks GI normal to inspection, nondistended, normoactive bowel sounds, soft to palpation and non-tender Extremity Extremity Narrative: No clubbing or cyanosis, bilateral lower extremity 2+ pitting edema-patient indicates this is chronic and he typically wears stockings Neuro oriented x3, CN's II-XII intact bilaterally, moves all extremities and no focal motor deficits Speech: speech normal Psych affect normal Psych Narrative: Eye contact is good, patient is pleasant, interacts appropriately Assessment & Plan Assessment/Plan (1) Elevated troponin I level: (2) CHF (congestive heart failure): (3) Pericardial effusion: (4) PAD (peripheral artery disease): (5) Hyperlipemia: PLAN: Plan Troponins trended 143/386/1780. He does not have any symptoms of angina. Reviewed MR from [facility]. 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 EF at that time was 41%. He has been medically managed since then. Pt EF is similar to what it was at [facility] in November of 2022. His BP is on the low side, will continue with his low dose last. In reviewing MR it appears that he has not tolerated metoprolol d/t low Bp readings. He has a large stable pericardial effusion. He is not symptomatic with this. Reviewed MR from [facility]. For now with his low BP will continue with his low dose lasix. From a cardiac standpoint, will sign off. If further input is needed do not hesistant to ask. Charges/Coding Visit Charges Inpatient E&M: 45981 Subs Hosp L3
--- NOTE | 2023-03-03 12:00 | RAD_ITS ---
STUDY: X-RAY CHEST REASON FOR EXAM: Male, 87 years old. EKG changes, Diaphoretic TECHNIQUE: Single AP portable view of the chest. COMPARISON: Comparison is made with prior study dated March 01, 2023. FINDINGS: EKG electrodes are seen. Small bilateral pleural effusions with bibasilar infiltration and/or atelectasis. They have increased slightly since prior study. There is mild cardiac enlargement. The heart size has decreased as compared to prior study. Prominence of the right hilar region suggestive of possible focal infiltrate at that site. Normal visualized pulmonary arteries. There is atherosclerotic calcification of the aortic arch with tortuosity. There are diffuse degenerative changes of the visualized thoracic spine. Normal visualized ribs, clavicles, and shoulders. There is no demonstrated abnormality of the visualized soft tissue structures of the upper abdomen. RAD/Chest 1 View (Portable) IMPRESSION: Mild increase in the bilateral pleural effusions with bibasilar infiltration and/or atelectasis. Electronically Signed: Sherman Vela MD at 12:37 EST ,
--- NOTE | 2023-03-03 12:20 | CASEMGMT ---
Addendum entered by Gypsy Winn 03/03/23 16:23: VMl received from Tyrel from [facility] stating he was unable to respond via [employer], but they are able to accept pt. Pt made aware and states wishes to go with [facility] and to cancel the referrals to the other 2 [facility] agencies. Message sent to [place] and [facility] to cancel. Call back to [facility] and let them know pt would like to go with [facility] and for them to follow up with Dorothy SIM CM tomorrow for any questions and provided her phone #. [facility]: PH: [phone]. Addendum entered by Gypsy Winn 03/03/23 14:26: [facility] referral sent to the 3 [facility] preferences via [employer]. Original Note: RONEY ORTIZ NOTE: RONEY ORTIZ to room. Introduced self and role. Pt in bathroom. LISSETTE, Humaira, and son who are from [place], are in pt's room. Humaira states they will be staying w/pt until 03/15 to assist him and the other son lives nearby and can assist. She states they have reviewed the [facility] list and there top 3 preferences are: 1: [facility] 2: [facility] 3: [facility] [place]. Wagner ADDISON RN, CM
[2023-03-03] MEDS: Acetaminophen 325 MG Tablet 650 MG PO (13:15)
[2023-03-03 17:16] LABS: Bedside Glucose 155 mg/dL (74-106)
[2023-03-03] MEDS: Azithromycin 500 MG in Dextrose 5%-Water (250mL Bag) 250 ML 250 MG IV (22:10)
[2023-03-03] MEDS: Atorvastatin Calcium 80 MG Tablet PO (22:11)
[2023-03-03] MEDS: MELATONIN 3 MG TABLET PO (22:11)
[2023-03-03 23:25] LABS: Bedside Glucose 201 mg/dL (74-106)
[2023-03-04] VITALS (12 sets, daily range): BP systolic 86–114; BP diastolic 69–81; PULSE 78–106; RESP 15–24; TEMP 36.3–36.8; O2SAT 87–97; BMI 26.1
[2023-03-04] MEDS: Ampicillin/Sulbactam 3 GM in 0.9% Normal Saline (100mL MB+) 100 ML IV ×5 (00:27→23:32)
[2023-03-04] MEDS: Acetaminophen 325 MG Tablet 650 MG PO (02:04)
[2023-03-04] MEDS: Levothyroxine 25 MCG TABLET PO (06:20)
[2023-03-04] MEDS: Insulin Lispro 100 UNIT/ML INSULN.PEN SC ×3 (06:22→16:43)
[2023-03-04 07:27] LABS: Bedside Glucose 156 mg/dL (74-106)
[2023-03-04] MEDS: Ipratropium/Albuterol Sulfate 3 ML AMPUL.NEB INHALATION ×3 (07:29→19:33)
[2023-03-04 07:33] LABS: Absolute Lymphocyte Count 0.95 X10^3/uL (0.83-4.51); Absolute Neutrophil Count 7.8 X10^3/uL (2.0-7.7); Basophil# 0.02 X10^3/uL; Basophil% 0.2 % (0-1); Eosinophil# 0.04 X10^3/uL; Eosinophils% 0.4 % (0-5); Hematocrit 37.1 % (40-54); Hemoglobin 11.5 g/dL (13.0-16.5); Lymphocyte # 0.95 X10^3/ul (0.83-4.51); Lymphocyte % 9.6 % (19-41); Mean Corpuscular Volume 90.3 fL (80-94); Mean Platelet Vol. 10.7 fl (6.2-12.0); Monocyte% 11.1 % (0-10); NRBC Flagged by Analyzer 0 % (0-5); Neutrophil # 7.75 X10^3/uL (2.7-7.7); Neutrophil % 78.4 % (47-70); Platelet Count 129 K/mm3 (150-450); RBC Distribution Width CV 14.1 % (11.6-14.6); RBC Distribution Width SD 46.3 fl (35.1-43.9); Red Blood Count 4.11 M/mm3 (4.6-6.2); White Blood Count 9.9 K/mm3 (4.4-11.0)
[2023-03-04] MEDS: Pantoprazole Sodium 40 MG Tablet PO (08:28)
[2023-03-04] MEDS: Pyridoxine HCl 100 MG Tablet PO (08:28)
[2023-03-04] MEDS: Folic Acid 1 MG Tablet PO (08:28)
[2023-03-04] MEDS: Aspirin 81 MG TAB.CHEW PO (08:29)
[2023-03-04] MEDS: guaiFENesin 1,200 MG Tablet 1200 MG PO ×2 (08:29→20:20)
[2023-03-04 08:38] LABS: Anion Gap 6 (5-15); BUN 21 mg/dL (7-18); BUN/Creat Ratio 18.9 RATIO (10-20); Calcium,Total 8.1 mg/dL (8.5-10.1); Chloride 107 mmol/L (98-107); Creatinine, Serum 1.11 mg/dL (0.70-1.30); EST Glomerular Filtration Rate 67 mL/min (>60); Est Glom Filt Rate - Afr Amer 81 mL/min (>60); Estimated Creatinine Clearance 43.84 ml/min; Glucose 158 mg/dL (74-106); Potassium 3.8 mmol/L (3.5-5.1); Sodium Level 141 mmol/L (136-145)
[2023-03-04 11:39] LABS: Bedside Glucose 180 mg/dL (74-106)
--- NOTE | 2023-03-04 12:13 | PN.HOSP_ITS ---
Reason for Visit Reason for Visit: Diagnoses Elevated white blood cell count, unspecified (03/02/23) Hyperlipidemia, unspecified (03/02/23) Other pericardial effusion (noninflammatory) (03/02/23) Heart failure, unspecified (03/02/23) Peripheral vascular disease, unspecified (03/02/23) Pneumonia, unspecified organism (03/02/23) Hemoptysis (03/02/23) Hypoxemia (03/02/23) Other specified abnormal findings of blood chemistry (03/02/23) Subjective Subjective Patient seen [place] treated revealed worsening infiltrate. Did receive diuretics. Blood pressure relatively low. Patient is on midodrine at home resume Objective Data Objective Data Vital Signs: Vital Signs Temp Pulse Resp BP Pulse Ox O2 Del Method O2 Flow Rate 98 F 90 15 97/69 94 Room Air 2 03/04/23 11:08 03/04/23 11:08 03/04/23 11:08 03/04/23 11:08 03/04/23 11:08 03/04/23 11:08 03/04/23 02:11 Oxygen Flow Rate (L/min) 2 Oxygen Delivery Method Room Air Weight: 75.7 kg Body Mass Index (BMI) 26.1 Intake & Output: Intake and Output for Last 24 Hours 03/02/23 03/03/23 03/04/23 23:59 23:59 23:59 Intake Total 1896 / 1896 448 / 448 929 / 929 Output Total 0 / 0 300 / 300 Balance 1896 / 1896 148 / 148 929 / 929 Lab / Micro Data 03/04/23 07:00 03/04/23 07:00 Labs: Laboratory Results - last 24 hr 03/03/23 16:40: POC Glucose 155 H 03/03/23 22:14: POC Glucose 201 H 03/04/23 06:22: POC Glucose 156 H 03/04/23 07:00: WBC 9.9, RBC 4.11 L, Hgb 11.5 L, Hct 37.1 L, MCV 90.3, MCH 28.0, MCHC 31.0 L, RDW Std Deviation 46.3 H, RDW Coeff of Erick 14.1, Plt Count 129 L, MPV 10.7, Immature Gran % (Auto) 0.300, Neut % (Auto) 78.4 H, Lymph % (Auto) 9.6 L, [place] % (Auto) 11.1 H, Eos % (Auto) 0.4, Baso % (Auto) 0.2, Absolute Neuts (auto) 7.8 H, Absolute Lymphs (auto) 0.95, Nucleated RBC % 0, Sodium 141, Potassium 3.8, Chloride 107, Carbon Dioxide 28.0, Anion Gap 6, BUN 21 H, Creatinine 1.11, Estim Creat Clear Calc 43.84, Est GFR (MDRD) Af Amer 81, Est GFR (MDRD) Non-Af 67, BUN/Creatinine Ratio 18.9, Glucose 158 H, Calcium 8.1 L 03/04/23 11:17: POC Glucose 180 H Micro: Microbiology 03/03/23 03:50 Urine, Random Legionella Antigen - Final 03/03/23 03:50 Urine, Random Streptococcus pneumoniae Antigen (M - Final 03/02/23 05:20 Mucosa - Nasopharyngeal Respiratory Panel (PCR) - Final 03/02/23 04:50 Sputum, Expectorated/Coughed Gram Stain - Final 03/01/23 23:30 Nasal Secretion SARS-CoV-2 & FLU Antigen (Rapid) - Final Radiography Diagnostic Testing: Radiology Impression Chest X-Ray 03/03/23 12:00 IMPRESSION: Mild increase in the bilateral pleural effusions with bibasilar infiltration and/or atelectasis. Electronically Signed: Sherman Vela MD at 12:37 EST Reading Location ID and State: [address] [place] [address] , Service support , Physical Exam Narrative GENERAL: Cooperative HEENT: Atraumatic; normocephalic EYES; Anicteric, Normal Conjunctiva NECK; supple, normal thyroid, RESPIRATORY: Diminished to auscultation CARDIOVASCULAR: Regular S1 S2, GI: soft, normoactive bowel sounds, : No Renal angle tenderness; EXTREMITIES: edema, no clubbing, MUSCULOSKELETAL: no muscle wasting NEURO: Awake; no lateralizing signs. SKIN: No Rash PSYCH; Flat affect Assessment & Plan Assessment/Plan (1) Hypoxia: (2) Pneumonia: (3) Elevated troponin I level: (4) Hemoptysis: PLAN: Plan Patient is an 87-year-old gentleman admitted with fatigue, chills as well as shortness of breath diagnosed with acute hypoxia secondary to left lower lobe pneumonia. Patient was also found to have elevated troponin on admission admitted to a monitored bed for further treatment 1. Acute hypoxia secondary to left lower lobe pneumonia ? Suspected to be secondary to aspiration pneumonia. Patient managed with Unasyn as well as azithromycin to cover for atypicals cultures sent please on supplemental oxygen titrated to keep saturation greater than 90 ? 03/03/2023; patient still remains hypoxic. We will continue with current treatment. 2. Hemoptysis ? Related to patient's pneumonia we will monitor 3. Elevated troponin ? Suspected secondary to myocardial injury. Patient apparently had an unsuccessful attempt at cardiac catheterization and vomiting. Serial cardiac enzymes ordered consult placed to cardiology ? 03/03/2023 patient was seen in consultation by cardiology optimization of medical therapy recommend 4. Chronic large pericardial effusion ? Patient to follow-up with [facility] cardiology 5. Acute on chronic chronic congestive heart failure with reduced ejection fraction ? EF unknown, echo ordered for EF assessment ? 03/03/2023 echo obtained demonstrated EF of 30 to 35%. With patient going into respiratory distress patient did receive additional diuretics 6. Coronary artery disease ? Per history plan is to continue with guideline directed medical therapy 7. Hypothyroidism ? Patient is on levothyroxine home dose continued 8. Dyslipidemia ? Patient is on atorvastatin continue 9. Diabetes mellitus type 2 ? Managed with metformin held on admission placed on Accu-Cheks before meals and at bedtime with sliding scale coverage 10. GERD ? On PPI 11. BPH ? Patient is on finasteride 12. DVT prophylaxis ? SC Lovenox 13. Hypotension ? Secondary to patient being on diuretics he is on midodrine at home resume next Time spent in the patient's overall evaluation,decision-making process, review of diagnostic data, adjustment of management, discussion with other providers, nursing nursing and ancillary staff involved in patient's care documentation, 50 Minutes Charges/Coding Visit Charges Inpatient E&M: 93179 Subs Hosp L2
[2023-03-04] MEDS: Midodrine HCl 5 MG Tablet 2.5 MG PO ×2 (13:12→16:41)
[2023-03-04] MEDS: Digoxin 125 MCG Tablet PO (14:21)
[2023-03-04] MEDS: Furosemide 40 MG Tablet PO (14:21)
[2023-03-04] MEDS: Finasteride 5 MG Tablet PO (14:22)
[2023-03-04 17:12] LABS: Bedside Glucose 172 mg/dL (74-106)
[2023-03-04] MEDS: Azithromycin 500 MG in Dextrose 5%-Water (250mL Bag) 250 ML 250 MG IV (20:20)
[2023-03-04] MEDS: Atorvastatin Calcium 80 MG Tablet PO (20:20)
[2023-03-05] VITALS (9 sets, daily range): BP systolic 92–116; BP diastolic 65–79; PULSE 80–94; RESP 16–32; TEMP 36.3–36.6; O2SAT 92–100; BMI 25.9
[2023-03-05] MEDS: Ipratropium/Albuterol Sulfate 3 ML AMPUL.NEB INHALATION ×3 (01:56→13:27)
[2023-03-05] MEDS: Ampicillin/Sulbactam 3 GM in 0.9% Normal Saline (100mL MB+) 100 ML IV ×2 (05:50→11:51)
[2023-03-05] MEDS: Levothyroxine 50 MCG Tablet PO (05:50)
[2023-03-05 08:09] LABS: Bedside Glucose 184 mg/dL (74-106)
[2023-03-05] MEDS: Insulin Lispro 100 UNIT/ML INSULN.PEN SC ×2 (08:15→11:34)
[2023-03-05] MEDS: Pantoprazole Sodium 40 MG Tablet PO (08:16)
[2023-03-05] MEDS: Folic Acid 1 MG Tablet PO (08:16)
[2023-03-05] MEDS: Aspirin 81 MG TAB.CHEW PO (08:16)
[2023-03-05] MEDS: Digoxin 125 MCG Tablet PO (08:16)
[2023-03-05] MEDS: guaiFENesin 1,200 MG Tablet 1200 MG PO (08:17)
[2023-03-05] MEDS: Finasteride 5 MG Tablet PO (08:17)
[2023-03-05] MEDS: Furosemide 40 MG Tablet PO (08:18)
[2023-03-05] MEDS: Midodrine HCl 5 MG Tablet 2.5 MG PO ×2 (08:18→11:37)
[2023-03-05] MEDS: Pyridoxine HCl 100 MG Tablet PO (08:19)
[2023-03-05] MEDS: Acetaminophen 325 MG Tablet 650 MG PO (08:29)
[2023-03-05 08:56] LABS: Absolute Neutrophil Count 6.8 X10^3/uL (2.0-7.7); Basophil# 0.02 X10^3/uL; Basophil% 0.2 % (0-1); Eosinophil# 0.09 X10^3/uL; Hematocrit 38.4 % (40-54); Hemoglobin 12.2 g/dL (13.0-16.5); Mean Corp Hgb Conc 31.8 g/dL (32-36); Mean Corpuscular Hgb 28.6 pg (27.0-32.0); Mean Corpuscular Volume 89.9 fL (80-94); Mean Platelet Vol. 10.5 fl (6.2-12.0); Monocyte% 11.9 % (0-10); NRBC Flagged by Analyzer 0 % (0-5); Neutrophil % 73.5 % (47-70); Platelet Count 146 K/mm3 (150-450); RBC Distribution Width SD 46.3 fl (35.1-43.9); Red Blood Count 4.27 M/mm3 (4.6-6.2); White Blood Count 9.3 K/mm3 (4.4-11.0)
[2023-03-05 09:21] LABS: Anion Gap 8 (5-15); BUN 18 mg/dL (7-18); BUN/Creat Ratio 16.4 RATIO (10-20); Calcium,Total 8.3 mg/dL (8.5-10.1); Chloride 104 mmol/L (98-107); EST Glomerular Filtration Rate 67 mL/min (>60); Est Glom Filt Rate - Afr Amer 81 mL/min (>60); Estimated Creatinine Clearance 44.23 ml/min; Glucose 183 mg/dL (74-106); Potassium 3.6 mmol/L (3.5-5.1); Sodium Level 138 mmol/L (136-145)
--- NOTE | 2023-03-05 10:54 | PCM.DC.SUM ---
Providers Date of Admission: 03/02/23 Date of Discharge: 03/05/23 Primary Care Physician: Dr. Mike Portillo MD Consultations 03/02/23 04:02 Consult: Cardiology Routine Consulting Provider: Dennis Blake Reason for Consult: Troponin elevation EMERGENT Consult: No MD Notified: Yes Date Notified: 03/02/23 Time Notified: 03:03 Method of Notification: ED Physician Initiated Reason For Visit: ACUTE HYPOXIA 2/2 PNEUMONIA Diagnosis Discharge Diagnosis (1) Hypoxia: Status: Acute Code(s): R09.02 - Hypoxemia (2) Pneumonia: Status: Acute Code(s): J18.9 - Pneumonia, unspecified organism (3) Elevated troponin I level: Status: Acute Code(s): R79.89 - Other specified abnormal findings of blood chemistry (4) Hemoptysis: Status: Acute Code(s): R04.2 - Hemoptysis Plan Patient is an 87-year-old gentleman admitted with fatigue, chills as well as shortness of breath diagnosed with acute hypoxia secondary to left lower lobe pneumonia. Patient was also found to have elevated troponin on admission admitted to a monitored bed for further treatment 1. Acute hypoxia secondary to left lower lobe pneumonia ? Suspected to be secondary to aspiration pneumonia. Patient managed with Unasyn as well as azithromycin to cover for atypicals cultures sent please on supplemental oxygen titrated to keep saturation greater than 90 ? 03/03/2023; patient still remains hypoxic. We will continue with current treatment. 2. Hemoptysis ? Related to patient's pneumonia we will monitor 3. Elevated troponin ? Suspected secondary to myocardial injury. Patient apparently had an unsuccessful attempt at cardiac catheterization and vomiting. Serial cardiac enzymes ordered consult placed to cardiology ? 03/03/2023 patient was seen in consultation by cardiology optimization of medical therapy recommend 4. Chronic large pericardial effusion ? Patient to follow-up with [facility] cardiology 5. Acute on chronic chronic congestive heart failure with reduced ejection fraction ? EF unknown, echo ordered for EF assessment ? 03/03/2023 echo obtained demonstrated EF of 30 to 35%. With patient going into respiratory distress patient did receive additional diuretics 6. Coronary artery disease ? Per history plan is to continue with guideline directed medical therapy 7. Hypothyroidism ? Patient is on levothyroxine home dose continued 8. Dyslipidemia ? Patient is on atorvastatin continue 9. Diabetes mellitus type 2 ? Managed with metformin held on admission placed on Accu-Cheks before meals and at bedtime with sliding scale coverage 10. GERD ? On PPI 11. BPH ? Patient is on finasteride 12. DVT prophylaxis ? SC Lovenox 13. Hypotension ? Secondary to patient being on diuretics he is on midodrine at home resume next Time spent in the patient's overall evaluation,decision-making process, review of diagnostic data, adjustment of management, discussion with other providers, nursing nursing and ancillary staff involved in patient's care documentation, 35 Minutes Medications at Discharge Home Medications acetaminophen 325 mg tablet 500 mg PO Q6H PRN Pain 10/05/16 albuterol sulfate 90 mcg/actuation aerosol inhaler 1 - 2 puff inhalation Q4H PRN PRN Asthma 10/05/16 aspirin 81 mg chewable tablet 81 mg PO DAILY@0800 preventative 10/05/16 finasteride 5 mg tablet 5 mg PO DAILY prostate 10/05/16 folic acid 1 mg tablet 1 mg PO DAILY@0800 supplimnent 10/05/16 metformin 500 mg tablet 500 mg PO BID diabetes 10/05/16 multivitamin 1 ea PO DAILY suppliment 10/05/16 atorvastatin 40 mg tablet 80 mg PO QDAY cholesterol 05/19/17 pyridoxine (vitamin B6) 100 mg tablet 100 mg PO DAILY supliment 05/19/17 meclizine 12.5 mg tablet 12.5 mg PO DAILY Dizziness 06/09/22 metoprolol succinate 25 mg tablet,extended release 24 hr 12.5 mg PO DAILY heart 06/09/22 simethicone 80 mg chewable tablet 80 mg PO TID PRN bloating 06/09/22 digoxin 125 mcg (0.125 mg) tablet 0.125 mg PO DAILY heart 03/04/23 levothyroxine 50 mcg tablet 50 mcg PO MOTUWETHFRSA thyroid 03/04/23 levothyroxine 50 mcg tablet 100 mcg PO VILLALOBOS thyroid 03/04/23 midodrine 2.5 mg tablet 2.5 mg PO TID low blood pressure 03/04/23 amoxicillin 875 mg-potassium clavulanate 125 mg tablet 1 tab PO BID #14 tabs 03/05/23 furosemide 40 mg tablet 40 mg PO DAILY #30 tabs 03/05/23 lisinopril 2.5 mg tablet 2.5 mg PO DAILY #30 tabs 11/18/23 Hospital Course Procedures 2-D Echocardiogram Summary of Care Provided Minutes Spent on Discharge: 35 Physical Exam Narrative GENERAL: Cooperative HEENT: Atraumatic; normocephalic EYES; Anicteric, Normal Conjunctiva NECK; supple, normal thyroid, RESPIRATORY: Diminished to auscultation CARDIOVASCULAR: Regular S1 S2, GI: soft, normoactive bowel sounds, : No Renal angle tenderness; EXTREMITIES: edema, no clubbing, MUSCULOSKELETAL: no muscle wasting NEURO: Awake; no lateralizing signs. SKIN: No Rash PSYCH; Flat affect Weight / BMI Weight Weight: 75 kg Body Mass Index (BMI) 25.9 ABG / Lab / Microbiology Data 03/05/23 08:43 03/05/23 08:43 Laboratory: Laboratory Results - last 24 hr 03/04/23 11:17: POC Glucose 180 H 03/04/23 16:35: POC Glucose 172 H 03/05/23 07:48: POC Glucose 184 H 03/05/23 08:43: WBC 9.3, RBC 4.27 L, Hgb 12.2 L, Hct 38.4 L, MCV 89.9, MCH 28.6, MCHC 31.8 L, RDW Std Deviation 46.3 H, RDW Coeff of Erick 14.0, Plt Count 146 L, MPV 10.5, Immature Gran % (Auto) 0.400, Neut % (Auto) 73.5 H, Lymph % (Auto) 13.0 L, [place] % (Auto) 11.9 H, Eos % (Auto) 1.0, Baso % (Auto) 0.2, Absolute Neuts (auto) 6.8, Absolute Lymphs (auto) 1.20, Nucleated RBC % 0, Sodium 138, Potassium 3.6, Chloride 104, Carbon Dioxide 26.0, Anion Gap 8, BUN 18, Creatinine 1.10, Estim Creat Clear Calc 44.23, Est GFR (MDRD) Af Amer 81, Est GFR (MDRD) Non-Af 67, BUN/Creatinine Ratio 16.4, Glucose 183 H, Calcium 8.3 L Microbiology: Microbiology 03/03/23 03:50 Urine, Random Legionella Antigen - Final 03/03/23 03:50 Urine, Random Streptococcus pneumoniae Antigen (M - Final 03/02/23 05:20 Mucosa - Nasopharyngeal Respiratory Panel (PCR) - Final 03/02/23 04:50 Sputum, Expectorated/Coughed Gram Stain - Final 03/01/23 23:30 Nasal Secretion SARS-CoV-2 & FLU Antigen (Rapid) - Final D/C Instructions Discharge Diet: 8 Cup Fluid Restriction and 2000 mg Sodium Diet Discharge Activity: Return to Normal Activity Call your doctor if you observe: Fever of 101 or Higher, Shortness of breath, Fainting spells and Chest pain Meaningful Use Info Meaningful Use Diagnoses (Choose all that apply): CHF CHF SARAH BETH/ARB ordered at discharge?: Yes Documented LVEF (%): 40 Discharge Plan Admission Admit Date/Time: 03/02/23 02:56 Attending Provider: Jacinto Valdez Primary Care Provider: Mike Portillo Consulting Providers: Dennis Blake; Sherri Rahman Discharge Orders/Prescriptions Prescriptions: New furosemide 40 mg Tablet 40 mg PO DAILY Qty: 30 0RF lisinopril 2.5 mg tablet 2.5 mg PO DAILY Qty: 30 0RF amoxicillin-pot clavulanate 875-125 mg tablet 1 tab PO BID Qty: 14 0RF Continued atorvastatin 40 mg tablet 80 mg PO QDAY pyridoxine (vitamin B6) 100 mg tablet 100 mg PO DAILY multivitamin 1 EACH tablet 1 ea PO DAILY metformin 500 MG tablet 500 mg PO BID acetaminophen 325 MG tablet 500 mg PO Q6H PRN (Reason: Pain) aspirin 81 MG tablet,chewable 81 mg PO DAILY@0800 folic acid 1 MG tablet 1 mg PO DAILY@0800 albuterol sulfate 1 INHALER inhaler 1 - 2 puff INHALATION Q4H PRN PRN (Reason: Asthma) finasteride 5 MG tablet 5 mg PO DAILY meclizine 12.5 mg Tablet 12.5 mg PO DAILY metoprolol succinate 25 mg Tablet Extended Release 24 Hr 12.5 mg PO DAILY simethicone 80 mg Tablet,Chewable 80 mg PO TID PRN (Reason: bloating) digoxin 125 mcg (0.125 mg) tablet 0.125 mg PO DAILY Patient Comments: Take 1 tablet by mouth once daily. midodrine 2.5 mg tablet 2.5 mg PO TID Patient Comments: Take 1 tablet by mouth three times a day. levothyroxine 50 mcg tablet 50 mcg PO [facility] Patient Comments: Take 1 tablet by mouth once daily. Tuesday-Tuesday. Take 2 tablets on Tuesday levothyroxine 50 mcg tablet 100 mcg PO VILLALOBOS Discontinued furosemide 20 mg Tablet 20 mg PO DAILY Referrals / Follow Up: Mike Portillo MD [Primary Care Provider] - Within 1 Week Disposition Disposition (needs filled in before D/C Order can be placed): Home, Self Care Charges/Coding Visit Charges Inpatient E&M: 44618 Disch Hosp >30min
[2023-03-05 12:03] LABS: Bedside Glucose 232 mg/dL (74-106)
== END 2023-03-05 13:52 | disposition home health service (06) | DRG 177 ==
LOC: ED 03-02 02:45 → PCU 03-02 03:16
PROVIDERS: Admitting Provider Internal Medicine; Emergency Provider Emergency Medicine; PCP Family Medicine; Visit Provider Internal Medicine
DX: J69.0 Pneumonitis due to inhalation of food and vomit (principal); I50.23 Acute on chronic systolic (congestive) heart failure; I31.39 Other pericardial effusion (noninflammatory); I5A Non-ischemic myocardial injury (non-traumatic); J90 Pleural effusion, not elsewhere classified; R04.2 Hemoptysis; E11.51 Type 2 diabetes mellitus with diabetic peripheral angiopathy without gangrene; I11.0 Hypertensive heart disease with heart failure; E03.9 Hypothyroidism, unspecified; I95.2 Hypotension due to drugs; E78.5 Hyperlipidemia, unspecified; K21.9 Gastro-esophageal reflux disease without esophagitis; I25.10 Atherosclerotic heart disease of native coronary artery without angina pectoris; T50.2X5A Adverse effect of carbonic-anhydrase inhibitors, benzothiadiazides and other diuretics, initial encounter; N40.0 Benign prostatic hyperplasia without lower urinary tract symptoms; R09.02 Hypoxemia; Z63.4 Disappearance and death of family member; Z79.82 Long term (current) use of aspirin; Z79.84 Long term (current) use of oral hypoglycemic drugs; Z79.899 Other long term (current) drug therapy; Z87.891 Personal history of nicotine dependence
CPT/HCPCS: 36415; 36600; 71045; 71275; 80048; 80053; 82803; 82962; 83605; 83735; 83880; 84100; 84484; 85025; 87070; 87205; 87428; 87449; 87633; 87641; 93005; 93306; 94640; 94668; 97162; 97802; 99285; 99406; J7030; J7040; Q9967; A4216; J0295; J1940

== ENCOUNTER 2023-04-08 11:18 | Inpatient (IN) | payer MEDICARE, OTHER, SELFPAY ==
[2023-04-08] VITALS (9 sets, daily range): BP systolic 93–111; BP diastolic 75–84; PULSE 82–93; RESP 14–26; TEMP 36.1–36.7; O2SAT 95–100; BMI 27.8; BMI 27.0
--- NOTE | 2023-04-08 11:57 | EKG12_ITS ---
Test Reason : CP Blood Pressure : / mmHG Vent. Rate : 094 BPM Atrial Rate : 094 BPM P-R Int : 174 ms QRS Dur : 144 ms QT Int : 398 ms P-R-T Axes : 078 -68 122 degrees QTc Int : 497 ms Sinus rhythm with frequent Premature ventricular complexes Left axis deviation Left bundle branch block Abnormal ECG Confirmed by MAYNOR OLMEDO, CRUZITO ([id number]), tape editor KEIKO KILPATRICK ([id number]) on 04/19/2023 8:43:10 AM Referred By: NBA/POOJA Confirmed By:CRUZITO MCGUIRE MD
[2023-04-08 12:04] LABS: Absolute Lymphocyte Count 1.59 X10^3/uL (0.83-4.51); Absolute Neutrophil Count 5.4 X10^3/uL (2.0-7.7); Basophil# 0.02 X10^3/uL; Basophil% 0.3 % (0-1); Eosinophil# 0.04 X10^3/uL; Eosinophils% 0.5 % (0-5); Hematocrit 39.7 % (40-54); Hemoglobin 11.8 g/dL (13.0-16.5); Lymphocyte # 1.59 X10^3/ul (0.83-4.51); Lymphocyte % 20.3 % (19-41); Mean Corp Hgb Conc 29.7 g/dL (32-36); Mean Corpuscular Hgb 26.6 pg (27.0-32.0); Mean Corpuscular Volume 89.4 fL (80-94); Mean Platelet Vol. 11.1 fl (6.2-12.0); Monocyte# 0.76 X10^3/uL; Monocyte% 9.7 % (0-10); NRBC Flagged by Analyzer 0 % (0-5); Neutrophil # 5.37 X10^3/uL (2.7-7.7); Neutrophil % 68.6 % (47-70); Platelet Count 192 K/mm3 (150-450); RBC Distribution Width CV 14.7 % (11.6-14.6); Red Blood Count 4.44 M/mm3 (4.6-6.2); White Blood Count 7.8 K/mm3 (4.4-11.0)
--- NOTE | 2023-04-08 12:10 | RAD_ITS ---
STUDY: X-RAY CHEST REASON FOR EXAM: Male, 87 years old. Chest pain TECHNIQUE: Single AP portable view of the chest. COMPARISON: Comparison is made with prior study dated March 03, 2023. FINDINGS: EKG electrodes are seen. Mild CHF with superimposed bibasilar atelectasis. Small bilateral pleural effusions. Normal size heart. Normal mediastinum and raz. Normal visualized pulmonary arteries. There is atherosclerotic calcification of the aortic arch with tortuosity. Normal visualized thoracic spine. Normal visualized ribs, clavicles, and shoulders. There is no demonstrated abnormality of the visualized soft tissue structures of the upper abdomen. RAD/Chest 1 View (Portable) IMPRESSION: Mild degree of CHF with bibasilar atelectasis and small bilateral pleural effusions. Electronically Signed: Sherman Vela MD at 12:24 EST ,
--- NOTE | 2023-04-08 12:15 | EDS_ITS ---
HPI History of Present Illness Chief Complaint: Chest Pain Detail of Chief Complaint: Chest pain last night. Recent recurrent swelling in his lower extremities. Informant: patient and family Onset/Context/Timing Onset: Days Activity at onset: gradual Timing: Continuous Location: Substernal Current Severity: Gone Maximum Severity: Mild Worsened By: Nothing Narrative Narrative: 87-year-old male history of CHF prior pericardial effusion with cardiocentesis done at the [facility]. He has been both in this hospital in [facility] within the last 1 to 2 months. Last discharged from [facility] but he stopped his Lasix which he was previously taking 40 mg/day. Son states his legs began swelling again. He is having exertional dyspnea walking around the house. Last night he had some midsternal chest pain while just resting. He denies any fever. He denies any significant cough. He denies any abdominal pain. Denies any nausea, vomiting or diarrhea. No melena. Prior Similar Symptoms: Yes Recent Illness/Hospitalization: Yes CVD Risk Factors: Negative for Diabetes or Smoking PE Risk Factors: Positive for Recent Immobilization; Negative for Recent Travel/Surgery, Prior DVT or PE or Cancer TAD Risk Factors: Negative for Marfan's Syndrome [facility] Medical History Anemia Benign neoplasm of colon Carpal tunnel syndrome Diabetes mellitus, type II Diverticulosis of colon (without mention of hemorrhage) Heme positive stool Hyperlipemia Hypertension Incisional hernia without mention of obstruction or gangrene Inguinal hernia Internal hemorrhoids Malignant neoplasm of bladder, part unspecified PAD (peripheral artery disease) Pericardial effusion Personal history of colonic polyps Right inguinal hernia Stenosis of right subclavian artery Home Medications acetaminophen 325 mg tablet 500 mg PO Q6H PRN Pain 10/05/16 [History Last Taken Unknown] albuterol sulfate 90 mcg/actuation aerosol inhaler 1 - 2 puff inhalation Q4H PRN PRN Asthma 10/05/16 [History Last Taken Unknown] aspirin 81 mg chewable tablet 81 mg PO DAILY@0800 preventative 10/05/16 [History Last Taken 09/27/19 07:00] finasteride 5 mg tablet 5 mg PO DAILY prostate 10/05/16 [History Last Taken 10/06/16 08:00] folic acid 1 mg tablet 1 mg PO DAILY@0800 supplimnent 10/05/16 [History Last Taken Unknown] metformin 500 mg tablet 500 mg PO BID diabetes 10/05/16 [History Last Taken Unknown] multivitamin 1 ea PO DAILY suppliment 10/05/16 [History Last Taken Unknown] atorvastatin 40 mg tablet 80 mg PO QDAY cholesterol 05/19/17 [History Last Taken Unknown] pyridoxine (vitamin B6) 100 mg tablet 100 mg PO DAILY supliment 05/19/17 [History Last Taken Unknown] meclizine 12.5 mg tablet 12.5 mg PO DAILY Dizziness 06/09/22 [History Last Taken Unknown] metoprolol succinate 25 mg tablet,extended release 24 hr 12.5 mg PO DAILY heart 06/09/22 [History Last Taken Unknown] simethicone 80 mg chewable tablet 80 mg PO TID PRN bloating 06/09/22 [History Last Taken Unknown] levothyroxine 50 mcg tablet 50 mcg PO MOTUWETHFRSA thyroid 03/04/23 [History Last Taken Unknown] levothyroxine 50 mcg tablet 100 mcg PO VILLALOBOS thyroid 03/04/23 [History Last Taken Unknown] furosemide 40 mg tablet 40 mg PO DAILY #30 tabs 03/05/23 [Rx Last Taken Unknown] lisinopril 2.5 mg tablet 2.5 mg PO DAILY #30 tabs 03/05/23 [Rx Last Taken Unknown] colchicine 0.6 mg tablet 0.6 mg PO DAILY 04/08/23 [History Last Taken Unknown] digoxin 62.5 mcg (0.0625 mg) tablet 0.0625 mg PO DAILY 04/08/23 [History Last Taken Unknown] midodrine 10 mg tablet 10 mg PO Q8 04/08/23 [History Last Taken Unknown] umeclidinium 62.5 mcg/actuation blister powder for inhalation (Incruse Ellipta) 1 inh inhalation DAILY 04/08/23 [History Last Taken Unknown] Allergy/AdvReac Type Severity Reaction Status Date / Time naproxen [From Aleve] Allergy Hives Verified 04/08/23 11:20 Family History Mother CAD (coronary artery disease) Brother Diabetes Father Heart disease Surgical History History of angioplasty of peripheral vessel History of carpal tunnel surgery History of esophagogastroduodenoscopy (EGD) Hx of angioplasty Hx of aorto-femoral bypass Hx of decompression of ulnar nerve Hx of inguinal hernia repair Hx of local excision of skin lesion Hx of partial cystectomy Hx of ventral hernia repair Rectal fistula S/P colonoscopy S/P colonoscopy with polypectomy Social History Smoking Status: Former smoker second hand exposure: No alcohol intake: never substance use type: does not use caffeine: Yes what type of physical activity do you participate in: none frequency: does not exercise seatbelt use: always ROS ROS ED ROS Narrative Sure this of breath. Chest pain. Review of Systems ROS Unobtainable: Denies due to encephalopathy Constitutional Constitutional ED: Denies chills or fever(s) Eyes Eyes: Reports none ENT ENT ED: Denies ear pain Cardiovascular Cardiovascular: Reports chest pain; Denies palpitations Respiratory/Chest Respiratory/Chest: Reports dyspnea on exertion; Denies cough Gastrointestinal Gastrointestinal: Denies abdominal pain Genitourinary Genitourinary ED: Denies dysuria or hematuria Musculoskeletal Musculoskeletal: Denies arthralgias Integumentary Denies abscess Neurologic Neurologic: Denies headache(s) Psychiatric Psychiatric: Denies anxiety Endocrine Endocrinology: Denies cold intolerance Hematologic/Lymphatic Hematologic/Lymphatic: Denies easy bleeding Allergic/Immunologic Allergic/Immunologic ED: Denies mouth swelling or tongue swelling EXAM Physical Exam Narrative Exam Narrative: Well-appearing 87-year-old male. Vital signs are stable afebrile. Pulse ox 97% on room air no signs hypoxia. H EENT exam unremarkable. Moist membranes. Normal speech. Neck nontender no JVD. Lungs clear to auscultation bilaterally. Heart regular rhythm no murmur. PVCs on the monitor. Chest wall nontender. Abdomen soft nontender. Moving all 4 extremities. 1+ pitting edema from his toes up to his groin bilaterally. Calves are nontender. Dorsi and plantarflexion intact. Patient is awake and alert. He is answering questions following commands. Const Vital Signs: 04/08/23 11:20 04/08/23 11:23 04/08/23 11:23 Temperature 97.1 F L 97.1 F L Temperature Source Oral Temporal Pulse Rate 92 93 89 Respiratory Rate 26 H 26 H 25 H Respiratory Effort Blood Pressure 108/84 H 108/84 H 108/84 H Blood Pressure Mean 92 92 92 Pulse Ox 97 100 100 Oxygen Delivery Method Room Air Room Air Room Air 04/08/23 11:23 04/08/23 12:02 04/08/23 12:19 Temperature Temperature Source Pulse Rate 82 Respiratory Rate 19 H Respiratory Effort Non-Labored Labored Blood Pressure 111/83 H Blood Pressure Mean 92 Pulse Ox 96 95 Oxygen Delivery Method Room Air Room Air 04/08/23 13:00 Temperature Temperature Source Pulse Rate 82 Respiratory Rate 18 Respiratory Effort Blood Pressure 109/81 H Blood Pressure Mean 90 Pulse Ox 95 Oxygen Delivery Method Room Air Positive well nourished and well developed; Negative for cachectic, contractures or unkempt General Appearance ED: well developed and NAD; Negative for unkempt, cachectic, contractures or pallor Nutritional Appearance: Negative for cachectic HEENT Reports moist mucous membranes normocephalic and atraumatic; Negative for trauma or tenderness Eyes PERRL and EOMs intact bilaterally General Eye ED: Negative for pale conjunctiva or scleral icterus Neck no lymphadenopathy, supple and no JVD General: Negative for tenderness Chest Wall inspection of chest normal and palpation of chest normal Chest: Negative for tenderness Resp normal respiratory effort and clear to auscultation bilaterally Effort and Inspection: Negative for respiratory distress Auscultation: Negative for rales, rhonchi or wheezes Cardio regular rate, regular rhythm, S1 normal heart sound, S2 normal heart sound and no murmurs Rate: Negative for bradycardia or tachycardic Peripheral Pulses: pulses 2+ throughout GI normal to inspection, nondistended, normoactive bowel sounds, soft to palpation, non-tender, non-distended and no masses Back/Spine no CVA tenderness and no thoracic nor lumbar tenderness General Back: Negative for CVA tenderness Extremity Negative for normal to inspection Extremity Narrative: Bilateral peripheral edema 1+. Nontender. No cords. General Extremety ED: Yes edema General Extremity: edema Neuro oriented x3 and CN's II-XII intact bilaterally Sensorium / Orientation: awake, alert, oriented to person, oriented to place and oriented to time; Negative for confused, lethargic or stuporous Motor Exam: strength 5/5 throughout Psych mental status grossly normal Appearance: Negative for unkempt Attitude: No agitated Mood & Affect: Negative for depressed, anxious or tearful Skin no rashes or lesions noted and no wounds General Skin Exam: Negative for jaundice or pallor Rashes: No rashes noted Trauma: Negative for abrasion or laceration MDM MDM MDM Narrative Medical decision making narrative: 87-year-old male known history of CHF. Swelling in his lower extremities exertional dyspnea since his recent hospitalization at the [facility] and he stopped his Lasix. He had nonexertional chest pain last night. Undergo cardiac workup. Currently clinically looks well. Repeat exam at 2:45 PM no significant change. Lengthy discussion with the caregiver in the room, his son and his daughter is the power of divorce attorney and currently resides in [place]. They understand that this is a difficult process because of both the cardiomyopathy which caused him to go into CHF and has pleural effusions at the same time Lasix often drops his blood pressure too much and they can control it well at home. If he is not on the Lasix he developed CHF and pleural effusions but they given the Lasix off and his pressures too low. I will speak to the hospitalist about admission for IV Lasix. Patient has an appointment to see his goal umpire at the [facility] on the which is still 5 days from now. They also know there may be a conversation around the patient being placed on hospice. History & Record Review Discussion w/independent historian: Patient and Family Additional record(s) reviewed:: Prior inpatient record, Prior outpatient record, Prior ED visit, Prior labs and No prior records Lab Data Attestation: I reviewed the patient's lab results. Lab results narrative: CBC shows a white count of 7. H&H 11.8 and 39.7. Platelets 192. BMP shows gap of 6. BUN and creatinine are 34 and 1.38 consistent with his chronic renal insufficiency. Glucose of 143. Initial troponin is 136. 2-hour troponin is 124. Compared to the patient's prior heart enzymes his troponins are always elevated and often much higher than they are today. I reviewed his most recent echocardiogram from about a month ago and he had an EF at that time of around 30 to 35%. Labs: Laboratory Results - last 24 hr 04/08/23 04/08/23 11:30 13:31 WBC 7.8 RBC 4.44 L Hgb 11.8 L Hct 39.7 L MCV 89.4 MCH 26.6 L MCHC 29.7 L RDW Std Deviation 48.0 H RDW Coeff of Erick 14.7 H Plt Count 192 MPV 11.1 Immature Gran % (Auto) 0.600 Neut % (Auto) 68.6 Lymph % (Auto) 20.3 Beauregard % (Auto) 9.7 Eos % (Auto) 0.5 Baso % (Auto) 0.3 Absolute Neuts (auto) 5.4 Absolute Lymphs (auto) 1.59 Nucleated RBC % 0 Sodium 138 Potassium 4.8 Chloride 104 Carbon Dioxide 28.0 Anion Gap 6 BUN 34 H Creatinine 1.38 H Estim Creat Clear Calc 35.26 Est GFR (MDRD) Af Amer 63 Est GFR (MDRD) Non-Af 52 L BUN/Creatinine Ratio 24.6 H Glucose 143 H Calcium 9.1 Troponin I High Sens 136 H* 124 H* Radiography Chest X-Ray - ED: 1 View, Read by ED Physician, Mediastinum and Bony Structures Diagnostic Testing: Clinical Impression(s) from Imaging Studies Chest X-Ray 04/08/23 12:10 IMPRESSION: Mild degree of CHF with bibasilar atelectasis and small bilateral pleural effusions. Electronically Signed: Sherman Vela MD at 12:24 EST , Chest x-ray, portable, single view, interpreted by myself. Shows normal cardiac silhouette. Bilateral pleural effusions. No pneumonia. Rhythm Strip Rhythm Strip: Sinus Rhythm Rate: 94 Ectopy: PVC(s) EKG Initial EKG: Attestation: I personally reviewed and interpreted this EKG as follows: Interpretation: Sinus Rhythm and No Acute Injury Pattern Comments: Normal sinus rhythm rate of 94. Left bundle branch block. PVCs. No acute signs of WA. Discharge Plan Triage Chief Complaint: Chest Pain ED Provider: Dequan Alva Dx/Rx/DC Orders Clinical Impression: Exertional dyspnea, CHF (congestive heart failure), Hx of cardiomyopathy, Bilateral pleural effusion Prescriptions: No Action atorvastatin 40 mg tablet 80 mg PO QDAY pyridoxine (vitamin B6) 100 mg tablet 100 mg PO DAILY multivitamin 1 EACH tablet 1 ea PO DAILY metformin 500 MG tablet 500 mg PO BID acetaminophen 325 MG tablet 500 mg PO Q6H PRN (Reason: Pain) aspirin 81 MG tablet,chewable 81 mg PO DAILY@0800 folic acid 1 MG tablet 1 mg PO DAILY@0800 albuterol sulfate 1 INHALER inhaler 1 - 2 puff INHALATION Q4H PRN PRN (Reason: Asthma) finasteride 5 MG tablet 5 mg PO DAILY meclizine 12.5 mg Tablet 12.5 mg PO DAILY Hold Instructions: MD Ordered metoprolol succinate 25 mg Tablet Extended Release 24 Hr 12.5 mg PO DAILY Hold Instructions: MD Ordered simethicone 80 mg Tablet,Chewable 80 mg PO TID PRN (Reason: bloating) levothyroxine 50 mcg tablet 50 mcg PO MOTUWETHFRSA Patient Comments: Take 1 tablet by mouth once daily. Tuesday-Tuesday. Take 2 tablets on Tuesday levothyroxine 50 mcg tablet 100 mcg PO VILLALOBOS furosemide 40 mg Tablet 40 mg PO DAILY Qty: 30 0RF Hold Instructions: MD Ordered lisinopril 2.5 mg tablet 2.5 mg PO DAILY Qty: 30 0RF Hold Instructions: MD Ordered digoxin 62.5 mcg (0.0625 mg) tablet 0.0625 mg PO DAILY midodrine 10 mg tablet 10 mg PO Q8 Incruse Ellipta 62.5 mcg/actuation blister with device 1 inh inhalation DAILY colchicine 0.6 mg tablet 0.6 mg PO DAILY Primary Care Provider: Mike Portillo Referrals: Mike Portillo MD [Primary Care Provider] - Disposition Disposition: Acute Care Hospital [facility]
[2023-04-08] MEDS: Aspirin 81 MG TAB.CHEW 324 MG PO (12:18)
[2023-04-08 12:27] LABS: Anion Gap 6 (5-15); BUN 34 mg/dL (7-18); BUN/Creat Ratio 24.6 RATIO (10-20); Calcium,Total 9.1 mg/dL (8.5-10.1); Chloride 104 mmol/L (98-107); Creatinine, Serum 1.38 mg/dL (0.70-1.30); EST Glomerular Filtration Rate 52 mL/min (>60); Est Glom Filt Rate - Afr Amer 63 mL/min (>60); Estimated Creatinine Clearance 35.26 ml/min; Glucose 143 mg/dL (74-106); Potassium 4.8 mmol/L (3.5-5.1); Sodium Level 138 mmol/L (136-145); Troponin-I HS (w/2H Reflex) 136 pg/mL (3.0-78.0)
[2023-04-08 14:00] LABS: Reflex Troponin-HS? (from REC) Y
[2023-04-08 14:33] LABS: Troponin-I HS 124 pg/mL (3.0-78.0)
[2023-04-08] MEDS: Furosemide 500 MG in Empty Viaflex 50 mL 1 EACH CONT INF (17:41)
[2023-04-08] MEDS: metFORMIN HCl 500 MG Tablet PO (17:42)
--- NOTE | 2023-04-08 18:25 | HP.PCM.HOS_ITS ---
HPI - General General Date of Admission: 04/08/23 Date of Service: 04/08/23 Chief Complaint: Shortness of breath, generalized weakness HPI Narrative GIOVANY MELLO, is a 87 M who presents to the emergency room at [facility] with complaints of generalized weakness and shortness of breath which is worsened over the past several days. Patient states he was hospitalized at the [facility] in [place] for congestive heart failure, the day after Thanksgiving according to his caregiver who was present at the time that I did my exam today, he underwent a pericardiocentesis with removal of several 100 cc of fluid. Patient was released from the hospital on March 22, 2023. Patient does not have any oxygen at home that has been prescribed, he has oxygen set up but he technically does not have a prescription for oxygen. Patient is being taken care of by caregiver for several hours during the day but at late afternoon and evening he does not have anybody to help him. His caregiver states that his lower extremities have increased edema since his discharge from the hospital in [place]. It appears that he was taken off of his diuretics by his tinsel machine operator in [place] due to a low blood pressure a ccording to his caregiver. Labs obtained in the emergency room included a CBC which was remarkable for hemoglobin of 11.8, creatinine was 1.38, BUN was 34, troponin was 124, and glucose was 143. Patient's pulse ox on room air was 97, he was not ambulated without oxygen Patient had a chest x-ray performed which showed a mild degree of CHF with bibasilar atelectasis and small pleural effusion. EKG showed a normal sinus rhythm without evidence of ischemia. Patient will be admitted to PCU for acute on chronic systolic congestive heart failure-patient's last echocardiogram in February of this year showed an EF of 30 to 35%.. I have elected not to reorder the patient's echocardiogram at this time, his medications will likely have to be adjusted due to his hypotension, I decided to place him on a Lasix drip to minimize the effect of the Lasix on his blood pressure. PT and OT will see the patient. [facility] Medical History Anemia Benign neoplasm of colon Carpal tunnel syndrome Diabetes mellitus, type II Diverticulosis of colon (without mention of hemorrhage) Heme positive stool Hyperlipemia Hypertension Incisional hernia without mention of obstruction or gangrene Inguinal hernia Internal hemorrhoids Malignant neoplasm of bladder, part unspecified PAD (peripheral artery disease) Pericardial effusion Personal history of colonic polyps Right inguinal hernia Stenosis of right subclavian artery Home Medications acetaminophen 325 mg tablet 500 mg PO Q6H PRN Pain 10/05/16 [History Last Taken Unknown] albuterol sulfate 90 mcg/actuation aerosol inhaler 1 - 2 puff inhalation Q4H PRN PRN Asthma 10/05/16 [History Last Taken Unknown] aspirin 81 mg chewable tablet 81 mg PO DAILY@0800 preventative 10/05/16 [History Last Taken 04/08/23] finasteride 5 mg tablet 5 mg PO DAILY prostate 10/05/16 [History Last Taken 04/08/23] folic acid 1 mg tablet 1 mg PO DAILY@0800 supplimnent 10/05/16 [History Last Taken 04/08/23] metformin 500 mg tablet 500 mg PO BID diabetes 10/05/16 [History Last Taken 04/08/23] atorvastatin 40 mg tablet 80 mg PO QDAY cholesterol 05/19/17 [History Last Taken 04/08/23] pyridoxine (vitamin B6) 100 mg tablet 100 mg PO DAILY supliment 05/19/17 [History Last Taken Unknown] meclizine 12.5 mg tablet 12.5 mg PO DAILY Dizziness 06/09/22 [History Last Taken Unknown] metoprolol succinate 25 mg tablet,extended release 24 hr 12.5 mg PO DAILY heart 06/09/22 [History Last Taken Unknown] simethicone 80 mg chewable tablet 80 mg PO TID PRN bloating 06/09/22 [History Last Taken 04/08/23] levothyroxine 50 mcg tablet 50 mcg PO MOTUWETHFRSA thyroid 03/04/23 [History Last Taken 04/08/23] levothyroxine 50 mcg tablet 100 mcg PO VILLALOBOS thyroid 03/04/23 [History Last Taken 04/03/23] furosemide 40 mg tablet 40 mg PO DAILY #30 tabs 03/05/23 [Rx Last Taken Unknown] lisinopril 2.5 mg tablet 2.5 mg PO DAILY #30 tabs 03/05/23 [Rx Last Taken Unknown] colchicine 0.6 mg tablet 0.6 mg PO DAILY 04/08/23 [History Last Taken Unknown] digoxin 62.5 mcg (0.0625 mg) tablet 0.0625 mg PO DAILY 04/08/23 [History Last Taken 04/08/23] midodrine 10 mg tablet 10 mg PO Q8 04/08/23 [History Last Taken 04/08/23] umeclidinium 62.5 mcg/actuation blister powder for inhalation (Incruse Ellipta) 1 inh inhalation DAILY 04/08/23 [History Last Taken Unknown] Allergy/AdvReac Type Severity Reaction Status Date / Time naproxen [From Aleve] Allergy Hives Verified 04/08/23 11:20 Family History Mother CAD (coronary artery disease) Brother Diabetes Father Heart disease Surgical History History of angioplasty of peripheral vessel History of carpal tunnel surgery History of esophagogastroduodenoscopy (EGD) Hx of angioplasty Hx of aorto-femoral bypass Hx of decompression of ulnar nerve Hx of inguinal hernia repair Hx of local excision of skin lesion Hx of partial cystectomy Hx of ventral hernia repair Rectal fistula S/P colonoscopy S/P colonoscopy with polypectomy Social History Smoking Status: Former smoker second hand exposure: No alcohol intake: never substance use type: does not use caffeine: Yes what type of physical activity do you participate in: none frequency: does not exercise seatbelt use: always ROS Constitutional Constitutional: Reports fatigue and weakness; Denies anorexia, chills, fever(s) or night sweats Eyes Eyes: Denies blurry vision, change in vision, discharge from eye(s) or eye pain Cardiovascular Cardiovascular: Reports dyspnea on exertion and edema; Denies chest pain, claudication or palpitations Respiratory/Chest Respiratory/Chest: Reports dyspnea and shortness of breath with exertion; Denies cough, hemoptysis or shortness of breath at rest Gastrointestinal Gastrointestinal: Denies abdominal pain, constipation, diarrhea, hematemesis, hematochezia, melena, nausea or vomiting Genitourinary Genitourinary: Denies dysuria, hematuria, urinary frequency, urinary hesitancy, urinary incontinence or urinary urgency Musculoskeletal Musculoskeletal: Denies back pain, joint pain, joint stiffness, joint swelling, myalgias or neck pain Neurologic Neurologic: Denies abnormal gait, abnormal speech, dizziness, focal weakness, headache(s), loss of vision, numbness, other visual disturbances, paresthesias, syncope or tingling Psychiatric Psychiatric: Denies anxiety, cognitive impairment, depression, irritability, mood swings or suicidal ideation Endocrine Endocrinology: Denies change in body appearance, cold intolerance, excessive swe ating, heat intolerance, polydipsia or polyuria Hematologic/Lymphatic Hematologic/Lymphatic: Denies none, anemia, easy bleeding, easy bruising or lymphadenopathy Allergic/Immunologic Allergic/Immunologic: Denies rhinitis, urticaria, eczemia or asthma Vital Signs Vital Signs Vital Signs: 04/08/23 11:20 04/08/23 11:23 04/08/23 11:23 Temperature 97.1 F L 97.1 F L Temperature Source Oral Temporal Pulse Rate 92 93 89 Respiratory Rate 26 H 26 H 25 H Respiratory Effort Respiratory Depth Respiratory Pattern Blood Pressure 108/84 H 108/84 H 108/84 H Blood Pressure Mean 92 92 92 Blood Pressure Source Blood Pressure Position Blood Pressure Location Pulse Ox 97 100 100 Oxygen Delivery Method Room Air Room Air Room Air 04/08/23 11:23 04/08/23 12:02 04/08/23 12:19 Temperature Temperature Source Pulse Rate 82 Respiratory Rate 19 H Respiratory Effort Non-Labored Labored Respiratory Depth Respiratory Pattern Blood Pressure 111/83 H Blood Pressure Mean 92 Blood Pressure Source Blood Pressure Position Blood Pressure Location Pulse Ox 96 95 Oxygen Delivery Method Room Air Room Air 04/08/23 13:00 04/08/23 14:00 04/08/23 15:00 Temperature Temperature Source Pulse Rate 82 84 85 Respiratory Rate 18 20 H 19 H Respiratory Effort Respiratory Depth Respiratory Pattern Blood Pressure 109/81 H 102/77 98/76 Blood Pressure Mean 90 85 83 Blood Pressure Source Blood Pressure Position Blood Pressure Location Pulse Ox 95 95 96 Oxygen Delivery Method Room Air Room Air Room Air 04/08/23 15:00 04/08/23 16:01 04/08/23 17:40 Temperature 98.0 F Temperature Source Oral Pulse Rate 85 92 Respiratory Rate 16 14 Respiratory Effort Normal Non-Labored Respiratory Depth Normal Respiratory Pattern Normal Blood Pressure 98/76 93/75 Blood Pressure Mean 83 81 Blood Pressure Source Monitor Blood Pressure Position Semi-Fowlers Blood Pressure Location Right Arm Pulse Ox 95 95 Oxygen Delivery Method Room Air Room Air Weight Weight: 78.3 kg Body Mass Index (BMI) 27.0 Physical Exam Const alert, oriented x3, no apparent distress and average body habitus General Appearance: cooperative, well kempt and well developed Orientation / Consciousness: awake, oriented to person, oriented to place and oriented to time HEENT normocephalic, head/scalp atraumatic, hearing grossly normal bilaterally and moist oral mucous membranes Eyes PERRL, EOMs intact bilaterally and conjunctivae normal Neck supple, no JVD, thyroid normal and no carotid bruits General: trachea midline Resp normal respiratory effort, no retractions and no use of accessory muscles Resp Narrative: Patient has diminished breath sounds at the lung bases bilaterally Auscultation: Negative for rhonchi or wheezes Cardio regular rate, regular rhythm, S1 normal heart sound, S2 normal heart sound, no murmurs, no rub and no gallops GI normal to inspection, nondistended, normoactive bowel sounds, soft to palpation, non-tender and non-distended Extremity Extremity Narrative: There is noted to be +2 to 3 mm pitting edema of both lower legs noted up to the knees Skin no rashes or lesions noted General Skin Exam: no breakdown Neuro oriented x3, CN's II-XII intact bilaterally, moves all extremities, no focal motor deficits and no sensory deficits noted Sensorium / Orientation: awake, alert, oriented to person, oriented to place and oriented to time Speech: speech normal Psych affect normal Results Lab / Micro Data 04/08/23 11:30 04/08/23 11:30 Labs: Laboratory Results - last 24 hr 04/08/23 11:30: WBC 7.8, RBC 4.44 L, Hgb 11.8 L, Hct 39.7 L, MCV 89.4, MCH 26.6 L, MCHC 29.7 L, RDW Std Deviation 48.0 H, RDW Coeff of Erick 14.7 H, Plt Count 192, MPV 11.1, Immature Gran % (Auto) 0.600, Neut % (Auto) 68.6, Lymph % (Auto) 20.3, [place] % (Auto) 9.7, Eos % (Auto) 0.5, Baso % (Auto) 0.3, Absolute Neuts (au to) 5.4, Absolute Lymphs (auto) 1.59, Nucleated RBC % 0, Sodium 138, Potassium 4.8, Chloride 104, Carbon Dioxide 28.0, Anion Gap 6, BUN 34 H, Creatinine 1.38 H , Estim Creat Clear Calc 35.26, Est GFR (MDRD) Af Amer 63, Est GFR (MDRD) Non-Af 52 L, BUN/Creatinine Ratio 24.6 H, Glucose 143 H, Calcium 9.1, Troponin I High Sens 136 H* 04/08/23 13:31: Troponin I High Sens 124 H* Rhythm Strip Rhythm Strip: Sinus Rhythm Rate: 94 Ectopy: PVC(s) Imagaing Radiology Impression Chest X-Ray 04/08/23 12:10 IMPRESSION: Mild degree of CHF with bibasilar atelectasis and small bilateral pleural effusions. Electronically Signed: Sherman Vela MD at 12:24 EST , Assessment & Plan Assessment/Plan (1) Bilateral pleural effusion: PLAN: Plan 1. Acute on chronic systolic congestive heart failure-patient will be admitted to PCU, he will be placed on a Lasix drip, his other medications may need to be adjusted due to his relative hypotension. #2 bilateral pleural effusion secondary to #1-again patient will be placed on a Lasix drip #3 anasarca secondary to #1-again patient is on a Lasix drip #4 recent pericardial effusion-this pericardial effusion was noted on his last admission here to the hospital in February 2023, again according to the patient's caregiver, he underwent a pericardiocentesis the day after Thanksgiving with removal of several 100 cc of fluid. #5 elevated troponin-I do not think patient has had a non-STEMI #6 Kidney disease stage IIIa-complicates care, medical course, recovery, and prognosis As a further note, I talked with the patient about his CODE STATUS, he confirmed he was a DNR CC arrest DO NOT INTUBATE. Total clinical time spent by myself addressing the patient's medical issues, reviewing all of his data, and collaborating with patient's care team: 55 mi nutes Charges/Coding Visit Charges Inpatient E&M: 94361 Init Hosp L2
[2023-04-08] MEDS: Midodrine HCl 5 MG Tablet 10 MG PO (20:32)
[2023-04-08] MEDS: Heparin Injection (Vial) 5,000 UNIT/ML VIAL 5000 UNIT SC (20:35)
[2023-04-08 21:28] LABS: Bedside Glucose 141 mg/dL (74-106)
[2023-04-09] VITALS (7 sets, daily range): BP systolic 98–116; BP diastolic 64–79; PULSE 72–93; RESP 18–22; TEMP 36.2–36.6; O2SAT 94–100; BMI 26.7
[2023-04-09 06:10] LABS: Bedside Glucose 143 mg/dL (74-106)
[2023-04-09] MEDS: Levothyroxine 50 MCG Tablet 100 MCG PO (06:12)
[2023-04-09] MEDS: Midodrine HCl 5 MG Tablet 10 MG PO ×3 (06:12→20:38)
[2023-04-09 07:31] LABS: Anion Gap 5 (5-15); BUN 35 mg/dL (7-18); BUN/Creat Ratio 24.3 RATIO (10-20); Calcium,Total 9.6 mg/dL (8.5-10.1); Chloride 104 mmol/L (98-107); Creatinine, Serum 1.44 mg/dL (0.70-1.30); EST Glomerular Filtration Rate 49 mL/min (>60); Est Glom Filt Rate - Afr Amer 60 mL/min (>60); Estimated Creatinine Clearance 33.79 ml/min; Glucose 150 mg/dL (74-106); Potassium 4.1 mmol/L (3.5-5.1); Sodium Level 137 mmol/L (136-145)
[2023-04-09] MEDS: Levothyroxine 50 MCG Tablet PO (08:20)
[2023-04-09] MEDS: Aspirin 81 MG TAB.CHEW PO (08:20)
[2023-04-09] MEDS: Potassium Chloride Oral Tablet 20 MEQ PO (08:21)
[2023-04-09] MEDS: metFORMIN HCl 500 MG Tablet PO ×2 (08:21→17:46)
[2023-04-09] MEDS: Pyridoxine HCl 100 MG Tablet PO (08:22)
[2023-04-09] MEDS: Meclizine 12.5 MG Tablet PO (08:23)
[2023-04-09] MEDS: Metoprolol(XL)Succ 25 MG Tablet 12.5 MG PO (08:25)
[2023-04-09] MEDS: Digoxin 125 MCG Tablet 62.5 MCG PO (08:26)
--- NOTE | 2023-04-09 10:35 | CASEMGMT ---
RONEY ORTIZ Face to Face with patient for initial transition planning/care coordination assessment. RONEY ORTIZ introduced self and role at [facility]. Patient sitting in chair, alert and oriented. Patient willing to participate in assessment and is able to answer all questions appropriately. Care providers, pharmacy, and demographics verified. Patient wishes to discharge home with resumption of HHC with [facility] at discharge. Patient states he has no further needs or concerns at this time. CM to follow for discharge planning needs that may arise. PCP: [facility] Specialists: Chris, cloth mercerizer back tender; Terese, urologist; Gera cardilogist [facility] Preferred Pharmacy: [facility] Insurance: [employer], [employer] Prescription Benefit: yes Living Will/HPOA: yes, daughter Alisson LNOK: sons, daughter Living Arrangements: Patient lives alone in a single story home with 2 steps to enter. Patient states he was independent at home. Transportation: family DME/HHC: Patient has shower chair, cane, walker, grab bars, pulse ox, and home oxygen though [employer] at 2 lpm with portablitiy. Patient is active with [facility]. RONEY ORTIZ placed resumption order and updated sent to [facility] via [employer]. Disposition Plan: Patient to discharge home with resumption of HHC, family support, and follow-up plans in place. Dorothy ADDISON, RN, CM
--- NOTE | 2023-04-09 11:04 | PN_ITS ---
Subjective Subjective Patient seen and examined. He says he feels better today. He had no active complaints. His breathing has improved. He still has bilateral lower extremity edema. Review of systems is otherwise negative. He is on room air. Objective Data Objective Data Vital Signs: Vital Signs Temp Pulse Resp BP Pulse Ox O2 Del Method 97.6 F L 93 22 H 106/79 97 Room Air 04/09/23 08:13 04/09/23 08:26 04/09/23 08:13 04/09/23 08:26 04/09/23 08:13 04/09/23 08:16 Oxygen Delivery Method Room Air Weight: 170 lb 13.732 oz Body Mass Index (BMI) 26.7 Intake & Output: Intake and Output for Last 24 Hours 04/07/23 04/08/23 04/09/23 23:59 23:59 23:59 Intake Total 420 / 420 Output Total 300 / 300 910 / 910 Balance 120 / 120 -910 / -910 Lab / Micro Data 04/08/23 11:30 04/09/23 06:12 Labs: Laboratory Results - last 24 hr 04/08/23 11:30: WBC 7.8, RBC 4.44 L, Hgb 11.8 L, Hct 39.7 L, MCV 89.4, MCH 26.6 L, MCHC 29.7 L, RDW Std Deviation 48.0 H, RDW Coeff of Erick 14.7 H, Plt Count 192, MPV 11.1, Immature Gran % (Auto) 0.600, Neut % (Auto) 68.6, Lymph % (Auto) 20.3, [place] % (Auto) 9.7, Eos % (Auto) 0.5, Baso % (Auto) 0.3, Absolute Neuts (auto) 5.4, Absolute Lymphs (auto) 1.59, Nucleated RBC % 0, Sodium 138, Potassium 4.8, Chloride 104, Carbon Dioxide 28.0, Anion Gap 6, BUN 34 H, Creatinine 1.38 H, Estim Creat Clear Calc 35.26, Est GFR (MDRD) Af Amer 63, Est GFR (MDRD) Non-Af 52 L, BUN/Creatinine Ratio 24.6 H, Glucose 143 H, Calcium 9.1, Troponin I High Sens 136 H* 04/08/23 13:31: Troponin I High Sens 124 H* 04/08/23 20:31: POC Glucose 141 H 04/09/23 05:51: POC Glucose 143 H 04/09/23 06:12: Sodium 137, Potassium 4.1, Chloride 104, Carbon Dioxide 28.0, Anion Gap 5, BUN 35 H, Creatinine 1.44 H, Estim Creat Clear Calc 33.79, Est GFR (MDRD) Af Amer 60, Est GFR (MDRD) Non-Af 49 L, BUN/Creatinine Ratio 24.3 H, Glucose 150 H, Calcium 9.6 Radiography Diagnostic Testing: Radiology Impression Chest X-Ray 04/08/23 12:10 IMPRESSION: Mild degree of CHF with bibasilar atelectasis and small bilateral pleural effusions. Electronically Signed: Sherman Vela MD at 12:24 EST , Rhythm Strip Rhythm Strip: Sinus Rhythm Rate: 94 Ectopy: PVC(s) Physical Exam Const alert, oriented x3 and no apparent distress General Appearance: cooperative HEENT normocephalic, head/scalp atraumatic, moist oral mucous membranes and oropharynx normal Eyes PERRL and EOMs intact bilaterally Neck no lymphadenopathy, supple and no JVD Lymph Lymphatic: no lymphadenopathy noted and no lymphedema noted Resp Resp Narrative: mildly diminished breath sounds bibasally, no wheezes or crackles. On room air. Cardio regular rate, regular rhythm, S1 normal heart sound, S2 normal heart sound and no murmurs GI normal to inspection, nondistended, normoactive bowel sounds, soft to palpation, non-tender and non-distended Extremity normal capillary refill, no clubbing, cyanosis or edema and no calf tenderness General Extremity: no tenderness to palpation of joints or extremities Skin General Skin Exam: no breakdown Neuro CN's II-XII intact bilaterally, no focal motor deficits, no sensory deficits noted and deep tendon reflexes 2+ bilaterally Motor Exam: strength 5/5 throughout and general weakness Psych thought process normal, cooperative and affect normal Appearance: appropriate Assessment & Plan Assessment/Plan (1) Bilateral pleural effusion: (2) CHF (congestive heart failure): (3) Hx of cardiomyopathy: PLAN: Plan #Acute on chronic HFpEF * on lasix drip. He says his breathing has improved. His lower extremities are wrapped in SARAH BETH bandage * CXR shhowed bilateral pleural effusion * on room air now * monitor intake and output. * Fluid restriction to 1500cc daily * switch to PO lasix tomorrow * #Recent pericardial effusion * had pericardiocentesis recently, after Thanksgiving. * stable * #Elevated troponin: troponins trended downwards. Will monitor for now. on aspirin and high intensity statin. #JOHANA: Cr is 1.44. baseline Cr is ~ 0.9. Likely due to lasix. Will monitor for now. #Hypothyroidism; on synthroid #Hypertension: on metoprolol, lisinopril #TYpe 2 diabetes mellitus: on metformin. Hold metformin due to JOHANA. ISS. Accuchecks ACHS #History of gout: on colchicine. DVT prophylaxis; heparin code status; DNRCCA no intubation. Charges/Coding Visit Charges Inpatient E&M: 65462 Subs Hosp L2
[2023-04-09] MEDS: Heparin Injection (Vial) 5,000 UNIT/ML VIAL 5000 UNIT SC ×2 (11:35→20:38)
[2023-04-09 12:03] LABS: Bedside Glucose 147 mg/dL (74-106)
[2023-04-09] MEDS: Colchicine 0.6 MG TABLET PO (14:47)
[2023-04-09] MEDS: Finasteride 5 MG Tablet PO (14:48)
[2023-04-09] MEDS: Insulin Lispro 100 UNIT/ML INSULN.PEN SC (17:46)
[2023-04-09 18:08] LABS: Bedside Glucose 163 mg/dL (74-106)
[2023-04-09] MEDS: Atorvastatin Calcium 80 MG Tablet PO (20:36)
[2023-04-09] MEDS: Furosemide 500 MG in Empty Viaflex 50 mL 1 EACH CONT INF (21:35)
[2023-04-10] VITALS (8 sets, daily range): BP systolic 82–128; BP diastolic 64–88; PULSE 54–97; RESP 12–22; TEMP 36.1–37.1; O2SAT 94–99; BMI 26.8
[2023-04-10 00:48] LABS: Bedside Glucose 145 mg/dL (74-106)
[2023-04-10] MEDS: Midodrine HCl 5 MG Tablet 10 MG PO ×3 (06:27→21:14)
[2023-04-10 06:46] LABS: Bedside Glucose 126 mg/dL (74-106)
[2023-04-10 06:54] LABS: Absolute Neutrophil Count 4.3 X10^3/uL (2.0-7.7); Basophil# 0.02 X10^3/uL; Basophil% 0.3 % (0-1); Eosinophil# 0.04 X10^3/uL; Eosinophils% 0.5 % (0-5); Hematocrit 36.3 % (40-54); Hemoglobin 10.9 g/dL (13.0-16.5); Mean Corpuscular Hgb 26.7 pg (27.0-32.0); Mean Platelet Vol. 10.6 fl (6.2-12.0); Monocyte# 1.02 X10^3/uL; NRBC Flagged by Analyzer 0 % (0-5); Neutrophil % 58.8 % (47-70); Platelet Count 162 K/mm3 (150-450); RBC Distribution Width CV 14.7 % (11.6-14.6); RBC Distribution Width SD 47.7 fl (35.1-43.9); Red Blood Count 4.08 M/mm3 (4.6-6.2); White Blood Count 7.3 K/mm3 (4.4-11.0)
[2023-04-10 07:22] LABS: Anion Gap 5 (5-15); BUN 39 mg/dL (7-18); BUN/Creat Ratio 25.2 RATIO (10-20); Calcium,Total 9.2 mg/dL (8.5-10.1); Chloride 102 mmol/L (98-107); Creatinine, Serum 1.55 mg/dL (0.70-1.30); EST Glomerular Filtration Rate 45 mL/min (>60); Est Glom Filt Rate - Afr Amer 55 mL/min (>60); Estimated Creatinine Clearance 31.39 ml/min; Glucose 121 mg/dL (74-106); Sodium Level 137 mmol/L (136-145)
[2023-04-10] MEDS: metFORMIN HCl 500 MG Tablet PO ×2 (08:33→16:33)
[2023-04-10] MEDS: Potassium Chloride Oral Tablet 20 MEQ PO (08:33)
[2023-04-10] MEDS: Pyridoxine HCl 100 MG Tablet PO (08:34)
[2023-04-10] MEDS: Heparin Injection (Vial) 5,000 UNIT/ML VIAL 5000 UNIT SC ×2 (08:34→21:14)
[2023-04-10] MEDS: Aspirin 81 MG TAB.CHEW PO (08:34)
[2023-04-10] MEDS: Meclizine 12.5 MG Tablet PO (08:35)
[2023-04-10] MEDS: Finasteride 5 MG Tablet PO (08:36)
[2023-04-10] MEDS: Colchicine 0.6 MG TABLET PO (08:37)
[2023-04-10] MEDS: Metoprolol(XL)Succ 25 MG Tablet 12.5 MG PO (09:56)
[2023-04-10] MEDS: Digoxin 125 MCG Tablet 62.5 MCG PO (09:56)
--- NOTE | 2023-04-10 11:30 | PCM.PROGNOTE ---
Subjective Subjective Patient seen and examined. He had no complaints and felt well. He had an uneventful night. Review of systems otherwise negative. He has remained hemodynamically stable. Objective Data Objective Data Vital Signs: Vital Signs Temp Pulse Resp BP Pulse Ox O2 Del Method 98.6 F 95 14 128/88 H 99 Room Air 04/10/23 09:54 04/10/23 09:56 04/10/23 09:54 04/10/23 09:56 04/10/23 09:54 04/10/23 09:54 Oxygen Delivery Method Room Air Weight: 171 lb 1.259 oz Body Mass Index (BMI) 26.8 Intake & Output: Intake and Output for Last 24 Hours 04/08/23 04/09/23 04/10/23 23:59 23:59 23:59 Intake Total 420 / 420 27.9 / 447.9 470 / 470 Output Total 300 / 300 1510 / 2010 500 / 500 Balance 120 / 120 -1482.1 / -1562.1 -30 / -30 Lab / Micro Data 04/10/23 06:25 04/10/23 06:25 Labs: Laboratory Results - last 24 hr 04/09/23 11:42: POC Glucose 147 H 04/09/23 17:41: POC Glucose 163 H 04/09/23 20:33: POC Glucose 145 H 04/10/23 06:25: WBC 7.3, RBC 4.08 L, Hgb 10.9 L, Hct 36.3 L, MCV 89.0, MCH 26.7 L, MCHC 30.0 L, RDW Std Deviation 47.7 H, RDW Coeff of Erick 14.7 H, Plt Count 162, MPV 10.6, Immature Gran % (Auto) 0.400, Neut % (Auto) 58.8, Lymph % (Auto) 26.0, [place] % (Auto) 14.0 H, Eos % (Auto) 0.5, Baso % (Auto) 0.3, Absolute Neuts (auto) 4.3, Absolute Lymphs (auto) 1.90, Nucleated RBC % 0, Sodium 137, Potassium 4.0, Chloride 102, Carbon Dioxide 30.0, Anion Gap 5, BUN 39 H, Creatinine 1.55 H, Estim Creat Clear Calc 31.39, Est GFR (MDRD) Af Amer 55 L, Est GFR (MDRD) Non-Af 45 L, BUN/Creatinine Ratio 25.2 H, Glucose 121 H, Calcium 9.2 04/10/23 06:27: POC Glucose 126 H Rhythm Strip Rhythm Strip: Sinus Rhythm Rate: 94 Ectopy: PVC(s) Physical Exam Const alert, oriented x3, no apparent distress and average body habitus General Appearance: cooperative, well kempt and well developed Orientation / Consciousness: awake, oriented to person, oriented to place and oriented to time HEENT normocephalic, head/scalp atraumatic, hearing grossly normal bilaterally, moist oral mucous membranes and oropharynx normal Eyes PERRL, EOMs intact bilaterally and conjunctivae normal Neck no lymphadenopathy, supple, no JVD, thyroid normal and no carotid bruits General: trachea midline Lymph Lymphatic: no lymphadenopathy noted and no lymphedema noted Resp normal respiratory effort, no retractions and no use of accessory muscles Resp Narrative: mildly diminished breath sounds bibasally, no wheezes or crackles. On room air. Cardio regular rate, regular rhythm, S1 normal heart sound, S2 normal heart sound, no murmurs, no rub and no gallops GI normal to inspection, nondistended, normoactive bowel sounds, soft to palpation, non-tender and non-distended Extremity normal capillary refill, no clubbing, cyanosis or edema and no calf tenderness Extremity Narrative: There is only mild edema of the lower extremities. General Extremity: no tenderness to palpation of joints or extremities Skin no rashes or lesions noted General Skin Exam: no breakdown Neuro oriented x3, CN's II-XII intact bilaterally, moves all extremities, no focal motor deficits, no sensory deficits noted and deep tendon reflexes 2+ bilaterally Sensorium / Orientation: awake, alert, oriented to person, oriented to place and oriented to time Speech: speech normal Motor Exam: strength 5/5 throughout and general weakness Psych thought process normal, cooperative and affect normal Appearance: appropriate Assessment & Plan Assessment/Plan (1) Bilateral pleural effusion: (2) CHF (congestive heart failure): (3) Hx of cardiomyopathy: PLAN: Plan #Acute on chronic HFpEF on lasix drip. He says his breathing has improved. His lower extremities are wrapped in SARAH BETH bandage CXR shhowed bilateral pleural effusion on room air now monitor intake and output. Fluid restriction to 1500cc daily switch to PO lasix today. #Recent pericardial effusion had pericardiocentesis recently, after Thanksgiving. stable #Elevated troponin: troponins trended downwards. Will monitor for now. on aspirin and high intensity statin. #JOHANA: Cr is up to 1.55 today. baseline Cr is ~ 0.9. Likely due to lasix. Will monitor for now. #Hypothyroidism; on synthroid #Hypertension: on metoprolol, lisinopril #TYpe 2 diabetes mellitus: on metformin. Hold metformin due to JOHANA. ISS. Accuchecks ACHS #History of gout: on colchicine. DVT prophylaxis; heparin code status; DNRCCA no intubation. Charges/Coding Visit Charges Inpatient E&M: 73509 Subs Hosp L2
[2023-04-10 11:51] LABS: Bedside Glucose 173 mg/dL (74-106)
[2023-04-10] MEDS: SimETHICONE 80 MG Chewable Tablet PO ×2 (16:33→21:14)
[2023-04-10 16:48] LABS: Bedside Glucose 162 mg/dL (74-106)
[2023-04-10] MEDS: Atorvastatin Calcium 80 MG Tablet PO (21:14)
[2023-04-10 22:29] LABS: Bedside Glucose 136 mg/dL (74-106)
[2023-04-11] VITALS (8 sets, daily range): BP systolic 105–119; BP diastolic 67–76; PULSE 90–98; RESP 14–18; TEMP 36.6–37; O2SAT 96–100; BMI 27.2
[2023-04-11] MEDS: Midodrine HCl 5 MG Tablet 10 MG PO (05:25)
[2023-04-11] MEDS: Levothyroxine 50 MCG Tablet PO (05:25)
[2023-04-11 06:19] LABS: Absolute Lymphocyte Count 1.71 X10^3/uL (0.83-4.51); Absolute Neutrophil Count 4.2 X10^3/uL (2.0-7.7); Basophil# 0.01 X10^3/uL; Basophil% 0.1 % (0-1); Eosinophil# 0.04 X10^3/uL; Eosinophils% 0.6 % (0-5); Hematocrit 37.1 % (40-54); Hemoglobin 11.1 g/dL (13.0-16.5); Lymphocyte # 1.71 X10^3/ul (0.83-4.51); Lymphocyte % 25.3 % (19-41); Mean Corp Hgb Conc 29.9 g/dL (32-36); Mean Corpuscular Hgb 26.4 pg (27.0-32.0); Mean Corpuscular Volume 88.1 fL (80-94); Mean Platelet Vol. 10.7 fl (6.2-12.0); Monocyte# 0.81 X10^3/uL; NRBC Flagged by Analyzer 0 % (0-5); Neutrophil # 4.18 X10^3/uL (2.7-7.7); Neutrophil % 61.7 % (47-70); Platelet Count 160 K/mm3 (150-450); RBC Distribution Width CV 14.9 % (11.6-14.6); RBC Distribution Width SD 47.9 fl (35.1-43.9); Red Blood Count 4.21 M/mm3 (4.6-6.2); White Blood Count 6.8 K/mm3 (4.4-11.0)
[2023-04-11 06:49] LABS: Anion Gap 8 (5-15); BUN 40 mg/dL (7-18); BUN/Creat Ratio 27.2 RATIO (10-20); Chloride 103 mmol/L (98-107); Creatinine, Serum 1.47 mg/dL (0.70-1.30); EST Glomerular Filtration Rate 48 mL/min (>60); Est Glom Filt Rate - Afr Amer 58 mL/min (>60); Glucose 121 mg/dL (74-106); Potassium 3.9 mmol/L (3.5-5.1); Sodium Level 137 mmol/L (136-145)
[2023-04-11 07:02] LABS: Bedside Glucose 115 mg/dL (74-106)
[2023-04-11] MEDS: Digoxin 125 MCG Tablet 62.5 MCG PO (09:33)
[2023-04-11] MEDS: metFORMIN HCl 500 MG Tablet PO (09:33)
[2023-04-11] MEDS: Aspirin 81 MG TAB.CHEW PO (09:33)
[2023-04-11] MEDS: Potassium Chloride Oral Tablet 20 MEQ PO (09:33)
[2023-04-11] MEDS: Colchicine 0.6 MG TABLET PO (09:34)
[2023-04-11] MEDS: Heparin Injection (Vial) 5,000 UNIT/ML VIAL 5000 UNIT SC (09:34)
[2023-04-11] MEDS: Metoprolol(XL)Succ 25 MG Tablet 12.5 MG PO (09:35)
[2023-04-11] MEDS: Finasteride 5 MG Tablet PO (09:35)
[2023-04-11] MEDS: Pyridoxine HCl 100 MG Tablet PO (09:35)
[2023-04-11] MEDS: Meclizine 12.5 MG Tablet PO (09:36)
[2023-04-11] MEDS: Furosemide 40 MG Tablet PO (09:40)
[2023-04-11 10:51] LABS: Bedside Glucose 158 mg/dL (74-106)
--- NOTE | 2023-04-11 11:06 | DCINST_ITS ---
Discharge Instructions Diet Discharge Diet: Low fat / Low cholesterol Activity Discharge Activity: Return to Normal Activity Weight Bearing Status: Weight bearing as tolerated Dressing / Incision Call your doctor if you observe: Fever of 101 or Higher, Shortness of breath, Dizziness, Swelling in the ankles and Chest pain Follow Up Care Test Results: Test results from this visit will be discussed in further detail at your follow- up appointment, if applicable. Discharge Plan Admission Admit Date/Time: 04/08/23 15:37 Primary Reason for Your Visit: acute on chronic HFpEF Attending Provider: Larisa Zimmerman Primary Care Provider: Mike Portillo Consulting Providers: Solo Watson Instructions Patient Instructions: Coping with Heart Failure Additional Instructions / Restrictions: follow up with PCP for follow up BMP within 2-3 days to evaluate kidney function. Discharge Orders/Prescriptions Prescriptions: New furosemide 40 mg Tablet 40 mg PO DAILY Qty: 30 2RF potassium chloride 20 mEq Tablet,Er Particles/Crystals 20 meq PO DAILYCM Qty: 30 0RF Continued atorvastatin 40 mg tablet 80 mg PO QDAY pyridoxine (vitamin B6) 100 mg tablet 100 mg PO DAILY metformin 500 MG tablet 500 mg PO BID acetaminophen 325 MG tablet 500 mg PO Q6H PRN (Reason: Pain) aspirin 81 MG tablet,chewable 81 mg PO DAILY@0800 folic acid 1 MG tablet 1 mg PO DAILY@0800 albuterol sulfate 1 INHALER inhaler 1 - 2 puff INHALATION Q4H PRN PRN (Reason: Asthma) finasteride 5 MG tablet 5 mg PO DAILY meclizine 12.5 mg Tablet 12.5 mg PO DAILY Hold Instructions: MD Ordered metoprolol succinate 25 mg Tablet Extended Release 24 Hr 12.5 mg PO DAILY Hold Instructions: MD Ordered simethicone 80 mg Tablet,Chewable 80 mg PO TID PRN (Reason: bloating) levothyroxine 50 mcg tablet 50 mcg PO NEMOUWETHFR Patient Comments: Take 1 tablet by mouth once daily. Tuesday-Tuesday. Take 2 tablets on Tuesday levothyroxine 50 mcg tablet 100 mcg PO VILLALOBOS lisinopril 2.5 mg tablet 2.5 mg PO DAILY Qty: 30 0RF Hold Instructions: MD Ordered digoxin 62.5 mcg (0.0625 mg) tablet 0.0625 mg PO DAILY midodrine 10 mg tablet 10 mg PO Q8 Incruse Ellipta 62.5 mcg/actuation blister with device 1 inh inhalation DAILY colchicine 0.6 mg tablet 0.6 mg PO DAILY Discontinued furosemide 40 mg Tablet 40 mg PO DAILY Qty: 30 0RF Hold Instructions: MD Ordered Referrals / Follow Up: Mike Portillo MD [Primary Care Provider] - Disposition Disposition (needs filled in before D/C Order can be placed): Home, Self Care
--- NOTE | 2023-04-11 11:10 | DS.PCM_ITS ---
Providers Date of Admission: 04/08/23 Date of Discharge: 04/11/23 Primary Care Physician: Dr. Mike Portillo MD Reason For Visit: CHF, CARDIOMYOPATHY Diagnosis Discharge Diagnosis (1) Bilateral pleural effusion: Status: Acute Code(s): J90 - Pleural effusion, not elsewhere classified (2) CHF (congestive heart failure): Status: Acute Code(s): I50.9 - Heart failure, unspecified (3) Hx of cardiomyopathy: Status: Acute Code(s): Z86.79 - Personal history of other diseases of the circulatory system Plan #Acute on chronic HFpEF * on lasix drip. He says his breathing has improved. His lower extremities are wrapped in SARAH BETH bandage * CXR shhowed bilateral pleural effusion * on room air now * monitor intake and output. * Fluid restriction to 1500cc daily * switch to PO lasix today. * #Recent pericardial effusion * had pericardiocentesis recently, after Thanksgiving. * stable * #Elevated troponin: troponins trended downwards. Will monitor for now. on aspirin and high intensity statin. #JOHANA: Cr is up to 1.55 today. baseline Cr is ~ 0.9. Likely due to lasix. Will monitor for now. #Hypothyroidism; on synthroid #Hypertension: on metoprolol, lisinopril #TYpe 2 diabetes mellitus: on metformin. Hold metformin due to JOHANA. ISS. Accuche cks ACHS #History of gout: on colchicine. DVT prophylaxis; heparin code status; DNRCCA no intubation. Medications at Discharge Home Medications acetaminophen 325 mg tablet 500 mg PO Q6H PRN Pain 10/05/16 albuterol sulfate 90 mcg/actuation aerosol inhaler 1 - 2 puff inhalation Q4H PRN PRN Asthma 10/05/16 aspirin 81 mg chewable tablet 81 mg PO DAILY@0800 preventative 10/05/16 finasteride 5 mg tablet 5 mg PO DAILY prostate 10/05/16 folic acid 1 mg tablet 1 mg PO DAILY@0800 supplimnent 10/05/16 metformin 500 mg tablet 500 mg PO BID diabetes 10/05/16 atorvastatin 40 mg tablet 80 mg PO QDAY cholesterol 05/19/17 pyridoxine (vitamin B6) 100 mg tablet 100 mg PO DAILY supliment 05/19/17 meclizine 12.5 mg tablet 12.5 mg PO DAILY Dizziness 06/09/22 metoprolol succinate 25 mg tablet,extended release 24 hr 12.5 mg PO DAILY heart 06/09/22 simethicone 80 mg chewable tablet 80 mg PO TID PRN bloating 06/09/22 levothyroxine 50 mcg tablet 50 mcg PO MOTUWETHFRSA thyroid 03/04/23 levothyroxine 50 mcg tablet 100 mcg PO VILLALOBOS thyroid 03/04/23 lisinopril 2.5 mg tablet 2.5 mg PO DAILY blood pressure #30 tabs 03/05/23 colchicine 0.6 mg tablet 0.6 mg PO DAILY gout 04/08/23 digoxin 62.5 mcg (0.0625 mg) tablet 0.0625 mg PO DAILY heart health 04/08/23 midodrine 10 mg tablet 10 mg PO Q8 blood pressure 04/08/23 umeclidinium 62.5 mcg/actuation blister powder for inhalation (Incruse Ellipta) 1 inh inhalation DAILY breathing 04/08/23 furosemide 40 mg tablet 40 mg PO DAILY #30 tabs 04/11/23 potassium chloride 20 mEq tablet,extended release(part/cryst) 20 meq PO DAILYCM #30 tabs 04/11/23 Hospital Course Operations None Procedures None Summary of Care Provided Minutes Spent on Discharge: 55 Hospital Course: Patient is an 87-year-old male with a past medical history as outlined was admitted through the ED on 04/08/2023 with a complaint of generalized weakness and shortness of breath which have been going on for several days had worsened. Patient had recently been admitted at the [facility] for congestive heart failure. He underwent pericardiocentesis today with removal of fluid. He was released from the hospital on March 22, 2023. He said he was post to be on oxygen at home but it had not been set up yet at home. He subsequently became short of breath and had increased lower extremity edema. 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 On admission he was found to have elevated BNP and chest x-ray showed mild degree of CHF with bibasilar atelectasis and small pleural effusion. EKG showed no acute ST changes. He was admitted and managed for acute on chronic heart failure with reduced ejection fraction. He had known EF of 30-35%. He was started on diuresis with IV Lasix ip. His lower extremity swelling improved and shortness of breath improved. He felt better. He was switched to p.o. Lasix. Creatinine trended up slightly which was thought to be due to the Lasix drip. He subsequently started coming down after Lasix drip was discontinued. Patient was discharged home on 04/11/2023 on p.o. Lasix 40 mg daily. He is to follow-up with his primary care doctor and is follow-up with his underground drill operator on outpatient basis within 1 to 2 weeks. Patient seen and examined prior to discharge. He felt very well. He had no active complaints. Review of systems otherwise negative. He felt ready to go home. Labs and vitals reviewed. Home medication reviewed and reconciled. Physical Exam Const alert, oriented x3, no apparent distress and average body habitus General Appearance: cooperative, well kempt and well developed Orientation / Consciousness: awake, oriented to person, oriented to place and oriented to time HEENT normocephalic, head/scalp atraumatic, hearing grossly normal bilaterally, moist oral mucous membranes and oropharynx normal Mouth: oral and palatal mucosa normal Eyes PERRL, EOMs intact bilaterally and conjunctivae normal Neck no lymphadenopathy, supple, no JVD, thyroid normal and no carotid bruits General: trachea midline Lymph Lymphatic: no lymphadenopathy noted and no lymphedema noted Resp normal respiratory effort, no retractions and no use of accessory muscles Resp Narrative: mildly diminished breath sounds bibasally, no wheezes or crackles. On room air. Auscultation: Negative for rhonchi or wheezes Cardio regular rate, regular rhythm, S1 normal heart sound, S2 normal heart sound, no murmurs, no rub and no gallops GI normal to inspection, nondistended, normoactive bowel sounds, soft to palpation, non-tender and non-distended Extremity normal to inspection, full ROM, normal capillary refill, no clubbing, cyanosis or edema and no calf tenderness General Extremity: no tenderness to palpation of joints or extremities Skin no rashes or lesions noted General Skin Exam: no breakdown Neuro oriented x3, CN's II-XII intact bilaterally, moves all extremities, no focal motor deficits, no sensory deficits noted and deep tendon reflexes 2+ bilaterally Sensorium / Orientation: awake, alert, oriented to person, oriented to place and oriented to time Speech: speech normal Motor Exam: strength 5/5 throughout and general weakness Psych thought process normal, cooperative and affect normal Appearance: appropriate Weight / BMI Weight Weight: 173 lb 15.115 oz Body Mass Index (BMI) 27.2 ABG / Lab / Microbiology Data 04/11/23 05:15 04/11/23 05:15 Laboratory: Laboratory Results - last 24 hr 04/10/23 11:22: POC Glucose 173 H 04/10/23 16:28: POC Glucose 162 H 04/10/23 21:05: POC Glucose 136 H 04/11/23 05:15: WBC 6.8, RBC 4.21 L, Hgb 11.1 L, Hct 37.1 L, MCV 88.1, MCH 26.4 L, MCHC 29.9 L, RDW Std Deviation 47.9 H, RDW Coeff of Erick 14.9 H, Plt Count 160 , MPV 10.7, Immature Gran % (Auto) 0.300, Neut % (Auto) 61.7, Lymph % (Auto) 25.3, [place] % (Auto) 12.0 H, Eos % (Auto) 0.6, Baso % (Auto) 0.1, Absolute Neuts (auto) 4.2, Absolute Lymphs (auto) 1.71, Nucleated RBC % 0, Sodium 137, Potassium 3.9, Chloride 103, Carbon Dioxide 26.0, Anion Gap 8, BUN 40 H, Creatinine 1.47 H, Estim Creat Clear Calc 33.10, Est GFR (MDRD) Af Amer 58 L, Est GFR (MDRD) Non-Af 48 L, BUN/Creatinine Ratio 27.2 H, Glucose 121 H, Calcium 9.0 04/11/23 06:42: POC Glucose 115 H 04/11/23 10:33: POC Glucose 158 H D/C Instructions Discharge Diet: Low fat / Low cholesterol Discharge Activity: Return to Normal Activity Weight Bearing Status: Weight bearing as tolerated Call your doctor if you observe: Fever of 101 or Higher, Shortness of breath, Dizziness, Swelling in the ankles and Chest pain Meaningful Use Info Meaningful Use Diagnoses (Choose all that apply): CHF CHF SARAH BETH/ARB ordered at discharge?: Yes Documented LVEF (%): 30 Discharge Plan Admission Admit Date/Time: 04/08/23 15:37 Primary Reason for Your Visit: acute on chronic HFpEF Attending Provider: Larisa Zimmerman Primary Care Provider: Mike Portillo Consulting Providers: Solo Watson Instructions Patient Instructions: Coping with Heart Failure Additional Instructions / Restrictions: follow up with PCP for follow up BMP within 2-3 days to evaluate kidney function. Discharge Orders/Prescriptions Prescriptions: New furosemide 40 mg Tablet 40 mg PO DAILY Qty: 30 2RF potassium chloride 20 mEq Tablet,Er Particles/Crystals 20 meq PO DAILYCM Qty: 30 0RF Continued atorvastatin 40 mg tablet 80 mg PO QDAY pyridoxine (vitamin B6) 100 mg tablet 100 mg PO DAILY metformin 500 MG tablet 500 mg PO BID acetaminophen 325 MG tablet 500 mg PO Q6H PRN (Reason: Pain) aspirin 81 MG tablet,chewable 81 mg PO DAILY@0800 folic acid 1 MG tablet 1 mg PO DAILY@0800 albuterol sulfate 1 INHALER inhaler 1 - 2 puff INHALATION Q4H PRN PRN (Reason: Asthma) finasteride 5 MG tablet 5 mg PO DAILY meclizine 12.5 mg Tablet 12.5 mg PO DAILY Hold Instructions: MD Ordered metoprolol succinate 25 mg Tablet Extended Release 24 Hr 12.5 mg PO DAILY Hold Instructions: MD Ordered simethicone 80 mg Tablet,Chewable 80 mg PO TID PRN (Reason: bloating) levothyroxine 50 mcg tablet 50 mcg PO MOTUWETHFRSA Patient Comments: Take 1 tablet by mouth once daily. Tuesday-Tuesday. Take 2 tablets on Tuesday levothyroxine 50 mcg tablet 100 mcg PO VILLALOBOS lisinopril 2.5 mg tablet 2.5 mg PO DAILY Qty: 30 0RF Hold Instructions: MD Ordered digoxin 62.5 mcg (0.0625 mg) tablet 0.0625 mg PO DAILY midodrine 10 mg tablet 10 mg PO Q8 Incruse Ellipta 62.5 mcg/actuation blister with device 1 inh inhalation DAILY colchicine 0.6 mg tablet 0.6 mg PO DAILY Discontinued furosemide 40 mg Tablet 40 mg PO DAILY Qty: 30 0RF Hold Instructions: MD Ordered Referrals / Follow Up: Mike Portillo MD [Primary Care Provider] - Disposition Disposition (needs filled in before D/C Order can be placed): Home, Self Care Charges/Coding Visit Charges Inpatient E&M: 82699 Disch Hosp >30min
--- NOTE | 2023-04-11 11:15 | NURSING ---
[place] [facility] notified of discharge and DC instructions faxed.
--- NOTE | 2023-04-11 11:42 | NURSING ---
PIV removed. Discharge paperwork given and reviewed with patient and sons. Pt being transported by wheelchair.
== END 2023-04-11 11:53 | disposition home or self-care (01) | DRG 291 ==
LOC: ED 15:15 → PCU 15:35
PROVIDERS: Admitting Provider Internal Medicine; Emergency Provider Emergency Medicine; PCP Family Medicine; Visit Provider Student in an Organized Health Care Education/Training Program
DX: I13.0 Hypertensive heart and chronic kidney disease with heart failure and stage 1 through stage 4 chronic kidney disease, or unspecified chronic kidney disease (principal); I50.43 Acute on chronic combined systolic (congestive) and diastolic (congestive) heart failure; I31.39 Other pericardial effusion (noninflammatory); N17.8 Other acute kidney failure; E11.22 Type 2 diabetes mellitus with diabetic chronic kidney disease; N18.31 Chronic kidney disease, stage 3a; E11.51 Type 2 diabetes mellitus with diabetic peripheral angiopathy without gangrene; E03.9 Hypothyroidism, unspecified; E78.5 Hyperlipidemia, unspecified; M10.9 Gout, unspecified; R77.8 Other specified abnormalities of plasma proteins; Z66 Do not resuscitate; Z79.82 Long term (current) use of aspirin; Z79.84 Long term (current) use of oral hypoglycemic drugs; Z87.891 Personal history of nicotine dependence; Z79.899 Other long term (current) drug therapy
CPT/HCPCS: 36415; 71045; 80048; 82962; 84484; 85025; 93005; 97162; 97165; 97530; 99285; A4216; J1940

== ENCOUNTER 2023-04-19 14:10 | Emergency (ER) | payer MEDICARE, OTHER, SELFPAY ==
[2023-04-19 14:13] VITALS: BP 100/88; PULSE 98; RESP 18; TEMP 36.4; O2SAT 100
--- NOTE | 2023-04-19 15:23 | EDS_ITS ---
HPI History of Present Illness Chief Complaint: Complaint Informant: patient and family Narrative Narrative: Urine retention, dribbling since tuesday. Flomax held 2 weeks due to low bp, increasing lasix due to leg swelling. hx of prostate CA 15 years ago, follows dr. Gudino. [facility] Medical History Anemia Benign neoplasm of colon Bilateral pleural effusion Carpal tunnel syndrome CHF (congestive heart failure) Diabetes mellitus, type II Diverticulosis of colon (without mention of hemorrhage) Exertional dyspnea Heme positive stool Hx of cardiomyopathy Hyperlipemia Hypertension Incisional hernia without mention of obstruction or gangrene Inguinal hernia Internal hemorrhoids Malignant neoplasm of bladder, part unspecified PAD (peripheral artery disease) Pericardial effusion Personal history of colonic polyps Right inguinal hernia Stenosis of right subclavian artery Home Medications acetaminophen 325 mg tablet 500 mg PO Q6H PRN Pain 10/05/16 [History Last Taken Unknown] albuterol sulfate 90 mcg/actuation aerosol inhaler 1 - 2 puff inhalation Q4H PRN PRN Asthma 10/05/16 [History Last Taken Unknown] aspirin 81 mg chewable tablet 81 mg PO DAILY@0800 preventative 10/05/16 [History Last Taken 04/08/23] finasteride 5 mg tablet 5 mg PO DAILY prostate 10/05/16 [History Last Taken 04/08/23] folic acid 1 mg tablet 1 mg PO DAILY@0800 supplimnent 10/05/16 [History Last Taken 04/08/23] metformin 500 mg tablet 500 mg PO BID diabetes 10/05/16 [History Last Taken 04/08/23] atorvastatin 40 mg tablet 80 mg PO QDAY cholesterol 05/19/17 [History Last Taken 04/08/23] pyridoxine (vitamin B6) 100 mg tablet 100 mg PO DAILY supliment 05/19/17 [History Last Taken Unknown] meclizine 12.5 mg tablet 12.5 mg PO DAILY Dizziness 06/09/22 [History Last Taken Unknown] metoprolol succinate 25 mg tablet,extended release 24 hr 12.5 mg PO DAILY heart 06/09/22 [History Last Taken Unknown] simethicone 80 mg chewable tablet 80 mg PO TID PRN bloating 06/09/22 [History Last Taken 04/08/23] levothyroxine 50 mcg tablet 50 mcg PO MOTUWETHFRSA thyroid 03/04/23 [History Last Taken 04/08/23] levothyroxine 50 mcg tablet 100 mcg PO VILLALOBOS thyroid 03/04/23 [History Last Taken 04/03/23] lisinopril 2.5 mg tablet 2.5 mg PO DAILY blood pressure #30 tabs 03/05/23 [Rx Last Taken Unknown] colchicine 0.6 mg tablet 0.6 mg PO DAILY gout 04/08/23 [History Last Taken Unknown] digoxin 62.5 mcg (0.0625 mg) tablet 0.0625 mg PO DAILY heart health 04/08/23 [History Last Taken 04/08/23] midodrine 10 mg tablet 10 mg PO Q8 blood pressure 04/08/23 [History Last Taken 04/08/23] umeclidinium 62.5 mcg/actuation blister powder for inhalation (Incruse Ellipta) 1 inh inhalation DAILY breathing 04/08/23 [History Last Taken Unknown] furosemide 40 mg tablet 40 mg PO DAILY #30 tabs 04/11/23 [Rx Last Taken Unknown] potassium chloride 20 mEq tablet,extended release(part/cryst) 20 meq PO DAILYCM #30 tabs 04/11/23 [Rx Last Taken Unknown] cefuroxime axetil 500 mg tablet 500 mg PO BID #14 tabs 04/19/23 [Rx Last Taken Unknown] Allergy/AdvReac Type Severity Reaction Status Date / Time No Known Allergies Allergy Verified 04/19/23 14:12 Family History Mother CAD (coronary artery disease) Brother Diabetes Father Heart disease Surgical History History of angioplasty of peripheral vessel History of carpal tunnel surgery History of esophagogastroduodenoscopy (EGD) Hx of angioplasty Hx of aorto-femoral bypass Hx of decompression of ulnar nerve Hx of inguinal hernia repair Hx of local excision of skin lesion Hx of partial cystectomy Hx of ventral hernia repair Rectal fistula S/P colonoscopy S/P colonoscopy with polypectomy Social History Smoking Status: Former smoker second hand exposure: No alcohol intake: never substance use type: does not use caffeine: Yes what type of physical activity do you participate in: none frequency: does not exercise seatbelt use: always ROS ROS ED Constitutional Constitutional ED: Denies chills, fever(s) or sweats Eyes Eyes: Denies change in vision ENT ENT ED: Denies dysphagia or sore throat Cardiovascular Cardiovascular: Denies chest pain, leg edema, palpitations or racing heartbeat Respiratory/Chest Respiratory/Chest: Denies cough, dyspnea or dyspnea on exertion Gastrointestinal Gastrointestinal: Denies abdominal pain, diarrhea, nausea or vomiting Genitourinary Genitourinary ED: Reports other Details: urine retention,suprapubic distention ; Denies dysuria, hematuria or urinary frequency Musculoskeletal Musculoskeletal: Denies back pain, extremity pain or neck pain Integumentary Denies rash or wounds Neurologic Neurologic: Denies headache(s), paresthesias or weakness EXAM Physical Exam Const Vital Signs: 04/19/23 14:13 04/19/23 16:45 04/19/23 17:28 Temperature 97.5 F L Temperature Source Temporal Pulse Rate 98 81 Respiratory Rate 18 16 Blood Pressure 100/88 H 94/71 134/77 H Blood Pressure Mean 92 78 96 Pulse Ox 100 95 Oxygen Delivery Method Room Air Positive well nourished and well developed General Appearance ED: well developed and NAD HEENT Reports moist mucous membranes normocephalic and atraumatic Eyes PERRL, EOMs intact bilaterally and conjunctivae normal General Eye ED: Yes normal appearance of both eyes Neck no lymphadenopathy and supple General: Negative for tenderness Chest Wall Chest: Negative for tenderness Resp normal respiratory effort and normal air movement Effort and Inspection: symmetric chest movement; Negative for respiratory distress Cardio regular rate, regular rhythm and no murmurs Peripheral Pulses: pulses 2+ throughout GI Inspection: abdominal distention Palpation: Negative for guarding or rebound tenderness present Narrative: swelling penile shaft, uncircumcised. Back/Spine no CVA tenderness and no thoracic nor lumbar tenderness Extremity normal to inspection Extremity Narrative: 1-2+ LE edema. General Extremety ED: Yes edema; Negative for tenderness General Extremity: edema Neuro oriented x3 and no sensory deficits noted Sensorium / Orientation: awake and alert Skin no rashes or lesions noted and no wounds MDM MDM MDM Narrative Medical decision making narrative: Interventions / MDM: Differential diagnosis: Urine retention, UTI, electrolyte abnormalities Diagnosis considered but do not suspect: Acute kidney injury however labs are stable My EKG interpretation: N/A Imaging independently reviewed and interpreted by myself: N/A External documents reviewed: N/A Test considered but not ordered:N/A ED course: Patient with urine retention for 3 days. His Flomax was stopped 2 weeks ago due to increasing Lasix with blood pressure issues. Sebastian catheter was ordered UA labs to rule out postobstructive JOHANA. He had recent labs a few days ago on my chart reviewed his creatinine is 1.48. Sebastian catheter placed, positive urine output with improved symptoms. White 8.6, stable creatinine 1.59 stable from his recent. Urine with signs infection culture sent. He started on cefuroxime for complicated UTI. Blood pressure recheck systolic 94. Therefore cannot start his Flomax at this time as he is on Lasix for his edema. He will follow-up with urology as an outpatient. All questions were answered. Re-evaluation: stable Disposition discussed with patient/family/significant other: Patient and family Case discussed with consulting clinician: N/A This note was generated with [employer] dictation software. It may contain incorrect words, spelling, and punctuation that were not noted in checking the note before signing. Lab Data Attestation: I reviewed the patient's lab results. Labs: Laboratory Results - last 24 hr 04/19/23 15:50 WBC 8.6 RBC 4.44 L Hgb 12.1 L Hct 38.2 L MCV 86.0 MCH 27.3 MCHC 31.7 L RDW Std Deviation 46.8 H RDW Coeff of Erick 15.0 H Plt Count 188 MPV 10.8 Immature Gran % (Auto) 0.200 Neut % (Auto) 69.0 Lymph % (Auto) 20.6 [place] % (Auto) 9.9 Eos % (Auto) 0.2 Baso % (Auto) 0.1 Absolute Neuts (auto) 5.9 Absolute Lymphs (auto) 1.76 Nucleated RBC % 0 Sodium 136 Potassium 4.7 Chloride 102 Carbon Dioxide 28.0 Anion Gap 6 BUN 46 H Creatinine 1.59 H Est GFR (MDRD) Af Amer 53 L Est GFR (MDRD) Non-Af 44 L BUN/Creatinine Ratio 28.9 H Glucose 134 H Calcium 9.6 Urine Color Yellow Urine Clarity Clear Urine pH 6.0 Ur Specific [place] 1.015 Urine Protein 100 H Urine Glucose (UA) Normal Urine Ketones Negative Urine Occult Blood 25 H Urine Nitrite Negative Urine Bilirubin Negative Urine Urobilinogen Normal Ur Leukocyte Esterase 500 H Urine RBC 0-5 SEEN Urine WBC 10-25 SEEN Ur Squamous Epith Cells 0-5 SEEN Urine Bacteria 0 SEEN Urine Mucus 0 SEEN Discharge Plan Triage Chief Complaint: Complaint ED Provider: Darwin Barker Dx/Rx/DC Orders Clinical Impression: Chronic renal insufficiency, Acute UTI, Acute retention of urine Instructions: ED Sebastian Catheter, Care, ED Urinary Retention, Male, ED Bladder Infection, Male (Adult) Prescriptions: New cefuroxime axetil 500 mg tablet 500 mg PO BID Qty: 14 0RF No Action atorvastatin 40 mg tablet 80 mg PO QDAY pyridoxine (vitamin B6) 100 mg tablet 100 mg PO DAILY metformin 500 MG tablet 500 mg PO BID acetaminophen 325 MG tablet 500 mg PO Q6H PRN (Reason: Pain) aspirin 81 MG tablet,chewable 81 mg PO DAILY@0800 folic acid 1 MG tablet 1 mg PO DAILY@0800 albuterol sulfate 1 INHALER inhaler 1 - 2 puff INHALATION Q4H PRN PRN (Reason: Asthma) finasteride 5 MG tablet 5 mg PO DAILY meclizine 12.5 mg Tablet 12.5 mg PO DAILY Hold Instructions: MD Ordered metoprolol succinate 25 mg Tablet Extended Release 24 Hr 12.5 mg PO DAILY Hold Instructions: MD Ordered simethicone 80 mg Tablet,Chewable 80 mg PO TID PRN (Reason: bloating) levothyroxine 50 mcg tablet 50 mcg PO MOTUWETHFRSA Patient Comments: Take 1 tablet by mouth once daily. Tuesday-Tuesday. Take 2 tablets on Tuesday levothyroxine 50 mcg tablet 100 mcg PO VILLALOBOS lisinopril 2.5 mg tablet 2.5 mg PO DAILY Qty: 30 0RF Hold Instructions: MD Ordered digoxin 62.5 mcg (0.0625 mg) tablet 0.0625 mg PO DAILY midodrine 10 mg tablet 10 mg PO Q8 Incruse Ellipta 62.5 mcg/actuation blister with device 1 inh inhalation DAILY colchicine 0.6 mg tablet 0.6 mg PO DAILY furosemide 40 mg Tablet 40 mg PO DAILY Qty: 30 2RF potassium chloride 20 mEq Tablet,Er Particles/Crystals 20 meq PO DAILYCM Qty: 30 0RF Primary Care Provider: Mike Portillo Referrals: Mike Portillo MD [Primary Care Provider] - Will Gudino MD [Med Staff - Active Staff] - 3-5 Days Activity Restrictions/Additional Instructions: Maintain Sebastian catheter. Take antibiotic as prescribed for UTI findings. Blood pressure low at this time, therefore cannot restart your Flomax. Creatinine stable at 1.5. Follow-up with Dr. Gudino in 3 to 5 days. Disposition Disposition: Home, Self Care Discharge Date/Time: 04/19/23 17:28
[2023-04-19 15:57] LABS: Bacteria 0 SEEN /hpf (None Seen); Mucous, Urine 0 SEEN /hpf (<or=2+)
[2023-04-19] MEDS: Lidocaine Jelly 2% 20 ML Syringe (URO-JET) 1 APPLIC TOPICAL (16:02)
[2023-04-19 16:08] LABS: Color, Urine Yellow (Yellow); Glucose, Dipstick Normal (Normal); Ketone-Dipstick Negative (Negative); Leukocyte Esterase-Dipstick 500 /ul (Negative); Nitrite-Dipstick Negative (Negative); Occult Blood-Urine 25 /ul (Negative); Protein-Dipstick 100 mg/dl (Negative); Specific Gravity, Urine 1.015 (1.002-1.030); Urine Bilirubin Dipstick Negative (Negative); Urine Clarity Clear (Clear); Urine Urobilinogen Normal (Normal)
[2023-04-19 16:09] LABS: Absolute Lymphocyte Count 1.76 X10^3/uL (0.83-4.51); Absolute Neutrophil Count 5.9 X10^3/uL (2.0-7.7); Basophil# 0.01 X10^3/uL; Basophil% 0.1 % (0-1); Eosinophil# 0.02 X10^3/uL; Eosinophils% 0.2 % (0-5); Hematocrit 38.2 % (40-54); Hemoglobin 12.1 g/dL (13.0-16.5); Lymphocyte # 1.76 X10^3/ul (0.83-4.51); Lymphocyte % 20.6 % (19-41); Mean Corp Hgb Conc 31.7 g/dL (32-36); Mean Corpuscular Hgb 27.3 pg (27.0-32.0); Mean Platelet Vol. 10.8 fl (6.2-12.0); Monocyte# 0.85 X10^3/uL; Monocyte% 9.9 % (0-10); NRBC Flagged by Analyzer 0 % (0-5); Neutrophil # 5.89 X10^3/uL (2.7-7.7); Platelet Count 188 K/mm3 (150-450); RBC Distribution Width SD 46.8 fl (35.1-43.9); Red Blood Count 4.44 M/mm3 (4.6-6.2); White Blood Count 8.6 K/mm3 (4.4-11.0)
[2023-04-19 16:19] LABS: White Blood Cells 10-25 SEEN /hpf (0-5)
[2023-04-19 16:20] LABS: Red Blood Cells-Urine 0-5 SEEN /hpf (0-5); Squamous Epithelial Cells - UA 0-5 SEEN /hpf (0-5)
[2023-04-19 16:29] LABS: Anion Gap 6 (5-15); BUN 46 mg/dL (7-18); BUN/Creat Ratio 28.9 RATIO (10-20); Calcium,Total 9.6 mg/dL (8.5-10.1); Chloride 102 mmol/L (98-107); Creatinine, Serum 1.59 mg/dL (0.70-1.30); EST Glomerular Filtration Rate 44 mL/min (>60); Est Glom Filt Rate - Afr Amer 53 mL/min (>60); Glucose 134 mg/dL (74-106); Potassium 4.7 mmol/L (3.5-5.1); Sodium Level 136 mmol/L (136-145)
[2023-04-19 16:45] VITALS: BP 94/71
[2023-04-19] MEDS: cefuroxime axetiL 250 MG TABLET 500 MG PO (17:10)
[2023-04-19 17:28] VITALS: BP 134/77; PULSE 81; RESP 16; O2SAT 95
== END 2023-04-19 17:28 | disposition home or self-care (01) ==
PROVIDERS: Emergency Provider Emergency Medicine; PCP Family Medicine; Visit Provider Emergency Medicine
DX: N39.0 Urinary tract infection, site not specified (principal); E11.51 Type 2 diabetes mellitus with diabetic peripheral angiopathy without gangrene; E11.22 Type 2 diabetes mellitus with diabetic chronic kidney disease; I12.9 Hypertensive chronic kidney disease with stage 1 through stage 4 chronic kidney disease, or unspecified chronic kidney disease; N18.9 Chronic kidney disease, unspecified; I95.9 Hypotension, unspecified; Z79.899 Other long term (current) drug therapy; Z79.82 Long term (current) use of aspirin; Z79.84 Long term (current) use of oral hypoglycemic drugs; Z85.46 Personal history of malignant neoplasm of prostate; Z87.891 Personal history of nicotine dependence
CPT/HCPCS: 51702; 99284; 80048; 81001; 85025; 87077; 87086; 87088; 87186

== ENCOUNTER 2023-04-22 10:46 | Inpatient (IN) | payer MEDICARE, OTHER, SELFPAY ==
[2023-04-22] VITALS (45 sets, daily range): BP systolic 82–115; BP diastolic 53–83; PULSE 64–101; RESP 16–31; TEMP 36.4–36.7; O2SAT 95–97; BMI 28.0; BMI 27.1
--- NOTE | 2023-04-22 11:26 | RAD_ITS ---
STUDY: X-RAY CHEST REASON FOR EXAM: Male, 87 years old. cough TECHNIQUE: Single AP portable view of the chest. COMPARISON: April 08, 2023 FINDINGS: 1. No change in bilateral lower lobe consolidation and atelectasis with small to moderate-sized pleural effusions 2. The upper lung rubin are clear 3. No new opacities are seen in the upper lung rubin 4. Top normal heart size 5. Stable mediastinum and osseous structures There is no demonstrated abnormality of the visualized soft tissue structures of the upper abdomen. RAD/Chest 1 View (Portable) IMPRESSION: 1. No change in bilateral lower lobe consolidation and atelectasis with small to moderate-sized pleural effusions Electronically Signed: Ramirez Gold MD at 12:37 EST ,
--- NOTE | 2023-04-22 11:27 | CT_ITS ---
STUDY: CT ABDOMEN AND PELVIS WITHOUT CONTRAST REASON FOR EXAM: Male, 87 years old. LLQ pain Shortness of breath, light headedness. History of benign neoplasm of colon, diabetic, hypertension. RADIATION DOSAGE (If Supplied By Facility): CTDIvol = ( 10.48 ) mGy, DLP = ( 563.00 ) mGycm TECHNIQUE: Transaxial images were obtained from the dome of the diaphragm to the symphysis pubis without oral contrast, and without intravenous contrast. Sagittal and coronal images were reconstructed. Individualized dose optimization techniques were used for this CT. COMPARISON: CTA of the chest dated March 02, 2023 FINDINGS: Interval decrease in the size of the pericardial effusion with only a trace amount remaining most likely due to recent pericardial drainage. A small amount of air is seen in the right anterior pericardial space. The heart remains moderately enlarged. Moderate bilateral pleural effusions remain as well as bibasilar atelectasis. Mild to moderate amount of abdominal and pelvic ascites. Diffuse body wall anasarca/edema. Normal liver. Normal gallbladder and extrahepatic biliary system. Normal spleen. Normal pancreas. Normal bilateral adrenal glands. Normal right kidney. Normal left kidney. Normal visualized stomach. Normal small intestine. Normal colon. The appendix is visualized and appears normal. No visualized colonic diverticula, although they could be obscured by the presence of the ascites. No demonstrated abscess or free air. There is diffuse atherosclerotic calcification of the abdominal aorta, without a demonstrated aneurysm. Normal inferior vena cava. Normal retroperitoneum. The bladder is collapsed around a Sebastian catheter and balloon. Normal abdominal wall. There are diffuse degenerative changes of the visualized lumbar spine. CT/Abdomen/Pelvis without Cont IMPRESSION: 1. No visualized colonic diverticula, although they could be obscured by the presence of the ascites. No demonstrated abscess or free air. Electronically Signed: Ramirez Gold MD at 12:50 EST ,
--- NOTE | 2023-04-22 11:28 | EDS_ITS ---
HPI History of Present Illness Chief Complaint: General Illness Informant: patient, family and other Narrative Narrative: Patient presents via EMS secondary to not feeling well. He has a difficult time describing how he does not feel well. Family states he noted increased cough last evening with white phlegm. This morning he has been moaning and cannot seem to be comfortable. EMS documents his sat was 88% on room air at home. He has oxygen to use as needed. As he is lying in bed I asked him if he is in pain and he denies. Caregiver at bedside states that she has noticed increased fluid leaking from his left leg recently. [facility] Medical History Anemia Benign neoplasm of colon Bilateral pleural effusion Carpal tunnel syndrome CHF (congestive heart failure) Diabetes mellitus, type II Diverticulosis of colon (without mention of hemorrhage) Exertional dyspnea Heme positive stool Hx of cardiomyopathy Hyperlipemia Hypertension Incisional hernia without mention of obstruction or gangrene Inguinal hernia Internal hemorrhoids Malignant neoplasm of bladder, part unspecified PAD (peripheral artery disease) Pericardial effusion Personal history of colonic polyps Right inguinal hernia Stenosis of right subclavian artery Home Medications acetaminophen 325 mg tablet 500 mg PO Q6H PRN Pain 10/05/16 [History Last Taken Unknown] albuterol sulfate 90 mcg/actuation aerosol inhaler 1 - 2 puff inhalation Q4H PRN PRN Asthma 10/05/16 [History Last Taken Unknown] aspirin 81 mg chewable tablet 81 mg PO DAILY@0800 preventative 10/05/16 [History Last Taken 04/08/23] finasteride 5 mg tablet 5 mg PO DAILY prostate 10/05/16 [History Last Taken 04/08/23] folic acid 1 mg tablet 1 mg PO DAILY@0800 supplimnent 10/05/16 [History Last Taken 04/08/23] metformin 500 mg tablet 500 mg PO BID diabetes 10/05/16 [History Last Taken 04/08/23] atorvastatin 40 mg tablet 80 mg PO QDAY cholesterol 05/19/17 [History Last Taken 04/08/23] simethicone 80 mg chewable tablet 80 mg PO TID PRN bloating 06/09/22 [History Last Taken 04/08/23] levothyroxine 50 mcg tablet 50 mcg PO MOTUWETHFRSA thyroid 03/04/23 [History Last Taken 04/08/23] levothyroxine 50 mcg tablet 100 mcg PO VILLALOBOS thyroid 03/04/23 [History Last Taken 04/03/23] colchicine 0.6 mg tablet 0.6 mg PO DAILY gout 04/08/23 [History Last Taken Unknown] digoxin 62.5 mcg (0.0625 mg) tablet 0.0625 mg PO DAILY heart health 04/08/23 [History Last Taken 04/08/23] midodrine 10 mg tablet 10 mg PO Q8 blood pressure 04/08/23 [History Last Taken 04/08/23] umeclidinium 62.5 mcg/actuation blister powder for inhalation (Incruse Ellipta) 1 inh inhalation DAILY breathing 04/08/23 [History Last Taken Unknown] furosemide 40 mg tablet 40 mg PO DAILY #30 tabs 04/11/23 [Rx Last Taken Unknown] potassium chloride 20 mEq tablet,extended release(part/cryst) 20 meq PO DAILYCM #30 tabs 04/11/23 [Rx Last Taken Unknown] cefuroxime axetil 500 mg tablet 500 mg PO BID #14 tabs 04/19/23 [Rx Last Taken Unknown] Allergy/AdvReac Type Severity Reaction Status Date / Time No Known Allergies Allergy Verified 04/22/23 10:47 Family History Mother CAD (coronary artery disease) Brother Diabetes Father Heart disease Surgical History History of angioplasty of peripheral vessel History of carpal tunnel surgery History of esophagogastroduodenoscopy (EGD) Hx of angioplasty Hx of aorto-femoral bypass Hx of decompression of ulnar nerve Hx of inguinal hernia repair Hx of local excision of skin lesion Hx of partial cystectomy Hx of ventral hernia repair Rectal fistula S/P colonoscopy S/P colonoscopy with polypectomy Social History Smoking Status: Former smoker second hand exposure: No alcohol intake: never substance use type: does not use caffeine: Yes what type of physical activity do you participate in: none frequency: does not exercise seatbelt use: always ROS ROS ED Constitutional Constitutional ED: Denies fever(s) Eyes Eyes: Denies blurry vision ENT ENT ED: Denies rhinorrhea or sore throat Cardiovascular Cardiovascular: Denies chest pain or palpitations Respiratory/Chest Respiratory/Chest: Reports cough and dyspnea Gastrointestinal Gastrointestinal: Reports other Details: Decreased p.o. intake ; Denies abdominal pain or vomiting Neurologic Neurologic: Reports weakness Allergic/Immunologic Allergic/Immunologic ED: Denies mouth swelling or tongue swelling EXAM Physical Exam Const Vital Signs: 04/22/23 10:47 04/22/23 10:54 04/22/23 10:56 Temperature 98 F 98 F Temperature Source Oral Oral Pulse Rate 91 89 Respiratory Rate 18 22 H Respiratory Effort Normal Non-Labored Respiratory Pattern Normal Blood Pressure 101/73 101/73 Blood Pressure Mean 82 82 Pulse Ox 96 96 Oxygen Delivery Method Room Air Room Air 04/22/23 11:10 04/22/23 11:15 04/22/23 11:20 Temperature Temperature Source Pulse Rate 88 85 85 Respiratory Rate 21 H 18 19 H Respiratory Effort Respiratory Pattern Blood Pressure 99/74 Blood Pressure Mean 84 Pulse Ox Oxygen Delivery Method 04/22/23 11:30 04/22/23 11:40 04/22/23 11:45 Temperature Temperature Source Pulse Rate 85 85 85 Respiratory Rate 22 H 28 H 18 Respiratory Effort Respiratory Pattern Blood Pressure 91/73 85/69 L Blood Pressure Mean 80 76 Pulse Ox Oxygen Delivery Method 04/22/23 11:50 04/22/23 12:00 04/22/23 12:10 Temperature Temperature Source Pulse Rate 86 85 Respiratory Rate 19 H Respiratory Effort Respiratory Pattern Blood Pressure 113/76 Blood Pressure Mean 86 Pulse Ox Oxygen Delivery Method 04/22/23 12:15 04/22/23 12:20 04/22/23 12:30 Temperature Temperature Source Pulse Rate 83 81 82 Respiratory Rate 22 H 17 20 H Respiratory Effort Respiratory Pattern Blood Pressure 104/81 H 115/74 Blood Pressure Mean 89 86 Pulse Ox Oxygen Delivery Method 04/22/23 12:40 04/22/23 12:45 04/22/23 12:50 Temperature Temperature Source Pulse Rate 84 81 84 Respiratory Rate 17 18 18 Respiratory Effort Respiratory Pattern Blood Pressure 97/82 H Blood Pressure Mean 88 Pulse Ox Oxygen Delivery Method 04/22/23 13:00 04/22/23 13:01 04/22/23 13:10 Temperature Temperature Source Pulse Rate 83 81 Respiratory Rate 16 18 Respiratory Effort Respiratory Pattern Blood Pressure 107/73 Blood Pressure Mean 85 Pulse Ox Oxygen Delivery Method 04/22/23 13:15 04/22/23 13:20 04/22/23 13:30 Temperature Temperature Source Pulse Rate 81 81 85 Respiratory Rate 19 H 18 29 H Respiratory Effort Respiratory Pattern Blood Pressure 93/76 Blood Pressure Mean 83 Pulse Ox Oxygen Delivery Method 04/22/23 13:31 04/22/23 13:40 04/22/23 13:45 Temperature Temperature Source Pulse Rate 86 81 84 Respiratory Rate 27 H 19 H 19 H Respiratory Effort Respiratory Pattern Blood Pressure 104/66 89/68 L Blood Pressure Mean 79 76 Pulse Ox Oxygen Delivery Method 04/22/23 13:50 04/22/23 14:00 04/22/23 14:10 Temperature Temperature Source Pulse Rate 82 84 86 Respiratory Rate 18 28 H 18 Respiratory Effort Respiratory Pattern Blood Pressure 99/70 Blood Pressure Mean 76 Pulse Ox Oxygen Delivery Method 04/22/23 14:15 04/22/23 14:20 04/22/23 14:30 Temperature Temperature Source Pulse Rate 87 86 86 Respiratory Rate 22 H 19 H 23 H Respiratory Effort Respiratory Pattern Blood Pressure 96/75 99/83 H Blood Pressure Mean 83 90 Pulse Ox Oxygen Delivery Method 04/22/23 14:40 04/22/23 14:46 04/22/23 14:50 Temperature Temperature Source Pulse Rate 87 86 84 Respiratory Rate 31 H 23 H 21 H Respiratory Effort Respiratory Pattern Blood Pressure 98/71 Blood Pressure Mean 80 Pulse Ox Oxygen Delivery Method 04/22/23 15:00 Temperature Temperature Source Pulse Rate 82 Respiratory Rate Respiratory Effort Respiratory Pattern Blood Pressure Blood Pressure Mean Pulse Ox Oxygen Delivery Method Positive well nourished and well developed General Appearance ED: well developed HEENT Reports dry mucous membranes Mouth ED: Yes dry mucous membranes Mouth: dry mucous membranes Chest Wall inspection of chest normal and palpation of chest normal Resp normal respiratory effort and clear to auscultation bilaterally Cardio regular rate and regular rhythm GI GI Narrative: Abdomen soft with moderate tenderness in the left lower quadrant. No guarding or rebound. Active bowel sounds noted throughout. Extremity normal to inspection Neuro Neuro Narrative: Patient alert and answers questions with short answers. No obvious focal neurologic deficit. Skin Skin Narrative: 3+ edema bilateral lower extremities. No significant sign of cellulitis. MDM MDM MDM Narrative Medical decision making narrative: Patient was placed on quality assurance monitor body. IV line initiated. Chest x-ray obtained to evaluate for acute lung pathology, cardiac size, or mediastinal abnormality. EKG obtained to evaluate for cardiac arrhythmia/ischemia. Labwork obtained to evaluate for leukocytosis, anemia, and electrolyte derangement. Urinalysis obtained to evaluate for infection/hematuria. Swab for COVID, flu, RSV obtained. Given his abdominal tenderness CT scan of the abdomen and pelvis will also be obtained to evaluate for possible diverticulitis. History & Record Review Discussion w/independent historian: Patient, Family and Other Additional record(s) reviewed:: Prior inpatient record, Prior ED visit and Prior labs Lab Data Attestation: I reviewed the patient's lab results. Labs: Laboratory Results - last 24 hr 04/22/23 04/22/23 04/22/23 11:43 11:51 13:50 WBC 8.2 RBC 4.28 L Hgb 11.6 L Hct 37.9 L MCV 88.6 MCH 27.1 MCHC 30.6 L RDW Std Deviation 49.6 H RDW Coeff of Erick 15.2 H Plt Count 184 MPV 10.6 Immature Gran % (Auto) 0.500 Neut % (Auto) 74.2 H Lymph % (Auto) 13.6 L [place] % (Auto) 10.8 H Eos % (Auto) 0.7 Baso % (Auto) 0.2 Absolute Neuts (auto) 6.1 Absolute Lymphs (auto) 1.11 Nucleated RBC % 0 Sodium 138 Potassium 4.4 Chloride 104 Carbon Dioxide 27.0 Anion Gap 7 BUN 44 H Creatinine 1.44 H Estim Creat Clear Calc 32.61 Est GFR (MDRD) Af Amer 60 Est GFR (MDRD) Non-Af 49 L BUN/Creatinine Ratio 30.6 H Glucose 171 H Calcium 8.4 L Total Bilirubin 0.70 Direct Bilirubin 0.22 AST 29 ALT 35 Alkaline Phosphatase 100 Troponin I High Sens 141 H* 125 H* B-Natriuretic Peptide 3802.1 H Total Protein 6.3 L Albumin 2.7 L Globulin 3.6 Lipase 93 H Urine Color Yellow Urine Clarity Sl. Cloudy Urine pH 6.0 Ur Specific [place] 1.015 Urine Protein 100 H Urine Glucose (UA) Normal Urine Ketones Negative Urine Occult Blood 50 H Urine Nitrite Negative Urine Bilirubin Negative Urine Urobilinogen Normal Ur Leukocyte Esterase 500 H Urine RBC 0-5 SEEN Urine WBC 25-50 SEEN Ur Squamous Epith Cells 0-5 SEEN Urine Bacteria 0 SEEN Urine Mucus 0 SEEN Urine Yeast 1+ Radiography Chest X-Ray - ED: 1 View, Read by ED Physician and Chronic Changes Diagnostic Testing: Clinical Impression(s) from Imaging Studies Chest X-Ray 04/22/23 11:26 IMPRESSION: 1. No change in bilateral lower lobe consolidation and atelectasis with small to moderate-sized pleural effusions Electronically Signed: Ramirez Gold MD at 12:37 EST Reading Location ID and State: [id number] [facility] , Service support , Abdomen/Pelvis CT 04/22/23 11:27 IMPRESSION: 1. No visualized colonic diverticula, although they could be obscured by the presence of the ascites. No demonstrated abscess or free air. Electronically Signed: Ramirez Gold MD at 12:50 EST Reading Location ID and State: [facility] , Service support , EKG Initial EKG: Attestation: I personally reviewed and interpreted this EKG as follows: Interpretation: Sinus Rhythm (Sinus at 88 with PVCs. Left bundle branch block. No significant ischemia.) Treatment and Re-Evaluation :: This is a patient's workup was being started I was handed patient's urine culture that was collected on April 19. He grew presumptive E. coli and VRE, however colony counts are very low. CBC was white count of 8.2 with 74% neutrophils. Hemoglobin is 11.6. Chemistry studies reveal a BUN of 44 and creatinine 1.44. This is near the patient's most recent baseline. Initial troponin is elevated at 141 with a repeat of 125. His BNP is elevated today at 3802. Lipase is slightly elevated at 93. Urinalysis shows 25-50 white cells but 0 bacteria and 0 nitrites. Swab for COVID, influenza, and RSV is negative. Portable chest x-ray per my interpretation reveals bilateral pleural effusions and chronic changes. RadIology interpretation reviewed and agrees. With the patient having significant tenderness in the left lower quadrant a CT of the abdomen pelvis was obtained. No visualized colonic diverticula, although could be obscured by presence of ascites. No abscess or free air. Patient does have moderate pleural effusions bilaterally that appear stable from last admission. He had been admitted on a Lasix drip but it did not sound like his pleural effusions improved. We discussed admission for diuresis and poten tial thoracentesis to see if this would help his breathing. It is now Tuesday afternoon and they understand that realistically this would not be done until Tuesday under ultrasound guidance. I also discussed with him if he does not want to go through this, I could call hospice now as they have already been discussing hospice at home. He wants to try treatment in the hospital this weekend to see if he can improve. If not, they are still open to hospice referral. This has been discussed with Dr. Blake and patient will be admitted to PCU. Discharge Plan Triage Chief Complaint: General Illness ED Provider: Lisa Boss Dx/Rx/DC Orders Clinical Impression: CHF exacerbation Prescriptions: No Action atorvastatin 40 mg tablet 80 mg PO QDAY metformin 500 MG tablet 500 mg PO BID acetaminophen 325 MG tablet 500 mg PO Q6H PRN (Reason: Pain) aspirin 81 MG tablet,chewable 81 mg PO DAILY@0800 folic acid 1 MG tablet 1 mg PO DAILY@0800 albuterol sulfate 1 INHALER inhaler 1 - 2 puff INHALATION Q4H PRN PRN (Reason: Asthma) finasteride 5 MG tablet 5 mg PO DAILY simethicone 80 mg Tablet,Chewable 80 mg PO TID PRN (Reason: bloating) levothyroxine 50 mcg tablet 50 mcg PO MOTUWETHFRSA Patient Comments: Take 1 tablet by mouth once daily. Tuesday-Tuesday. Take 2 tablets on Tuesday levothyroxine 50 mcg tablet 100 mcg PO VILLALOBOS digoxin 62.5 mcg (0.0625 mg) tablet 0.0625 mg PO DAILY midodrine 10 mg tablet 10 mg PO Q8 Incruse Ellipta 62.5 mcg/actuation blister with device 1 inh inhalation DAILY colchicine 0.6 mg tablet 0.6 mg PO DAILY furosemide 40 mg Tablet 40 mg PO DAILY Qty: 30 2RF potassium chloride 20 mEq Tablet,Er Particles/Crystals 20 meq PO DAILYCM Qty: 30 0RF cefuroxime axetil 500 mg tablet 500 mg PO BID Qty: 14 0RF Primary Care Provider: Mike Portillo Referrals: Mike Portillo MD [Primary Care Provider] - Disposition Disposition: Acute Care Hospital [facility]
[2023-04-22] MEDS: 0.9% Normal Saline (500mL Bag) 500 ML 1000 ML IV (11:53)
[2023-04-22 11:57] LABS: Bacteria 0 SEEN /hpf (None Seen); Mucous, Urine 0 SEEN /hpf (<or=2+)
[2023-04-22 12:04] LABS: Color, Urine Yellow (Yellow); Glucose, Dipstick Normal (Normal); Ketone-Dipstick Negative (Negative); Leukocyte Esterase-Dipstick 500 /ul (Negative); Nitrite-Dipstick Negative (Negative); Occult Blood-Urine 50 /ul (Negative); Protein-Dipstick 100 mg/dl (Negative); Specific Gravity, Urine 1.015 (1.002-1.030); Urine Bilirubin Dipstick Negative (Negative); Urine Clarity Sl. Cloudy (Clear); Urine Urobilinogen Normal (Normal)
[2023-04-22 12:12] LABS: Red Blood Cells-Urine 0-5 SEEN /hpf (0-5)
[2023-04-22 12:12] LABS: BNP,B-Type NATRIURETIC PEPTIDE 3802.1 pg/mL (0-100)
[2023-04-22 12:13] LABS: Squamous Epithelial Cells - UA 0-5 SEEN /hpf (0-5); White Blood Cells 25-50 SEEN /hpf (0-5); Yeast-Urine 1+ /hpf (None Seen)
[2023-04-22 12:16] LABS: AST(SGOT) 29 U/L (15-37); Absolute Lymphocyte Count 1.11 X10^3/uL (0.83-4.51); Absolute Neutrophil Count 6.1 X10^3/uL (2.0-7.7); Alanine Aminotransfer ALT/SGPT 35 U/L (16-61); Albumin, Serum 2.7 g/dL (3.2-5.0); Alkaline Phosphatase 100 U/L (45-117); Anion Gap 7 (5-15); BUN 44 mg/dL (7-18); BUN/Creat Ratio 30.6 RATIO (10-20); Basophil# 0.02 X10^3/uL; Basophil% 0.2 % (0-1); Bilirubin, Direct 0.22 mg/dL (0.00-0.30); Calcium,Total 8.4 mg/dL (8.5-10.1); Chloride 104 mmol/L (98-107); Creatinine, Serum 1.44 mg/dL (0.70-1.30); EST Glomerular Filtration Rate 49 mL/min (>60); Eosinophil# 0.06 X10^3/uL; Eosinophils% 0.7 % (0-5); Est Glom Filt Rate - Afr Amer 60 mL/min (>60); Estimated Creatinine Clearance 32.61 ml/min; Globulin 3.6 g/dL (2.2-4.2); Glucose 171 mg/dL (74-106); Hematocrit 37.9 % (40-54); Hemoglobin 11.6 g/dL (13.0-16.5); Lipase 93 U/L (13-75); Lymphocyte # 1.11 X10^3/ul (0.83-4.51); Lymphocyte % 13.6 % (19-41); Mean Corp Hgb Conc 30.6 g/dL (32-36); Mean Corpuscular Hgb 27.1 pg (27.0-32.0); Mean Corpuscular Volume 88.6 fL (80-94); Mean Platelet Vol. 10.6 fl (6.2-12.0); Monocyte# 0.88 X10^3/uL; Monocyte% 10.8 % (0-10); NRBC Flagged by Analyzer 0 % (0-5); Neutrophil # 6.07 X10^3/uL (2.7-7.7); Neutrophil % 74.2 % (47-70); Platelet Count 184 K/mm3 (150-450); Potassium 4.4 mmol/L (3.5-5.1); Protein, Total 6.3 g/dL (6.4-8.2); RBC Distribution Width CV 15.2 % (11.6-14.6); RBC Distribution Width SD 49.6 fl (35.1-43.9); Red Blood Count 4.28 M/mm3 (4.6-6.2); Sodium Level 138 mmol/L (136-145); Troponin-I HS 141 pg/mL (3.0-78.0); White Blood Count 8.2 K/mm3 (4.4-11.0)
--- NOTE | 2023-04-22 13:57 | ED.RN ---
pt states to family that I just want to be done. i want to be with my . i want to just go home and . this rn to inform Dr. Boss.
[2023-04-22 14:19] LABS: Troponin-I HS 125 pg/mL (3.0-78.0)
--- NOTE | 2023-04-22 15:42 | HP.PCM.HOS_ITS ---
HPI - General General Date of Admission: 04/22/23 Date of Service: 04/22/23 Chief Complaint: SOB, gen weakness, FTT HPI Narrative GIOVANY MELLO, is a 87-year-old male history of combined heart failure, recent pericardial effusion with pericardiocentesis after Thanksgiving, BPH with urinary obstruction requiring Sebastian placement, PAD, hypothyroidism, hypertension, gout, type 2 diabetes who presented to [facility] 04/22/2023 generally feeling unwell. Has had some increased cough since last evening with white phlegm and is just uncomfortable. Patient was 88% on room air at home and has oxygen that he uses as needed. Given general complaints patient had broad workup, CT abdomen pelvis without abscess or free air, chest x -ray with no change in bilateral lower lobe consolidation and atelectasis but with small to moderate size pleural effusions. He was also found to have a BNP of 3802 and a slightly elevated troponin though troponins always remain mildly elevated. Given clinical picture concern the patient has heart failure exacerbation. Hospitalist contacted for admission. Patient evaluated bedside with family members present. Patient has been progressively declining since February when he had a pericardial effusion that required drainage at the [facility], was here several days ago for urinary retention and had Sebastian placed and is supposed to follow-up with urology come Tuesday, but since that time has become progressively weaker and more short of breath more so this morning, has some chronic lower extremity swelling with left greater than right and they have noted that his left leg has had some increased swelling and weeping, patient also short of breath with minimal exertion. Additionally has had some nausea and dysphagia over the past several days. No diarrhea or constipation. Did have 1 episode earlier where he had brief pressure-like feeling in his chest that was over quickly, denied any other associating factors. Overall is just progressively had failure to thrive [facility] Medical History Anemia Benign neoplasm of colon Bilateral pleural effusion Carpal tunnel syndrome CHF (congestive heart failure) Diabetes mellitus, type II Diverticulosis of colon (without mention of hemorrhage) Exertional dyspnea Heme positive stool Hx of cardiomyopathy Hyperlipemia Hypertension Incisional hernia without mention of obstruction or gangrene Inguinal hernia Internal hemorrhoids Malignant neoplasm of bladder, part unspecified PAD (peripheral artery disease) Pericardial effusion Personal history of colonic polyps Right inguinal hernia Stenosis of right subclavian artery Home Medications acetaminophen 325 mg tablet 500 mg PO Q6H PRN Pain 10/05/16 [History Last Taken Unknown] albuterol sulfate 90 mcg/actuation aerosol inhaler 1 - 2 puff inhalation Q4H PRN PRN Asthma 10/05/16 [History Last Taken Unknown] aspirin 81 mg chewable tablet 81 mg PO DAILY@0800 preventative 10/05/16 [History Last Taken 04/08/23] finasteride 5 mg tablet 5 mg PO DAILY prostate 10/05/16 [History Last Taken 04/08/23] folic acid 1 mg tablet 1 mg PO DAILY@0800 supplimnent 10/05/16 [History Last Taken 04/08/23] metformin 500 mg tablet 500 mg PO BID diabetes 10/05/16 [History Last Taken 04/08/23] atorvastatin 40 mg tablet 80 mg PO QDAY cholesterol 05/19/17 [History Last Taken 04/08/23] simethicone 80 mg chewable tablet 80 mg PO TID PRN bloating 06/09/22 [History Last Taken 04/08/23] levothyroxine 50 mcg tablet 50 mcg PO MOTUWETHFRSA thyroid 03/04/23 [History Last Taken 04/08/23] levothyroxine 50 mcg tablet 100 mcg PO VILLALOBOS thyroid 03/04/23 [History Last Taken 04/03/23] colchicine 0.6 mg tablet 0.6 mg PO DAILY gout 04/08/23 [History Last Taken U nknown] digoxin 62.5 mcg (0.0625 mg) tablet 0.0625 mg PO DAILY heart health 04/08/23 [History Last Taken 04/08/23] midodrine 10 mg tablet 10 mg PO Q8 blood pressure 04/08/23 [History Last Taken 04/08/23] umeclidinium 62.5 mcg/actuation blister powder for inhalation (Incruse Ellipta) 1 inh inhalation DAILY breathing 04/08/23 [History Last Taken Unknown] furosemide 40 mg tablet 40 mg PO DAILY #30 tabs 04/11/23 [Rx Last Taken Unknown] potassium chloride 20 mEq tablet,extended release(part/cryst) 20 meq PO DAILYCM #30 tabs 04/11/23 [Rx Last Taken Unknown] cefuroxime axetil 500 mg tablet 500 mg PO BID #14 tabs 04/19/23 [Rx Last Taken Unknown] Allergy/AdvReac Type Severity Reaction Status Date / Time No Known Allergies Allergy Verified 04/22/23 10:47 Family History Mother CAD (coronary artery disease) Brother Diabetes Father Heart disease Surgical History History of angioplasty of peripheral vessel History of carpal tunnel surgery History of esophagogastroduodenoscopy (EGD) Hx of angioplasty Hx of aorto-femoral bypass Hx of decompression of ulnar nerve Hx of inguinal hernia repair Hx of local excision of skin lesion Hx of partial cystectomy Hx of ventral hernia repair Rectal fistula S/P colonoscopy S/P colonoscopy with polypectomy Social History Smoking Status: Former smoker second hand exposure: No alcohol intake: never substance use type: does not use caffeine: Yes what type of physical activity do you participate in: none frequency: does not exercise seatbelt use: always ROS ROS Narrative General: Denies fever/chills HENT: Denies headache, denies stuffy nose, denies sore throat EYES: Denies changes in vision Resp: Increased shortness of breath, will cough sometimes at night when he wakes up from sleep Cardiac: Had 1 brief episode where he felt some pressure in his chest GI: Denies abdominal pain, denies changes in bowel, has had some nausea and difficulty swallowing : Had urinary retention has Sebastian placed Extremity: Increased lower extremity swelling left greater than right MSK: Generalized weakness Neuro: Denies any numbness/tingling Heme: Denies any bleeding or bruising Skin: Denies rashes Psychiatric: No complaints voiced Vital Signs Vital Signs Vital Signs: 04/22/23 10:47 04/22/23 10:54 04/22/23 10:56 Temperature 98 F 98 F Temperature Source Oral Oral Pulse Rate 91 89 Respiratory Rate 18 22 H Respiratory Effort Normal Non-Labored Respiratory Pattern Normal Blood Pressure 101/73 101/73 Blood Pressure Mean 82 82 Pulse Ox 96 96 Oxygen Delivery Method Room Air Room Air 04/22/23 11:10 04/22/23 11:15 01/05/24 11:20 Temperature Temperature Source Pulse Rate 88 85 85 Respiratory Rate 21 H 18 19 H Respiratory Effort Respiratory Pattern Blood Pressure 99/74 Blood Pressure Mean 84 Pulse Ox Oxygen Delivery Method 04/22/23 11:30 04/22/23 11:40 04/22/23 11:45 Temperature Temperature Source Pulse Rate 85 85 85 Respiratory Rate 22 H 28 H 18 Respiratory Effort Respiratory Pattern Blood Pressure 91/73 85/69 L Blood Pressure Mean 80 76 Pulse Ox Oxygen Delivery Method 04/22/23 11:50 04/22/23 12:00 04/22/23 12:10 Temperature Temperature Source Pulse Rate 86 85 Respiratory Rate 19 H Respiratory Effort Respiratory Pattern Blood Pressure 113/76 Blood Pressure Mean 86 Pulse Ox Oxygen Delivery Method 04/22/23 12:15 04/22/23 12:20 04/22/23 12:30 Temperature Temperature Source Pulse Rate 83 81 82 Respiratory Rate 22 H 17 20 H Respiratory Effort Respiratory Pattern Blood Pressure 104/81 H 115/74 Blood Pressure Mean 89 86 Pulse Ox Oxygen Delivery Method 04/22/23 12:40 04/22/23 12:45 04/22/23 12:50 Temperature Temperature Source Pulse Rate 84 81 84 Respiratory Rate 17 18 18 Respiratory Effort Respiratory Pattern Blood Pressure 97/82 H Blood Pressure Mean 88 Pulse Ox Oxygen Delivery Method 04/22/23 13:00 04/22/23 13:01 04/22/23 13:10 Temperature Temperature Source Pulse Rate 83 81 Respiratory Rate 16 18 Respiratory Effort Respiratory Pattern Blood Pressure 107/73 Blood Pressure Mean 85 Pulse Ox Oxygen Delivery Method 04/22/23 13:15 04/22/23 13:20 04/22/23 13:30 Temperature Temperature Source Pulse Rate 81 81 85 Respiratory Rate 19 H 18 29 H Respiratory Effort Respiratory Pattern Blood Pressure 93/76 Blood Pressure Mean 83 Pulse Ox Oxygen Delivery Method 04/22/23 13:31 04/22/23 13:40 04/22/23 13:45 Temperature Temperature Source Pulse Rate 86 81 84 Respiratory Rate 27 H 19 H 19 H Respiratory Effort Respiratory Pattern Blood Pressure 104/66 89/68 L Blood Pressure Mean 79 76 Pulse Ox Oxygen Delivery Method 04/22/23 13:50 04/22/23 14:00 04/22/23 14:10 Temperature Temperature Source Pulse Rate 82 84 86 Respiratory Rate 18 28 H 18 Respiratory Effort Respiratory Pattern Blood Pressure 99/70 Blood Pressure Mean 76 Pulse Ox Oxygen Delivery Method 04/22/23 14:15 04/22/23 14:20 04/22/23 14:30 Temperature Temperature Source Pulse Rate 87 86 86 Respiratory Rate 22 H 19 H 23 H Respiratory Effort Respiratory Pattern Blood Pressure 96/75 99/83 H Blood Pressure Mean 83 90 Pulse Ox Oxygen Delivery Method 04/22/23 14:40 04/22/23 14:46 04/22/23 14:50 Temperature Temperature Source Pulse Rate 87 86 84 Respiratory Rate 31 H 23 H 21 H Respiratory Effort Respiratory Pattern Blood Pressure 98/71 Blood Pressure Mean 80 Pulse Ox Oxygen Delivery Method 04/22/23 15:00 04/22/23 15:29 04/22/23 15:00 Temperature Temperature Source Pulse Rate 82 Respiratory Rate Respiratory Effort Respiratory Pattern Blood Pressure 96/53 L 106/78 Blood Pressure Mean 67 89 Pulse Ox Oxygen Delivery Method 04/22/23 15:10 04/22/23 15:15 04/22/23 15:20 Temperature Temperature Source Pulse Rate 86 85 Respiratory Rate 21 H 29 H Respiratory Effort Respiratory Pattern Blood Pressure 96/73 Blood Pressure Mean 81 Pulse Ox Oxygen Delivery Method Weight Weight: 81.2 kg Body Mass Index (BMI) 28.0 Physical Exam Narrative General: Alert, oriented, no apparent distress HEENT: Atraumatic, normocephalic Eyes: Anicteric, normal conjunctiva, extraocular movements grossly intact Neck: Supple Respiratory: Diminished bilaterally at the bases, normal respiratory effort Cardiovascular: Regular rate GI: Soft, nontender, nondistended Extremities: 1+ left lower extremity edema, right lower extremity wrapped Musculoskeletal: Moving all extremities Neuro: No overt focal neurological deficits Skin: No rashes appreciated Psych: Cooperative Results Lab / Micro Data 04/22/23 11:43 04/22/23 11:43 Labs: Laboratory Results - last 24 hr 04/22/23 11:43: WBC 8.2, RBC 4.28 L, Hgb 11.6 L, Hct 37.9 L, MCV 88.6, MCH 27.1, MCHC 30.6 L, RDW Std Deviation 49.6 H, RDW Coeff of Erick 15.2 H, Plt Count 184, MPV 10.6, Immature Gran % (Auto) 0.500, Neut % (Auto) 74.2 H, Lymph % (Auto) 13.6 L, [place] % (Auto) 10.8 H, Eos % (Auto) 0.7, Baso % (Auto) 0.2, Absolute Neuts (auto) 6.1, Absolute Lymphs (auto) 1.11, Nucleated RBC % 0, Sodium 138, Potassium 4.4, Chloride 104, Carbon Dioxide 27.0, Anion Gap 7, BUN 44 H, Creatinine 1.44 H, Estim Creat Clear Calc 32.61, Est GFR (MDRD) Af Amer 60, Est GFR (MDRD) Non-Af 49 L, BUN/Creatinine Ratio 30.6 H, Glucose 171 H, Calcium 8.4 L, Total Bilirubin 0.70, Direct Bilirubin 0.22, AST 29, ALT 35, Alkaline Phosphatase 100, Troponin I High Sens 141 H*, B-Natriuretic Peptide 3802.1 H, Total Protein 6.3 L, Albumin 2.7 L, Globulin 3.6, Lipase 93 H 04/22/23 11:51: Urine Color Yellow, Urine Clarity Sl. Cloudy, Urine pH 6.0, Ur Specific [place] 1.015, Urine Protein 100 H, Urine Glucose (UA) Normal, Urine Ketones Negative, Urine Occult Blood 50 H, Urine Nitrite Negative, Urine Bilirubin Negative, Urine Urobilinogen Normal, Ur Leukocyte Esterase 500 H, Urine RBC 0-5 SEEN, Urine WBC 25-50 SEEN, Ur Squamous Epith Cells 0-5 SEEN, Urine Bacteria 0 SEEN, Urine Mucus 0 SEEN, Urine Yeast 1+ 04/22/23 13:50: Troponin I High Sens 125 H* Micro: Microbiology 04/22/23 11:43 Mucosa - Nose SARS-CoV-2, Influenza & RSV (PCR) - Final Imagaing Radiology Impression Chest X-Ray 04/22/23 11:26 IMPRESSION: 1. No change in bilateral lower lobe consolidation and atelectasis with small to moderate-sized pleural effusions Electronically Signed: Ramirez Gold MD at 12:37 EST , Abdomen/Pelvis CT 04/22/23 11:27 IMPRESSION: 1. No visualized colonic diverticula, although they could be obscured by the presence of the ascites. No demonstrated abscess or free air. Electronically Signed: Ramirez Gold MD at 12:50 EST Reading Location ID and State: [address] [place] [address] , Service support , Assessment & Plan Assessment/Plan (1) CHF exacerbation: (2) Acute retention of urine: (3) Acute UTI: (4) Edema of left lower leg: (5) PAD (peripheral artery disease): (6) Dysphagia: PLAN: Plan #Shortness of breath secondary to acute exacerbation of combined heart failure -CT scan did have some ascites and chest x-ray with small to moderate size pleural effusions -BNP 3802 -Daily weights, I's and O's -IV fluids -Continue digoxin -Last echo 03/02/2023 with EF of 30 to 35% with a pericardial effusion at that time -Will repeat limited echo -Will place on lasix gtt -Given left lower extremity is swollen more than right will also obtain lower extremity duplex # Chronically elevated troponin -Similar to March, down trended -No chest pain at present, had brief episode previously of pressure on his chest that resolved, suspect this may be due to fluid overload -Will treat underlying heart failure exacerbation and can recycle troponin if patient has any further symptoms concerning for ACS # BPH with Sebastian placement and recent UTI -Due to low BP he was taken off of his Flomax and had urinary retention, has Sebastian in place and is supposed to follow-up with his urologist on outpatient basis, presently scheduled for Tuesday -Was also started on cefuroxime on 04/19 for UTI associated with the retention -Growing E. coli and also reportedly had VRE but less than 1000 colonies, will place on Rocephin here and repeat culture, can start linezolid and consult ID if further growth or concern for active infection with VRE # Dysphagia -Liquid diet pending speech therapy evaluation # Gout -Continue home medications # PAD -Continue home medications #Hypothyroidism -Continue Synthroid #Type 2 diabetes mellitus -Glucose checks and sliding scale insulin # Hypertension -Had been having problems with low blood pressure on outpatient side, monitor closely # CKD stage IIIa -Has been similar to previous lab work in March, continue supportive care, monitor as patient is diuresed #DVT ppx: lovenox subq Hetal Blake MD Time spent in the patient's overall evaluation,decision-making process, review of diagnostic data, adjustment of management, discussion with other providers, nursing nursing and ancillary staff involved in patient's care documentation, 76Minutes Charges/Coding Visit Charges Inpatient E&M: 04889 Init Hosp L3
--- NOTE | 2023-04-22 16:02 | ECHOL_ITS ---
Reason For Study: Dyspnea/SOB, Eval EF and effusion Procedure This was a limited 2D transthoracic echocardiogram. Exam performed portable in patient room. Left Ventricle Normal LV size. Moderate concentric left ventricular hypertrophy. Severe global left ventricular systolic dysfunction. LVEF approximately 10 to 15%. Unable to assess diastolic dysfunction due to arrhythmia. Septal motion consistent with bundle branch block. Right Ventricle Normal RV size. Mild to moderate global right ventricular systolic dysfunction. Atria The left atrium is mildly enlarged. The right atrium is severely enlarged. Mitral Valve Mild mitral annular calcification. Mild (1+) mitral valve insufficiency. Tricuspid Valve Mild to moderate (1-2+) tricuspid valve insufficiency. Right ventricular systolic pressure estimated to be 58 mmHg. Aortic Valve Trisinus/trileaflet aortic valve. Pulmonic Valve The pulmonic valve is not well visualized. Great Vessels The inferior vena cava is dilated. Pericardium/Pleural Small pericardial effusion. Moderate size right pleural effusion. MMode/2D Measurements & Calculations LVIDd: 4.8 cm IVSd: 1.4 cm LVAd ap4: 33.0 cm2 LVIDs: 4.3 cm LVPWd: 1.4 cm LVLd ap4: 8.2 cm FS: 10.0 % EDV(MOD-sp4): 108.8 ml EDV(sp4-el): 112.7 ml LVAs ap4: 27.9 cm2 LVLs ap4: 7.4 cm ESV(MOD-sp4): 86.3 ml ESV(sp4-el): 89.2 ml EF(MOD-sp4): 20.7 % EF(sp4-el): 20.9 % LVAd ap2: 35.6 cm2 SV(MOD-sp4): 22.6 ml SV(MOD-sp2): 19.6 ml LVLd ap2: 8.1 cm EDV(MOD-sp2): 129.3 ml EDV(sp2-el): 132.5 ml LVAs ap2: 32.3 cm2 LVLs ap2: 7.9 cm ESV(MOD-sp2): 109.6 ml ESV(sp2-el): 112.6 ml EF(MOD-sp2): 15.2 % SV(sp4-el): 23.6 ml Doppler Measurements & Calculations TR max nila: 326.9 cm/sec TR max P.7 mmHg ECHO/Echo, Limited Study Interpretation Summary Moderate concentric left ventricular hypertrophy. Severe global left ventricular systolic dysfunction. LVEF approximately 10 to 15%. Mild to moderate global right ventricular systolic dysfunction. The left atrium is mildly enlarged. Mild (1+) mitral valve insufficiency. Mild to moderate (1-2+) tricuspid valve insufficiency. Right ventricular systolic pressure estimated to be 58 mmHg. Small pericardial effusion. Moderate size right pleural effusion. Ordering Physician: Hetal Blake Referring Physician: Mike Portillo Performed By: Maria Isabel Florian RDCS, RVT
[2023-04-22] MEDS: Ceftriaxone 1 GM/50 ML BAG IV (16:51)
[2023-04-22] MEDS: Furosemide 500 MG in Empty Viaflex 50 mL 1 EACH CONT INF (17:34)
[2023-04-22] MEDS: Midodrine HCl 5 MG Tablet 10 MG PO (17:35)
[2023-04-22 17:47] LABS: Bedside Glucose 106 mg/dL (74-106)
[2023-04-22] MEDS: Ipratropium 0.5 MG/2.5 ML SOLUTION INHALATION (19:45)
[2023-04-22] MEDS: Atorvastatin Calcium 80 MG Tablet PO (20:25)
[2023-04-23] VITALS (8 sets, daily range): BP systolic 91–116; BP diastolic 71–76; PULSE 56–91; RESP 16–24; TEMP 36.4–36.9; O2SAT 94–97; BMI 26.9
[2023-04-23] MEDS: MELATONIN 3 MG TABLET PO (02:22)
[2023-04-23] MEDS: Levothyroxine 50 MCG Tablet PO (05:19)
[2023-04-23 05:38] LABS: Bedside Glucose 137 mg/dL (74-106)
[2023-04-23 07:07] LABS: Absolute Lymphocyte Count 1.79 X10^3/uL (0.83-4.51); Absolute Neutrophil Count 5.4 X10^3/uL (2.0-7.7); Basophil# 0.02 X10^3/uL; Basophil% 0.2 % (0-1); Eosinophil# 0.04 X10^3/uL; Eosinophils% 0.5 % (0-5); Hematocrit 38.1 % (40-54); Hemoglobin 11.4 g/dL (13.0-16.5); Lymphocyte # 1.79 X10^3/ul (0.83-4.51); Lymphocyte % 22.2 % (19-41); Mean Corp Hgb Conc 29.9 g/dL (32-36); Mean Corpuscular Hgb 26.5 pg (27.0-32.0); Mean Corpuscular Volume 88.4 fL (80-94); Mean Platelet Vol. 10.6 fl (6.2-12.0); Monocyte# 0.82 X10^3/uL; Monocyte% 10.1 % (0-10); NRBC Flagged by Analyzer 0 % (0-5); Neutrophil # 5.37 X10^3/uL (2.7-7.7); Neutrophil % 66.5 % (47-70); Platelet Count 207 K/mm3 (150-450); RBC Distribution Width CV 15.1 % (11.6-14.6); RBC Distribution Width SD 49.1 fl (35.1-43.9); Red Blood Count 4.31 M/mm3 (4.6-6.2); White Blood Count 8.1 K/mm3 (4.4-11.0)
[2023-04-23 07:44] LABS: Anion Gap 7 (5-15); BUN 42 mg/dL (7-18); Calcium,Total 9.3 mg/dL (8.5-10.1); Chloride 104 mmol/L (98-107); Creatinine, Serum 1.45 mg/dL (0.70-1.30); EST Glomerular Filtration Rate 49 mL/min (>60); Est Glom Filt Rate - Afr Amer 59 mL/min (>60); Estimated Creatinine Clearance 33.56 ml/min; Glucose 141 mg/dL (74-106); Potassium 4.5 mmol/L (3.5-5.1); Sodium Level 137 mmol/L (136-145); Thyroid Stim Hormone (TSH) 7.27 uIU/mL (0.358-3.74)
[2023-04-23] MEDS: Ceftriaxone 1 GM/50 ML BAG IV (09:29)
[2023-04-23] MEDS: Potassium Chloride Oral Tablet 20 MEQ PO (09:30)
[2023-04-23] MEDS: Enoxaparin 40 MG/0.4 ML Syringe SC (09:30)
[2023-04-23] MEDS: Midodrine HCl 5 MG Tablet 10 MG PO ×3 (09:31→16:33)
[2023-04-23] MEDS: Colchicine 0.6 MG TABLET 0.599999999999999978 MG PO (09:31)
[2023-04-23] MEDS: Aspirin 81 MG TAB.CHEW PO (09:31)
[2023-04-23] MEDS: Digoxin 125 MCG Tablet 62.5 MCG PO (09:40)
[2023-04-23] MEDS: Ensure Plus High Protein 120 ML LIQUID PO ×3 (09:46→16:34)
--- NOTE | 2023-04-23 10:27 | PCM.PN.HOSP ---
Reason for Visit Reason for Visit: Shortness of breath/failure to thrive/generalized weakness Subjective Subjective Mr. Nathan is an 87-year-old white male with a significant past medical history of heart failure. He presented to the emergency department at [facility] on 04/22/2023 complaining of shortness of breath, generalized weakness, and failure to thrive. The patient evidently has progressively been declining since February at which time he had a pericardial effusion that required pericardiocentesis at [facility]. He has been having issues with hypotension and his blood pressure medication has had to been discontinued and he was started on midodrine. Recently, his Flomax had to be discontinued due to his low blood pressure and he elevated did help with a bout of urinary retention that resulted in Sebastian placement. He is supposed to follow-up with urology on Tuesday but he is just become progressively weaker and more short of breath so they brought him to the emergency department. He has chronic lower extremity swelling and they do feel that his leg swelling has gotten worse and started to weep over the past several days. He is short of breath with minimal exertion and has had some nausea and dysphagia over the past several days prior to admission. He is not having consistent chest pain but did have 1 brief episode earlier that felt like pressure but it was over quickly. On presentation his oxygen saturation was 88% on room air and he has oxygen that he uses as needed at home. Vital signs on presentation demonstrated temperature of 98 degrees, blood pressure 111/73, heart rate 91, respiratory rate has been anywhere between 18 and 28, and oxygen saturation was initially 96% on room air. The height hypoxia at 88% was at home. His CBC was stable when compared to baseline. His chemistry panel was stable when compared to baseline. His initial troponin was 141 with a repeat at 125. His BNP was 3802.1. This is the highest BNP he has ever had when presenting to this institution. CT of the abdomen pelvis was obtained and visualized no colonic diverticula or abscesses/free air but he did have moderate bilateral pleural effusions that were stable compared to last admission. Hospice was discussed by the emergency room physician and he and the family wanted to try to see if they can get him feeling a little bit better however are open to hospice discussions as he is really been failing at home. He was admitted to the medical floor and placed on Lasix drip, standard heart failure orders have been placed, echocardiogram has been ordered and pending. Had a long conversation with the patient he is tired of going in and out of the hospitals. We discussed his overall goals of care and hospice. He would very much like to talk to hospice and never have to come back to hospital again. He does realize what hospice is and states that his was enrolled. She in February. Objective Data Objective Data Vital Signs: Vital Signs Temp Pulse Resp BP Pulse Ox O2 Del Method O2 Flow Rate 98.2 F 72 16 91/75 97 Nasal Cannula 1 04/23/23 04:34 04/23/23 09:40 04/23/23 04:34 04/23/23 04:34 04/23/23 04:34 04/23/23 04:34 04/23/23 04:34 Oxygen Flow Rate (L/min) 1 Oxygen Delivery Method Nasal Cannula Weight: 78.1 kg Body Mass Index (BMI) 26.9 Intake & Output: Intake and Output for Last 24 Hours 04/21/23 04/22/23 04/23/23 23:59 23:59 23:59 Intake Total 672.83 / 672.83 0 / 0 Output Total 600 / 600 Balance 72.83 / 72.83 0 / 0 Lab / Micro Data 04/23/23 06:53 04/23/23 06:53 Labs: Laboratory Results - last 24 hr 04/22/23 11:43: WBC 8.2, RBC 4.28 L, Hgb 11.6 L, Hct 37.9 L, MCV 88.6, MCH 27.1, MCHC 30.6 L, RDW Std Deviation 49.6 H, RDW Coeff of Erick 15.2 H, Plt Count 184, MPV 10.6, Immature Gran % (Auto) 0.500, Neut % (Auto) 74.2 H, Lymph % (Auto) 13.6 L, [place] % (Auto) 10.8 H, Eos % (Auto) 0.7, Baso % (Auto) 0.2, Absolute Neuts (auto) 6.1, Absolute Lymphs (auto) 1.11, Nucleated RBC % 0, Sodium 138, Potassium 4.4, Chloride 104, Carbon Dioxide 27.0, Anion Gap 7, BUN 44 H, Creatinine 1.44 H, Estim Creat Clear Calc 32.61, Est GFR (MDRD) Af Amer 60, Est GFR (MDRD) Non-Af 49 L, BUN/Creatinine Ratio 30.6 H, Glucose 171 H, Calcium 8.4 L, Total Bilirubin 0.70, Direct Bilirubin 0.22, AST 29, ALT 35, Alkaline Phosphatase 100, Troponin I High Sens 141 H*, B-Natriuretic Peptide 3802.1 H, Total Protein 6.3 L, Albumin 2.7 L, Globulin 3.6, Lipase 93 H 04/22/23 11:51: Urine Color Yellow, Urine Clarity Sl. Cloudy, Urine pH 6.0, Ur Specific Mcdonald 1.015, Urine Protein 100 H, Urine Glucose (UA) Normal, Urine Ketones Negative, Urine Occult Blood 50 H, Urine Nitrite Negative, Urine Bilirubin Negative, Urine Urobilinogen Normal, Ur Leukocyte Esterase 500 H, Urine RBC 0-5 SEEN, Urine WBC 25-50 SEEN, Ur Squamous Epith Cells 0-5 SEEN, Urine Bacteria 0 SEEN, Urine Mucus 0 SEEN, Urine Yeast 1+ 04/22/23 13:50: Troponin I High Sens 125 H* 04/22/23 16:41: POC Glucose 106 04/23/23 05:18: POC Glucose 137 H 04/23/23 06:53: WBC 8.1, RBC 4.31 L, Hgb 11.4 L, Hct 38.1 L, MCV 88.4, MCH 26.5 L, MCHC 29.9 L, RDW Std Deviation 49.1 H, RDW Coeff of Erick 15.1 H, Plt Count 207, MPV 10.6, Immature Gran % (Auto) 0.500, Neut % (Auto) 66.5, Lymph % (Auto) 22.2, [place] % (Auto) 10.1 H, Eos % (Auto) 0.5, Baso % (Auto) 0.2, Absolute Neuts (auto) 5.4, Absolute Lymphs (auto) 1.79, Nucleated RBC % 0, Sodium 137, Potassium 4.5, Chloride 104, Carbon Dioxide 26.0, Anion Gap 7, BUN 42 H, Creatinine 1.45 H, Estim Creat Clear Calc 33.56, Est GFR (MDRD) Af Amer 59 L, Est GFR (MDRD) Non-Af 49 L, BUN/Creatinine Ratio 29.0 H, Glucose 141 H, Calcium 9.3, TSH 7.27 H Micro: Microbiology 04/22/23 11:43 Mucosa - Nose SARS-CoV-2, Influenza & RSV (PCR) - Final Radiography Diagnostic Testing: Radiology Impression Chest X-Ray 04/22/23 11:26 IMPRESSION: 1. No change in bilateral lower lobe consolidation and atelectasis with small to moderate-sized pleural effusions Electronically Signed: Ramirez Gold MD at 12:37 EST Reading Location ID and State: [address] [place] [address] , Service support , Abdomen/Pelvis CT 04/22/23 11:27 IMPRESSION: 1. No visualized colonic diverticula, although they could be obscured by the presence of the ascites. No demonstrated abscess or free air. Electronically Signed: Ramirez Gold MD at 12:50 EST Reading Location ID and State: [address] [place] [address] , Service support , Physical Exam Const alert, oriented x3, no apparent distress and average body habitus Constitutional Narrative: Extremely pleasant, elderly, white male, sitting up in chair at the bedside, appears comfortable and nontoxic, nursing at bedside, appears chronically ill HEENT head/scalp atraumatic and moist oral mucous membranes HEENT Narrative: Mallampati 2, no thrush Head and Scalp: normocephalic Resp no retractions, no use of accessory muscles and No clear to auscultation bilaterally Resp Narrative: Markedly diminished in the bases of bilateral lungs up until about longterm to the lung rubin with good aeration at the apices, patient with dullness on percussion in bilateral lung bases, mild conversational dyspnea, few crackles above the areas where he has diminished Auscultation: crackles; Negative for rhonchi or wheezes Cardio regular rate, regular rhythm, S1 normal heart sound, S2 normal heart sound, no murmurs, no rub, no gallops and no clicks GI normal to inspection, nondistended, normoactive bowel sounds, soft to palpation and non-tender Extremity Extremity Narrative: Marked 3-4+ bilateral lower extremity spongy pitting edema, no cyanosis or clubbing Neuro oriented x3, moves all extremities and no focal motor deficits Neuro Narrative: Significant generalized weakness noted, proximal greater than distal Speech: speech normal Psych affect normal Psych Narrative: Contact is good, patient is appropriate, interacts appropriately Assessment & Plan Assessment/Plan (1) Dysphagia: (2) CHF exacerbation: (3) Acute retention of urine: PLAN: Plan Shortness of breath secondary to acute exacerbation of combined heart failure -CT scan did have some ascites and chest x-ray with small to moderate size pleural effusions -BNP 3802 -Daily weights, I's and O's -Continue Lasix drip -Add fluid restriction of 1500 cc daily by mouth -Sodium restricted diet -Continue digoxin -Last echo 03/02/2023 with EF of 30 to 35% with a pericardial effusion at that time -Echocardiogram is pending -I did have extensive conversation with the patient today and he would like to speak to hospice Bilateral lower extremity edema -Left greater than right -Duplex lower extremity pending Bilateral pleural effusion -Secondary to heart failure -We could perform a therapeutic thoracentesis however I suspect he will reaccumulate quite quickly Pulmonary hypertension -Who group 3 secondary to heart failure -Lasix as above Chronic troponin elevation -Numbers are similar to March and have trended down -No chest pain upon presentation -Patient has been followed at the heart failure center and had previous catheterization not that long ago with the inability to intervene invasively -Treatment for his CAD is medical management 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 coli but possible VRE with less than 1000 colonies so I suspect this is colonization -Continue ceftriaxone and await cultures--> currently cultures are only showing yeast Dysphagia -Patient is on a liquid diet -Speech therapy consultation is pending CKD stage IIIa -Renal function is stable -Continue to monitor -Avoid nephrotoxins as able Leukocytosis -Likely secondary to the above -Antibiotics as ordered -Continue to monitor clinically CAD/HFrEF/chronic large pleural effusion/history of pericardial effusion -Patient Follows at [facility] with heart failure program -Continue home aspirin -Not on any antihypertensives as he does not tolerate them with low blood pressure -Had recent admission at [facility] for a large-volume pericardiocentesis was performed -Repeat echo is pending History of hypertension -Patient has been having issues with low blood pressures as an outpatient -patient is not currently on any medications for hypertension but is on midodrine -Continue home midodrine 10 every 8 Hyperlipidemia -Continue home atorvastatin Hypothyroidism -Continue home levothyroxine DM-2 -Hold metformin -SSI -Accu-Cheks as ordered History of GERD -Patient is not on any current medication for this DVT prophylaxis -Subcu Lovenox daily CODE STATUS -DNR CCA with no intubation Plan is for patient to meet with hospice tomorrow at noon and discharged with hospice once everything can be organized. Charges/Coding Visit Charges Inpatient E&M: 70530 Subs Hosp L2
[2023-04-23] MEDS: Insulin Lispro 100 UNIT/ML INSULN.PEN SC ×3 (12:14→23:07)
[2023-04-23 12:18] LABS: Bedside Glucose 209 mg/dL (74-106)
--- NOTE | 2023-04-23 12:30 | CASEMGMT ---
RONEY ORTIZ Readmission Note Previous Admission:04/08/23-04/11/23 Diagnosis: CHF, cardiomyopathy DC Disposition: Home with [facility] resuming [place] Current Admission: Admitted 04/22/22 Current Diagnosis: CHF Pt presented on index admission with SOB and increased LE edema. Pt had been taken off of diuretics by cardio d/t lower BP's. Pt was on lasix drip and SOB and edema improved. Pt was switched to PO lasix and DC on the same with follow up with PCP and cardio. Pt presented on current admission wtih increased swelling and overall not feeling well. Pt family had been discussing hospice. Pt with recent barr placed from ER visit. RONEY ORTIZ into pt room, pt states that he is still active with [facility] and has been using his oxygen at home that is through [employer]. Pt reports weighing self daily and taking medications as ordered. Pt reports having followed up with PCP and cardio from last hospital stay. Hospitalist just left room and pt reports he discussed hospice with her. He states he is agreeable to this at home as he does not want to keep coming to the hospital. Hospitalist made RONEY ORTIZ aware and updated SW. DC Plan: Home with Hospice
[2023-04-23] MEDS: Ipratropium 0.5 MG/2.5 ML SOLUTION INHALATION ×2 (13:15→19:13)
--- NOTE | 2023-04-23 13:19 | CASEMGMT ---
Addendum entered by Kasie David 04/23/23 14:27: Social Work Hospice to meet w/pt and son tomorrow at 12pm. SHANTHI Hussein Original Note: Social Work As per physician, pt agreeable to hospice at home. SW called [facility], faxed referral, they are to call son to set up an appointment. SW spoke w/pt, thought daughter is POA, son Dequan is the main local contact as daughter is in [place]. SW will continue to follow. SHANTHI Hussein
[2023-04-23] MEDS: Furosemide 500 MG in Empty Viaflex 50 mL 1 EACH CONT INF (17:09)
[2023-04-23 17:34] LABS: Bedside Glucose 153 mg/dL (74-106)
[2023-04-23] MEDS: Atorvastatin Calcium 80 MG Tablet PO (23:08)
[2023-04-23 23:43] LABS: Bedside Glucose 152 mg/dL (74-106)
[2023-04-24] VITALS (10 sets, daily range): BP systolic 77–103; BP diastolic 62–77; PULSE 50–90; RESP 16–24; TEMP 36.2–36.6; O2SAT 96–99; BMI 26.9
--- NOTE | 2023-04-24 00:35 | EKG12_ITS ---
Test Reason : AARYTHMIA Blood Pressure : / mmHG Vent. Rate : 101 BPM Atrial Rate : 101 BPM P-R Int : 184 ms QRS Dur : 150 ms QT Int : 386 ms P-R-T Axes : 090 -58 113 degrees QTc Int : 500 ms Sinus tachycardia with frequent Premature ventricular complexes Left axis deviation Non-specific intra-ventricular conduction block Minimal voltage criteria for LVH, may be normal variant ( Bowdle product ) Abnormal ECG When compared with ECG of 22-APR-2023 11:26, MANUAL COMPARISON REQUIRED, DATA IS UNCONFIRMED Confirmed by MAYNOR OLMEDO, CRUZITO ([id number]), digital editor JEAN WREN ([id number]) on 04/26/2023 10:20:48 AM Referred By: LEI Confirmed By:CRUZITO MCGUIRE MD
[2023-04-24] MEDS: Insulin Lispro 100 UNIT/ML INSULN.PEN SC ×3 (06:06→22:57)
[2023-04-24] MEDS: Levothyroxine 100 MCG Tablet PO (06:06)
[2023-04-24] MEDS: 0.9% Saline Lock 10 ML Syringe IV ×3 (06:13→22:57)
[2023-04-24] MEDS: Albumin Human 25% (100 mL) 25 GM/100 ML BAG IV (06:51)
[2023-04-24 06:54] LABS: Absolute Neutrophil Count 4.5 X10^3/uL (2.0-7.7); Basophil# 0.01 X10^3/uL; Basophil% 0.1 % (0-1); Eosinophil# 0.06 X10^3/uL; Eosinophils% 0.9 % (0-5); Hematocrit 36.1 % (40-54); Hemoglobin 11.2 g/dL (13.0-16.5); Lymphocyte % 22.9 % (19-41); Mean Corpuscular Hgb 26.6 pg (27.0-32.0); Mean Corpuscular Volume 85.7 fL (80-94); Mean Platelet Vol. 10.5 fl (6.2-12.0); Monocyte# 0.78 X10^3/uL; Monocyte% 11.2 % (0-10); NRBC Flagged by Analyzer 0 % (0-5); Neutrophil # 4.51 X10^3/uL (2.7-7.7); Neutrophil % 64.5 % (47-70); Platelet Count 188 K/mm3 (150-450); RBC Distribution Width CV 15.1 % (11.6-14.6); RBC Distribution Width SD 46.7 fl (35.1-43.9); Red Blood Count 4.21 M/mm3 (4.6-6.2)
[2023-04-24] MEDS: Ipratropium 0.5 MG/2.5 ML SOLUTION INHALATION ×3 (07:07→19:16)
[2023-04-24 07:20] LABS: Anion Gap 9 (5-15); BUN 43 mg/dL (7-18); BUN/Creat Ratio 29.5 RATIO (10-20); Calcium,Total 9.2 mg/dL (8.5-10.1); Chloride 102 mmol/L (98-107); Creatinine, Serum 1.46 mg/dL (0.70-1.30); EST Glomerular Filtration Rate 49 mL/min (>60); Est Glom Filt Rate - Afr Amer 59 mL/min (>60); Estimated Creatinine Clearance 33.33 ml/min; Glucose 168 mg/dL (74-106); Phosphorus 3.6 mg/dL (2.5-4.9); Potassium 3.9 mmol/L (3.5-5.1); Sodium Level 138 mmol/L (136-145)
[2023-04-24 07:21] LABS: Bedside Glucose 183 mg/dL (74-106)
[2023-04-24] MEDS: Aspirin 81 MG TAB.CHEW PO (08:52)
[2023-04-24] MEDS: Potassium Chloride Oral Tablet 20 MEQ PO (08:52)
[2023-04-24] MEDS: Midodrine HCl 5 MG Tablet 10 MG PO ×3 (08:53→18:09)
[2023-04-24] MEDS: Ensure Plus High Protein 120 ML LIQUID PO ×3 (08:53→18:08)
[2023-04-24] MEDS: Digoxin 125 MCG Tablet 62.5 MCG PO (09:01)
[2023-04-24] MEDS: Colchicine 0.6 MG TABLET 0.599999999999999978 MG PO (09:02)
[2023-04-24] MEDS: Ceftriaxone 1 GM/50 ML BAG IV (09:02)
[2023-04-24] MEDS: Enoxaparin 40 MG/0.4 ML Syringe SC (09:04)
[2023-04-24 12:02] LABS: Bedside Glucose 181 mg/dL (74-106)
--- NOTE | 2023-04-24 13:56 | PCM.PN.HOSP ---
Reason for Visit Reason for Visit: Shortness of breath/failure to thrive Subjective Subjective No issues overnight. Patient states he does not feel good today as he did yesterday. We discussed the pleural effusions and possibility of thoracentesis with Pleurx catheter placement for palliative reasons however patient did not want to have a Pleurx catheter placed. I told him that it would be very likely that these recur if we do not put a Pleurx catheter in and he elected not to proceed with a thoracentesis at all. He met with hospice today and has agreed to go home with hospice. They will be delivering his equipment and plan is for discharge tomorrow after he sees urology. Objective Data Objective Data Vital Signs: Vital Signs Temp Pulse Resp BP Pulse Ox O2 Del Method O2 Flow Rate 97.7 F L 70 16 77/62 L 99 Nasal Cannula 2 04/24/23 06:02 04/24/23 13:22 04/24/23 13:22 04/24/23 06:02 04/24/23 13:22 04/24/23 13:22 04/24/23 13:22 Oxygen Flow Rate (L/min) 2 Oxygen Delivery Method Nasal Cannula Weight: 78 kg Body Mass Index (BMI) 26.9 Intake & Output: Intake and Output for Last 24 Hours 04/22/23 04/23/23 04/24/23 23:59 23:59 23:59 Intake Total 672.83 / 672.83 64.72 / 64.72 162.92 / 162.92 Output Total 600 / 600 750 / 1100 1050 / 1050 Balance 72.83 / 72.83 -685.28 / -1035.28 -887.08 / -887.08 Lab / Micro Data 04/24/23 05:38 04/24/23 05:38 Labs: Laboratory Results - last 24 hr 04/23/23 16:31: POC Glucose 153 H 04/23/23 23:04: POC Glucose 152 H 04/24/23 05:38: WBC 7.0, RBC 4.21 L, Hgb 11.2 L, Hct 36.1 L, MCV 85.7, MCH 26.6 L, MCHC 31.0 L, RDW Std Deviation 46.7 H, RDW Coeff of Erick 15.1 H, Plt Count 188, MPV 10.5, Immature Gran % (Auto) 0.400, Neut % (Auto) 64.5, Lymph % (Auto) 22.9, [place] % (Auto) 11.2 H, Eos % (Auto) 0.9, Baso % (Auto) 0.1, Absolute Neuts (auto) 4.5, Absolute Lymphs (auto) 1.60, Nucleated RBC % 0, Sodium 138, Potassium 3.9, Chloride 102, Carbon Dioxide 27.0, Anion Gap 9, BUN 43 H, Creatinine 1.46 H, Estim Creat Clear Calc 33.33, Est GFR (MDRD) Af Amer 59 L, Est GFR (MDRD) Non-Af 49 L, BUN/Creatinine Ratio 29.5 H, Glucose 168 H, Calcium 9.2, Phosphorus 3.6, Magnesium 2.0 04/24/23 05:58: POC Glucose 183 H 04/24/23 11:36: POC Glucose 181 H Micro: Microbiology 04/22/23 18:15 Urine Catheter - Sebastian Urine Culture - Preliminary Yeast 04/22/23 11:43 Mucosa - Nose SARS-CoV-2, Influenza & RSV (PCR) - Final Physical Exam Const alert, oriented x3, no apparent distress and average body habitus Constitutional Narrative: Extremely pleasant, elderly, white male, sitting up in chair at the bedside, appears comfortable and nontoxic, nursing at bedside, appears chronically ill HEENT head/scalp atraumatic and moist oral mucous membranes HEENT Narrative: Mallampati 2, no thrush, temporal wasting noted Head and Scalp: normocephalic Resp no retractions, no use of accessory muscles and No clear to auscultation bilaterally Resp Narrative: Markedly diminished in the bases of bilateral lungs up until about alf to the lung rubin with good aeration at the apices, patient with dullness on percussion in bilateral lung bases, mild conversational dyspnea, few crackles above the areas where he has diminished Auscultation: crackles; Negative for rhonchi or wheezes Cardio regular rate, regular rhythm, S1 normal heart sound, S2 normal heart sound, no murmurs, no rub, no gallops and no clicks Cardio Narrative: Intermittent ectopy GI normal to inspection, nondistended, normoactive bowel sounds, soft to palpation and non-tender Extremity Extremity Narrative: Marked 3-4+ bilateral lower extremity spongy pitting edema, no cyanosis or clubbing, bilateral lower extremities are wrapped today due to weeping Neuro oriented x3, moves all extremities and no focal motor deficits Neuro Narrative: Significant generalized weakness noted, proximal greater than distal Speech: speech normal Psych affect normal Psych Narrative: Contact is good, patient is appropriate, interacts appropriately Assessment & Plan Assessment/Plan (1) Dysphagia: (2) CHF exacerbation: (3) Acute retention of urine: PLAN: Plan Shortness of breath secondary to acute exacerbation of combined heart failure -CT scan did have some ascites and chest x-ray with small to moderate size pleural effusions -BNP 3802 -Daily weights, I's and O's -Continue Lasix drip -Continue fluid restriction of 1500 cc daily by mouth -Continue sodium restricted diet -Continue digoxin -Echocardiogram done on 04/22/2023 showed an EF of 10 to 15% with moderate LVH and severe global ventricular dysfunction, moderate global right ventricular dysfunction, right ventricular systolic pressure of 58 mmHg, small pericardial effusion and a moderate size right pleural effusion was noted -Discussed these findings with Dr. Hazel and he feels that his last echocardiogram over called his EF given the large pericardial effusion that was present at that time actually made his EF looked better than it was. This echo is more congruent with the echo done prior to the one with the pericardial effusion -Patient and family talked with hospice and signed hospice papers today with intent for discharge tomorrow after equipment can be delivered to their house Bilateral lower extremity edema -Left greater than right -Duplex lower extremity pending Bilateral pleural effusion -Secondary to heart failure -Discussed thoracentesis and Pleurx catheter placement for intermittent drainage at home -Did indicate to the patient that these effusions would likely recur very quickly if we just did a thoracentesis without placing a Pleurx catheter and he did not want to go through with thoracentesis or Pleurx catheter placement Pulmonary hypertension -Who group 3 secondary to heart failure -Lasix as above Chronic troponin elevation -Numbers are similar to March and have trended down -No chest pain upon presentation -Patient has been followed at the heart failure center and had previous catheterization not that long ago with the inability to intervene invasively -Treatment for his CAD is medical management 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 coli but possible VRE with less than 1000 colonies so I suspect this is colonization -Continue ceftriaxone and await cultures--> currently cultures are only showing yeast Dysphagia -Patient is on a liquid diet -Speech therapy consultation is pending CKD stage IIIa -Renal function is stable -Continue to monitor -Avoid nephrotoxins as able Leukocytosis -Likely secondary to the above -Antibiotics as ordered -Continue to monitor clinically CAD/HFrEF/chronic large pleural effusion/history of pericardial effusion -Patient Follows at [facility] with heart failure program -Continue home aspirin -Not on any antihypertensives as he does not tolerate them with low blood pressure -Had recent admission at [facility] for a large-volume pericardiocentesis was performed -Repeat echo is pending History of hypertension -Patient has been having issues with low blood pressures as an outpatient -patient is not currently on any medications for hypertension but is on midodrine -Continue home midodrine 10 every 8 Hyperlipidemia -Continue home atorvastatin Hypothyroidism -Continue home levothyroxine DM-2 -Hold metformin -SSI -Accu-Cheks as ordered History of GERD -Patient is not on any current medication for this DVT prophylaxis -Subcu Lovenox daily CODE STATUS -DNR CCA with no intubation And is for patient to be discharged tomorrow with hospice after he is seen by Dr. Randolph on pa with regards to his urinary retention and Sebastian. My guess is he will just need to keep the Sebastian in at end-of-life. Charges/Coding Visit Charges Inpatient E&M: 10323 Subs Hosp L2
[2023-04-24 17:13] LABS: Bedside Glucose 179 mg/dL (74-106)
[2023-04-24] MEDS: Furosemide 20 MG/2 ML VIAL IV ×2 (18:13→22:56)
[2023-04-24] MEDS: Atorvastatin Calcium 80 MG Tablet PO (22:57)
[2023-04-25 00:27] LABS: Bedside Glucose 185 mg/dL (74-106)
[2023-04-25 03:12] VITALS: BMI 26.6
[2023-04-25 04:48] VITALS: BP 88/55; PULSE 89; RESP 18; TEMP 36.9; O2SAT 98
[2023-04-25] MEDS: Levothyroxine 50 MCG Tablet PO (05:11)
[2023-04-25 06:38] LABS: Bedside Glucose 184 mg/dL (74-106)
[2023-04-25 06:45] VITALS: BP 85/61; PULSE 90; RESP 18; TEMP 36.3; O2SAT 98
[2023-04-25] MEDS: Insulin Lispro 100 UNIT/ML INSULN.PEN SC ×2 (06:59→11:12)
[2023-04-25 07:15] VITALS: PULSE 71; RESP 20; O2SAT 97
[2023-04-25] MEDS: Ipratropium 0.5 MG/2.5 ML SOLUTION INHALATION (07:15)
--- NOTE | 2023-04-25 07:29 | CON.PCM.UR_ITS ---
HPI Consult Data Date of Consult: 04/25/23 HPI Narrative Reason for Consultation: Retention of urine HPI Narrative: GIOVANY MELLO, is a 87 M who presents to the hospital with multiple comorbidities he has congestive heart failure, echo shows a very poor ejection fraction. He has bilateral lower extremity edema he is on oxygen. Also he was not able to urinate and a Sebastian catheter was placed. I did do a cystoscopy in the office in the fall which demonstrated significant BPH and obstruction he has not been able to take his prostate medications due to low blood pressure and he developed retention of urine we could consider doing a transurethral resection of the prostate but currently I do not think he is medically optimized. He will to follow-up as an outpatient call me with questions. Continue with Sebastian catheter [facility] Medical History Anemia Benign neoplasm of colon Bilateral pleural effusion Carpal tunnel syndrome CHF (congestive heart failure) Diabetes mellitus, type II Diverticulosis of colon (without mention of hemorrhage) Exertional dyspnea Heme positive stool Hx of cardiomyopathy Hyperlipemia Hypertension Incisional hernia without mention of obstruction or gangrene Inguinal hernia Internal hemorrhoids Malignant neoplasm of bladder, part unspecified PAD (peripheral artery disease) Pericardial effusion Personal history of colonic polyps Right inguinal hernia Stenosis of right subclavian artery Home Medications acetaminophen 325 mg tablet 500 mg PO Q6H PRN Pain 10/05/16 [History Last Taken Unknown] albuterol sulfate 90 mcg/actuation aerosol inhaler 1 - 2 puff inhalation Q4H PRN PRN Asthma 10/05/16 [History Last Taken Unknown] aspirin 81 mg chewable tablet 81 mg PO DAILY@0800 preventative 10/05/16 [History Last Taken 04/08/23] finasteride 5 mg tablet 5 mg PO DAILY prostate 10/05/16 [History Last Taken 04/08/23] folic acid 1 mg tablet 1 mg PO DAILY@0800 supplimnent 10/05/16 [History Last Taken 04/08/23] metformin 500 mg tablet 500 mg PO BID diabetes 10/05/16 [History Last Taken 04/08/23] atorvastatin 40 mg tablet 80 mg PO QDAY cholesterol 05/19/17 [History Last Taken 04/08/23] simethicone 80 mg chewable tablet 80 mg PO TID PRN bloating 06/09/22 [History Last Taken 04/08/23] levothyroxine 50 mcg tablet 50 mcg PO MOTUWETHFRSA thyroid 03/04/23 [History Last Taken 04/08/23] levothyroxine 50 mcg tablet 100 mcg PO VILLALOBOS thyroid 03/04/23 [History Last Taken 04/03/23] colchicine 0.6 mg tablet 0.6 mg PO DAILY gout 04/08/23 [History Last Taken Unk nown] digoxin 62.5 mcg (0.0625 mg) tablet 0.0625 mg PO DAILY heart health 04/08/23 [History Last Taken 04/08/23] midodrine 10 mg tablet 10 mg PO Q8 blood pressure 04/08/23 [History Last Taken 04/08/23] umeclidinium 62.5 mcg/actuation blister powder for inhalation (Incruse Ellipta) 1 inh inhalation DAILY breathing 04/08/23 [History Last Taken Unknown] furosemide 40 mg tablet 40 mg PO DAILY #30 tabs 04/11/23 [Rx Last Taken Unknown] potassium chloride 20 mEq tablet,extended release(part/cryst) 20 meq PO DAILYCM #30 tabs 04/11/23 [Rx Last Taken Unknown] cefuroxime axetil 500 mg tablet 500 mg PO BID #14 tabs 04/19/23 [Rx Last Taken Unknown] Allergy/AdvReac Type Severity Reaction Status Date / Time No Known Allergies Allergy Verified 04/22/23 10:47 Family History Mother CAD (coronary artery disease) Brother Diabetes Father Heart disease Surgical History History of angioplasty of peripheral vessel History of carpal tunnel surgery History of esophagogastroduodenoscopy (EGD) Hx of angioplasty Hx of aorto-femoral bypass Hx of decompression of ulnar nerve Hx of inguinal hernia repair Hx of local excision of skin lesion Hx of partial cystectomy Hx of ventral hernia repair Rectal fistula S/P colonoscopy S/P colonoscopy with polypectomy Social History Smoking Status: Former smoker second hand exposure: No alcohol intake: never substance use type: does not use caffeine: Yes what type of physical activity do you participate in: none frequency: does not exercise seatbelt use: always Lab / Micro Data 04/24/23 05:38 04/24/23 05:38 Labs: Laboratory Results - last 24 hr 04/24/23 11:36: POC Glucose 181 H 04/24/23 16:29: POC Glucose 179 H 04/24/23 22:54: POC Glucose 185 H 04/25/23 06:17: POC Glucose 184 H Micro: Microbiology 04/22/23 18:15 Urine Catheter - Sebastian Urine Culture - Final Presumptive C albicans
[2023-04-25 08:45] VITALS: BP 97/80; PULSE 50; RESP 18; TEMP 36.6; O2SAT 99
[2023-04-25] MEDS: Aspirin 81 MG TAB.CHEW PO (08:51)
[2023-04-25] MEDS: Potassium Chloride Oral Tablet 20 MEQ PO (08:51)
[2023-04-25] MEDS: Colchicine 0.6 MG TABLET 0.599999999999999978 MG PO (08:51)
[2023-04-25] MEDS: Ensure Plus High Protein 120 ML LIQUID PO ×2 (08:51→11:11)
[2023-04-25] MEDS: Enoxaparin 40 MG/0.4 ML Syringe SC (08:51)
[2023-04-25] MEDS: Midodrine HCl 5 MG Tablet 10 MG PO ×2 (08:51→11:11)
[2023-04-25 08:52] VITALS: PULSE 50
[2023-04-25] MEDS: 0.9% Saline Lock 10 ML Syringe IV (08:52)
[2023-04-25] MEDS: Digoxin 125 MCG Tablet 62.5 MCG PO (08:52)
[2023-04-25] MEDS: Ceftriaxone 1 GM/50 ML BAG IV (08:52)
--- NOTE | 2023-04-25 09:42 | CASEMGMT ---
GEORGETTE reviewed chart and noted patient's plan is to go home on [facility]. SW met with patient, his family. SW introduced self and role at [facility]. They confirmed the plan is for patient to go home on [facility]. Family said the equipment has already been delivered. Family said Hospice will be at their home today at 1p. SW let them know SW will send a message to the physician letting him know this information. SW sent a message to hospitalist notifying him of above and that patient needs to be home before 1p. Plan: d/c home with [facility] Cindy RICHTER
--- NOTE | 2023-04-25 11:05 | DCINST_ITS ---
Discharge Instructions Diet Discharge Diet: No restrictions Activity Discharge Activity: No Restrictions Weight Bearing Status: Full weight bearing Follow Up Care Test Results: Test results from this visit will be discussed in further detail at your follow- up appointment, if applicable. Discharge Plan Admission Admit Date/Time: 04/22/23 15:42 Primary Reason for Your Visit: CHF exacerbation Attending Provider: Asif Sahni Primary Care Provider: Mike Portillo Consulting Providers: Hetal Blake; Will Gudino; Sherri Rahman Discharge Orders/Prescriptions Prescriptions: Continued atorvastatin 40 mg tablet 80 mg PO QDAY metformin 500 MG tablet 500 mg PO BID acetaminophen 325 MG tablet 500 mg PO Q6H PRN (Reason: Pain) aspirin 81 MG tablet,chewable 81 mg PO DAILY@0800 folic acid 1 MG tablet 1 mg PO DAILY@0800 albuterol sulfate 1 INHALER inhaler 1 - 2 puff INHALATION Q4H PRN PRN (Reason: Asthma) finasteride 5 MG tablet 5 mg PO DAILY simethicone 80 mg Tablet,Chewable 80 mg PO TID PRN (Reason: bloating) levothyroxine 50 mcg tablet 50 mcg PO MOTUWETHFRSA Patient Comments: Take 1 tablet by mouth once daily. Tuesday-Tuesday. Take 2 tablets on Tuesday levothyroxine 50 mcg tablet 100 mcg PO VILLALOBOS digoxin 62.5 mcg (0.0625 mg) tablet 0.0625 mg PO DAILY midodrine 10 mg tablet 10 mg PO Q8 Incruse Ellipta 62.5 mcg/actuation blister with device 1 inh inhalation DAILY colchicine 0.6 mg tablet 0.6 mg PO DAILY furosemide 40 mg Tablet 40 mg PO DAILY Qty: 30 2RF potassium chloride 20 mEq Tablet,Er Particles/Crystals 20 meq PO DAILYCM Qty: 30 0RF Discontinued cefuroxime axetil 500 mg tablet 500 mg PO BID Qty: 14 0RF Referrals / Follow Up: Mike Portillo MD [Primary Care Provider] - Disposition Disposition (needs filled in before D/C Order can be placed): Hospice in Home
[2023-04-25 11:07] VITALS: BP 97/75; PULSE 99; RESP 18; TEMP 36.6; O2SAT 99
--- NOTE | 2023-04-25 11:10 | DS.PCM_ITS ---
Providers Date of Admission: 04/22/23 Date of Discharge: 04/25/23 Primary Care Physician: Dr. Mike Portillo MD Consultations 04/24/23 13:55 Consult: Urology Routine Consulting Provider: Will Gudino Reason for Consult: Retention EMERGENT Consult: No MD Notified: Yes Date Notified: 04/24/23 Time Notified: 13:55 Method of Notification: Verbal Comments:: pt going home with hospice and had appt with you on 04/25 Reason For Visit: CHF Diagnosis Discharge Diagnosis (1) Dysphagia: Status: Acute Code(s): R13.10 - Dysphagia, unspecified (2) CHF exacerbation: Status: Chronic Code(s): I50.9 - Heart failure, unspecified (3) Acute retention of urine: Status: Acute Code(s): R33.8 - Other retention of urine Medications at Discharge Home Medications acetaminophen 325 mg tablet 500 mg PO Q6H PRN Pain 10/05/16 albuterol sulfate 90 mcg/actuation aerosol inhaler 1 - 2 puff inhalation Q4H PRN PRN Asthma 10/05/16 aspirin 81 mg chewable tablet 81 mg PO DAILY@0800 preventative 10/05/16 finasteride 5 mg tablet 5 mg PO DAILY prostate 10/05/16 folic acid 1 mg tablet 1 mg PO DAILY@0800 supplimnent 10/05/16 metformin 500 mg tablet 500 mg PO BID diabetes 10/05/16 atorvastatin 40 mg tablet 80 mg PO QDAY cholesterol 05/19/17 simethicone 80 mg chewable tablet 80 mg PO TID PRN bloating 06/09/22 levothyroxine 50 mcg tablet 50 mcg PO MOTUWETHFRSA thyroid 03/04/23 levothyroxine 50 mcg tablet 100 mcg PO VILLALOBOS thyroid 03/04/23 colchicine 0.6 mg tablet 0.6 mg PO DAILY gout 04/08/23 digoxin 62.5 mcg (0.0625 mg) tablet 0.0625 mg PO DAILY heart health 04/08/23 midodrine 10 mg tablet 10 mg PO Q8 blood pressure 04/08/23 umeclidinium 62.5 mcg/actuation blister powder for inhalation (Incruse Ellipta) 1 inh inhalation DAILY breathing 04/08/23 furosemide 40 mg tablet 40 mg PO DAILY #30 tabs 12/25/23 potassium chloride 20 mEq tablet,extended release(part/cryst) 20 meq PO DAILYCM #30 tabs 04/11/23 Hospital Course Operations None Procedures EKG, Transthoracic echo and - (Chest x-ray, CT abdomen pelvis without contrast) Summary of Care Provided Minutes Spent on Discharge: 35 Hospital Course: Patient is an 87-year-old male who presented to [facility] ED on 04/22/2023 with worsening shortness of breath and failure to thrive. Hospital course as noted below. Patient was discharged home with hospice in stable condition on 04/25/2023. 1. Acute exacerbation of combined heart failure ? Chest x-ray on admit with small to moderate bilateral pleural effusions, CT abdomen pelvis with some ascites. BNP 3802. Echo 04/22/2023 showed EF 10 to 15%, moderate LVH, severe global ventricular dysfunction, moderate global right ventricular dysfunction, RVSP 58 mmHg, small pericardial effusion. Notably had echo done in 02/2023 that showed an EF of 30 to 35%. However, discussed with cardiology who felt that the ejection fraction from 03/10 was over called given the large pericardial effusion at that time. Patient with good diuresis with Lasix drip, transition to p.o. Lasix prior to discharge. Given patient's severe heart failure, patient and family opted for home with hospice on discharge. 2. Bilateral pleural effusions ? Secondary to heart failure. Discussed thoracentesis and Pleurx catheter placement for intermittent drainage at home but patient and family declined. 3. BPH with obstructive symptoms, chronic urinary retention ? Urology evaluated prior to discharge. Noted that patient would be a candidate for TURP procedure but given patient has opted for hospice care, reasonable to continue chronic Sebastian catheter going home. Continue home finasteride. Urine cultures suspected to be contaminated, no antibiotics required on discharge. 4. Dysphagia ? Maintained on liquid diet while inpatient, okay for regular diet on discharge with hospice. 5. CAD, HFrEF, chronic large pleural effusion, history of pericardial effusion ? Follows with [facility] heart failure program. Recent admission at [facility] for large volume pericardiocentesis. Home with hospice as noted above. Total clinical time spent by myself addressing the patient's medical issues, reviewing all the data, and collaborating with patient's care team: 35 minutes. Physical Exam Const alert, no apparent distress and average body habitus General Appearance: cooperative and comfortable HEENT normocephalic, head/scalp atraumatic and hearing grossly normal bilaterally Eyes PERRL, EOMs intact bilaterally and conjunctivae normal Neck full ROM, no lymphadenopathy and supple Lymph Lymphatic: no lymphadenopathy noted Chest inspection of chest normal Resp normal respiratory effort and no use of accessory muscles Resp Narrative: Mildly decreased breath sounds bilaterally throughout, no wheezing or crackles noted. Cardio regular rate, regular rhythm, no murmurs and peripheral pulses 2+ throughout GI normal to inspection, nondistended, normoactive bowel sounds, soft to palpation, non-tender and non-distended Back/Spine normal ROM Extremity normal to inspection and full ROM Extremity Narrative: Trace lower extremity edema. Skin no rashes or lesions noted Neuro no focal motor deficits and no sensory deficits noted Speech: speech normal Psych mental status grossly normal Weight / BMI Weight Weight: 77.3 kg Body Mass Index (BMI) 26.6 ABG / Lab / Microbiology Data 04/24/23 05:38 04/24/23 05:38 Laboratory: Laboratory Results - last 24 hr 04/24/23 11:36: POC Glucose 181 H 04/24/23 16:29: POC Glucose 179 H 04/24/23 22:54: POC Glucose 185 H 04/25/23 06:17: POC Glucose 184 H Microbiology: Microbiology 04/22/23 18:15 Urine Catheter - Sebastian Urine Culture - Final Presumptive C albicans 04/22/23 11:43 Mucosa - Nose SARS-CoV-2, Influenza & RSV (PCR) - Final D/C Instructions Discharge Diet: No restrictions Weight Bearing Status: Full weight bearing Meaningful Use Info Meaningful Use Diagnoses (Choose all that apply): CHF CHF SARAH BETH/ARB ordered at discharge?: No Reason SARAH BETH/ARB not ordered?: Not indicated Documented LVEF (%): 15 Discharge Plan Admission Admit Date/Time: 04/22/23 15:42 Primary Reason for Your Visit: CHF exacerbation Attending Provider: Asif Sahni Primary Care Provider: Mike Portillo Consulting Providers: Hetal Blake; Will Gudino; Sherri Rahman Discharge Orders/Prescriptions Prescriptions: Continued atorvastatin 40 mg tablet 80 mg PO QDAY metformin 500 MG tablet 500 mg PO BID acetaminophen 325 MG tablet 500 mg PO Q6H PRN (Reason: Pain) aspirin 81 MG tablet,chewable 81 mg PO DAILY@0800 folic acid 1 MG tablet 1 mg PO DAILY@0800 albuterol sulfate 1 INHALER inhaler 1 - 2 puff INHALATION Q4H PRN PRN (Reason: Asthma) finasteride 5 MG tablet 5 mg PO DAILY simethicone 80 mg Tablet,Chewable 80 mg PO TID PRN (Reason: bloating) levothyroxine 50 mcg tablet 50 mcg PO MOTUWETHFRSA Patient Comments: Take 1 tablet by mouth once daily. Tuesday-Tuesday. Take 2 tablets on Tuesday levothyroxine 50 mcg tablet 100 mcg PO VILLALOBOS digoxin 62.5 mcg (0.0625 mg) tablet 0.0625 mg PO DAILY midodrine 10 mg tablet 10 mg PO Q8 Incruse Ellipta 62.5 mcg/actuation blister with device 1 inh inhalation DAILY colchicine 0.6 mg tablet 0.6 mg PO DAILY furosemide 40 mg Tablet 40 mg PO DAILY Qty: 30 2RF potassium chloride 20 mEq Tablet,Er Particles/Crystals 20 meq PO DAILYCM Qty: 30 0RF Discontinued cefuroxime axetil 500 mg tablet 500 mg PO BID Qty: 14 0RF Referrals / Follow Up: Mike Portillo MD [Primary Care Provider] - Disposition Disposition (needs filled in before D/C Order can be placed): Hospice in Home Charges/Coding Visit Charges Inpatient E&M: 70175 Disch Hosp >30min
[2023-04-25] MEDS: Acetaminophen 325 MG Tablet 650 MG PO (11:11)
--- NOTE | 2023-04-25 11:24 | PHA.DC.MR.R ---
Pharmacy [place] Med Reconciliation Pharmacy Service has performed discharge medication reconciliation for this patient. The patient's discharge medication list was reviewed for discrepancies and discrepancies were resolved. Medications at Discharge Home Medications acetaminophen 325 mg tablet 500 mg PO Q6H PRN Pain 10/05/16 albuterol sulfate 90 mcg/actuation aerosol inhaler 1 - 2 puff inhalation Q4H PRN PRN Asthma 10/05/16 aspirin 81 mg chewable tablet 81 mg PO DAILY@0800 preventative 10/05/16 finasteride 5 mg tablet 5 mg PO DAILY prostate 10/05/16 folic acid 1 mg tablet 1 mg PO DAILY@0800 supplimnent 10/05/16 metformin 500 mg tablet 500 mg PO BID diabetes 10/05/16 atorvastatin 40 mg tablet 80 mg PO QDAY cholesterol 05/19/17 simethicone 80 mg chewable tablet 80 mg PO TID PRN bloating 06/09/22 levothyroxine 50 mcg tablet 50 mcg PO MOTUWETHFRSA thyroid 03/04/23 levothyroxine 50 mcg tablet 100 mcg PO VILLALOBOS thyroid 03/04/23 colchicine 0.6 mg tablet 0.6 mg PO DAILY gout 04/08/23 digoxin 62.5 mcg (0.0625 mg) tablet 0.0625 mg PO DAILY heart health 04/08/23 midodrine 10 mg tablet 10 mg PO Q8 blood pressure 04/08/23 umeclidinium 62.5 mcg/actuation blister powder for inhalation (Incruse Ellipta) 1 inh inhalation DAILY breathing 04/08/23 furosemide 40 mg tablet 40 mg PO DAILY #30 tabs 04/11/23 potassium chloride 20 mEq tablet,extended release(part/cryst) 20 meq PO DAILYCM #30 tabs 04/11/23
[2023-04-25 11:58] LABS: Bedside Glucose 211 mg/dL (74-106)
== END 2023-04-25 12:10 | disposition hospice, home (50) | DRG 291 ==
LOC: ED 15:15 → PCU 15:42
PROVIDERS: Internal Medicine; Admitting Provider Internal Medicine; Emergency Provider Emergency Medicine; PCP Family Medicine; Visit Provider Hospitalist
DX: I13.0 Hypertensive heart and chronic kidney disease with heart failure and stage 1 through stage 4 chronic kidney disease, or unspecified chronic kidney disease (principal); I50.43 Acute on chronic combined systolic (congestive) and diastolic (congestive) heart failure; J91.8 Pleural effusion in other conditions classified elsewhere; R18.8 Other ascites; N13.8 Other obstructive and reflux uropathy; I27.23 Pulmonary hypertension due to lung diseases and hypoxia; I95.9 Hypotension, unspecified; E11.22 Type 2 diabetes mellitus with diabetic chronic kidney disease; N18.31 Chronic kidney disease, stage 3a; E11.51 Type 2 diabetes mellitus with diabetic peripheral angiopathy without gangrene; E03.9 Hypothyroidism, unspecified; E78.5 Hyperlipidemia, unspecified; I25.10 Atherosclerotic heart disease of native coronary artery without angina pectoris; M10.9 Gout, unspecified; R62.7 Adult failure to thrive; R13.10 Dysphagia, unspecified; N40.1 Benign prostatic hyperplasia with lower urinary tract symptoms; R33.8 Other retention of urine; R77.8 Other specified abnormalities of plasma proteins; Z66 Do not resuscitate; Z68.26 Body mass index [BMI] 26.0-26.9, adult; Z79.82 Long term (current) use of aspirin; Z79.84 Long term (current) use of oral hypoglycemic drugs; Z79.899 Other long term (current) drug therapy; Z85.46 Personal history of malignant neoplasm of prostate; Z86.79 Personal history of other diseases of the circulatory system; Z87.891 Personal history of nicotine dependence
CPT/HCPCS: 36415; 51702; 71045; 74176; 80048; 80076; 81001; 82962; 83690; 83735; 83880; 84100; 84439; 84443; 84484; 85025; 87077; 87086; 87088; 87186; 87631; 92610; 93005; 93308; 94640; 94668; 97162; 97165; 97535; 99252; 99284; 99285; J7040; P9047; Q9957; A4216; G0463; J1940